=== PATIENT | female | born 1940 | race Caucasian/White ===

== ENCOUNTER 2020-01-09 08:42 | Outpatient (REF) | payer MEDICARE, SELFPAY ==
--- NOTE | 2020-01-09 | MM_ITS ---
EXAMINATION: MM SCREENING DIGITAL BREAST TOMOSYNTHESIS, BILATERAL CLINICAL INFORMATION: Screening. Asymptomatic. The lifetime risk of breast cancer based on the Tyrer-Cuzick Model is 1%. COMPARISON: Mammography: 01/03/2019, 12/29/2017, 12/03/2016 TECHNIQUE: Digital breast tomosynthesis is performed in both the craniocaudal and mediolateral oblique views along with computer-aided detection (CAD). Synthesized 2D images are generated from the tomosynthesis. FINDINGS: The breasts are almost entirely fatty (ACR BI-RADS breast composition Category a). There are no significant masses, abnormal calcifications, or other abnormalities. Background stromal markings are stable. There is no developing density. No significant changes. IMPRESSION: No mammographic evidence of malignancy. ASSESSMENT: BI-RADS 1: Negative RECOMMENDATION: Routine annual mammography screening. This patient's information was entered into a reminder system with a target due date for their next mammogram.
== END 2020-01-09 08:43 | disposition home or self-care (01) ==
LOC: HO.MAMMO 08:42
PROVIDERS: PCP Internal Medicine; Visit Provider Internal Medicine
DX: Z12.31 Encounter for screening mammogram for malignant neoplasm of breast (principal)
CPT/HCPCS: 77063; 77067; 78014

== ENCOUNTER 2020-04-23 07:11 | Outpatient (REF) | payer MEDICARE, SELFPAY ==
[2020-04-23 08:26] LABS: Alanine Aminotransferase 35 U/L (0-31); Anion Gap 14 (12-20); Aspartate Amino Transferase 26 U/L (5-31); Blood Urea Nitrogen 16 mg/dL (9-16); Calcium 9.4 mg/dL (8.4-10.2); Carbon Dioxide 31 mmol/L (22-29); Chloride 100 mmol/L (96-108); Cholesterol 264 mg/dL; Estimated Glomerular Filt Rate 51; Glucose Fasting 99 mg/dL (60-99); HDL Cholesterol 93 mg/dL; LDL Cholesterol Calculated 144 mg/dl; Sodium 141 mmol/L (135-145); Triglycerides 135 mg/dL
[2020-04-23 08:51] LABS: Free T4 (Free Thyroxine) 0.99 ng/dL (0.71-1.85); Thyroid Stimulating Hormone 6.42 uIU/mL (0.32-4.0); Vitamin D 25-OH Total 48.4 ng/mL (>30)
== END 2020-04-23 07:12 | disposition home or self-care (01) ==
LOC: HO.LAB 07:11
PROVIDERS: Visit Provider Internal Medicine
DX: E78.5 Hyperlipidemia, unspecified (principal); I35.0 Nonrheumatic aortic (valve) stenosis; I10 Essential (primary) hypertension; E03.9 Hypothyroidism, unspecified; M85.852 Other specified disorders of bone density and structure, left thigh
CPT/HCPCS: 36415; 80048; 80061; 82306; 84439; 84443; 84450; 84460

== ENCOUNTER 2020-07-30 07:09 | Outpatient (REF) | payer MEDICARE, SELFPAY ==
[2020-07-30 09:16] LABS: Alanine Aminotransferase 34 U/L (0-31); Anion Gap 13 (12-20); Aspartate Amino Transferase 26 U/L (5-31); Blood Urea Nitrogen 17 mg/dL (9-16); Calcium 9.7 mg/dL (8.4-10.2); Carbon Dioxide 32 mmol/L (22-29); Chloride 101 mmol/L (96-108); Cholesterol 255 mg/dL; Estimated Glomerular Filt Rate > 60; Glucose Fasting 96 mg/dL (60-99); HDL Cholesterol 92 mg/dL; LDL Cholesterol Calculated 135 mg/dl; Potassium 3.6 mmol/L (3.3-5.1); Sodium 142 mmol/L (135-145); Triglycerides 143 mg/dL
[2020-07-30 09:38] LABS: Free T4 (Free Thyroxine) 1.05 ng/dL (0.71-1.85); Thyroid Stimulating Hormone 1.23 uIU/mL (0.32-4.0); Vitamin D 25-OH Total 44.3 ng/mL (>30)
== END 2020-07-30 07:10 | disposition home or self-care (01) ==
LOC: HO.LAB 07:09
PROVIDERS: PCP Internal Medicine; Visit Provider Internal Medicine
DX: M85.852 Other specified disorders of bone density and structure, left thigh (principal); I35.0 Nonrheumatic aortic (valve) stenosis; I10 Essential (primary) hypertension; E78.5 Hyperlipidemia, unspecified; E03.9 Hypothyroidism, unspecified; Z78.0 Asymptomatic menopausal state
CPT/HCPCS: 36415; 80048; 80061; 82306; 84439; 84443; 84450; 84460

== ENCOUNTER → 2020-10-10 09:37 | Outpatient (REF) | payer MEDICARE, SELFPAY ==
--- NOTE | 2020-10-10 09:30 | CA_ITS ---
Transthoracic Echocardiogram Patient (Last, First, Middle): Dina Lvey M Gender: Female Date of : 1940 Age: 79 Procedure Date: 10/10/2020 Procedure Type: Transthoracic Echocardiogram Location: OP Height: 149.86 cm Weight: 64.86 kg BSA: 1.60 m2 Heart Rate: bpm BP: 138 / 79 mmHg Yard Demurrage Clerk: DSG Referring MD: Kirk Tejeda MD Symptoms: I35.0 NON RHEU Study Quality: Fair ECG Rhythm: Sinus Conclusions: - The left ventricular systolic function is hyperdynamic. The visually estimated ejection fraction is >70%. - There is moderate calcification of the aortic valve. There is moderate aortic valve stenosis. Findings Left Ventricle Normal left ventricular cavity size. There is normal left ventricular wall thickness. The left ventricular systolic function is hyperdynamic. The visually estimated ejection fraction is >70%. There is no evidence of regional wall motion abnormalities. E/E prime ratio is <8, consistent with normal filling pressures. Evidence suggests grade I (mild) diastolic dysfunction. Right Ventricle Normal right ventricular cavity size and systolic function. Atria Both atria are normal in size. Aortic Valve There is moderate calcification of the aortic valve. There is moderate aortic valve stenosis. The peak aortic velocity is 2.87 m/s with a calculated peak gradient of 33 mmHg. The mean gradient is 19 mmHg. The aortic valve area is 1.11 cm2. There is no aortic valve regurgitation. Dimensionless index 0.38. Mitral Valve There is mild mitral annular calcification. There is no mitral valve regurgitation. There is no mitral valve stenosis. Pulmonic Valve The pulmonic valve was not well visualized. Tricuspid Valve Normal tricuspid valve structure. There is trace tricuspid valve regurgitation. The pulmonary artery systolic pressure is normal. Great Vessels The aortic annulus, sinuses of valsalva, and asc aorta are normal in size. Venous The inferior vena cava is normal in size and collapses greater than 50% with inspiration. Pericardium/Pleural There is no evidence of pericardial effusion. Prior Study Comparison Changes noted compared to prior study dated: 10/10/2019. Slight progression of aortic stenosis. Measurements 2D Linear Measurements IVSd: 0.82 0.6-0.9/0.6-1.0 cm LVIDd: 4.00 3.9-5.3/4.2-5.9 cm LVIDd Index: 2.50 2.4-3.2/2.2-3.1 cm/m2 LVIDs: 2.59 2.0-3.6 cm LVPWd: 0.84 0.7-1.1 cm Ao Root: 2.40 2.1-3.5 cm LA Diam: 3.40 2.7-3.8/3.0-4.0 cm LAIDs Index: 2.13 1.5-2.3 cm/m2 LV Mass: 121.71 67-162/88-224 g LV Mass Index: 76.07 43-95/49-115 g/m2 LVOT Diam: 1.90 3.0+(-)1.3 cm 2D Systolic Function EF 4C: 74.20 >55% Mitral Valve MV Pk E: 0.48 MV PK A: 0.81 MV Decel Time: 117.00 E/A: 0.60 E'Lateral: 7.62 E'Medial: 5.77 E/E' Med: 8.40 E/E' Lat: 6.40 PHT: 34.00 MVA PHT: 6.47 Decel [place]: 4.13 Aortic Valve AoV Pk Gautam: 2.87 AoV Mn Gautam: 2.06 AoV VTI: 0.52 AoV Pk Grad: 33.00 Aov Mn Grad: 19.00 ADALI Cont.VTI: 1.11 LVOT LVOT Pk Gautam: 1.08 LVOT Mn Gautam: 0.76 LVOT VTI: 0.21 LVOT Pk Grad: 5.00 LVOT Mn Grad: 3.00 LVOT Diam: 1.90 LVOT Area: 2.84 Diastolic Function MV Pk E: 0.48 MV Pk A: 0.81 E/A: 0.60 E'Medial: 5.77 E/E' Med: 8.40 E' Laterial: 7.62 E/E' Lat: 6.40 Tricuspid Valve TR Pk Gautam: 2.27 TR Pk Grad: 21.00 RA Press: 3.00 RVSP: 24.00 Great Vessels Aorta Ao Root-2D: 2.40 2.0-3.7 cm Ao Asc: 3.10 2.1-3.4 cm Updated in Other Vendor System with Status of Final Kirk Tejeda MD electronically signed on 10/11/2020 12:54:10 PM with status of Final
== END ==
LOC: HO.CARD 09:37
PROVIDERS: PCP Internal Medicine; Visit Provider Internal Medicine
DX: I35.0 Nonrheumatic aortic (valve) stenosis (principal)
CPT/HCPCS: 93306

== ENCOUNTER → 2020-11-05 09:02 | Outpatient (BNVA) | payer MEDICARE, SELFPAY | PROVIDERS: PCP Internal Medicine; Referring Provider Internal Medicine; Visit Provider Internal Medicine | DX: I35.0 Nonrheumatic aortic (valve) stenosis (principal); I10 Essential (primary) hypertension | CPT/HCPCS: 93005; 99212 ==

== ENCOUNTER 2021-02-04 07:02 | Outpatient (REF) | payer MEDICARE, SELFPAY ==
[2021-02-04 08:42] LABS: Alanine Aminotransferase 22 U/L (0-31); Anion Gap 13 (12-20); Aspartate Amino Transferase 21 U/L (5-31); Blood Urea Nitrogen 15 mg/dL (9-16); Calcium 9.6 mg/dL (8.4-10.2); Carbon Dioxide 30 mmol/L (22-29); Chloride 101 mmol/L (96-108); Cholesterol 251 mg/dL; Estimated Glomerular Filt Rate > 60; Glucose Fasting 91 mg/dL (60-99); HDL Cholesterol 86 mg/dL; LDL Cholesterol Calculated 139 mg/dl; Potassium 3.4 mmol/L (3.3-5.1); Sodium 141 mmol/L (135-145); Triglycerides 133 mg/dL
[2021-02-04 09:02] LABS: Vitamin D 25-OH Total 38.7 ng/mL (>30)
== END 2021-02-04 07:03 | disposition home or self-care (01) ==
LOC: HO.LAB 07:02
PROVIDERS: PCP Internal Medicine; Visit Provider Internal Medicine
DX: I10 Essential (primary) hypertension (principal); E78.5 Hyperlipidemia, unspecified; E03.9 Hypothyroidism, unspecified; M85.852 Other specified disorders of bone density and structure, left thigh; Z78.0 Asymptomatic menopausal state
CPT/HCPCS: 36415; 80048; 80061; 82306; 84439; 84443; 84450; 84460

== ENCOUNTER 2021-03-20 08:25 | Outpatient (REF) | payer MEDICARE, SELFPAY ==
--- NOTE | ~2021-03-20 | MM_ITS ---
EXAMINATION: BONE DENSITOMETRY CLINICAL INDICATION: Osteopenia. COMPARISON: Previous BD dated 01/03/2019 and baseline BD dated 02/10/2007. TECHNIQUE: Using a Hydrophi DXA System (software version: 13.1) manufactured by [employer], dual-energy x-ray absorptiometry was performed of the lumbar spine and left hip. The images are of good technical quality. Summary results are attached. FINDINGS: AP SPINE L1-L4: Current: BMD 1.131 g/cm2, Z-score 1.5, T-score -0.4, normal, 1.3% decrease from previous, 7.1% increase from baseline (<5% change is not significant). Prior: BMD 1.146 g/cm2. Baseline: BMD 1.056 g/cm2. LEFT FEMUR, NECK: Current: BMD 0.832 g/cm2, Z-score 0.8, T-score -1.5, osteopenia. Prior: BMD 0.835 g/cm2. Baseline: BMD 0.856 g/cm2. LEFT FEMUR, TOTAL: Current: BMD 0.967 g/cm2, Z-score 1.8, T-score -0.3, normal, 2.2% decrease from previous, 1.8% increase from baseline (<5% change is not significant). Prior: BMD 0.989 g/cm2. Baseline: BMD 0.950 g/cm2. IDENTIFIED RISK FACTORS: Early menopause, height loss, history of fracture (adult), hysterectomy, left oophorectomy, secondary osteoporosis. HISTORY OF FRACTURE: Humerus. MEDICATIONS: Vitamin D. MM/XR DEXA axial skeleton IMPRESSION: 1. DIAGNOSIS: Osteopenia based on the lowest T-score value of -1.5 in the femoral neck applying World Health Organization criteria. 2. 10-YEAR FRACTURE RISK PREDICTION, FRAX: Major osteoporotic fracture (clinical spine, forearm, hip or shoulder) 19.0%. Hip fracture 4.4%. 3. Treatment Recommendations: NOF guidelines recommend consideration for treatment in postmenopausal women and men age 50 and older presenting with the following: -A hip or vertebral (clinical or morphometric) fracture. -T-score less than or equal to -2.5 at the femoral neck or spine after appropriate evaluation to exclude secondary causes. -Low bone mass at the hip or spine and a 10-year fracture probability by FRAX of greater than or equal to 3% for hip fracture or greater than or equal to 20% for major osteoporotic fracture based on the [place] adapted WHO algorithm. 4. Other Recommendations: All treatment decisions require clinical judgment and consideration of individual patient factors, including patient preferences, comorbidities, previous drug use, risk factors not captured in the FRAX model (e.g. frailty, falls, vitamin D deficiency, increased bone turnover, interval significant decline in bone density) and possible under or overestimation of fracture risk by FRAX. Additional medical evaluation for secondary cause of low bone mineral density may be appropriate. FUTURE SCAN RECOMMENDATION: People with diagnosed cases of osteoporosis or at high risk for fracture should have regular bone mineral density tests. For patients eligible for Medicare, routine testing is allowed once every 2 years. The testing frequency can be increased to one year for patients who have rapidly progressing disease, those who are receiving or discontinuing medical therapy to restore bone mass, or have additional risk factors.
--- NOTE | ~2021-03-20 | MM_ITS ---
EXAMINATION: MM SCREENING DIGITAL BREAST TOMOSYNTHESIS, BILATERAL CLINICAL INFORMATION: Screening. Asymptomatic. The lifetime risk of breast cancer based on the Tyrer-Cuzick Model is 0.7%. COMPARISON: Mammography: January 09, 2020 and studies dating back to September 08, 2013 TECHNIQUE: Digital breast tomosynthesis is performed in both the craniocaudal and mediolateral oblique views along with computer-aided detection (CAD). Synthesized 2D images are generated from the tomosynthesis. FINDINGS: The breasts are almost entirely fatty (ACR BI-RADS breast composition Category a). There are no significant masses, abnormal calcifications, or other abnormalities. MM/MM tomosynthesis screening BI IMPRESSION: There are no significant changes from prior study. ASSESSMENT: BI-RADS 1: Negative RECOMMENDATION: Routine annual mammography screening. This patient's information was entered into a reminder system with a target due date for their next mammogram.
== END 2021-03-20 08:26 | disposition home or self-care (01) ==
LOC: HO.MAMMO 08:25
PROVIDERS: Visit Provider Internal Medicine
DX: Z12.31 Encounter for screening mammogram for malignant neoplasm of breast (principal); M85.852 Other specified disorders of bone density and structure, left thigh; R29.890 Loss of height; Z13.820 Encounter for screening for osteoporosis; Z78.0 Asymptomatic menopausal state
CPT/HCPCS: 77063; 77067; 77080

== ENCOUNTER 2021-08-05 07:07 | Outpatient (REF) | payer MEDICARE, SELFPAY ==
[2021-08-05 07:35] LABS: Imm Gran Abs Auto 0.02 X10*3/uL (0.00-0.03); Imm Gran Pct Auto 0.3 % (0.0-0.4); MANUAL DIFF FLAG SCAN; Mean Platelet Volume 11.2 fL (9.4-12.3); PLT CLUMP 1; SCAN SMEAR FLAG 1
[2021-08-05 07:37] LABS: Basophils Absolute Auto 0.1 X10*3/uL (0.0-0.2); Basophils Percent Auto 0.7 % (0-2); Eosinophils Absolute Auto 0.2 X10*3/uL (0.0-0.4); Eosinophils Percent Auto 3.4 % (0-4); Hematocrit 39.7 % (37.0-47.0); Hemoglobin 13.4 g/dl (12.0-16.0); Lymphocytes Absolute Auto 2.1 X10*3/uL (1.2-4.9); Lymphocytes Percent Auto 29.1 % (20-40); Mean Corpuscular HGB Conc 33.8 g/dl (31.0-35.0); Mean Corpuscular Hemoglobin 32.7 pg (27.0-33.0); Mean Corpuscular Volume 96.8 fL (80.0-98.0); Monocytes Absolute Auto 0.5 X10*3/uL (0.1-1.2); Monocytes Percent Auto 7.1 % (2-11); Neutrophils Absolute Auto 4.2 x10*3/uL (2.0-8.3); Neutrophils Percent Auto 59.4 % (45-73); Red Cell Distribution Width 13.5 % (11.0-16.0)
[2021-08-05 08:10] LABS: Alanine Aminotransferase 36 U/L (0-31); Anion Gap 12 (12-20); Aspartate Amino Transferase 27 U/L (5-31); Blood Urea Nitrogen 16 mg/dL (9-16); Carbon Dioxide 28 mmol/L (22-29); Chloride 103 mmol/L (96-108); Cholesterol 244 mg/dL; Estimated Glomerular Filt Rate > 60; Glucose Fasting 94 mg/dL (60-99); HDL Cholesterol 91 mg/dL; LDL Cholesterol Calculated 129 mg/dl; Potassium 3.9 mmol/L (3.3-5.1); Sodium 139 mmol/L (135-145); Triglycerides 123 mg/dL
[2021-08-05 08:18] LABS: Free T4 (Free Thyroxine) 1.17 ng/dL (0.71-1.85); Thyroid Stimulating Hormone 1.24 uIU/mL (0.32-4.0); Vitamin D 25-OH Total 40.9 ng/mL (>30)
[2021-08-05 08:26] LABS: Platelet Count 180 X10*3/uL (160-400); SLIDE REVIEW VERIFIED
== END 2021-08-05 07:08 | disposition home or self-care (01) ==
LOC: HO.LAB 07:07
PROVIDERS: PCP Internal Medicine; Visit Provider Internal Medicine
DX: E03.9 Hypothyroidism, unspecified (principal); E78.5 Hyperlipidemia, unspecified; I10 Essential (primary) hypertension; I35.0 Nonrheumatic aortic (valve) stenosis; M85.852 Other specified disorders of bone density and structure, left thigh; Z78.0 Asymptomatic menopausal state
CPT/HCPCS: 36415; 80048; 80061; 82306; 84439; 84443; 84450; 84460; 85025

== ENCOUNTER 2021-09-02 11:00 | Outpatient (REF) | payer MEDICARE, SELFPAY ==
--- NOTE | ~2021-09-02 | XR_ITS ---
EXAMINATION: XR KNEE, LEFT CLINICAL INFORMATION: Left knee pain COMPARISON: None TECHNIQUE: Four views of the left knee. FINDINGS: Moderate joint effusion. No fracture or dislocation or destructive lesion. Spurring of the tibial spines and superior patella noted. XR/XR knee LT 4V IMPRESSION: Degenerative changes noted. Joint effusion. No acute findings.
--- NOTE | ~2021-09-02 | XR_ITS ---
EXAMINATION: XR BILATERAL HIPS WITH AP PELVIS CLINICAL INFORMATION: Right hip pain. COMPARISON: None TECHNIQUE: AP view of the pelvis and single views of each hip were obtained. FINDINGS: Mild bilateral hip degenerative joint changes are seen, right greater than left with subcortical cystic changes seen in the superior aspect. There is no acute fracture or dislocation. The bony pelvis is intact. The soft tissues are unremarkable. XR/XR hip BI w PEL1V IMPRESSION: Mild bilateral hip degenerative joint changes most consistent with osteoarthritis. No acute fracture.
== END 2021-09-02 11:01 | disposition home or self-care (01) ==
LOC: HO.HMGCX 11:00
PROVIDERS: PCP Internal Medicine; Visit Provider Internal Medicine
DX: M25.551 Pain in right hip (principal); M25.552 Pain in left hip; M25.562 Pain in left knee
CPT/HCPCS: 73521; 73564

== ENCOUNTER → 2021-10-24 08:32 | Outpatient (REF) | payer MEDICARE, SELFPAY ==
--- NOTE | 2021-10-24 08:39 | CA_ITS ---
Transthoracic Echocardiogram Patient (Last, First, Middle): Dina Levy M Gender: Female Date of : 1940 Age: 80 Procedure Date: 10/24/2021 Procedure Type: Transthoracic Echocardiogram Location: OP Height: 147.32 cm Weight: 63.5 kg BSA: 1.57 m2 Heart Rate: 96 bpm BP: 132 / 68 mmHg Icing And Glaze Maker: SB Referring MD: Kirk Tejeda MD Symptoms: I35.0 - Nonrheumatic aortic (valve) stenosis Study Quality: Adequate ECG Rhythm: Sinus Conclusions: - Normal left ventricular cavity size. There is normal left ventricular wall thickness. The left ventricular systolic function is hyperdynamic. The visually estimated ejection fraction is >70%. - E/E prime ratio is between 8 and 15 consistent with indeterminate filling pressures. - Normal right ventricular cavity size and systolic function. - There is mild to moderate aortic valve stenosis. The peak aortic velocity is 2.86 m/s. The mean gradient is 16 mmHg. Findings Left Ventricle Normal left ventricular cavity size. There is normal left ventricular wall thickness. The left ventricular systolic function is hyperdynamic. The visually estimated ejection fraction is >70%. There is no evidence of regional wall motion abnormalities. Abnormal diastolic function is noted. Spectral Doppler is indicative of an impaired relaxation filling pattern. E/E prime ratio is between 8 and 15 consistent with indeterminate filling pressures. Right Ventricle Normal right ventricular cavity size and systolic function. Atria The left atrium is normal in size. There is no evidence of interatrial shunt by color Doppler. The right atrium is normal in size. Aortic Valve There is a normal trileaflet aortic valve. There is mild calcification of the aortic valve. There is mild thickening of the aortic valve. There is mild to moderate aortic valve stenosis. The peak aortic velocity is 2.86 m/s. The mean gradient is 16 mmHg. There is no aortic valve regurgitation. Mitral Valve The mitral valve appears normal. There is trace mitral valve regurgitation. There is no mitral valve stenosis. Pulmonic Valve The pulmonic valve is likely normal. Tricuspid Valve Normal tricuspid valve structure and function. There is trace tricuspid valve regurgitation. Tricuspid regurgitation envelope is inadequate for calculation of right ventricular systolic pressure. Normal right atrial pressure. Great Vessels All visible segments of the aorta are normal in size. The pulmonary artery was not well visualized. Venous The inferior vena cava is normal in size and collapses greater than 50% with inspiration. Pericardium/Pleural Normal pericardial structure. There is no evidence of pericardial effusion. Prior Study Comparison No significant change compared to prior study dated: 10/10/2020. Measurements 2D Linear Measurements IVSd: 0.59 0.6-0.9/0.6-1.0 cm LVIDd: 4.32 3.9-5.3/4.2-5.9 cm LVIDd Index: 2.75 2.4-3.2/2.2-3.1 cm/m2 LVIDs: 2.34 2.0-3.6 cm LVPWd: 0.52 0.7-1.1 cm LA Diam: 3.60 2.7-3.8/3.0-4.0 cm LAIDs Index: 2.29 1.5-2.3 cm/m2 LV Mass: 82.66 67-162/88-224 g LV Mass Index: 52.65 43-95/49-115 g/m2 LVOT Diam: 2.00 3.0+(-)1.3 cm 2D Systolic Function EF 4C: 62.00 >55% EF 2C: 46.10 >55% EF BiP: 55.50 >55% Mitral Valve MV Pk E: 0.66 MV PK A: 0.98 MV Decel Time: 224.00 E/A: 0.70 E'Lateral: 7.29 E'Medial: 5.87 E/E' Med: 11.20 E/E' Lat: 9.00 PHT: 66.00 MVA PHT: 3.33 Decel [place]: 2.92 Aortic Valve AoV Pk Gautam: 2.86 AoV Mn Gautam: 1.86 AoV VTI: 0.48 AoV Pk Grad: 33.00 Aov Mn Grad: 16.00 ADALI Cont.VTI: 1.55 LVOT LVOT Pk Gautam: 1.24 LVOT Mn Gautam: 0.81 LVOT VTI: 0.24 LVOT Pk Grad: 6.00 LVOT Mn Grad: 3.00 LVOT Diam: 2.00 LVOT Area: 3.14 Diastolic Function MV Pk E: 0.66 MV Pk A: 0.98 E/A: 0.70 E'Medial: 5.87 E/E' Med: 11.20 E' Laterial: 7.29 E/E' Lat: 9.00 Right Ventricle TVS' Gautam: 10.60 Tricuspid Valve RA Press: 3.00 Great Vessels Aorta Sinus of Valsalva: 2.80 2.0-3.5 cm Ao Asc: 3.20 2.1-3.4 cm Pulmonary Valve PV Pk Gautam: 1.43 Peak PV Grad: 8.00 Updated in Other Vendor System with Status of Final Josh Cruz MD electronically signed on 10/26/2021 12:23:38 PM with status of Final
== END ==
LOC: HO.CARD 08:32
PROVIDERS: PCP Internal Medicine; Visit Provider Internal Medicine
DX: I35.0 Nonrheumatic aortic (valve) stenosis (principal)
CPT/HCPCS: 93306

== ENCOUNTER → 2021-12-01 09:10 | Outpatient (BNVA) | payer MEDICARE, SELFPAY | PROVIDERS: PCP Internal Medicine; Referring Provider Internal Medicine; Visit Provider Internal Medicine | DX: I35.0 Nonrheumatic aortic (valve) stenosis (principal); I10 Essential (primary) hypertension; R06.09 Other forms of dyspnea; U09.9 Post COVID-19 condition, unspecified; Z82.49 Family history of ischemic heart disease and other diseases of the circulatory system | CPT/HCPCS: 93005; 99212 ==

== ENCOUNTER 2022-03-02 07:03 | Outpatient (REF) | payer MEDICARE, SELFPAY ==
[2022-03-02 08:26] LABS: Alanine Aminotransferase 25 U/L (0-31); Anion Gap 11 (12-20); Aspartate Amino Transferase 22 U/L (5-31); Blood Urea Nitrogen 16 mg/dL (9-16); Calcium 9.6 mg/dL (8.4-10.2); Carbon Dioxide 31 mmol/L (22-29); Chloride 101 mmol/L (96-108); Cholesterol 231 mg/dL; Estimated Glomerular Filt Rate > 60; Free T4 (Free Thyroxine) 1.14 ng/dL (0.71-1.85); Glucose Fasting 99 mg/dL (60-99); HDL Cholesterol 83 mg/dL; LDL Cholesterol Calculated 120 mg/dl; Potassium 3.7 mmol/L (3.3-5.1); Sodium 139 mmol/L (135-145); Thyroid Stimulating Hormone 0.91 uIU/mL (0.32-4.0); Triglycerides 141 mg/dL; Vitamin D 25-OH Total 43.9 ng/mL (>30)
== END 2022-03-02 07:04 | disposition home or self-care (01) ==
LOC: HO.LAB 07:03
PROVIDERS: PCP Internal Medicine; Visit Provider Internal Medicine
DX: E03.9 Hypothyroidism, unspecified (principal); M85.852 Other specified disorders of bone density and structure, left thigh; I35.0 Nonrheumatic aortic (valve) stenosis; I10 Essential (primary) hypertension; E78.5 Hyperlipidemia, unspecified; Z78.0 Asymptomatic menopausal state
CPT/HCPCS: 36415; 80048; 80061; 82306; 84439; 84443; 84450; 84460

== ENCOUNTER 2022-03-23 08:45 | Outpatient (REF) | payer MEDICARE, SELFPAY ==
--- NOTE | ~2022-03-23 | MM_ITS ---
EXAMINATION: MM SCREENING DIGITAL BREAST TOMOSYNTHESIS, BILATERAL CLINICAL INFORMATION: Screening. Asymptomatic. COMPARISON: Mammography: 03/20/2021, 01/09/2020, 01/03/2019 TECHNIQUE: Digital breast tomosynthesis is performed in both the craniocaudal and mediolateral oblique views along with computer-aided detection (CAD). Synthesized 2D images are generated from the tomosynthesis. FINDINGS: There are scattered areas of fibroglandular density (ACR BI-RADS breast composition Category b). There are no significant masses, abnormal calcifications, or other abnormalities. Again, there are regional ductal secretory calcifications anterior lateral left breast the axillary and skin contours are unremarkable. No significant changes. MM/MM tomosynthesis screening BI IMPRESSION: No mammographic evidence of malignancy. ASSESSMENT: BI-RADS 2: Benign RECOMMENDATION: Routine annual mammography screening. This patient's information was entered into a reminder system with a target due date for their next mammogram.
== END 2022-03-23 08:46 | disposition home or self-care (01) ==
LOC: HO.MAMMO 08:45
PROVIDERS: Visit Provider Internal Medicine
DX: Z12.31 Encounter for screening mammogram for malignant neoplasm of breast (principal)
CPT/HCPCS: 77063; 77067

== ENCOUNTER 2022-09-02 06:51 | Outpatient (REF) | payer MEDICARE, SELFPAY ==
[2022-09-02 08:24] LABS: Alanine Aminotransferase 26 U/L (0-31); Anion Gap 16 (12-20); Aspartate Amino Transferase 23 U/L (5-31); Blood Urea Nitrogen 17 mg/dL (9-16); Calcium 9.9 mg/dL (8.4-10.2); Carbon Dioxide 29 mmol/L (22-29); Chloride 103 mmol/L (96-108); Cholesterol 233 mg/dL; Estimated Glomerular Filt Rate > 60; Glucose Fasting 92 mg/dL (60-99); HDL Cholesterol 83 mg/dL; LDL Cholesterol Calculated 124 mg/dl; Potassium 3.6 mmol/L (3.3-5.1); Sodium 144 mmol/L (135-145); Triglycerides 131 mg/dL
[2022-09-02 08:41] LABS: Free T4 (Free Thyroxine) 1.23 ng/dL (0.71-1.85); Thyroid Stimulating Hormone 0.14 uIU/mL (0.32-4.0); Vitamin D 25-OH Total 45.5 ng/mL (>30)
== END 2022-09-02 06:52 | disposition home or self-care (01) ==
LOC: HO.LAB 06:51
PROVIDERS: PCP Internal Medicine; Visit Provider Internal Medicine
DX: M85.852 Other specified disorders of bone density and structure, left thigh (principal); I35.0 Nonrheumatic aortic (valve) stenosis; I10 Essential (primary) hypertension; E78.5 Hyperlipidemia, unspecified; E03.9 Hypothyroidism, unspecified; M25.551 Pain in right hip; M25.552 Pain in left hip; M25.562 Pain in left knee; Z78.0 Asymptomatic menopausal state
CPT/HCPCS: 36415; 80048; 80061; 82306; 84439; 84443; 84450; 84460

== ENCOUNTER → 2022-11-03 08:55 | Outpatient (REF) | payer MEDICARE, SELFPAY ==
--- NOTE | 2022-11-03 08:57 | CA_ITS ---
Transthoracic Echocardiogram Patient (Last, First, Middle): Dina Levy M Gender: Female Date of : 1940 Age: 81 Procedure Date: 11/03/2022 Procedure Type: Transthoracic Echocardiogram Location: OP Height: 147.32 cm Weight: 63.96 kg BSA: 1.57 m2 Heart Rate: bpm BP: 145 / 80 mmHg Lead Data Architect: AGUSTINA Referring MD: Kirk Tejeda MD Symptoms: I35.0 - Nonrheumatic aortic (valve) stenosis Study Quality: Fair ECG Rhythm: Sinus Conclusions: - The left ventricular systolic function is hyperdynamic. The visually estimated ejection fraction is >70%. - There is moderate aortic valve stenosis. Findings Left Ventricle Normal left ventricular cavity size. There is normal left ventricular wall thickness. The left ventricular systolic function is hyperdynamic. The visually estimated ejection fraction is >70%. There is no evidence of regional wall motion abnormalities. Diastolic function is normal for age. Small intraventricular and LVOT gradients; slight increase with valsalva. Right Ventricle Normal right ventricular cavity size and systolic function. Atria The left atrium is mildly dilated. The right atrium is normal in size. Aortic Valve There is moderate calcification of the aortic valve. There is moderate aortic valve stenosis. The peak aortic velocity is 3.30 m/s with a calculated peak gradient of 44 mmHg. The mean gradient is 26 mmHg. The aortic valve area is 1.25 cm2. There is no aortic valve regurgitation. Dimensionless index 0.4. Mitral Valve There is mild mitral annular calcification. There is no mitral valve regurgitation. There is no mitral valve stenosis. Pulmonic Valve The pulmonic valve is likely normal. Tricuspid Valve There is trace tricuspid valve regurgitation. There is no evidence of pulmonary hypertension. Great Vessels The asc aorta is normal in size. Venous The inferior vena cava is normal in size and collapses greater than 50% with inspiration. Pericardium/Pleural There is no evidence of pericardial effusion. Prior Study Comparison No significant change compared to prior study dated: 10/24/2021. Measurements 2D Linear Measurements IVSd: 0.77 0.6-0.9/0.6-1.0 cm LVIDd: 3.84 3.9-5.3/4.2-5.9 cm LVIDd Index: 2.45 2.4-3.2/2.2-3.1 cm/m2 LVIDs: 1.84 2.0-3.6 cm LVPWd: 0.78 0.7-1.1 cm LA Diam: 3.70 2.7-3.8/3.0-4.0 cm LAIDs Index: 2.36 1.5-2.3 cm/m2 LV Mass: 104.06 67-162/88-224 g LV Mass Index: 66.28 43-95/49-115 g/m2 LVOT Diam: 2.00 3.0+(-)1.3 cm Mitral Valve MV Pk E: 0.68 MV PK A: 1.05 MV Decel Time: 165.00 E/A: 0.70 E'Lateral: 7.72 E'Medial: 6.31 E/E' Med: 10.80 E/E' Lat: 8.80 PHT: 48.00 MVA PHT: 4.58 Decel [place]: 4.15 Aortic Valve AoV Pk Gautam: 3.30 AoV Mn Gautam: 2.41 AoV VTI: 0.63 AoV Pk Grad: 44.00 Aov Mn Grad: 26.00 ADALI Cont.VTI: 1.25 LVOT LVOT Pk Gautam: 1.32 LVOT Mn Gautam: 0.86 LVOT VTI: 0.25 LVOT Pk Grad: 7.00 LVOT Mn Grad: 3.00 LVOT Diam: 2.00 LVOT Area: 3.14 Diastolic Function MV Pk E: 0.68 MV Pk A: 1.05 E/A: 0.70 E'Medial: 6.31 E/E' Med: 10.80 E' Laterial: 7.72 E/E' Lat: 8.80 Right Ventricle TAPSE (mm): 20.40 TVS' Gautam: 17.20 Tricuspid Valve RA Press: 3.00 Great Vessels Aorta Sinus of Valsalva: 2.82 2.0-3.[address] [place]: 2.55 1.7-3.4 cm Ao Asc: 3.30 2.1-3.4 cm Updated in Other Vendor System with Status of Final Kirk Tejeda MD electronically signed on 11/05/2022 4:25:07 PM with status of Final
== END ==
LOC: HO.CARD 08:55
PROVIDERS: PCP Internal Medicine; Visit Provider Internal Medicine
DX: I35.0 Nonrheumatic aortic (valve) stenosis (principal)
CPT/HCPCS: 93306

== ENCOUNTER → 2022-11-03 08:57 | Outpatient (BNV) | payer MEDICARE, SELFPAY | PROVIDERS: PCP Internal Medicine; Visit Provider Internal Medicine | DX: I35.0 Nonrheumatic aortic (valve) stenosis (principal) | CPT/HCPCS: 93306 ==

== ENCOUNTER 2022-11-30 08:58 | Outpatient (AMB) | payer MEDICARE, SELFPAY ==
--- NOTE | 2022-11-30 09:03 | MHC.OFFVIS ---
Intake Vital Signs 11/30/22 09:06 Height 4 ft 10 in Weight 144 lb 2.917 oz BMI 30.1 BP 124/76 Blood Pressure Location Lt brachial Position Sitting Pulse 97 Intake Visit Reasons: 1 year follow up, after echo Intake Note: 1 year follow up w/ EKG Corporate Trust Officer Required: No Accompanied by: Self / Same As Patient Allergies No Known Allergies Allergy (Verified 11/30/22 09:07) Medication List - Last Reconciled 11/30/22 by Kirk Tejeda MD aspirin (Adult Low Dose Aspirin) 81 mg PO DAILY atorvastatin 20 mg PO DAILY chlorthalidone 25 mg PO QAM cholecalciferol (vitamin D3) 50 mcg PO DAILY levothyroxine 112 mcg PO QAM 90 days HPI HPI Comments History of Present Illness Details Dina is here for follow-up regarding aortic stenosis. She states that she is doing fine. No specific complaints like angina or in fact anything cardiac sounding. Mostly getting along okay. [facility] Medical History (Updated 09/08/22 @ 11:59 by Nuria Hamilton MD) Acquired deformity of toenail Acquired hypothyroidism Bilateral hip pain COVID-19 vaccine dose declined Dyslipidemia Essential hypertension Left medial knee pain Nonrheumatic aortic (valve) stenosis Osteopenia of left femoral neck Post-menopause Tubular adenoma of colon Surgical History History of total abdominal hysterectomy and bilateral salpingo-oophorectomy Hx of cholecystectomy Hx of colonoscopy Family History Father CAD (coronary artery disease) Myocardial infarction Mother Type 2 diabetes mellitus Social History Housing: House Alcohol intake: current Patient Tobacco Use Status: Never used Tobacco e-Cigarette/Vaping Use: Never Used Second Hand Smoke Exposure: No Current occupational status: retired Cognitive needs: No Hearing needs: No Vision needs: Yes Review of Systems Const Denies weakness ENT Denies dizziness Card Denies chest pain, Denies chest pain with activity, Denies syncope, Denies rapid heart rate, Denies pedal edema, Denies edema, Denies leg edema, Denies lightheadedness, Denies palpitations, Denies dyspnea, Denies dyspnea on exertion and Denies orthopnea Resp Denies cough, Denies dyspnea and Denies dyspnea on exertion GI Denies hematochezia and Denies change in stool character Musc Denies abnormal gait, Denies muscle cramps, Denies muscle weakness, Denies numbness, Denies radiating pain into limb and Denies tingling Neuro Denies abnormal gait, Denies dizziness, Denies syncope, Denies numbness, Denies tingling and Denies weakness Endo Denies palpitations Physical Exam Vital Signs: Last Vital Signs Pulse 97 11/30/22 09:06 BP 124/76 11/30/22 09:06 BMI result Body Mass Index 30.1 Const General: comfortable and no acute distress Orientation/consciousness: patient oriented x3 HEENT Other: Unremarkable Head: Yes normal to inspection Neck Neck: Yes normal visual inspection Chest Chest palpation & inspection: normal inspection of the chest Resp Other: Minimal wheeze. Cardio Palpation: normal PMI Heart sounds: S1 normal heart sound present, S2 normal heart sound present, no gallops, Murmur heart sound present systolic early, II/, at the left sternal border and at the right sternal border and no rubs GI Palpation (GI): Soft to palpation Back/Spine/Pelvis Other: unremarkable Skin General skin exam: no rashes or lesions noted Neuro General: patient oriented x3 Extrem General: Yes normal to inspection Psych Mental Status: mental status grossly normal Office Procedures EKG Details: EKG with sinus rhythm at 97/Min; occasional PVC. [id number], Complete Assessment & Plan Assessment & Plan (1) Nonrheumatic aortic (valve) stenosis: Code(s): I35.0 - Nonrheumatic aortic (valve) stenosis Plan: In the most recent echocardiogram, mean gradient across aortic valve was 26 mm Hg with a peak of 44 mm Hg. Calculated valve area of 1.25 sq cm. Dimensionless index 0.4. No aortic valve regurgitation. Overall, suggest moderate aortic stenosis. , she also has hyperdynamic function with LVEF greater than 70%. That also contributes to some of the gradients. At this time, she has no symptoms and the valve stenosis is also not severe. We will continue to monitor Last stress test from 2019-in Fritz protocol, workload up to 5.6 Mets. Unremarkable perfusion imaging. Discussed in detail about natural history of aortic stenosis including symptoms, treatment options, including eventual TAVR. (2) Essential hypertension: Code(s): I10 - Essential (primary) hypertension Plan: Stable. No changes. Plan Total time spent including review of data, counseling, documentation, coordination of care-31 minutes. Orders: Orders CA echo transthoracic complete 51 Weeks I35.0 - Nonrheumatic aortic (valve) stenosis Coding Level of Care Code Est Pt Level 4 (44481) Diagnoses Nonrheumatic aortic (valve) stenosis I35.0 Essential hypertension I10 CPT Codes EKG - CPT: 64704-[id number], Complete ([id number])
[2022-11-30 09:06] VITALS: BP 124/76; PULSE 97; BMI 30.1
== END 2022-11-30 09:21 | disposition home or self-care (01) ==
PROVIDERS: PCP Internal Medicine; Referring Provider Internal Medicine; Visit Provider Internal Medicine
DX: I35.0 Nonrheumatic aortic (valve) stenosis (principal); I10 Essential (primary) hypertension
CPT/HCPCS: 93010; 99214

== ENCOUNTER → 2022-11-30 08:58 | Outpatient (BNVA) | payer MEDICARE, SELFPAY | PROVIDERS: PCP Internal Medicine; Referring Provider Internal Medicine; Visit Provider Internal Medicine | DX: I35.0 Nonrheumatic aortic (valve) stenosis (principal); I10 Essential (primary) hypertension | CPT/HCPCS: 93005; 99212 ==

== ENCOUNTER 2023-01-07 15:20 | Outpatient (AMB) | payer MEDICARE, SELFPAY ==
[2023-01-07 15:37] VITALS: BP 120/78; PULSE 91; O2SAT 95; BMI 29.5
--- NOTE | 2023-01-07 15:37 | MHC.PC.OV ---
Vital Signs 01/07/23 15:37 Height 4 ft 10 in Weight 141 lb 2 oz BMI 29.5 BP 120/78 Blood Pressure Location Rt brachial Position Sitting Pulse 91 Pulse Source Pulse Oximeter Pulse Oximetry (%) 95 Oxygen Delivery Method Room Air Intake Visit Reasons: Growth vaginal area Intake Note: pt says she noticed 2 nights ago a growth in her vaginal area she denies any pain Allergies No Known Allergies Allergy (Verified 01/08/23 01:35) Medication List - Last Reconciled 01/08/23 by Nuria Hamilton MD aspirin (Adult Low Dose Aspirin) 81 mg PO DAILY atorvastatin 20 mg PO DAILY chlorthalidone 25 mg PO QAM cholecalciferol (vitamin D3) 50 mcg PO DAILY levothyroxine 112 mcg PO QAM 90 days Tobacco use date assessed: 01/07/23 Fall risk assessment: No Falls in past year Last assessed Fall Risk: 01/07/23 Dental Screening Dental Screen Date: 01/07/23 Did you have a dental visit in the last 12 months?: No Did you have a dental problem in the last 6 months where you did not have access to dental care?: No Was dental information given to patient?: No HPI Growth vaginal area HPI Details 82-year-old lady here today complaining of sensation of something inside vaginal canal, more pronounced when she is standing or walking, this has been present for the last several days, not accompanied by any pain, no abdominal wall discharge, no urinary symptoms, no alteration in bowel habits. [facility] Medical History (Updated 01/07/23 @ 15:59 by Nuria Hamilton MD) Prolapse of female pelvic organs COVID-19 vaccine dose declined Left medial knee pain Bilateral hip pain Post-menopause Tubular adenoma of colon Osteopenia of left femoral neck Nonrheumatic aortic (valve) stenosis Essential hypertension Dyslipidemia Acquired hypothyroidism Acquired deformity of toenail Surgical History Hx of colonoscopy History of total abdominal hysterectomy and bilateral salpingo-oophorectomy Hx of cholecystectomy Family History Father CAD (coronary artery disease) Myocardial infarction Mother Type 2 diabetes mellitus Social History Housing: House Alcohol intake: current Patient Tobacco Use Status: Never used Tobacco e-Cigarette/Vaping Use: Never Used Second Hand Smoke Exposure: No Current occupational status: retired Cognitive needs: No Hearing needs: No Vision needs: Yes Questionnaire Thrive Questionnaire Date Thrive assessed: 09/08/22 CARLY-7 AMB Questionnaire CARYL-7 Date CARLY - 7 assessed: 09/08/22 Source: Developed by Drs. Param Hardy, Nat Banerjee, Sony Lopez and colleagues, with an educational cherelle from [employer]. Review of Systems Const Reports no additional complaints GI Reports no additional complaints Denies hematuria, Denies dysuria, Denies pelvic pain, Denies urinary incontinence, Denies urinary urgency and Denies vaginal discharge Physical exam (Primary Care) Vital Signs: Last Vital Signs Pulse 91 01/07/23 15:37 BP 120/78 01/07/23 15:37 Pulse Ox 95 01/07/23 15:37 Oxygen Delivery Method Room Air 01/07/23 15:37 BMI result Body Mass Index 29.5 Tobacco/Smoking Status: Tobacco use Status Tobacco use date assessed 01/07/23 01/07/23 15:41 Patient Tobacco Use Status Never used Tobacco 01/07/23 15:41 e-Cigarette/Vaping Use Never Used 01/07/23 15:41 Thrive Assessment: Date of Thrive Assessment Date Thrive assessed 09/08/22 01/07/23 15:41 Const Other: Alert oriented x3, no acute distress noted, ambulatory normal gait GI Other: Normal bowel sounds, soft, nontender, no mass palpated Other: Protuberant mass at vaginal introitus nontender and reducible External Female Exam: normal external appearance and normal appearance of the urethra Assessment and Plan Assessment & Plan (1) Prolapse of female pelvic organs: Code(s): N81.9 - Female genital prolapse, unspecified Plan: Likely bladder prolapse, , Referred to Urology, patient requesting for female provider. Orders: Referrals Urology Referral N81.9 - Female genital prolapse, unspecified Coding Level of Care Code Est Pt Level 3 (09263) Diagnoses Prolapse of female pelvic organs N81.9
== END 2023-01-07 16:24 | disposition home or self-care (01) ==
PROVIDERS: PCP Internal Medicine; Visit Provider Internal Medicine
DX: N81.9 Female genital prolapse, unspecified (principal)
CPT/HCPCS: 99213

== ENCOUNTER 2023-02-15 08:42 | Outpatient (AMB) | payer MEDICARE, SELFPAY ==
--- NOTE | 2023-02-15 08:43 | A.OFFVIS_ITS ---
Intake Intake Visit Reasons: Female genital prolapse Intake Note: NEW Patient presents today to established treatment for Female Genital: Meds- None Allergies to Antibiotic- No Known Allergies Blood Thinner- Aspirin PVR- 354 mL Yard Jacker Required: No Angiography Nurse: Angiography Nurse Present Accompanied by: Self / Same As Patient Allergies No Known Allergies Allergy (Verified 02/15/23 08:44) HPI HPI Comments History of Present Illness Details Dina is an 82-year-old female who presents today to the office for established treatment for female gential prolapse. 02/15/2023? She is here today for established treatment for female genital prolapse. The patient has a past medical history of hypertension, aortic stenosis, history of total hysterectomy in 1984. She denies any prior cigarette use. Patient was referred by her PCP. She was seen by her PCP on 01/07/2023 for complaints of vaginal bulge and was referred for further evaluation. Patient states that she noted a bulge at the end of December. She complaints of cloudy urine. She denies any burning with urination. She denies any blood in the urine. Pelvic examination: cystocele, a size 3 [place] Ring (w support) pessary was placed. Catheterized PVR was 400 mL. 02/15/2023: Evaluation today?UA?Leukocyt es: 3 +; blood: 1 +.- (voided), ----Cath'd UA leuk 1+ blood trace 02/15/2023: Plan:Renal US was ordered. I will send urine for culture. Follow-up in 10 weeks for pessary maintenance. [facility] Medical History Prolapse of female pelvic organs COVID-19 vaccine dose declined Left medial knee pain Bilateral hip pain Post-menopause Tubular adenoma of colon Osteopenia of left femoral neck Nonrheumatic aortic (valve) stenosis Essential hypertension Dyslipidemia Acquired hypothyroidism Acquired deformity of toenail Surgical History Hx of colonoscopy History of total abdominal hysterectomy and bilateral salpingo-oophorectomy Hx of cholecystectomy Family History Father CAD (coronary artery disease) Myocardial infarction Mother Type 2 diabetes mellitus Social History Housing: House Alcohol intake: current Patient Tobacco Use Status: Never used Tobacco e-Cigarette/Vaping Use: Never Used Second Hand Smoke Exposure: No Current occupational status: retired Cognitive needs: No Hearing needs: No Vision needs: Yes Review of Systems Const All systems reviewed & are unremarkable except as noted in HPI and below Reports no additional complaints Eyes Reports no additional complaints ENT Reports no additional complaints Card Denies dyspnea Resp Denies cough and Denies dyspnea GI Reports no additional complaints Reports no additional complaints Musc Reports no additional complaints Skin/Breast Denies rash and Denies unusual bruising Neuro Reports no additional complaints Psych Reports no additional complaints Endo Reports no additional complaints Jame/Lymph Reports no additional complaints Aller/Immun Reports no additional complaints Physical Exam Const General: cooperative, healthy appearing and no acute distress Orientation/consciousness: patient oriented x3 HEENT Head: Yes normal to inspection, Yes normocephalic and Yes atraumatic Eyes Conjunctivae: conjunctivae normal Neck Neck: Yes normal visual inspection and Yes trachea midline Chest Chest palpation & inspection: normal inspection of the chest Resp Effort & Inspection: normal respiratory effort Cardio Rate: regular rate GI Inspection: Yes normal to inspection Palpation (GI): Soft to palpation Other: grade 2/3 cystocele General: No no CVA tenderness External Female Exam: normal external appearance Speculum Exam - Vagina: vagina atrophic Back/Spine/Pelvis Back: No no CVA tenderness Skin General skin exam: no rashes or lesions noted Neuro General: patient oriented x3 Extrem General: No edema Psych Appearance: grossly normal Office Procedures Bladder/Catheter Procedure Details: Under sterile technique a 14 Jamaican catheter was passed transurethrally, 400 mL urine drained 51197-Mrumei Bladder Catheter Procedure code (CPT) selection complete Post Void Residual Post Residual Void Post Void Residual (PVR): 354 03051-Xcea Void Residual by ultrasound Results AMB Urinalysis, Automated UA Leukoctes 500 Robby/uL Last Edit by MANNY Croft on 02/15/23 09:14 3+ Rufino Olmedo 02/15/23 09:14 UA Nitrite Negative Last Edit by Rufino Olmedo, A on 02/15/23 09:14 UA Urobilinogen 0.2 mg/dL Last Edit by Rufino Olmedo, A on 02/15/23 09:1 4 UA Protein 0 mg/dL Last Edit by Rufino Olmedo, A on 02/15/23 09:14 UA pH 6.5 Last Edit by Rufino Olmedo, A on 02/15/23 09:14 UA Blood 25 Geoffrey/uL Last Edit by Rufino Olmedo, A on 02/15/23 09:14 1+ Rufino Olmedo 02/15/23 09:14 UA Specific [place] 1.010 Last Edit by Rufino Olmedo, [facility] TO [facility] on 02/15/23 09: 14 UA Ketone Negative Last Edit by Rufino Olmedo [facility]END[facility] TO [facility] on 02/15/23 09:14 UA Bilirubin 0 mg/dL Last Edit by Rufino Olmedo A on 02/15/23 09:14 UA Glucose 0 mg/dL Last Edit by Rufino Olmedo [facility]END[facility] TO [facility] on 02/15/23 09:14 Results Reviewed Results Reviewed: Laboratory Last Values Urine pH (Auto) 6.5 02/15/23 08:45 Specific [place] (Auto) 1.010 02/15/23 08:45 Urine Protein (Auto) 0 mg/dL 02/15/23 08:45 Glucose (UA)(Auto) 0 mg/dL 02/15/23 08:45 Urine Ketones (Auto) Negative 02/15/23 08:45 Urine Blood (Auto) 25 Geoffrey/uL 02/15/23 08:45 Urine Nitrite (Auto) Negative 02/15/23 08:45 Urine Bilirubin (Auto) 0 mg/dL 02/15/23 08:45 Urine Urobilinogen (Auto) 0.2 mg/dL 02/15/23 08:45 Leukocyte Esterase (Auto) 500 Robby/uL 02/15/23 08:45 Assessment & Plan Assessment & Plan (1) Prolapse of female pelvic organs: Code(s): N81.9 - Female genital prolapse, unspecified (2) Urinary retention: Code(s): R33.9 - Retention of urine, unspecified Plan Renal US was ordered. I will send urine for culture. Follow-up in 10 weeks for pessary maintenance. Orders: Orders AMB Bladder/Catheter Procedure Today N81.9 - Female genital prolapse, unspecified, R33.9 - Retention of urine, unspecified AMB Urinalysis Automated Today Z13.9 - Encounter for screening, unspecified AMB Post Void Residual by ultrasound Today N39.8 - Other specified disorders of urinary system Urine Culture Today N39.0 - Urinary tract infection, site not specified Patient Instructions: The patient had an opportunity to ask questions regarding treatment plan. All questions were answered. Imaging, Laboratory studies and physical exam results were discussed and reviewed in detail. No major barriers to understanding were identified. The patient expressed understanding and agreement with the above treatment plan. The patient is aware they should contact our office by phone for worsening of their current condition or the appearance of new symptoms. Compliance is encouraged with any medications and followup testing that is ordered. It is a privilege to be allowed the opportunity to participate in the urologic care of your patient. If you have any questions or concerns regarding treatment for the above conditions please do not hesitate to contact me. The office telephone contact is [phone]. This note is constructed in part using voice recognition software. While every effort has been made to ensure accuracy screedman errors may have been included. Yours sincerely, Ambrose Lee MD Coding Level of Care Code New Pt Level 4 (98503) Diagnoses Prolapse of female pelvic organs N81.9 Urinary retention R33.9 CPT Codes Bladder/Catheter Procedure - CPT: 54896-Pfjiwd Bladder Catheter ([id number]) Post Residual Void - PVR CPT Code: 98548-Ycyh Void Residual by ultrasound ([id number])
== END 2023-02-15 10:20 | disposition home or self-care (01) ==
PROVIDERS: PCP Internal Medicine; Visit Provider Urology
DX: N81.9 Female genital prolapse, unspecified (principal); R33.9 Retention of urine, unspecified; Z13.9 Encounter for screening, unspecified
CPT/HCPCS: 57160; 99204

== ENCOUNTER 2023-02-15 08:42 | Outpatient (REF) | payer MEDICARE, SELFPAY | END 2023-02-15 08:43 | disposition home or self-care (01) | LOC: HO.LAB 08:42 | PROVIDERS: PCP Internal Medicine; Visit Provider Urology | DX: N81.9 Female genital prolapse, unspecified (principal); R33.9 Retention of urine, unspecified; N39.0 Urinary tract infection, site not specified | CPT/HCPCS: 51701; 51798; 57160; 81003; 87086; 87088; 87186; 99202 ==

== ENCOUNTER 2023-03-01 07:06 | Outpatient (REF) | payer MEDICARE, SELFPAY ==
[2023-03-01 08:06] LABS: Alanine Aminotransferase 57 U/L (0-31); Anion Gap 13 (12-20); Aspartate Amino Transferase 29 U/L (5-31); Blood Urea Nitrogen 13 mg/dL (9-16); Calcium 9.8 mg/dL (8.4-10.2); Carbon Dioxide 29 mmol/L (22-29); Chloride 102 mmol/L (96-108); Cholesterol 214 mg/dL (<200); Estimated Glomerular Filt Rate > 60; Glucose Fasting 98 mg/dL (60-99); HDL Cholesterol 75 mg/dL (>40); LDL Cholesterol Calculated 114 mg/dL (<100); Potassium 3.4 mmol/L (3.3-5.1); Sodium 141 mmol/L (135-145); Triglycerides 126 mg/dL (<150)
[2023-03-01 08:15] LABS: Free T4 (Free Thyroxine) 1.24 ng/dL (0.71-1.85); Thyroid Stimulating Hormone 0.18 uIU/mL (0.32-4.0)
== END 2023-03-01 07:07 | disposition home or self-care (01) ==
LOC: HO.LAB 07:06
PROVIDERS: PCP Internal Medicine; Visit Provider Internal Medicine
DX: E78.5 Hyperlipidemia, unspecified (principal); I10 Essential (primary) hypertension; E03.9 Hypothyroidism, unspecified
CPT/HCPCS: 36415; 80048; 80061; 84439; 84443; 84450; 84460

== ENCOUNTER 2023-03-09 08:25 | Outpatient (AMB) | payer MEDICARE, SELFPAY ==
--- NOTE | 2023-03-09 08:34 | MHC.PC.OV ---
Vital Signs 03/09/23 08:35 Height 4 ft 10 in Weight 138 lb 6 oz BMI 28.9 BP 118/72 Blood Pressure Location Lt brachial Position Sitting Pulse 90 Pulse Source Pulse Oximeter Pulse Oximetry (%) 96 Oxygen Delivery Method Room Air Intake Visit Reasons: 6m follow up lipids,thyroid Intake Note: pt is here to follow up for lab result she has had her flu vaccine and rsv vaccine Allergies No Known Allergies Allergy (Verified 03/09/23 09:11) Medication List - Last Reconciled 03/09/23 by Nuria Hamilton MD aspirin (Adult Low Dose Aspirin) 81 mg PO DAILY atorvastatin 20 mg PO DAILY chlorthalidone 25 mg PO QAM cholecalciferol (vitamin D3) 50 mcg PO DAILY L. acidophilus/Bifid. animalis 2.5 billion cell (Daily Probiotic) caps PO levothyroxine 112 mcg PO QAM 90 days Tobacco use date assessed: 03/09/23 Fall risk assessment: No Falls in past year Last assessed Fall Risk: 03/09/23 Dental Screening Dental Screen Date: 03/09/23 Did you have a dental visit in the last 12 months?: No Did you have a dental problem in the last 6 months where you did not have access to dental care?: No Was dental information given to patient?: No HPI 6m follow up lipids,thyroid HPI Details 82-year-old lady with dyslipidemia hypothyroidism, here today for her follow-up. She has been feeling well, compliant with taking her medications and has been following her recommended diet. Recent fasting labs done showed fasting lipids, electrolytes, glucose, thyroid levels and liver enzymes within normal limits peer [facility] Medical History Prolapse of female pelvic organs COVID-19 vaccine dose declined Left medial knee pain Bilateral hip pain Post-menopause Tubular adenoma of colon Osteopenia of left femoral neck Nonrheumatic aortic (valve) stenosis Essential hypertension Dyslipidemia Acquired hypothyroidism Acquired deformity of toenail Surgical History Hx of colonoscopy History of total abdominal hysterectomy and bilateral salpingo-oophorectomy Hx of cholecystectomy Family History Father CAD (coronary artery disease) Myocardial infarction Mother Type 2 diabetes mellitus Social History Housing: House Alcohol intake: current Patient Tobacco Use Status: Never used Tobacco e-Cigarette/Vaping Use: Never Used Second Hand Smoke Exposure: No Current occupational status: retired Cognitive needs: No Hearing needs: No Vision needs: Yes Questionnaire PHQ-9 Over the last 2 weeks, how often have you been bothered by any of the following problems? 1. Little interest or pleasure in doing things: not at all 2. Feeling down, depressed, or hopeless: not at all 3. Trouble falling or staying asleep, or sleeping too much: not at all 4. Feeling tired or having little energy: not at all 5. Poor appetite or overeating: not at all 6. Feeling bad about yourself - or that you are a failure or have let yourself or your family down: not at all 7. Trouble concentrating on things, such as reading the newspaper or watching television: not at all 8. Moving or speaking so slowly that other people could have noticed. Or the opposite - being so fidgety or restless that you have been moving around a lot more than usual: not at all 9. Thoughts that you would be better off or of hurting yourself in some way: not at all Total score: 0 Depression Screening Interpretation: Negative Depression Screening Done: Yes 50503 - PHQ-9 Billing: Yes Source: Developed by Drs. Param Hardy, Nat Banerjee, Sony Lopez and colleagues, with an educational cherelle from [employer]. Thrive Questionnaire Date Thrive assessed: 09/08/22 CARLY-7 AMB Questionnaire CARLY-7 Date CARLY - 7 assessed: 09/08/22 Source: Developed by Drs. Param Hardy, Nat Banerjee, Sony Lopez and colleagues, with an educational cherelle from [employer]. Review of Systems Const Denies chills, Denies fatigue, Denies fever(s), Denies frequent falls and Denies weakness Card Denies chest pain, Denies leg edema, Denies lightheadedness and Denies palpitations Resp Denies cough GI Denies hematochezia and Denies change in bowel habits Musc Denies abnormal gait, Denies muscle weakness, Denies numbness, Denies radiating pain into limb and Denies tingling Neuro Denies abnormal gait, Denies frequent falls, Denies numbness, Denies Sensory deficit (Neuro), Denies tingling and Denies weakness Endo Denies fatigue and Denies palpitations Aller/Immun Reports no additional complaints Physical exam (Primary Care) Vital Signs: Last Vital Signs Pulse 90 03/09/23 08:35 BP 118/72 03/09/23 08:35 Pulse Ox 96 03/09/23 08:35 Oxygen Delivery Method Room Air 03/09/23 08:35 BMI result Body Mass Index 28.9 Tobacco/Smoking Status: Tobacco use Status Tobacco use date assessed 03/09/23 03/09/23 08:41 Patient Tobacco Use Status Never used Tobacco 03/09/23 08:35 e-Cigarette/Vaping Use Never Used 03/09/23 08:35 Depression Screening Interpretation: Negative Thrive Assessment: Date of Thrive Assessment Date Thrive assessed 09/08/22 03/09/23 08:35 Const Other: Alert oriented x3, no acute cardiorespiratory distress noted General: alert Orientation/consciousness: patient oriented x3 HENMT Mouth: Normal oral and palatal mucosa present, oropharynx normal and moist mucous membranes Neck Neck: Yes full ROM and Yes no lymphadenopathy Thyroid: Thyroid normal Resp Effort & Inspection: normal respiratory effort and able to speak in complete sentences Auscultation: clear to auscultation bilaterally Cardio Rate: regular rate Rhythm: regular rhythm Heart sounds: S1 normal heart sound present and S2 normal heart sound present GI Inspection: Yes normal to inspection Palpation (GI): Soft to palpation Auscultation: normal bowel sounds Skin General skin exam: no rashes or lesions noted Neuro General: patient oriented x3, gait normal, moves all extremities, no focal motor deficits and CN's II-XI intact bilaterally Cognition (Neuro): normal cognition Gait exam (Neuro): Normal gait present Motor exam (neuro): 5/5 motor strength present throughout Sensory Exam: No Sensory deficit (Neuro) Results Reviewed Results Reviewed: Name: Dina Levy Age/Sex: 82/F : 1940 Unit#: [id number] Attend Dr: Nuria Hamilton MD Re03/01/23 Status: DEP [facility] Disch: SPEC : [id number] TONY: 03/01/23 STATUS: COMP REQ : [id number] RECD: 03/01/[address] [facility] [address]: Nuria Hamilton MD COMP: 03/01/23 ENTERED: 03/01/23 [facility] DR: ORDERED: Met Prof Fast, AST, ALT, Lipid Panel, Free T4, TSH Test Result Flag Reference Site Sodium 141 135-145 mmol/L Potassium 3.4 3.3-5.1 mmol/L CL 102 96-108 mmol/L CO2 29 22-29 mmol/L Gap 13 12-20 BUN 13 9-16 mg/dL Creat 0.82 0.5-1.4 mg/dL EGFR > 60 NOTE: For -[place] individuals, multiply the result by 1.210. Chronic Kidney Disease: Estimated GFR < 60 mL/min/1.73m2 Severe Kidney Disease: Estimated GFR < 15 mL/min/1.73m2 FBS 98 60-99 mg/dL CA 9.8 8.4-10.2 mg/dL AST (GOT) 29 5-31 U/L ALT (GPT) 57 H 0-31 U/L Triglyceride 126 <150 mg/dL Desirable Triglyceride: less than 150 mg/dL Borderline High Triglyceride 150-199 mg/dL High Triglyceride: 200-499 mg/dL Very High Triglyceride: greater than or equal to 5OO mg/dL Cholesterol 214 H <200 mg/dL Desirable Cholesterol: less than 200 mg/dL Borderline High Cholesterol: 200-239 mg/dL High Cholesterol: greater than 239 mg/dL LDL Calculated 114 H <100 mg/dL Desirable LDL: less than 100 mg/dL Near Optimal/Above Optimal LDL: 110-129 mg/dL Borderline High LDL: 130-159 mg/dL High LDL: 160-189 mg/dL Very High LDL: greater than or equal to 190 mg/dL HDL 75 >40 mg/dL Desirable HDL: greater than 40 mg/dL Note: This HDL assay may give artificially low results in patients with liver disease. Free T4 1.24 0.71-1.85 ng/dL TSH 3rd Gen. 0.18 L 0.32-4.0 uIU/mL TSH 3rd Generation ([facility]) END OF REPORT Assessment and Plan Assessment & Plan (1) COVID-19 vaccine dose declined: Code(s): Z28.21 - Immunization not carried out because of patient refusal (2) Essential hypertension: Code(s): I10 - Essential (primary) hypertension Plan: Blood pressure at goal of less than 130/80. Continue with current medication. Reinforced importance of following a low sodium diet, getting regular exercise, and lowering stress levels. (3) Dyslipidemia: Code(s): E78.5 - Hyperlipidemia, unspecified Plan: Reviewed recent fasting lipid profile with patient with levels at goal . Continue with atorvastatin 20 mg daily , in addition to adherence to low-cholesterol diet and regular exercise, at least 30 minutes 3 to 4 times a week. Advised patient to make healthy food choices, eat more fruits, vegetables, whole grains, wild caught fish and low-fat dairy. Limit amount of meat and fried or fatty food products, as well as processed foods and fast foods. Follow-up scheduled with repeat fasting lipid panel in 3 months. (4) Acquired hypothyroidism: Code(s): E03.9 - Hypothyroidism, unspecified Plan: Thyroid levels are within normal limits, patient currently asymptomatic. Continued on current dose of levothyroxine at 112 mcg daily in a.m. Orders: Orders Lipid Panel 06/19/23 Z28.21 - Immunization not carried out because of patient refusal, Z78.0 - Asymptomatic menopausal state, M85.852 - Other specified disorders of bone density and structure, left thigh, I10 - Essential (primary) hypertension, E78.5 - Hyperlipidemia, unspecified, E03.9 - Hypothyroidism, unspecified Alanine Aminotransferase 06/19/23 Z28.21 - Immunization not carried out because of patient refusal, Z78.0 - Asymptomatic menopausal state, M85.852 - Other specified disorders of bone density and structure, left thigh, I10 - Essential (primary) hypertension, E78.5 - Hyperlipidemia, unspecified, E03.9 - Hypothyroidism, unspecified Aspartate Amino Transferase 06/19/23 Z28.21 - Immunization not carried out because of patient refusal, Z78.0 - Asymptomatic menopausal state, M85.852 - Other specified disorders of bone density and structure, left thigh, I10 - Essential (primary) hypertension, E78.5 - Hyperlipidemia, unspecified, E03.9 - Hypothyroidism, unspecified Thyroid Stimulating Hormone 06/19/23 Z28.21 - Immunization not carried out because of patient refusal, Z78.0 - Asymptomatic menopausal state, M85.852 - Other specified disorders of bone density and structure, left thigh, I10 - Essential (primary) hypertension, E78.5 - Hyperlipidemia, unspecified, E03.9 - Hypothyroidism, unspecified Free T4 (Free Thyroxine) 06/19/23 E03.9 - Hypothyroidism, unspecified, Z28.21 - Immunization not carried out because of patient refusal, Z78.0 - Asymptomatic menopausal state, M85.852 - Other specified disorders of bone density and structure, left thigh, I10 - Essential (primary) hypertension, E78.5 - Hyperlipidemia, unspecified Basic Metabolic Panel Fasting 06/19/23 Z28.21 - Immunization not carried out because of patient refusal, Z78.0 - Asymptomatic menopausal state, M85.852 - Other specified disorders of bone density and structure, left thigh, I10 - Essential (primary) hypertension, E78.5 - Hyperlipidemia, unspecified, E03.9 - Hypothyroidism, unspecified Coding Level of Care Code Est Pt Level 4 (99402) Diagnoses COVID-19 vaccine dose declined Z28. Essential hypertension I10 Dyslipidemia E78.5 Acquired hypothyroidism E03.9
[2023-03-09 08:35] VITALS: BP 118/72; PULSE 90; O2SAT 96; BMI 28.9
== END 2023-03-09 10:00 | disposition home or self-care (01) ==
PROVIDERS: PCP Internal Medicine; Visit Provider Internal Medicine
DX: Z28.21 Immunization not carried out because of patient refusal (principal); I10 Essential (primary) hypertension; E78.5 Hyperlipidemia, unspecified; E03.9 Hypothyroidism, unspecified
CPT/HCPCS: 99214

== ENCOUNTER 2023-03-25 08:42 | Outpatient (REF) | payer MEDICARE, SELFPAY ==
--- NOTE | ~2023-03-25 | MM_ITS ---
EXAMINATION: MM SCREENING DIGITAL BREAST TOMOSYNTHESIS, BILATERAL CLINICAL INFORMATION: Screening. Asymptomatic. COMPARISON: Mammography: This study is compared with prior exams dating back to 2018. TECHNIQUE: Digital breast tomosynthesis is performed in both the craniocaudal and mediolateral oblique views along with computer-aided detection (CAD). Synthesized 2D images are generated from the tomosynthesis. FINDINGS: There are scattered areas of fibroglandular density (ACR BI-RADS breast composition Category b). There are no significant masses, abnormal calcifications, or other abnormalities. There are a few, bilateral benign calcifications. MM/MM tomosynthesis screening BI IMPRESSION: No mammographic evidence of malignancy. ASSESSMENT: BI-RADS BI-RADS 2 - Benign Findings RECOMMENDATION: Routine annual mammography screening. 1 year F/U This examination should not preclude the clinical evaluation of a suspicious palpable abnormality. This patient's information was entered into a reminder system with a target due date for their next mammogram.
== END 2023-03-25 08:43 | disposition home or self-care (01) ==
LOC: HO.MAMMO 08:42
PROVIDERS: PCP Internal Medicine; Visit Provider Internal Medicine
DX: Z12.31 Encounter for screening mammogram for malignant neoplasm of breast (principal)
CPT/HCPCS: 77063; 77067

== ENCOUNTER → 2023-03-25 09:00 | Outpatient (BNV) | payer MEDICARE, SELFPAY | PROVIDERS: PCP Internal Medicine; Visit Provider Radiology Diagnostic Radiology | DX: Z12.31 Encounter for screening mammogram for malignant neoplasm of breast (principal) | CPT/HCPCS: 77063; 77067 ==

== ENCOUNTER 2023-03-31 09:20 | Outpatient (REF) | payer MEDICARE, SELFPAY ==
--- NOTE | ~2023-03-31 | US_ITS ---
EXAMINATION: US RETROPERITONEAL LIMITED (RENAL ONLY) CLINICAL INFORMATION: Retention of urine, unspecified. COMPARISON: None available. TECHNIQUE: Real-time imaging of the kidneys. FINDINGS: RIGHT KIDNEY: 10.9 x 4.1 x 5.5 cm (SAG x AP x TRV). The kidney is normal in size, contour, and echogenicity. Renal cortical thickness is normal. No calculi or focal parenchymal lesions. There is mild renal pelvic fullness without hydronephrosis. LEFT KIDNEY: 10.2 x 4.9 x 3.5 cm (SAG x AP x TRV). The kidney is normal in size, contour, and echogenicity. Renal cortical thickness is normal. No calculi or focal parenchymal lesions. There is mild renal pelvic fullness without hydronephrosis. US/US renal BI IMPRESSION: Mild bilateral renal pelvic fullness without hydronephrosis. Please note, although the examination indication was urinary retention, ultrasound of the bladder was not performed as this was not ordered.
== END 2023-03-31 09:21 | disposition home or self-care (01) ==
LOC: HO.US 09:20
PROVIDERS: PCP Internal Medicine; Visit Provider Urology
DX: R33.9 Retention of urine, unspecified (principal)
CPT/HCPCS: 76775

== ENCOUNTER 2023-04-26 09:31 | Outpatient (AMB) | payer MEDICARE, SELFPAY ==
--- NOTE | 2023-04-26 09:37 | A.OFFVIS_ITS ---
Intake Intake Visit Reasons: 10w/US/pessary maintenance Intake Note: Patient presents today for Pessary Maintenance & US Results: Meds- None Allergies to Antibiotic- No Known Allergies Blood Thinner- Aspirin Scientific Database Curator Required: No Keyboard Teacher: Keyboard Teacher Present Accompanied by: Self / Same As Patient Allergies No Known Allergies Allergy (Verified 03/09/23 09:11) HPI HPI Comments History of Present Illness Details Dina is an 82-year-old female who presents today to the office for established treatment for female gential prolapse. 04/26/23 She is here today for established treatment for female genital prolapse. The patient has a past medical history of hypertension, aortic stenosis, history of total hysterectomy in 1984. She was initially evaluated on 02/15/2023?and a size 3 [place] Ring (w support) pessary was fitted She denies any prior cigarette use. Here for pessary maintenance. She denies any burning with urination. She denies any blood in the urine. Pelvic examination: cystocele, a size 3 [place] Ring (w support) pessary was removed/cleaned and replaced. Catheterized PVR 205 mL. 04/26/23: Evaluation today?UA?Leukocytes: 3 +; blood: 1 +.- (voided), ----Cath'd UA leuk 1+ blood trace 04/26/23: Plan: Follow-up in 3 months for pessary maintenance. [facility] Medical History Prolapse of female pelvic organs COVID-19 vaccine dose declined Left medial knee pain Bilateral hip pain Post-menopause Tubular adenoma of colon Osteopenia of left femoral neck Nonrheumatic aortic (valve) stenosis Essential hypertension Dyslipidemia Acquired hypothyroidism Acquired deformity of toenail Surgical History Hx of colonoscopy History of total abdominal hysterectomy and bilateral salpingo-oophorectomy Hx of cholecystectomy Family History Father CAD (coronary artery disease) Myocardial infarction Mother Type 2 diabetes mellitus Social History Housing: House Alcohol intake: current Patient Tobacco Use Status: Never used Tobacco e-Cigarette/Vaping Use: Never Used Second Hand Smoke Exposure: No Current occupational status: retired Cognitive needs: No Hearing needs: No Vision needs: Yes Review of Systems Const All systems reviewed & are unremarkable except as noted in HPI and below Reports no additional complaints Eyes Reports no additional complaints ENT Reports no additional complaints Card Denies dyspnea Resp Denies cough and Denies dyspnea GI Reports no additional complaints Reports no additional complaints Musc Reports no additional complaints Skin/Breast Denies rash and Denies unusual bruising Neuro Reports no additional complaints Psych Reports no additional complaints Endo Reports no additional complaints Jame/Lymph Reports no additional complaints Aller/Immun Reports no additional complaints Office Procedures Bladder/Catheter Procedure Details: Under sterile technique a 14 Romansh catheter was passed transurethrally, 205 mL urine drained [id number] Bladder Catheter Procedure code (CPT) selection complete Results AMB Urinalysis, Automated UA Leukoctes 0 Robby/uL Last Edit by MANNY Croft on 04/26/23 10:06 UA Nitrite Negative Last Edit by MANNY Croft on 04/26/23 10:06 UA Urobilinogen 0.2 mg/dL Last Edit by MANNY Croft on 04/26/23 10:0 6 UA Protein 0 mg/dL Last Edit by MANNY Croft on 04/26/23 10:06 UA pH 7.0 Last Edit by MANNY Croft on 04/26/23 10:06 UA Blood 0 Geoffrey/uL Last Edit by MANNY Croft on 04/26/23 10:06 UA Specific [place] 1.010 Last Edit by MANNY Croft on 04/26/23 10: 06 UA Ketone Negative Last Edit by MANNY Croft on 04/26/23 10:06 UA Bilirubin 0 mg/dL Last Edit by MANNY Croft on 04/26/23 10:06 UA Glucose 0 mg/dL Last Edit by MANNY Croft on 04/26/23 10:06 Results Reviewed Results Reviewed: Laboratory Last Values Urine pH (Auto) 7.0 04/26/23 09:41 Specific [place] (Auto) 1.010 04/26/23 09:41 Urine Protein (Auto) 0 mg/dL 04/26/23 09:41 Glucose (UA)(Auto) 0 mg/dL 04/26/23 09:41 Urine Ketones (Auto) Negative 04/26/23 09:41 Urine Blood (Auto) 0 Geoffrey/uL 04/26/23 09:41 Urine Nitrite (Auto) Negative 04/26/23 09:41 Urine Bilirubin (Auto) 0 mg/dL 04/26/23 09:41 Urine Urobilinogen (Auto) 0.2 mg/dL 04/26/23 09:41 Leukocyte Esterase (Auto) 0 Robby/uL 04/26/23 09:41 Date of Service: 03/31/23 EXAMINATION: US RETROPERITONEAL LIMITED (RENAL ONLY) CLINICAL INFORMATION: Retention of urine, unspecified. COMPARISON: None available. TECHNIQUE: Real-time imaging of the kidneys. FINDINGS: RIGHT KIDNEY: 10.9 x 4.1 x 5.5 cm (SAG x AP x TRV). The kidney is normal in size, contour, and echogenicity. Renal cortical thickness is normal. No calculi or focal parenchymal lesions. There is mild renal pelvic fullness without hydronephrosis. LEFT KIDNEY: 10.2 x 4.9 x 3.5 cm (SAG x AP x TRV). The kidney is normal in size, contour, and echogenicity. Renal cortical thickness is normal. No calculi or focal parenchymal lesions. There is mild renal pelvic fullness without hydronephrosis. US/US renal BI IMPRESSION: Mild bilateral renal pelvic fullness without hydronephrosis. ]]] Assessment & Plan Assessment & Plan (1) Prolapse of female pelvic organs: Code(s): N81.9 - Female genital prolapse, unspecified (2) Urinary retention: Code(s): R33.9 - Retention of urine, unspecified Plan Follow-up in 3 months for pessary maintenance. Orders: Orders AMB Urinalysis Automated 04/26/23 Z13.9 - Encounter for screening, unspecified AMB Bladder/Catheter Procedure 04/26/23 N39.0 - Urinary tract infection, site not specified Coding Level of Care Code Est Pt Level 4 (92386) Diagnoses Prolapse of female pelvic organs N81.9 Urinary retention R33.9 CPT Codes Bladder/Catheter Procedure - CPT: 34679-[id number] Bladder Catheter ([id number])
== END 2023-04-26 10:09 | disposition home or self-care (01) ==
PROVIDERS: PCP Internal Medicine; Visit Provider Urology
DX: N81.9 Female genital prolapse, unspecified (principal); R33.9 Retention of urine, unspecified
CPT/HCPCS: 51701; 99214

== ENCOUNTER → 2023-04-26 09:31 | Outpatient (BNVA) | payer MEDICARE, SELFPAY | PROVIDERS: PCP Internal Medicine; Visit Provider Urology | DX: N81.9 Female genital prolapse, unspecified (principal); R33.9 Retention of urine, unspecified | CPT/HCPCS: 51701; 81003; 99212 ==

== ENCOUNTER 2023-06-23 07:09 | Outpatient (REF) | payer MEDICARE, SELFPAY ==
[2023-06-23 09:25] LABS: Alanine Aminotransferase 22 U/L (0-31); Anion Gap 12 (12-20); Aspartate Amino Transferase 20 U/L (5-31); Blood Urea Nitrogen 15 mg/dL (9-16); Calcium 9.9 mg/dL (8.4-10.2); Carbon Dioxide 30 mmol/L (22-29); Chloride 103 mmol/L (96-108); Cholesterol 205 mg/dL (<200); Estimated Glomerular Filt Rate > 60; Glucose Fasting 91 mg/dL (60-99); HDL Cholesterol 82 mg/dL (>40); LDL Cholesterol Calculated 103 mg/dL (<100); Sodium 142 mmol/L (135-145); Triglycerides 101 mg/dL (<150)
[2023-06-23 09:35] LABS: Free T4 (Free Thyroxine) 1.29 ng/dL (0.71-1.85); Thyroid Stimulating Hormone 0.04 uIU/mL (0.32-4.0)
== END 2023-06-23 07:10 | disposition home or self-care (01) ==
LOC: HO.LAB 07:09
PROVIDERS: PCP Internal Medicine; Visit Provider Internal Medicine
DX: M85.852 Other specified disorders of bone density and structure, left thigh (principal); E78.5 Hyperlipidemia, unspecified; E03.9 Hypothyroidism, unspecified; I10 Essential (primary) hypertension; Z78.0 Asymptomatic menopausal state
CPT/HCPCS: 36415; 80048; 80061; 84439; 84443; 84450; 84460

== ENCOUNTER 2023-06-28 10:30 | Outpatient (AMB) | payer MEDICARE, SELFPAY ==
--- NOTE | 2023-06-28 10:57 | MHC.PC.OV ---
Vital Signs 06/28/23 11:19 Height 4 ft 10 in Weight 140 lb BMI 29.3 BP 112/60 Blood Pressure Location Rt brachial Position Sitting Pulse 75 Pulse Source Pulse Oximeter Pulse Oximetry (%) 95 Oxygen Delivery Method Room Air Intake Visit Reasons: 3 month fu Intake Note: Pt is here today for her 3 months f/u Allergies No Known Allergies Allergy (Verified 06/28/23 12:13) Medication List - Last Reconciled 06/28/23 by Nuria Hamilton MD aspirin (Adult Low Dose Aspirin) 81 mg PO DAILY atorvastatin 20 mg PO DAILY chlorthalidone 25 mg PO QAM cholecalciferol (vitamin D3) 50 mcg PO DAILY diclofenac sodium 1% 2 grams topical QID PRN L. acidophilus/Bifid. animalis 2.5 billion cell (Daily Probiotic) caps PO levothyroxine 112 mcg PO QAM 90 days potassium chloride ER (Klor-Con) 10 mEq PO DAILY Tobacco use date assessed: 06/28/23 Fall risk assessment: No Falls in past year Last assessed Fall Risk: 06/28/23 Dental Screening Dental Screen Date: 06/28/23 Did you have a dental visit in the last 12 months?: No Was dental information given to patient?: No HPI 3 month fu HPI Details 82-year-old lady here today for follow-up on her hyperlipidemia hypothyroidism,. Has been feeling well with no complaints at present time, was noted to be hypokalemic on last blood work and was given potassium replacements. [facility] Medical History Prolapse of female pelvic organs COVID-19 vaccine dose declined Left medial knee pain Bilateral hip pain Post-menopause Tubular adenoma of colon Osteopenia of left femoral neck Nonrheumatic aortic (valve) stenosis Essential hypertension Dyslipidemia Acquired hypothyroidism Acquired deformity of toenail Surgical History Hx of colonoscopy History of total abdominal hysterectomy and bilateral salpingo-oophorectomy Hx of cholecystectomy Family History Father CAD (coronary artery disease) Myocardial infarction Mother Type 2 diabetes mellitus Social History Housing: House Alcohol intake: current Patient Tobacco Use Status: Never used Tobacco e-Cigarette/Vaping Use: Never Used Second Hand Smoke Exposure: No Current occupational status: retired Cognitive needs: No Hearing needs: No Vision needs: Yes Questionnaire PHQ-9 Over the last 2 weeks, how often have you been bothered by any of the following problems? 1. Little interest or pleasure in doing things: not at all 2. Feeling down, depressed, or hopeless: not at all 3. Trouble falling or staying asleep, or sleeping too much: not at all 4. Feeling tired or having little energy: not at all 5. Poor appetite or overeating: not at all 6. Feeling bad about yourself - or that you are a failure or have let yourself or your family down: not at all 7. Trouble concentrating on things, such as reading the newspaper or watching television: not at all 8. Moving or speaking so slowly that other people could have noticed. Or the opposite - being so fidgety or restless that you have been moving around a lot more than usual: not at all 9. Thoughts that you would be better off or of hurting yourself in some way: not at all Total score: 0 Depression Screening Interpretation: Negative Depression Screening Done: Yes 95861 - PHQ-9 Billing: Yes Source: Developed by Drs. Param Hardy, Nat Banerjee, Sony Lopez and colleagues, with an educational cherelle from [employer]. Thrive Questionnaire Date Thrive assessed: 06/28/23 I am a: Patient What is your living situation today?: I have a steady place to live Within the past 12 months, did the food you bought not last and you didn't have the money to get more?: Never true Within the past 12 months, did you worry whether your food would run out before you got money to buy more?: Never true Do you have trouble paying for medicines?: No Do you have trouble getting transportation to medical appointments?: No Do you have trouble paying your heating and electricity bill?: No Do you have trouble taking care of your child, family member or friend?: No Do you have trouble with day-to-day activities such as bathing, preparing meals, shopping, managing finances, etc.?: No Are you currently unemployed and looking for a job?: No Are you interested in more education?: No THRIVE Score: 0 AUDIT C Alcohol Use Questionnaire (AUDIT-C) 1. How often do you have a drink containing alcohol?: Never Total Score: 0 CARLY-7 AMB Questionnaire CARLY-7 Date CARLY - 7 assessed: 06/28/23 Feeling nervous, anxious, or on edge: 0 = Not at all Not being able to stop or control worryin = Not at all Worrying too much about different things: 0 = Not at all Trouble relaxin = Not at all Being so restless that it is hard to sit still: 0 = Not at all Becoming easily annoyed or irritable: 0 = Not at all Feeling afraid as if something awful might happen: 0 = Not at all Total CARLY-7 score (0-4 normal; 5-9 mild; 10-14 moderate; 15-21 severe): 0 Source: Developed by Drs. Param Hardy, Nat Banerjee, Snoy Lopez and colleagues, with an educational cherelle from [employer]. CARLY-7 Assessment Billing CARLY-7 Assessment Tool: CARLY-7 Assessment 55776 Review of Systems Const Denies chills, Denies fatigue, Denies fever(s), Denies frequent falls and Denies weakness ENT Reports no additional complaints Card Denies chest pain, Denies leg edema, Denies lightheadedness and Denies palpitations Resp Denies cough GI Denies hematochezia and Denies change in bowel habits Reports no additional complaints Musc Denies abnormal gait, Denies muscle weakness, Denies numbness, Denies radiating pain into limb and Denies tingling Neuro Denies abnormal gait, Denies frequent falls, Denies numbness, Denies Sensory deficit (Neuro), Denies tingling and Denies weakness Psych Reports no additional complaints Endo Denies fatigue and Denies palpitations Jame/Lymph Reports no additional complaints Aller/Immun Reports no additional complaints Physical exam (Primary Care) Vital Signs: Last Vital Signs Pulse 75 06/28/23 11:19 BP 112/60 06/28/23 11:19 Pulse Ox 95 06/28/23 11:19 Oxygen Delivery Method Room Air 06/28/23 11:19 BMI result Body Mass Index 29.3 Tobacco/Smoking Status: Tobacco use Status Tobacco use date assessed 06/28/23 06/28/23 11:20 Patient Tobacco Use Status Never used Tobacco 06/28/23 10:57 e-Cigarette/Vaping Use Never Used 06/28/23 10:57 PHQ-9: PHQ-9 Score PHQ-9: Total score 0 07/23/23 08:24 Depression Screening Interpretation: Negative Thrive Assessment: Date of Thrive Assessment Date Thrive assessed 06/28/23 06/28/23 11:25 Const Other: Alert oriented x3, no acute cardiorespiratory distress noted General: alert Orientation/consciousness: patient oriented x3 HENMT Mouth: Normal oral and palatal mucosa present, oropharynx normal and moist mucous membranes Neck Neck: Yes full ROM and Yes no lymphadenopathy Thyroid: Thyroid normal Resp Effort & Inspection: normal respiratory effort and able to speak in complete sentences Auscultation: clear to auscultation bilaterally Cardio Rate: regular rate Rhythm: regular rhythm Heart sounds: S1 normal heart sound present and S2 normal heart sound present GI Inspection: Yes normal to inspection Palpation (GI): Soft to palpation Auscultation: normal bowel sounds General: Yes no CVA tenderness Back/Spine/Pelvis Back: no CVA tenderness Skin General skin exam: no rashes or lesions noted Neuro General: patient oriented x3, gait normal, moves all extremities, no focal motor deficits and CN's II-XI intact bilaterally Cognition (Neuro): normal cognition Gait exam (Neuro): Normal gait present Motor exam (neuro): 5/5 motor strength present throughout Sensory Exam: No Sensory deficit (Neuro) Extrem General: Yes normal to inspection, Yes no joint enlargement and Yes normal gait Results Reviewed Results Reviewed: Name: Dina Levy Age/Sex: 82/F [facility] 1940 [id number]#: [id number] Attend Dr: Nuria Hamilton MD Re06/23/23 Status: DEP [facility] Disch: SPEC : [id number] TONY: 06/23/23 STATUS: COMP REQ : [id number] RECD: 06/23/[address]: Nuria Hamilton MD COMP: 06/23/23 ENTERED: 06/23/[address]: ORDERED: Met Prof Fast, AST, ALT, Lipid Panel, Free T4, TSH Test Result Flag Reference Sodium 142 135-145 mmol/L Potassium 3.0 L 3.3-5.1 mmol/L CL 103 96-108 mmol/L CO2 30 H 22-29 mmol/L Gap 12 12-20 BUN 15 9-16 mg/dL Creat 0.82 0.5-1.4 mg/dL EGFR > 60 NOTE: For -Nepalese individuals, multiply the result by 1.210. Chronic Kidney Disease: Estimated GFR < 60 mL/min/1.73m2 Severe Kidney Disease: Estimated GFR < 15 mL/min/1.73m2 FBS 91 60-99 mg/dL CA 9.9 8.4-10.2 mg/dL AST (GOT) 20 5-31 U/L ALT (GPT) 22 0-31 U/L Triglyceride 101 <150 mg/dL Desirable Triglyceride: less than 150 mg/dL Borderline High Triglyceride 150-199 mg/dL High Triglyceride: 200-499 mg/dL Very High Triglyceride: greater than or equal to 5OO mg/dL Cholesterol 205 H <200 mg/dL Desirable Cholesterol: less than 200 mg/dL Borderline High Cholesterol: 200-239 mg/dL High Cholesterol: greater than 239 mg/dL LDL Calculated 103 H <100 mg/dL Desirable LDL: less than 100 mg/dL Near Optimal/Above Optimal LDL: 110-129 mg/dL Borderline High LDL: 130-159 mg/dL High LDL: 160-189 mg/dL Very High LDL: greater than or equal to 190 mg/dL HDL 82 >40 mg/dL Desirable HDL: greater than 40 mg/dL Note: This HDL assay may give artificially low results in patients with liver disease. Free T4 1.29 0.71-1.85 ng/dL TSH 3rd Gen. 0.04 L 0.32-4.0 uIU/mL TSH 3rd Generation ([facility]) Assessment and Plan Assessment & Plan (1) Dyslipidemia: Code(s): E78.5 - Hyperlipidemia, unspecified Plan: Reviewed recent fasting lipid profile with patient with levels within normal limits . Continue atorvastatin 20 mg daily , in addition to adherence to low-cholesterol diet and regular exercise, at least 30 minutes 3 to 4 times a week. Advised patient to make healthy food choices, eat more fruits, vegetables, whole grains, wild caught fish and low-fat dairy. Limit amount of meat and fried or fatty food products, as well as processed foods and fast foods. Follow-up scheduled with repeat fasting lipid panel in 3 months. (2) Acquired hypothyroidism: Code(s): E03.9 - Hypothyroidism, unspecified Plan: Thyroid levels are within normal limits, continue with current dose of levothyroxine 112 mcg daily recheck another thyroid level 3 month (3) Hypokalemia: Code(s): E87.6 - Hypokalemia Plan: Patient already completed 5 days potassium chloride supplement, will recheck another potassium Orders: Orders Lipid Panel 09/04/23 Z78.0 - Asymptomatic menopausal state, M85.852 - Other specified disorders of bone density and structure, left thigh, I10 - Essential (primary) hypertension, E78.5 - Hyperlipidemia, unspecified, E03.9 - Hypothyroidism, unspecified Thyroid Stimulating Hormone 09/04/23 Z78.0 - Asymptomatic menopausal state, M85.852 - Other specified disorders of bone density and structure, left thigh, I10 - Essential (primary) hypertension, E78.5 - Hyperlipidemia, unspecified, E03.9 - Hypothyroidism, unspecified Free T4 (Free Thyroxine) 09/04/23 Z78.0 - Asymptomatic menopausal state, M85.852 - Other specified disorders of bone density and structure, left thigh, I10 - Essential (primary) hypertension, E78.5 - Hyperlipidemia, unspecified, E03.9 - Hypothyroidism, unspecified Aspartate Amino Transferase 09/04/23 Z78.0 - Asymptomatic menopausal state, M85.852 - Other specified disorders of bone density and structure, left thigh, I10 - Essential (primary) hypertension, E78.5 - Hyperlipidemia, unspecified, E03.9 - Hypothyroidism, unspecified Basic Metabolic Panel Fasting 09/04/23 Z78.0 - Asymptomatic menopausal state, M85.852 - Other specified disorders of bone density and structure, left thigh, I10 - Essential (primary) hypertension, E78.5 - Hyperlipidemia, unspecified, E03.9 - Hypothyroidism, unspecified Alanine Aminotransferase 09/04/23 Z78.0 - Asymptomatic menopausal state, M85.852 - Other specified disorders of bone density and structure, left thigh, I10 - Essential (primary) hypertension, E78.5 - Hyperlipidemia, unspecified, E03.9 - Hypothyroidism, unspecified Hemoglobin and Hematocrit 09/04/23 Z78.0 - Asymptomatic menopausal state, M85.852 - Other specified disorders of bone density and structure, left thigh, I10 - Essential (primary) hypertension, E78.5 - Hyperlipidemia, unspecified, E03.9 - Hypothyroidism, unspecified Medications: Discontinued chlorthalidone Discontinued Reason: Doctor's Order 25 mg PO QAM 90 tabs 1RF I10 - Essential (primary) hypertension Coding Level of Care Code Est Pt Level 4 (82573) Diagnoses Dyslipidemia E78.5 Acquired hypothyroidism E03.9 Hypokalemia E87.6 Additional Codes CARLY-7 Assessment Billing - CARLY-7 Assessment Tool: CARLY-7 Assessment 83447 ([id number])
[2023-06-28 11:19] VITALS: BP 112/60; PULSE 75; O2SAT 95; BMI 29.3
== END 2023-06-28 12:22 | disposition home or self-care (01) ==
PROVIDERS: PCP Internal Medicine; Visit Provider Internal Medicine
DX: E78.5 Hyperlipidemia, unspecified (principal); E03.9 Hypothyroidism, unspecified; E87.6 Hypokalemia
CPT/HCPCS: 99214

== ENCOUNTER 2023-06-30 07:04 | Outpatient (REF) | payer MEDICARE, SELFPAY ==
[2023-06-30 08:06] LABS: Potassium, Serum 3.8 mmol/L (3.3-5.1)
== END 2023-06-30 07:05 | disposition home or self-care (01) ==
LOC: HO.LAB 07:04
PROVIDERS: PCP Internal Medicine; Visit Provider Internal Medicine
DX: E87.6 Hypokalemia (principal)
CPT/HCPCS: 36415; 84132

== ENCOUNTER 2023-07-26 09:46 | Outpatient (AMB) | payer MEDICARE, SELFPAY ==
--- NOTE | 2023-07-26 10:52 | A.OFFVIS_ITS ---
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 She denies UTI symptoms. Here for pessary maintenance. Pessary removed/cleaned /and replaced without difficulty. Continue pessary management. Follow-up in 3 months Review of chart: 04/26/23--She is here today for established treatment for female genital prolapse. The patient has a past medical history of hypertension, aortic stenosis, history of total hysterectomy in 1984. She was initially evaluated on 02/15/2023?and a size 3 [place] Ring (w support) pessary was fitted She denies any prior cigarette use. Here for pessary maintenance. She denies any burning with urination. She denies any blood in the urine. Pelvic examination: cystocele, a size 3 [place] Ring (w support) pessary was removed/cleaned and replaced. Catheterized PVR 205 mL. Evaluation today?UA?Leukocytes: 3 +; blood: 1 +.- (voided), ----Cath'd UA leuk 1+ blood trace [facility] Medical History Prolapse of female pelvic organs COVID-19 vaccine dose declined Left medial knee pain Bilateral hip pain Post-menopause Tubular adenoma of colon Osteopenia of left femoral neck Nonrheumatic aortic (valve) stenosis Essential hypertension Dyslipidemia Acquired hypothyroidism Acquired deformity of toenail Surgical History Hx of colonoscopy History of total abdominal hysterectomy and bilateral salpingo-oophorectomy Hx of cholecystectomy Family History Father CAD (coronary artery disease) Myocardial infarction Mother Type 2 diabetes mellitus Social History Housing: House Alcohol intake: current Patient Tobacco Use Status: Never used Tobacco e-Cigarette/Vaping Use: Never Used Second Hand Smoke Exposure: No Current occupational status: retired Cognitive needs: No Hearing needs: No Vision needs: Yes Review of Systems Const All systems reviewed & are unremarkable except as noted in HPI and below Reports no additional complaints Eyes Reports no additional complaints ENT Reports no additional complaints Card Reports no additional complaints Resp Reports no additional complaints GI Reports no additional complaints Reports as per HPI Musc Reports no additional complaints Skin/Breast Reports system reviewed and no additional complaints, except as documented Neuro Reports no additional complaints Psych Reports no additional complaints Endo Reports no additional complaints Jame/Lymph Reports no additional complaints Aller/Immun Reports no additional complaints Results AMB Urinalysis, Automated UA Leukoctes 15 Robby/uL Last Edit by MANNY Croft on 07/26/23 10:55 UA Nitrite Negative Last Edit by MANNY Croft on 07/26/23 10:55 UA Urobilinogen 0.2 mg/dL Last Edit by MANNY Croft on 07/26/23 10:5 5 UA Protein 0 mg/dL Last Edit by MANNY Croft on 07/26/23 10:55 UA pH 6.5 Last Edit by MANNY Croft on 07/26/23 10:55 UA Blood 0 Geoffrey/uL Last Edit by MANNY Croft on 07/26/23 10:55 UA Specific [place] 1.010 Last Edit by MANNY Croft on 07/26/23 10: 55 UA Ketone Negative Last Edit by MANNY Croft on 07/26/23 10:55 UA Bilirubin 0 mg/dL Last Edit by MANNY Croft on 07/26/23 10:55 UA Glucose 0 mg/dL Last Edit by MANNY Croft on 07/26/23 10:55 Results Reviewed Results Reviewed: Laboratory Last Values Urine pH (Auto) 6.5 07/26/23 10:53 Specific [place] (Auto) 1.010 07/26/23 10:53 Urine Protein (Auto) 0 mg/dL 07/26/23 10:53 Glucose (UA)(Auto) 0 mg/dL 07/26/23 10:53 Urine Ketones (Auto) Negative 07/26/23 10:53 Urine Blood (Auto) 0 Geoffrey/uL 07/26/23 10:53 Urine Nitrite (Auto) Negative 07/26/23 10:53 Urine Bilirubin (Auto) 0 mg/dL 07/26/23 10:53 Urine Urobilinogen (Auto) 0.2 mg/dL 07/26/23 10:53 Leukocyte Esterase (Auto) 15 Robby/uL 07/26/23 10:53 Assessment & Plan Assessment & Plan (1) Prolapse of female pelvic organs: Code(s): N81.9 - Female genital prolapse, unspecified Category: Medical Plan Follow-up in 3 months for pessary maintenance. Orders: Orders AMB Urinalysis Automated 07/26/23 Z13.9 - Encounter for screening, unspecified Patient Instructions: The patient had an opportunity to ask questions regarding treatment plan. The patient expressed understanding and agreement with the above treatment plan. The patient is aware they should contact our office by phone for worsening of their current condition or the appearance of new symptoms. Compliance is encouraged with any medications and followup testing that is ordered. It is a privilege to be allowed the opportunity to participate in the urologic care of your patient. If you have any questions or concerns regarding treatment for the above conditions please do not hesitate to contact me. The office telephone contact is [phone]. This note is constructed in part using voice recognition software. While every effort has been made to ensure accuracy traffic supervisor errors may have been included. Yours sincerely, Ambrose Lee MD Coding Level of Care Code Est Pt Level 3 (62730) Diagnoses Prolapse of female pelvic organs N81.9
== END 2023-07-26 11:04 | disposition home or self-care (01) ==
PROVIDERS: PCP Internal Medicine; Visit Provider Urology
DX: N81.9 Female genital prolapse, unspecified (principal)
CPT/HCPCS: 99213

== ENCOUNTER → 2023-07-26 09:46 | Outpatient (BNVA) | payer MEDICARE, SELFPAY | PROVIDERS: PCP Internal Medicine; Visit Provider Urology | DX: N81.9 Female genital prolapse, unspecified (principal) | CPT/HCPCS: 81003; 99212 ==

== ENCOUNTER 2023-09-22 07:14 | Outpatient (REF) | payer MEDICARE, SELFPAY ==
[2023-09-22 07:59] LABS: Hematocrit 38.9 % (37.0-47.0); Hemoglobin 13.1 g/dl (12.0-16.0)
[2023-09-22 08:55] LABS: Alanine Aminotransferase 22 U/L (0-31); Anion Gap 12 (12-20); Aspartate Amino Transferase 20 U/L (5-31); Blood Urea Nitrogen 16 mg/dL (9-16); Calcium 9.3 mg/dL (8.4-10.2); Carbon Dioxide 28 mmol/L (22-29); Chloride 106 mmol/L (96-108); Cholesterol 209 mg/dL (<200); Estimated Glomerular Filt Rate > 60; Glucose Fasting 89 mg/dL (60-99); HDL Cholesterol 85 mg/dL (>40); LDL Cholesterol Calculated 106 mg/dL (<100); Sodium 142 mmol/L (135-145); Triglycerides 90 mg/dL (<150)
[2023-09-22 09:09] LABS: Thyroid Stimulating Hormone 0.09 uIU/mL (0.32-4.0)
== END 2023-09-22 07:15 | disposition home or self-care (01) ==
LOC: HO.LAB 07:14
PROVIDERS: PCP Internal Medicine; Visit Provider Internal Medicine
DX: Z78.0 Asymptomatic menopausal state (principal); M85.852 Other specified disorders of bone density and structure, left thigh; I10 Essential (primary) hypertension; E78.5 Hyperlipidemia, unspecified; E03.9 Hypothyroidism, unspecified
CPT/HCPCS: 36415; 80048; 80061; 84439; 84443; 84450; 84460; 85014; 85018

== ENCOUNTER 2023-10-01 10:17 | Outpatient (AMB) | payer MEDICARE, SELFPAY ==
--- NOTE | 2023-10-01 10:14 | MHC.PC.OV ---
Vital Signs 10/01/23 10:44 BP 111/72 Blood Pressure Location Lt brachial Position Sitting Comment checked Blood pressure at home with own monitor Intake Visit Reasons: 3 mo. f/u [phone] Intake Note: Pt is having a telehealth visit for her 3 mo. f/u Allergies No Known Allergies Allergy (Verified 10/01/23 10:35) Medication List - Last Reconciled 10/01/23 by Nuria Hamilton MD aspirin (Adult Low Dose Aspirin) 81 mg PO DAILY atorvastatin 20 mg PO DAILY cholecalciferol (vitamin D3) 50 mcg PO DAILY diclofenac sodium 1% 2 grams topical QID PRN L. acidophilus/Bifid. animalis 2.5 billion cell (Daily Probiotic) caps PO levothyroxine 112 mcg PO QAM 90 days Tobacco use date assessed: 10/01/23 Fall risk assessment: No Falls in past year Last assessed Fall Risk: 10/01/23 Dental Screening Dental Screen Date: 10/01/23 Did you have a dental visit in the last 12 months?: No Was dental information given to patient?: Patient declined HPI 3 mo. f/u [phone] HPI Details 82-year-old lady here today for follow-up on her lipids and thyroid levels. She has been taking her medications as directed, stays active. However she has been having intermittent episodes of right leg pain and aching present now for the last 4 weeks. No history of trauma or strenuous exertion. Patient has been applying diclofenac gel which affords only temporary relief and has taken Tylenol 500 mg once daily which I also affords only temporary relief. [facility] Medical History Prolapse of female pelvic organs COVID-19 vaccine dose declined Left medial knee pain Bilateral hip pain Post-menopause Tubular adenoma of colon Osteopenia of left femoral neck Nonrheumatic aortic (valve) stenosis Essential hypertension Dyslipidemia Acquired hypothyroidism Acquired deformity of toenail Surgical History Hx of colonoscopy History of total abdominal hysterectomy and bilateral salpingo-oophorectomy Hx of cholecystectomy Family History Father CAD (coronary artery disease) Myocardial infarction Mother Type 2 diabetes mellitus Social History Housing: House Alcohol intake: current Patient Tobacco Use Status: Never used Tobacco e-Cigarette/Vaping Use: Never Used Second Hand Smoke Exposure: No Current occupational status: retired Cognitive needs: No Hearing needs: No Vision needs: Yes Questionnaire Thrive Questionnaire Date Thrive assessed: 06/28/23 CARLY-7 AMB Questionnaire CARLY-7 Date CARLY - 7 assessed: 06/28/23 Source: Developed by Drs. Param Hardy, Nat Banerjee, Sony Lopez and colleagues, with an educational cherelle from [employer]. Review of Systems Const All systems reviewed & are unremarkable except as noted in HPI and below Reports no additional complaints Eyes Denies change in vision ENT Reports no additional complaints Card Reports no additional complaints Resp Reports no additional complaints GI Reports no additional complaints Reports as per HPI Musc Reports as per HPI Skin/Breast Reports system reviewed and no additional complaints, except as documented Neuro Reports no additional complaints Psych Reports no additional complaints Endo Reports no additional complaints Jame/Lymph Reports no additional complaints Aller/Immun Reports no additional complaints Physical exam (Primary Care) Vital Signs: Last Vital Signs BP 111/72 10/01/23 10:44 Tobacco/Smoking Status: Tobacco use Status Tobacco use date assessed 10/01/23 10/01/23 10:16 Patient Tobacco Use Status Never used Tobacco 10/01/23 10:16 e-Cigarette/Vaping Use Never Used 10/01/23 10:16 Thrive Assessment: Date of Thrive Assessment Date Thrive assessed 06/28/23 10/01/23 10:16 Telehealth Telehealth Telehealth Platform: [facility] Location of provider rendering services: practice address Location of patient: address on file Patient Identification confirmed using: Name, : Yes Telehealth method: video Patient verbally consented to treatment: Yes Patient verbally consented to billing insurance company: Yes Patient informed of any privacy concerns related to visit: Yes Minutes spent on Phone/Video with Pt.: 15 Results Reviewed Results Reviewed: Laboratory Tests 09/22/23 07:26 Hgb 13.1 Hct 38.9 Name: Dina Levy Age/Sex: 82/F : 1940 Unit#: [id number] Attend Dr: Nuria Hamilton MD Re09/22/23 Status: DEP REF Location: .LAB Disch: SPEC : [id number] TONY: 09/22/23 STATUS: COMP REQ : [id number] RECD: 09/22/[address]: Nuria Hamilton MD COMP: 09/22/23 ENTERED: 09/22/23 [facility] DR: ORDERED: Met Prof Fast, AST, ALT, Lipid Panel, Free T4, TSH Test Result Flag Reference Sodium 142 135-145 mmol/L Potassium 4.0 # 3.3-5.1 mmol/L CL 106 96-108 mmol/L CO2 28 22-29 mmol/L Gap 12 12-20 BUN 16 9-16 mg/dL Creat 0.81 0.5-1.4 mg/dL EGFR > 60 NOTE: For -[place] Citizen individuals, multiply the result by 1.210. Chronic Kidney Disease: Estimated GFR < 60 mL/min/1.73m2 Severe Kidney Disease: Estimated GFR < 15 mL/min/1.73m2 FBS 89 60-99 mg/dL CA 9.3 # 8.4-10.2 mg/dL AST (GOT) 20 5-31 U/L ALT (GPT) 22 0-31 U/L Triglyceride 90 <150 mg/dL Desirable Triglyceride: less than 150 mg/dL Borderline High Triglyceride 150-199 mg/dL High Triglyceride: 200-499 mg/dL Very High Triglyceride: greater than or equal to 5OO mg/dL Cholesterol 209 H <200 mg/dL Desirable Cholesterol: less than 200 mg/dL Borderline High Cholesterol: 200-239 mg/dL High Cholesterol: greater than 239 mg/dL LDL Calculated 106 H <100 mg/dL Desirable LDL: less than 100 mg/dL Near Optimal/Above Optimal LDL: 110-129 mg/dL Borderline High LDL: 130-159 mg/dL High LDL: 160-189 mg/dL Very High LDL: greater than or equal to 190 mg/dL HDL 85 >40 mg/dL Desirable HDL: greater than 40 mg/dL Note: This HDL assay may give artificially low results in patients with liver disease. Free T4 1.20 0.71-1.85 ng/dL TSH 3rd Gen. 0.09 L 0.32-4.0 uIU/mL TSH 3rd Generation ([facility]) Assessment and Plan Assessment & Plan (1) Acquired hypothyroidism: Code(s): E03.9 - Hypothyroidism, unspecified Plan: Latest thyroid levels are within normal limits, continue with current dose of levothyroxine at 112 mcg daily in a.m. an hour before breakfast. (2) Dyslipidemia: Code(s): E78.5 - Hyperlipidemia, unspecified Plan: Reviewed recent fasting lipid profile with patient with levels within normal limit . Will hold atorvastatin for at least a month due to development of myalgia. Stressed adherence to low-cholesterol diet and regular exercise, at least 30 minutes 3 to 4 times a week. Advised patient to make healthy food choices, eat more fruits, vegetables, whole grains, wild caught fish and low-fat dairy. Limit amount of meat and fried or fatty food products, as well as processed foods and fast foods. Follow-up scheduled with repeat fasting lipid panel in 3 months. (3) Muscle pain: Code(s): M79.10 - Myalgia, unspecified site Plan: No history of trauma or strenuous exertion, could be statin induced myalgia. Will temporarily hold atorvastatin for a week or 2 and see if muscle pain resolves. Orders: Orders Lipid Panel 12/12/23 E03.9 - Hypothyroidism, unspecified, E78.5 - Hyperlipidemia, unspecified, M79.10 - Myalgia, unspecified site, M85.852 - Other specified disorders of bone density and structure, left thigh, Z78.0 - Asymptomatic menopausal state Thyroid Stimulating Hormone 12/12/23 E03.9 - Hypothyroidism, unspecified, E78.5 - Hyperlipidemia, unspecified, M79.10 - Myalgia, unspecified site, M85.852 - Other specified disorders of bone density and structure, left thigh, Z78.0 - Asymptomatic menopausal state Free T4 (Free Thyroxine) 12/12/23 E03.9 - Hypothyroidism, unspecified, E78.5 - Hyperlipidemia, unspecified, M79.10 - Myalgia, unspecified site, M85.852 - Other specified disorders of bone density and structure, left thigh, Z78.0 - Asymptomatic menopausal state Alanine Aminotransferase 12/12/23 E03.9 - Hypothyroidism, unspecified, E78.5 - Hyperlipidemia, unspecified, M79.10 - Myalgia, unspecified site, M85.852 - Other specified disorders of bone density and structure, left thigh, Z78.0 - Asymptomatic menopausal state Aspartate Amino Transferase 12/12/23 E03.9 - Hypothyroidism, unspecified, E78.5 - Hyperlipidemia, unspecified, M79.10 - Myalgia, unspecified site, M85.852 - Other specified disorders of bone density and structure, left thigh, Z78.0 - Asymptomatic menopausal state Vitamin D 25-OH Total 12/12/23 E03.9 - Hypothyroidism, unspecified, E78.5 - Hyperlipidemia, unspecified, M79.10 - Myalgia, unspecified site, M85.852 - Other specified disorders of bone density and structure, left thigh, Z78.0 - Asymptomatic menopausal state Creatine Kinase Total 12/12/23 E03.9 - Hypothyroidism, unspecified, E78.5 - Hyperlipidemia, unspecified, M79.10 - Myalgia, unspecified site, M85.852 - Other specified disorders of bone density and structure, left thigh, Z78.0 - Asymptomatic menopausal state Coding Level of Care Code Tele Est Pt Level 4 (58185) Complex EM visit Add On G2211 Diagnoses Acquired hypothyroidism E03.9 Dyslipidemia E78.5 Muscle pain M79.10
[2023-10-01 10:44] VITALS: BP 111/72
== END 2023-10-01 13:16 | disposition home or self-care (01) ==
LOC: HO.HMGC 10:17
PROVIDERS: PCP Internal Medicine; Visit Provider Internal Medicine
DX: E03.9 Hypothyroidism, unspecified (principal); E78.5 Hyperlipidemia, unspecified; M79.10 Myalgia, unspecified site
CPT/HCPCS: 99214; G2211

== ENCOUNTER 2023-10-18 08:11 | Outpatient (REF) | payer MEDICARE, SELFPAY ==
--- NOTE | ~2023-10-18 | XR_ITS ---
EXAMINATION: XR BILATERAL HIPS WITH AP PELVIS CLINICAL INFORMATION: Pain in right hip. Patient states aching in right hip especially after sitting, has been happening for about one month, COMPARISON: September 02, 2021 TECHNIQUE: AP view of the pelvis and 2 views of each hip. FINDINGS: Diffuse demineralization. Advanced degenerative changes in the imaged lower lumbar spine. Degenerative changes in the bilateral sacroiliac joints. Moderate degenerative changes in bilateral hips with joint space narrowing and hypertrophic change, right greater than left, has progressed since 2021. XR/XR hip BI w PEL1V IMPRESSION: 1. Moderate degenerative changes in bilateral hips, right greater than left, has progressed since 2021. 2. Advanced degenerative changes in the imaged lower lumbar spine. This study was presented today October 26, 2023 for interpretation. Stat results provided at this time as requested by referring provider.
== END 2023-10-18 08:12 | disposition home or self-care (01) ==
LOC: HO.XRAY 08:11
PROVIDERS: PCP Internal Medicine; Visit Provider Internal Medicine
DX: M16.0 Bilateral primary osteoarthritis of hip (principal); G89.29 Other chronic pain
CPT/HCPCS: 73521

== ENCOUNTER 2023-11-05 10:32 | Outpatient (REF) | payer MEDICARE, SELFPAY | END 2023-11-05 10:33 | disposition home or self-care (01) | LOC: HO.LAB 10:32 | PROVIDERS: PCP Internal Medicine; Visit Provider Urology | DX: N39.0 Urinary tract infection, site not specified (principal); N81.9 Female genital prolapse, unspecified; R82.998 Other abnormal findings in urine | CPT/HCPCS: 81003; 87086; 87088; 87186; 99212 ==

== ENCOUNTER 2023-11-05 10:32 | Outpatient (AMB) | payer MEDICARE, SELFPAY ==
--- NOTE | 2023-11-05 10:43 | A.OFFVIS_ITS ---
Intake Visit Reasons: 3m pessary maintenance Intake Note: Patient presents today for 3 months Pessary Maintenance: Meds- None Allergies to Antibiotic- No Known Allergies Blood Thinner- Aspirin Feller Operator Required: No Accompanied by: Self / Same As Patient Allergies No Known Allergies Allergy (Verified 11/05/23 10:43) Medication List - Last Reconciled 11/05/23 by Ambrose Lee MD aspirin (Adult Low Dose Aspirin) 81 mg PO DAILY atorvastatin 20 mg PO DAILY cholecalciferol (vitamin D3) 50 mcg PO DAILY diclofenac sodium 1% 2 grams topical QID PRN L. acidophilus/Bifid. animalis 2.5 billion cell (Daily Probiotic) caps PO levothyroxine 112 mcg PO QAM 90 days HPI Comments Details: 11/05/23--Dina is an 82-year-old female who presents today to the office for established treatment for female gential prolapse. Last seen 07/26/23, denies irritativie voiding symptoms, UA - nitritie positive - will send for c/s. She denies UTI symptoms. Here for pessary maintenance. Pessary removed/cleaned/and replaced without difficulty. Continue pessary management. Follow-up in 3 months Review of chart: 04/26/23--She is here today for established treatment for female genital prolapse. The patient has a past medical history of hypertension, aortic stenosis, history of total hysterectomy in 1984. She was initially evaluated on 02/15/2023?and a size 3 [place] Ring (w support) pessary was fitted She denies any prior cigarette use. Here for pessary maintenance. She denies any burning with urination. She denies any blood in the urine. Pelvic examination: cystocele, a size 3 [place] Ring (w support) pessary was removed/cleaned and replaced. Catheterized PVR 205 mL. Evaluation today?UA?Leukocytes: 3 +; blood: 1 +.- (voided), ----Cath'd UA leuk 1+ blood trace [facility] Medical History Degenerative joint disease of both hips Chronic right hip pain Prolapse of female pelvic organs COVID-19 vaccine dose declined Left medial knee pain Bilateral hip pain Post-menopause Tubular adenoma of colon Osteopenia of left femoral neck Nonrheumatic aortic (valve) stenosis Essential hypertension Dyslipidemia Acquired hypothyroidism Acquired deformity of toenail Surgical History Hx of colonoscopy History of total abdominal hysterectomy and bilateral salpingo-oophorectomy Hx of cholecystectomy Family History Father CAD (coronary artery disease) Myocardial infarction Mother Type 2 diabetes mellitus Social History Housing: House Alcohol intake: current Patient Tobacco Use Status: Never used Tobacco e-Cigarette/Vaping Use: Never Used Second Hand Smoke Exposure: No Current occupational status: retired Cognitive needs: No Hearing needs: No Vision needs: Yes Review of Systems Const All systems reviewed & are unremarkable except as noted in HPI and below Reports no additional complaints Eyes Reports no additional complaints ENT Reports no additional complaints Card Reports no additional complaints Resp Reports no additional complaints GI Reports no additional complaints Reports as per HPI Musc Reports no additional complaints Skin/Breast Reports system reviewed and no additional complaints, except as documented Neuro Reports no additional complaints Psych Reports no additional complaints Endo Reports no additional complaints Jame/Lymph Reports no additional complaints Aller/Immun Reports no additional complaints Results AMB Urinalysis, Automated UA Leukoctes 70 Robby/uL Last Edit by Anneliese Khan CMA on 11/05/23 10:55 UA Nitrite Positive Last Edit by Anneliese Khan CMA on 11/05/23 10:55 UA Urobilinogen 0.2 mg/dL Last Edit by Anneliese Khan CMA on 11/05/23 10:55 UA Protein 0 mg/dL Last Edit by Anneliese Khan CMA on 11/05/23 10:55 UA pH 6.0 Last Edit by Anneliese Khan CMA on 11/05/23 10:55 UA Blood 0 Geoffrey/uL Last Edit by Anneliese Khan CMA on 11/05/23 10:55 UA Specific [place] 1.005 Last Edit by Anneliese Khan, RAFITA on 11/05/23 10:55 UA Ketone Negative Last Edit by Anneliese Khan CMA on 11/05/23 10:55 UA Bilirubin 0 mg/dL Last Edit by Anneliese Khan, RAFITA on 11/05/23 10:55 UA Glucose 0 mg/dL Last Edit by Anneliese Khan CMA on 11/05/23 10:55 Results Reviewed Results Reviewed: Laboratory Last Values Urine pH (Auto) 6.0 11/05/23 10:52 Specific [place] (Auto) 1.005 11/05/23 10:52 Urine Protein (Auto) 0 mg/dL 11/05/23 10:52 Glucose (UA)(Auto) 0 mg/dL 11/05/23 10:52 Urine Ketones (Auto) Negative 11/05/23 10:52 Urine Blood (Auto) 0 Geoffrey/uL 11/05/23 10:52 Urine Nitrite (Auto) Positive 11/05/23 10:52 Urine Bilirubin (Auto) 0 mg/dL 11/05/23 10:52 Urine Urobilinogen (Auto) 0.2 mg/dL 11/05/23 10:52 Leukocyte Esterase (Auto) 70 Robby/uL 11/05/23 10:52 Assessment & Plan Assessment & Plan (1) Prolapse of female pelvic organs: Code(s): N81.9 - Female genital prolapse, unspecified Category: Medical (2) Urine leukocytes: Code(s): R82.998 - Other abnormal findings in urine Category: Medical Plan urine c/s sent. Follow-up in 3 months for pessary maintenance. Orders: Orders AMB Urinalysis Automated Today Z13.9 - Encounter for screening, unspecified Patient Instructions: The patient had an opportunity to ask questions regarding treatment plan. The patient expressed understanding and agreement with the above treatment plan. The patient is aware they should contact our office by phone for worsening of their current condition or the appearance of new symptoms. Compliance is encouraged with any medications and followup testing that is ordered. It is a privilege to be allowed the opportunity to participate in the urologic care of your patient. If you have any questions or concerns regarding treatment for the above conditions please do not hesitate to contact me. The office telephone contact is [phone]. This note is constructed in part using voice recognition software. While every effort has been made to ensure accuracy threader operator errors may have been included. Yours sincerely, Ambrose Lee MD Coding Level of Care Code Est Pt Level 3 (57970) Diagnoses Prolapse of female pelvic organs N81.9 Urine leukocytes R82.992
== END 2023-11-05 11:31 | disposition home or self-care (01) ==
PROVIDERS: PCP Internal Medicine; Visit Provider Urology
DX: N81.9 Female genital prolapse, unspecified (principal); R82.998 Other abnormal findings in urine; Z13.9 Encounter for screening, unspecified
CPT/HCPCS: 99213

== ENCOUNTER → 2023-11-09 08:58 | Outpatient (REF) | payer MEDICARE, SELFPAY ==
--- NOTE | 2023-11-09 09:01 | CA_ITS ---
Transthoracic Echocardiogram Patient (Last, First, Middle): Dina Levy M Gender: Female Date of : 1940 Age: 82 Procedure Date: 11/09/2023 Procedure Type: Transthoracic Echocardiogram Location: OP Height: 147.32 cm Weight: 61.69 kg BSA: 1.55 m2 Heart Rate: 80 bpm BP: 148 / 70 mmHg Pelletizer: TO Referring MD: Kirk Tejeda MD Benefits Assistant: Darinel Kinney MD Symptoms: I35.0 - Nonrheumatic aortic (valve) stenosis Study Quality: Fair ECG Rhythm: Sinus Conclusions: - 1. Normal LV ejection fraction of 55-60% with impaired relaxation filling pattern 2. Moderate to severe aortic stenosis with mild aortic regurgitation 3. Mildly dilated left atrium 4. No gross pericardial effusion Findings Procedure Information The study quality is limited by the patients inability to tolerate the test. Left Ventricle Normal left ventricular size, thickness, and systolic function. The visually estimated ejection fraction is between 55-60%. Spectral Doppler is indicative of an impaired relaxation filling pattern. E/E prime ratio is between 8 and 15 consistent with indeterminate filling pressures. There is mild septal asymmetric hypertrophy. Right Ventricle Normal right ventricular cavity size and systolic function. Atria The left atrium is mildly dilated. There is no evidence of interatrial shunt. The right atrium is normal in size. Aortic Valve There is mild calcification of the aortic valve. There is mild thickening of the aortic valve. There is moderate to severe aortic valve stenosis. The peak aortic gradient is 32 mmHg.The mean gradient is 19 mmHg. The aortic valve area is 0.94 cm2. There is mild aortic valve regurgitation. dimensionless index is 0.29 Mitral Valve There is mild anterior and posterior mitral leaflet thickening. There is mild anterior mitral annular calcification. There is mild mitral annular calcification. There is mild mitral valve regurgitation. There is no mitral valve stenosis. Pulmonic Valve The pulmonic valve was not well visualized. Tricuspid Valve The tricuspid valve was not well visualized. Tricuspid regurgitation envelope is inadequate for calculation of right ventricular systolic pressure. Normal right atrial pressure. Great Vessels All visible segments of the aorta are normal in size. The pulmonary artery was not well visualized. There is no dilatation of the ascending aorta measuring 3.10 cm. Venous The inferior vena cava is normal in size and collapses greater than 50% with inspiration. Pericardium/Pleural There is no evidence of pericardial effusion. Measurements 2D Linear Measurements IVSd: 1.33 0.6-0.9/0.6-1.0 cm LVIDd: 3.77 3.9-5.3/4.2-5.9 cm LVIDd Index: 2.43 2.4-3.2/2.2-3.1 cm/m2 LVIDs: 2.54 2.0-3.6 cm LVPWd: 0.87 0.7-1.1 cm LA Diam: 3.40 2.7-3.8/3.0-4.0 cm LAIDs Index: 2.19 1.5-2.3 cm/m2 LV Mass: 165.56 67-162/88-224 g LV Mass Index: 106.81 43-95/49-115 g/m2 LVOT Diam: 2.00 3.0+(-)1.3 cm 2D Systolic Function EF 4C: 57.90 >55% EF 2C: 62.20 >55% EF BiP: 58.00 >55% Mitral Valve MV Pk E: 0.58 MV PK A: 0.64 MV Decel Time: 268.00 E/A: 0.90 E'Lateral: 5.87 E'Medial: 5.33 E/E' Med: 10.90 E/E' Lat: 9.90 PHT: 79.00 MVA PHT: 2.78 Decel [place]: 2.17 Aortic Valve AoV Pk Gautam: 2.82 AoV Mn Gautam: 2.11 AoV VTI: 0.65 AoV Pk Grad: 32.00 Aov Mn Grad: 19.00 ADALI Cont.VTI: 0.94 LVOT LVOT Pk Gautam: 0.91 LVOT Mn Gautam: 0.55 LVOT VTI: 0.19 LVOT Pk Grad: 3.00 LVOT Mn Grad: 1.00 LVOT Diam: 2.00 LVOT Area: 3.14 Diastolic Function MV Pk E: 0.58 MV Pk A: 0.64 E/A: 0.90 E'Medial: 5.33 E/E' Med: 10.90 E' Laterial: 5.87 E/E' Lat: 9.90 Right Ventricle TAPSE (mm): 19.60 TVS' Gautam: 13.30 Tricuspid Valve RA Press: 3.00 Great Vessels Aorta Sinus of Valsalva: 2.77 2.0-3.5 cm Ao Asc: 3.10 2.1-3.4 cm Updated in Other Vendor System with Status of Final Darinel Kinney MD electronically signed on 11/10/2023 2:43:05 PM with status of Final
== END ==
LOC: HO.CARD 08:58
PROVIDERS: PCP Internal Medicine; Visit Provider Internal Medicine
DX: I35.0 Nonrheumatic aortic (valve) stenosis (principal)
CPT/HCPCS: 93306

== ENCOUNTER → 2023-11-09 09:01 | Outpatient (BNV) | payer MEDICARE, SELFPAY | PROVIDERS: PCP Internal Medicine; Visit Provider Internal Medicine Cardiovascular Disease | DX: I35.2 Nonrheumatic aortic (valve) stenosis with insufficiency (principal); I35.8 Other nonrheumatic aortic valve disorders; I34.0 Nonrheumatic mitral (valve) insufficiency; I34.81 Nonrheumatic mitral (valve) annulus calcification | CPT/HCPCS: 93306 ==

== ENCOUNTER 2023-11-11 08:57 | Outpatient (AMB) | payer MEDICARE, SELFPAY ==
[2023-11-11 09:08] VITALS: BMI 29.3
--- NOTE | 2023-11-11 09:08 | MHC.OFFVIS ---
Vital Signs 11/11/23 09:08 Height 4 ft 10 in Weight 140 lb BMI 29.3 Intake Visit Reasons: New Pt - B/L hip OA Intake Note: Dina is an 82 year old female who presents today as a new patient with complaints of bilateral hip pain. Patient reports that about 3 weeks ago she had xrays taken. She reports that she has some mild pain in the right side of her lower back and radies down the right leg Allergies No Known Allergies Allergy (Verified 11/11/23 09:11) HPI HPI New Pt - B/L hip OA: Details: Dina is an 82 year old female who presents today as a new patient with complaints of bilateral hip pain. Patient reports that about 3 weeks ago she had xrays taken. She reports that she has some mild pain in the right side of her lower back and radiates down the right leg. [facility] Medical History Degenerative joint disease of both hips Chronic right hip pain Prolapse of female pelvic organs COVID-19 vaccine dose declined Left medial knee pain Bilateral hip pain Post-menopause Tubular adenoma of colon Osteopenia of left femoral neck Nonrheumatic aortic (valve) stenosis Essential hypertension Dyslipidemia Acquired hypothyroidism Acquired deformity of toenail Surgical History Hx of colonoscopy History of total abdominal hysterectomy and bilateral salpingo-oophorectomy Hx of cholecystectomy Family History Father CAD (coronary artery disease) Myocardial infarction Mother Type 2 diabetes mellitus Social History Housing: House Alcohol intake: current Patient Tobacco Use Status: Never used Tobacco e-Cigarette/Vaping Use: Never Used Second Hand Smoke Exposure: No Current occupational status: retired Cognitive needs: No Hearing needs: No Vision needs: Yes Physical Exam Vital Signs: BMI result Body Mass Index 29.3 Extrem Other: There is mildly positive impingement test on the right. She has a mild Trendelenburg gait. Results Reviewed Results Reviewed: I personally reviewed relevant radiographs. Mild bilateral hip arthritis right greater than left Assessment & Plan Assessment & Plan (1) Degenerative joint disease of both hips: Code(s): M16.0 - Bilateral primary osteoarthritis of hip Category: Medical Plan: This is a 82-year-old woman with mild radiographic evidence of arthritis and mild symptoms of arthritis. Her primary symptoms are attributable to her back and radiating posterior and posterolateral leg pain that extends down to the lozano on the right side. (2) Lumbar radiculopathy: Code(s): M54.16 - Radiculopathy, lumbar region Category: Medical Plan: I recommend physical therapy and a referral to pain management. Orders: Orders PT Evaluation and Treatment Today M16.0 - Bilateral primary osteoarthritis of hip, M54.16 - Radiculopathy, lumbar region Referrals Pain Management Referral M54.16 - Radiculopathy, lumbar region Coding Level of Care Code New Pt Level 4 (02132) Diagnoses Degenerative joint disease of both hips M16.0 Lumbar radiculopathy M54.16
== END 2023-11-11 09:20 | disposition home or self-care (01) ==
PROVIDERS: PCP Internal Medicine; Visit Provider Orthopaedic Surgery
DX: M16.0 Bilateral primary osteoarthritis of hip (principal); M54.16 Radiculopathy, lumbar region
CPT/HCPCS: 99204

== ENCOUNTER → 2023-11-11 08:57 | Outpatient (BNVA) | payer MEDICARE, SELFPAY | PROVIDERS: PCP Internal Medicine; Visit Provider Orthopaedic Surgery | DX: M16.0 Bilateral primary osteoarthritis of hip (principal); M54.16 Radiculopathy, lumbar region; M85.851 Other specified disorders of bone density and structure, right thigh | CPT/HCPCS: 99202 ==

== ENCOUNTER 2023-12-01 10:36 | Outpatient (AMB) | payer MEDICARE, SELFPAY ==
--- NOTE | 2023-12-01 10:38 | A.OFFVIS_ITS ---
Vital Signs 12/01/23 10:39 Height 4 ft 10 in Weight 137 lb 9.095 oz BMI 28.7 BP 164/78 H Blood Pressure Location Lt brachial Position Sitting Pulse 88 Intake Visit Reasons: 1 yr s/p echo Supervisor Asphalt Paving Required: No Accompanied by: Self / Same As Patient Allergies No Known Allergies Allergy (Verified 11/11/23 09:11) Medication List - Last Reconciled 12/01/23 by Kirk Tejeda MD aspirin (Adult Low Dose Aspirin) 81 mg PO DAILY atorvastatin 20 mg PO DAILY cholecalciferol (vitamin D3) 50 mcg PO DAILY diclofenac sodium 1% 2 grams topical QID PRN L. acidophilus/Bifid. animalis 2.5 billion cell (Daily Probiotic) caps PO levothyroxine 112 mcg PO QAM HPI Comments Details: Dina is here for follow-up regarding aortic stenosis. She states that she is doing fine. No specific complaints like angina or in fact anything cardiac sounding. Mostly getting along okay. Today's blood pressure is high. However, she states she is now his. Additionally, her PCP. Her blood pressure medication as the potassium was low. Per notes, it seems she has been on chlorthalidone. [facility] Medical History Degenerative joint disease of both hips Chronic right hip pain Prolapse of female pelvic organs COVID-19 vaccine dose declined Left medial knee pain Bilateral hip pain Post-menopause Tubular adenoma of colon Osteopenia of left femoral neck Nonrheumatic aortic (valve) stenosis Essential hypertension Dyslipidemia Acquired hypothyroidism Acquired deformity of toenail Surgical History Hx of colonoscopy History of total abdominal hysterectomy and bilateral salpingo-oophorectomy Hx of cholecystectomy Family History Father CAD (coronary artery disease) Myocardial infarction Mother Type 2 diabetes mellitus Social History Housing: House Alcohol intake: current Patient Tobacco Use Status: Never used Tobacco e-Cigarette/Vaping Use: Never Used Second Hand Smoke Exposure: No Current occupational status: retired Cognitive needs: No Hearing needs: No Vision needs: Yes Review of Systems Const Denies chills, Denies fatigue, Denies fever(s), Denies weight gain and Denies weight loss ENT Denies dizziness Card Denies chest pain, Denies leg edema, Denies lightheadedness, Denies palpitations, Denies dyspnea on exertion, Denies orthopnea and Denies other Resp Denies cough and Denies dyspnea on exertion GI Denies hematochezia and Denies change in stool character Musc Denies abnormal gait, Denies muscle weakness, Denies numbness, Denies radiating pain into limb and Denies tingling Neuro Denies abnormal gait, Denies dizziness, Denies numbness and Denies tingling Endo Denies fatigue and Denies palpitations Physical Exam Vital Signs: Last Vital Signs Pulse 88 12/01/23 10:39 BP 164/78 H 12/01/23 10:39 BMI result Body Mass Index 28.7 Const General: comfortable and no acute distress Orientation/consciousness: patient oriented x3 HEENT Other: Unremarkable Head: Yes normal to inspection Neck Neck: Yes normal visual inspection Chest Chest palpation & inspection: normal inspection of the chest Resp Auscultation: clear to auscultation bilaterally Cardio Palpation: normal PMI Heart sounds: S1 normal heart sound present, S2 normal heart sound present, no gallops, Murmur heart sound present systolic III/ and no rubs GI Palpation (GI): Soft to palpation Back/Spine/Pelvis Other: unremarkable Skin General skin exam: no rashes or lesions noted Neuro General: patient oriented x3 Extrem General: Yes normal to inspection Psych Mental Status: mental status grossly normal Office Procedures EKG Details: EKG with underlying sinus rhythm at 88/Min; minimal criteria for LVH; no significant ST-T changes; [place] [id number], Complete Assessment & Plan Assessment & Plan (1) Nonrheumatic aortic (valve) stenosis: Code(s): I35.0 - Nonrheumatic aortic (valve) stenosis Category: Medical Plan: In the most recent echocardiogram, mean gradient across aortic valve was 19 mm Hg with a dimensionless index of 0.29. Calculated valve area of 0.94 sq cm. Preserved LVEF at 55-60%. Overall, thought to be moderate to severe aortic stenosis. Findings discussed with patient. Clinically, she has got absolutely no symptoms. We will continue to monitor. Recheck echo in 6 months time. Last stress test from 2019-in Fritz protocol, workload up to 5.6 Mets. Unremar kable perfusion imaging. Discussed in detail about natural history of aortic stenosis including symptoms, treatment options, including eventual TAVR. (2) Essential hypertension: Code(s): I10 - Essential (primary) hypertension Category: Medical Plan: Per patient, chlorthalidone stopped because of low potassium. Can try amlodipine. Orders: Orders CA echo transthoracic complete 6 Months I35.0 - Nonrheumatic aortic (valve) stenosis Medications: New amlodipine 2.5 mg PO DAILY 90 tabs 3RF I10 - Essential (primary) hypertension Coding Level of Care Code Est Pt Level 4 (41768) Diagnoses Nonrheumatic aortic (valve) stenosis I35.0 Essential hypertension I10 CPT Codes EKG - CPT: 30376-[id number], Complete ([id number])
[2023-12-01 10:39] VITALS: BP 164/78; PULSE 88; BMI 28.7
== END 2023-12-01 11:14 | disposition home or self-care (01) ==
PROVIDERS: PCP Internal Medicine; Visit Provider Internal Medicine
DX: I35.0 Nonrheumatic aortic (valve) stenosis (principal); I10 Essential (primary) hypertension
CPT/HCPCS: 93010; 99214

== ENCOUNTER → 2023-12-01 10:36 | Outpatient (BNVA) | payer MEDICARE, SELFPAY | PROVIDERS: PCP Internal Medicine; Visit Provider Internal Medicine | DX: M47.26 Other spondylosis with radiculopathy, lumbar region (principal); M53.3 Sacrococcygeal disorders, not elsewhere classified; I35.0 Nonrheumatic aortic (valve) stenosis; I10 Essential (primary) hypertension | CPT/HCPCS: 93005; 99202; 99212 ==

== ENCOUNTER 2023-12-01 13:26 | Outpatient (AMB) | payer MEDICARE, SELFPAY ==
[2023-12-01 13:41] VITALS: BP 146/69; PULSE 90; O2SAT 95; BMI 28.6
--- NOTE | 2023-12-01 13:41 | MHC.OFFVIS ---
Vital Signs 12/01/23 13:41 Height 4 ft 10 in Weight 137 lb BMI 28.6 BP 146/69 H Blood Pressure Location Rt brachial Position Sitting Pulse 90 Pulse Source Pulse Oximeter Pulse Oximetry (%) 95 Oxygen Delivery Method Room Air Intake Visit Reasons: Lumbar Radiculopathy Allergies No Known Allergies Allergy (Verified 12/01/23 13:43) Medication List - Last Reconciled 12/01/23 by Yvrose Mars amlodipine 2.5 mg PO DAILY aspirin (Adult Low Dose Aspirin) 81 mg PO DAILY atorvastatin 20 mg PO DAILY cholecalciferol (vitamin D3) 50 mcg PO DAILY diclofenac sodium 1% 2 grams topical QID PRN L. acidophilus/Bifid. animalis 2.5 billion cell (Daily Probiotic) caps PO levothyroxine 112 mcg PO QAM HPI Comments Details: Dina a very pleasant 82-year-old female who presents to the office today for evaluation and management of her right lower back pain She has been suffering with this pain for approximately 2 months. Denies inciting injury, fall, trauma. Endorses right lower back pain with radiation down the right leg into the thigh. Intermittent radiation to the right groin. Pain today is rated as a 1/10, intermittent. Worse at night. Pain is worse with movements, improves with topical medications. Currently taking Tylenol and applying topical diclofenac as needed She has just started physical therapy, 1st session was this week. Plan for 2 times weekly visits for the next 6 weeks Denies weakness, burning, numbness, tingling of either lower extremity Denies red flag symptoms including new loss of bowel, bladder or saddle anesthesia. Recent x-ray of the hips and pelvis reviewed, results as per below In terms of muscle damage condition is described as aching Pain is negatively impacting patient's sleep and general activity Denies current use of anticoagulants Denies current use of nicotine, tobacco or illicit substances. Endorses occasional wine consumption Denies implantable devices, pacemaker or defibrillator [facility] Medical History Degenerative joint disease of both hips Chronic right hip pain Prolapse of female pelvic organs COVID-19 vaccine dose declined Left medial knee pain Bilateral hip pain Post-menopause Tubular adenoma of colon Osteopenia of left femoral neck Nonrheumatic aortic (valve) stenosis Essential hypertension Dyslipidemia Acquired hypothyroidism Acquired deformity of toenail Surgical History Hx of colonoscopy History of total abdominal hysterectomy and bilateral salpingo-oophorectomy Hx of cholecystectomy Family History Father CAD (coronary artery disease) Myocardial infarction Mother Type 2 diabetes mellitus Social History Housing: House Alcohol intake: current Patient Tobacco Use Status: Never used Tobacco e-Cigarette/Vaping Use: Never Used Second Hand Smoke Exposure: No Current occupational status: retired Cognitive needs: No Hearing needs: No Vision needs: Yes Review of Systems Const All systems reviewed & are unremarkable except as noted in HPI and below Physical Exam Vital Signs: Last Vital Signs Pulse 90 12/01/23 13:41 BP 146/69 H 12/01/23 13:41 Pulse Ox 95 12/01/23 13:41 Oxygen Delivery Method Room Air 12/01/23 13:41 BMI result Body Mass Index 28.6 General: awake, alert, oriented. Answers questions appropriately. Fully engaged in examination. Skin: warm, dry, intact HEENT: Normocephalic. Hearing intact. Cardiac: External chest normal in appearance. Respiratory: No cough, audible wheezing or stridor. Abdomen: without gross distension. MS: No obvious swelling or deformities. Able to stand on bilateral tiptoes and bilateral heels.? Able to transition from sit to stand unassisted. Ambulates with bilaterally normal heel strike and toe off Full lumbar range of motion SLR negative bilaterally HANY positive on the right Tender over right PSIS Nontender over midline lumbar vertebrae and lumbar paraspinal muscles Gaenslen positive on the right SI compression positive on the right Facet loading negative No pain with internal/external rotation of the hips Negative footdrop Bilateral lower extremity strength 5/5 Neurological: Oriented to person, place, time and situation. Thought process intact. No gait abnormalities appreciated. Psychiatric: Appropriate mood and affect. Good judgment and insight. Results Reviewed Results Reviewed: 10/18/23 XR/XR hip BI w PEL1V IMPRESSION: 1. Moderate degenerative changes in bilateral hips, right greater than left, has progressed since 2021. 2. Advanced degenerative changes in the imaged lower lumbar spine. This study was presented today October 26, 2023 for interpretation. Stat results provided at this time as requested by referring provider. Assessment & Plan Assessment & Plan (1) Sacroiliac joint dysfunction of right side: Code(s): M53.3 - Sacrococcygeal disorders, not elsewhere classified Category: Medical (2) Lumbar spondylosis: Code(s): M47.816 - Spondylosis without myelopathy or radiculopathy, lumbar region Category: Medical Plan Dina is a very pleasant 82-year-old female who presented to the office today for evaluation management of her right lower back pain. History, physical exam provocative testing consistent with right sacroiliac joint dysfunction Continue with plan for physical therapy Continue with Tylenol as needed. Continue with topical diclofenac as needed. Discussed options for treatment including diagnostic and therapeutic injections. Patient does not want to proceed with any injections at this time, prefers continue with conservative measures as pain has been improving with the past 2 months. All questions and concerns were answered, patient agrees with the plan. Follow up after PT, sooner if needed Coding Level of Care Code New Pt Level 4 (92149) Diagnoses Sacroiliac joint dysfunction of right side M53.3 Lumbar spondylosis M47.816
== END 2023-12-01 14:04 | disposition home or self-care (01) ==
PROVIDERS: PCP Internal Medicine; Referring Provider Orthopaedic Surgery; Visit Provider Registered Nurse Emergency
DX: M53.3 Sacrococcygeal disorders, not elsewhere classified (principal); M47.816 Spondylosis without myelopathy or radiculopathy, lumbar region
CPT/HCPCS: 99204

== ENCOUNTER 2023-12-21 07:00 | Outpatient (REF) | payer MEDICARE, SELFPAY ==
[2023-12-21 08:14] LABS: Alanine Aminotransferase 21 U/L (0-31); Aspartate Amino Transferase 19 U/L (5-31); Cholesterol 222 mg/dL (<200); HDL Cholesterol 86 mg/dL (>40); LDL Cholesterol Calculated 118 mg/dL (<100); Triglycerides 91 mg/dL (<150)
[2023-12-21 08:31] LABS: Free T4 (Free Thyroxine) 1.17 ng/dL (0.71-1.85); Thyroid Stimulating Hormone 0.14 uIU/mL (0.32-4.0)
== END 2023-12-21 07:01 | disposition home or self-care (01) ==
LOC: HO.LAB 07:00
PROVIDERS: PCP Internal Medicine; Visit Provider Internal Medicine
DX: M85.852 Other specified disorders of bone density and structure, left thigh (principal); E78.5 Hyperlipidemia, unspecified; E03.9 Hypothyroidism, unspecified; M79.10 Myalgia, unspecified site; Z78.0 Asymptomatic menopausal state
CPT/HCPCS: 36415; 80061; 82306; 82550; 84439; 84443; 84450; 84460

== ENCOUNTER 2023-12-27 08:08 | Outpatient (AMB) | payer MEDICARE, SELFPAY ==
[2023-12-27 08:24] VITALS: BP 132/70; PULSE 97; O2SAT 97; BMI 28.8
--- NOTE | 2023-12-27 08:24 | MHC.PC.OV ---
Vital Signs 12/27/23 08:24 Height 4 ft 10 in Weight 138 lb BMI 28.8 BP 132/70 Blood Pressure Location Rt brachial Position Sitting Pulse 97 Pulse Source Pulse Oximeter Pulse Oximetry (%) 97 Oxygen Delivery Method Room Air Intake Visit Reasons: 3 month follow up Lipids Intake Note: Pt is here today for her 3mo. f/u labs Allergies No Known Allergies Allergy (Verified 12/27/23 08:54) Medication List - Last Reconciled 12/27/23 by Nuria Hamilton MD amlodipine 2.5 mg PO DAILY aspirin (Adult Low Dose Aspirin) 81 mg PO DAILY atorvastatin 20 mg PO DAILY cholecalciferol (vitamin D3) 50 mcg PO DAILY L. acidophilus/Bifid. animalis 2.5 billion cell (Daily Probiotic) caps PO levothyroxine 112 mcg PO QAM Tobacco use date assessed: 12/27/23 Fall risk assessment: No Falls in past year Last assessed Fall Risk: 12/27/23 Dental Screening Dental Screen Date: 12/27/23 Did you have a dental visit in the last 12 months?: No Did you have a dental problem in the last 6 months where you did not have access to dental care?: No Was dental information given to patient?: Patient declined HPI 3 month follow up Lipids HPI Details 82-year-old lady with hypertension, hyperlipidemia, hypothyroidism and aortic stenosis, here today for her follow-up. She has been compliant with taking her medications, but admits to being a little off her diet past summer. Recent fasting labs showed results within normal limits except for higher LDL cholesterol compared to last check. Has been feeling well, with no complaints of chest pain, no lightheadedness, shortness of breath on exertion. She was recently started on amlodipine 2.5 mg daily for by her team physician for hypertension control [facility] Medical History (Updated 12/27/23 @ 09:02 by Nuria Hamilton MD) Degenerative joint disease of both hips Chronic right hip pain Prolapse of female pelvic organs COVID-19 vaccine dose declined Left medial knee pain Bilateral hip pain Post-menopause Tubular adenoma of colon Osteopenia of left femoral neck Nonrheumatic aortic (valve) stenosis Essential hypertension Dyslipidemia Acquired hypothyroidism Acquired deformity of toenail Surgical History Hx of colonoscopy History of total abdominal hysterectomy and bilateral salpingo-oophorectomy Hx of cholecystectomy Family History Father CAD (coronary artery disease) Myocardial infarction Mother Type 2 diabetes mellitus Social History Housing: House Alcohol intake: current Patient Tobacco Use Status: Never used Tobacco e-Cigarette/Vaping Use: Never Used Second Hand Smoke Exposure: No Current occupational status: retired Cognitive needs: No Hearing needs: No Vision needs: Yes Questionnaire PHQ-9 Over the last 2 weeks, how often have you been bothered by any of the following problems? 1. Little interest or pleasure in doing things: not at all 2. Feeling down, depressed, or hopeless: not at all 3. Trouble falling or staying asleep, or sleeping too much: not at all 4. Feeling tired or having little energy: not at all 5. Poor appetite or overeating: not at all 6. Feeling bad about yourself - or that you are a failure or have let yourself or your family down: not at all 7. Trouble concentrating on things, such as reading the newspaper or watching television: not at all 8. Moving or speaking so slowly that other people could have noticed. Or the opposite - being so fidgety or restless that you have been moving around a lot more than usual: not at all 9. Thoughts that you would be better off or of hurting yourself in some way: not at all Total score: 0 Depression Screening Interpretation: Negative Depression Screening Done: Yes 49311 - PHQ-9 Billing: Yes Source: Developed by Drs. Param Hardy, Nat Banerjee, Sony Lopez and colleagues, with an educational cherelle from [employer]. Thrive Questionnaire Date Thrive assessed: 12/24/23 I am a: Patient What is your living situation today?: I have a steady place to live Within the past 12 months, did the food you bought not last and you didn't have the money to get more?: Often true Within the past 12 months, did you worry whether your food would run out before you got money to buy more?: Never true Do you have trouble paying for medicines?: No Do you have trouble getting transportation to medical appointments?: No Do you have trouble paying your heating and electricity bill?: No Do you have trouble taking care of your child, family member or friend?: No Do you have trouble with day-to-day activities such as bathing, preparing meals, shopping, managing finances, etc.?: No Are you interested in more education?: No Please select the resources that you would like help with: None Currently or been in a relationship where the following occur: No concerns reported THRIVE Score: 1 AUDIT C Alcohol Use Questionnaire (AUDIT-C) 1. How often do you have a drink containing alcohol?: 2-3 times a week 2. How many drinks containing alcohol do you have on a typical day when you are drinking?: 1 or 2 3. How often do you have six or more drinks on one occasion?: Never Total Score: 3 CARLY-7 AMB Questionnaire CARLY-7 Date CARLY - 7 assessed: 12/27/23 Feeling nervous, anxious, or on edge: 0 = Not at all Not being able to stop or control worryin = Not at all Worrying too much about different things: 0 = Not at all Trouble relaxin = Not at all Being so restless that it is hard to sit still: 0 = Not at all Becoming easily annoyed or irritable: 0 = Not at all Feeling afraid as if something awful might happen: 0 = Not at all Total CARLY-7 score (0-4 normal; 5-9 mild; 10-14 moderate; 15-21 severe): 0 Source: Developed by Drs. Param Hardy, Nat Banerjee, Sony Lopez and colleagues, with an educational cherelle from [employer]. CARLY-7 Assessment Billing CARLY-7 Assessment Tool: CARLY-7 Assessment 23202 Review of Systems Const Denies chills, Denies fatigue and Denies fever(s) ENT Denies dizziness Card Denies chest pain, Denies leg edema, Denies lightheadedness, Denies palpitations and Denies dyspnea on exertion Resp Denies cough and Denies dyspnea on exertion GI Denies abdominal pain, Denies hematochezia, Denies change in bowel habits and Denies change in stool character Reports no additional complaints Musc Details: Improving right lower back pain, currently getting physical therapy Denies abnormal gait, Denies muscle weakness, Denies numbness, Denies radiating pain into limb and Denies tingling Neuro Denies abnormal gait, Denies dizziness, Denies numbness, Denies Sensory deficit (Neuro) and Denies tingling Psych Reports no additional complaints Endo Denies fatigue and Denies palpitations Jame/Lymph Reports no additional complaints Physical exam (Primary Care) Vital Signs: Last Vital Signs Pulse 97 12/27/23 08:24 BP 132/70 12/27/23 08:24 Pulse Ox 97 12/27/23 08:24 Oxygen Delivery Method Room Air 12/27/23 08:24 BMI result Body Mass Index 28.8 Tobacco/Smoking Status: Tobacco use Status Tobacco use date assessed 12/27/23 12/27/23 08:28 Patient Tobacco Use Status Never used Tobacco 12/27/23 08:28 e-Cigarette/Vaping Use Never Used 12/27/23 08:28 PHQ-9: PHQ-9 Score PHQ-9: Total score 0 12/27/23 08:56 Depression Screening Interpretation: Negative Thrive Assessment: Date of Thrive Assessment Date Thrive assessed 12/24/23 12/27/23 08:28 Currently or been in a relationship where the following occur: No concerns reported Const Other: Alert oriented x3, no acute cardiorespiratory distress noted General: alert Orientation/consciousness: patient oriented x3 HENMO Mouth: Normal oral and palatal mucosa present, oropharynx normal and moist mucous membranes Neck Neck: Yes full ROM and Yes no lymphadenopathy Thyroid: Thyroid normal Resp Effort & Inspection: normal respiratory effort and able to speak in complete sentences Auscultation: clear to auscultation bilaterally Cardio Rate: regular rate Rhythm: regular rhythm Heart sounds: S1 normal heart sound present, S2 normal heart sound present and Murmur heart sound present systolic GI Inspection: Yes normal to inspection Palpation (GI): Soft to palpation Auscultation: normal bowel sounds General: Yes no CVA tenderness Back/Spine/Pelvis Back: no CVA tenderness Skin General skin exam: no rashes or lesions noted Neuro General: patient oriented x3, gait normal, moves all extremities, no focal motor deficits and CN's II-XI intact bilaterally Cognition (Neuro): normal cognition Gait exam (Neuro): Normal gait present Motor exam (neuro): 5/5 motor strength present throughout Sensory Exam: No Sensory deficit (Neuro) Extrem General: Yes normal to inspection, Yes no joint enlargement and Yes normal gait Psych Affect: normal affect Results Reviewed Results Reviewed: Name: Dina Levy Age/Sex: 82/F [facility] 1940 [id number] [id number] Attend Dr: Nuria Hamilton MD Re12/21/23 Status: DEP [facility] Disch: SPEC : [id number] TONY: 12/21/23 STATUS: COMP REQ : [id number] RECD: 12/21/[address]: Nuria Hamilton MD COMP: 12/21/23 ENTERED: 12/21/[address]: ORDERED: AST, ALT, CK Total, Lipid Panel, Vitamin D 25-OH, Free T4, TSH Test Result Flag Reference AST (GOT) 19 5-31 U/L ALT (GPT) 21 0-31 U/L CK Total 69 26-140 U/L Triglyceride 91 <150 mg/dL Desirable Triglyceride: less than 150 mg/dL Borderline High Triglyceride 150-199 mg/dL High Triglyceride: 200-499 mg/dL Very High Triglyceride: greater than or equal to 5OO mg/dL Cholesterol 222 H <200 mg/dL Desirable Cholesterol: less than 200 mg/dL Borderline High Cholesterol: 200-239 mg/dL High Cholesterol: greater than 239 mg/dL LDL Calculated 118 H <100 mg/dL Desirable LDL: less than 100 mg/dL Near Optimal/Above Optimal LDL: 110-129 mg/dL Borderline High LDL: 130-159 mg/dL High LDL: 160-189 mg/dL Very High LDL: greater than or equal to 190 mg/dL HDL 86 >40 mg/dL Desirable HDL: greater than 40 mg/dL Note: This HDL assay may give artificially low results in patients with liver disease. Vit D 25-OH Tot 37.0 >30 ng/mL Health Based Reference Values* < 20 ng/mL Deficient 20-30 ng/mL Insufficient > 30 ng/mL Sufficient *Dasia DAVIS. N Engl J Med. 2007;357:266-280 Care must be taken in interpreting Vitamin D results from different laboratories and methodologies. Published data demonstrated that results from patients undergoing hemodialysis may show a negative bias when tested with various automated 25-OH vitamin D assays when compared to LC-MS/MS. When testing samples from patients whose predominant form of Vitamin D is Vitamin D2, such as patients receiving Vitamin D2 supplementation, results that are subtherapeutic should be confirmed with another method such as LC-MS/MS. Free T4 1.17 0.71-1.85 ng/dL TSH 3rd Gen. 0.14 L 0.32-4.0 uIU/mL TSH 3rd Generation ([facility]) Assessment and Plan Assessment & Plan (1) Acquired hypothyroidism: Code(s): E03.9 - Hypothyroidism, unspecified Plan: TSH mildly suppressed, improving, with normal free T4. continue with current dose of levothyroxine 112 mcg daily (2) Dyslipidemia: Code(s): E78.5 - Hyperlipidemia, unspecified Plan: Reviewed recent fasting lipid profile with patient with LDL cholesterol slightly elevated . Continue atorvastatin 20 mg daily , in addition to adherence to low-cholesterol diet and regular exercise, at least 30 minutes 3 to 4 times a week. Advised patient to make healthy food choices, eat more fruits, vegetables, whole grains, wild caught fish and low-fat dairy. Limit amount of meat and fried or fatty food products, as well as processed foods and fast foods. Follow-up scheduled with repeat fasting lipid panel in 6 months. (3) Essential hypertension: Code(s): I10 - Essential (primary) hypertension Plan: Blood pressure at goal of less than 130/80. Continue amlodipine 2.5 mg daily, Reinforced importance of following a low sodium diet, getting regular exercise, and lowering stress levels. (4) Nonrheumatic aortic (valve) stenosis: Code(s): I35.0 - Nonrheumatic aortic (valve) stenosis Plan: Scheduled for repeat echocardiogram in 05/2024 ordered by her team physician, continue aspirin 81 mg daily Orders: Orders Alanine Aminotransferase 06/03/24 E03.9 - Hypothyroidism, unspecified, E78.5 - Hyperlipidemia, unspecified, I10 - Essential (primary) hypertension, I35.0 - Nonrheumatic aortic (valve) stenosis, M85.852 - Other specified disorders of bone density and structure, left thigh, Z78.0 - Asymptomatic menopausal state Basic Metabolic Panel Fasting 06/03/24 E03.9 - Hypothyroidism, unspecified, E78.5 - Hyperlipidemia, unspecified, I10 - Essential (primary) hypertension, I35.0 - Nonrheumatic aortic (valve) stenosis, M85.852 - Other specified disorders of bone density and structure, left thigh, Z78.0 - Asymptomatic menopausal state Vitamin D 25-OH Total 06/03/24 E03.9 - Hypothyroidism, unspecified, E78.5 - Hyperlipidemia, unspecified, I10 - Essential (primary) hypertension, I35.0 - Nonrheumatic aortic (valve) stenosis, M85.852 - Other specified disorders of bone density and structure, left thigh, Z78.0 - Asymptomatic menopausal state AMB Hemoglobin A1c 06/03/24 E03.9 - Hypothyroidism, unspecified, E78.5 - Hyperlipidemia, unspecified, I10 - Essential (primary) hypertension, I35.0 - Nonrheumatic aortic (valve) stenosis, M85.852 - Other specified disorders of bone density and structure, left thigh, Z78.0 - Asymptomatic menopausal state Lipid Panel 06/03/24 E03.9 - Hypothyroidism, unspecified, E78.5 - Hyperlipidemia, unspecified, I10 - Essential (primary) hypertension, I35.0 - Nonrheumatic aortic (valve) stenosis, M85.852 - Other specified disorders of bone density and structure, left thigh, Z78.0 - Asymptomatic menopausal state Thyroid Stimulating Hormone 06/03/24 E03.9 - Hypothyroidism, unspecified, E78.5 - Hyperlipidemia, unspecified, I10 - Essential (primary) hypertension, I35.0 - Nonrheumatic aortic (valve) stenosis, M85.852 - Other specified disorders of bone density and structure, left thigh, Z78.0 - Asymptomatic menopausal state Free T4 (Free Thyroxine) 06/03/24 E03.9 - Hypothyroidism, unspecified, E78.5 - Hyperlipidemia, unspecified, I10 - Essential (primary) hypertension, I35.0 - Nonrheumatic aortic (valve) stenosis, M85.852 - Other specified disorders of bone density and structure, left thigh, Z78.0 - Asymptomatic menopausal state Coding Level of Care Code Est Pt Level 4 (75852) Complex EM visit Add On G2211 Diagnoses Acquired hypothyroidism E03.9 Dyslipidemia E78.5 Essential hypertension I10 Nonrheumatic aortic (valve) stenosis I35.0 Additional Codes CARLY-7 Assessment Billing - CARLY-7 Assessment Tool: CARLY-7 Assessment 15348 ([id number])
== END 2023-12-27 10:36 | disposition home or self-care (01) ==
PROVIDERS: PCP Internal Medicine; Visit Provider Internal Medicine
DX: E03.9 Hypothyroidism, unspecified (principal); E78.5 Hyperlipidemia, unspecified; I10 Essential (primary) hypertension; I35.0 Nonrheumatic aortic (valve) stenosis

== ENCOUNTER → 2023-12-27 08:08 | Outpatient (BNVA) | payer MEDICARE, SELFPAY | PROVIDERS: PCP Internal Medicine; Visit Provider Internal Medicine | DX: E03.9 Hypothyroidism, unspecified (principal); E78.5 Hyperlipidemia, unspecified; I10 Essential (primary) hypertension; I35.0 Nonrheumatic aortic (valve) stenosis | CPT/HCPCS: 96127; 99212 ==

== ENCOUNTER 2023-12-29 11:00 | Outpatient (RCR) | payer MEDICARE, SELFPAY ==
--- NOTE | 2023-11-30 14:59 | MHC.PT.EP ---
[facility] [place] Office [place] Office [place] Office [address] Rigoberto Acharya [address] [phone] F: [phone] F: [phone] F: [phone] F: [phone] Physical Therapy Plan of Care Date of Evaluation: 11/30/23 Date of Surgery: n/a Diagnosis: Radiculopathy, lumbar region Bilateral primary osteoarthritis of hip Assessment: Pt is a pleasant and motivated 82yo F who presents to PT with right hip pain with intermittent radicular symptoms into RLE. She presents to PT with current impairments in pain, decreased R hip ROM, decreased strength, soft tissue restrictions, impaired posture, and impaired gait. She is limited functionally by squatting, prolonged sitting, sitting>standing, tying her shoes, and LE ADLs. She is an excellent candidate for skilled PT in order to address current impaired to facilitate return to pain-free PLOF. She is recommended to be seen 2x/week for 4 weeks and will be reassessed at that time Frequency and Duration: The patient will be seen 2x/week for 4 weeks Short Term Goals: Pt will be I with HEP to promote self management of symptoms Pt will improve right hip flexion to at least 4+/5 Wet Roller Goals: Pt will demonstrate ability to squat and pickup driver object from the floor with proper mechanics and minimal to no discomfort Pt will perform sit>stands from varying surfaces with minimal to no discomfort Pt will demonstrate improvements in function as evidenced by statistically significant improvement in LEFI outcome measure Treatment Plan: Modalities to reduce pain, spasms and effusion. Manual therapy to restore motion and function. Therapeutic exercise to improve strength and flexibility. Neuromuscular re-education for posture and balance. Therapeutic activities to return to functional activities of daily living. Electronically signed by: Corrina Stock, PT, DPT Please sign and return to therapist. Thank you for your referral.
--- NOTE | 2023-12-29 12:34 | MHC.PT.DC ---
[facility] [place] Office [place] [facility] [place] Office [address] Rigoberto Acharya [address] [phone] F: [phone] F: [phone] F: [phone] F: [phone] Physical Therapy Discharge Report Diagnosis: Radiculopathy, lumbar region Bilateral primary osteoarthritis of hip Date of Surgery: n/a Date of Evaluation: 11/30/23 Date of Discharge: 12/29/23 Treatments to Date: 9 Cancellations to Date: No Shows to Date: Discharge Status: Achieved Goals Improved Function Independent with HEP Discharge Summary: Pt has made excellent progress since SOC. She has met her STGs and has made excellent progress toward her LTGs. She has had a decrease in pain and has improved her LE strength. She has improved her score on LEFI outcome measure from 43/80 on initial PT evaluation to 55/80 today. She is independent with HEP. She is being D/C to HEP at this time. I provided pt with printed, updated copy of HEP and pt verbalized understanding. Pt reports no further questions or concerns for PT Electronically signed by: Corrina Stock, PT, DPT Please sign and return to therapist. Thank you for your referral.
== END 2023-12-29 12:34 | disposition home or self-care (01) ==
LOC: HO.PT 11:00
PROVIDERS: PCP Internal Medicine; Visit Provider Orthopaedic Surgery
DX: M54.16 Radiculopathy, lumbar region (principal); M16.0 Bilateral primary osteoarthritis of hip
CPT/HCPCS: 97110; 97161

== ENCOUNTER 2024-02-14 08:37 | Outpatient (AMB) | payer MEDICARE, SELFPAY ==
--- NOTE | 2024-02-13 20:18 | MHC.OFFVIS ---
Intake Visit Reasons: 3m pessary maintenance Intake Note: Patient is present for 3M PESSARY MAINTENANCE Urology Medication:NONE Antibiotic Allergy:NONE Blood Thinner:ASPIRIN Medical Observer Required: No Allergies No Known Allergies Allergy (Verified 02/14/24 08:46) Medication List - Last Reconciled 02/14/24 by Ambrose Lee MD amlodipine 2.5 mg PO DAILY aspirin (Adult Low Dose Aspirin) 81 mg PO DAILY atorvastatin 20 mg PO DAILY cholecalciferol (vitamin D3) 50 mcg PO DAILY L. acidophilus/Bifid. animalis 2.5 billion cell (Daily Probiotic) caps PO levothyroxine 112 mcg PO QAM HPI Comments Details: 02/14/24 FU pessary maintenance. Dina is an 83-year-old female who has been managed with pessary for cystocele. She comes in today and states that about a week ago Wednesday the pessary fell out. She states that she has had a cold and has been coughing and 1 of the times that she coughed she felt that the pessary had fallen out. She brought the pessary to the office. She denies irritative voiding symptoms. On pelvic examination it was determined to size up on the pessary. Pessary - mentor size 4 ring with support inserted vaginally. Review of chart: 11/05/23--Dina is an 82-year-old female who presents today to the office for established treatment for female gential prolapse. Last seen 07/26/23, denies irritativie voiding symptoms, UA - nitritie positive - will send for c/s. She denies UTI symptoms. Here for pessary maintenance. Pessary removed/cleaned/and replaced without difficulty. Continue pessary management. Follow-up in 3 months 04/26/23--She is here today for established treatment for female genital prolapse. The patient has a past medical history of hypertension, aortic stenosis, history of total hysterectomy in 1984. She was initially evaluated on 02/15/2023?and a size 3 [place] Ring (w support) pessary was fitted She denies any prior cigarette use. Here for pessary maintenance. She denies any burning with urination. She denies any blood in the urine. Pelvic examination: cystocele, a size 3 [place] Ring (w support) pessary was removed/cleaned and replaced. Catheterized PVR 205 mL. Evaluation today?UA?Leukocytes: 3 +; blood: 1 +.- (voided), ----Cath'd UA leuk 1+ blood trace PFSH Medical History Degenerative joint disease of both hips Chronic right hip pain Prolapse of female pelvic organs COVID-19 vaccine dose declined Left medial knee pain Bilateral hip pain Post-menopause Tubular adenoma of colon Osteopenia of left femoral neck Nonrheumatic aortic (valve) stenosis Essential hypertension Dyslipidemia Acquired hypothyroidism Acquired deformity of toenail Surgical History Hx of colonoscopy History of total abdominal hysterectomy and bilateral salpingo-oophorectomy Hx of cholecystectomy Family History Father CAD (coronary artery disease) Myocardial infarction Mother Type 2 diabetes mellitus Social History Housing: House Alcohol intake: current Patient Tobacco Use Status: Never used Tobacco e-Cigarette/Vaping Use: Never Used Second Hand Smoke Exposure: No Current occupational status: retired Cognitive needs: No Hearing needs: No Vision needs: Yes Review of Systems Const All systems reviewed & are unremarkable except as noted in HPI and below Reports no additional complaints Eyes Reports no additional complaints ENT Reports no additional complaints Card Reports no additional complaints Resp Reports no additional complaints GI Reports no additional complaints Reports as per HPI Musc Reports no additional complaints Skin/Breast Reports system reviewed and no additional complaints, except as documented Neuro Reports no additional complaints Psych Reports no additional complaints Endo Reports no additional complaints Jame/Lymph Reports no additional complaints Aller/Immun Reports no additional complaints Office Procedures Pessary Device Insert Details: Pessary - mentor size 4 ring with support inserted vaginally. [id number] device insert Results AMB Urinalysis, Automated UA Leukoctes 125 Robby/uL Last Edit by ZACARIAS Stewart on 02/14/24 09:05 UA Nitrite Negative Last Edit by ZACARIAS Stewart on 02/14/24 09:05 UA Urobilinogen 0.2 mg/dL Last Edit by ZACARIAS Stewart on 02/14/24 09:05 UA Protein 0 mg/dL Last Edit by ZACARIAS Stewart on 02/14/24 09:05 UA pH 6.0 Last Edit by ZACARIAS Stewart on 02/14/24 09:05 UA Blood 0 Geoffrey/uL Last Edit by ZACARIAS Stewart on 02/14/24 09:05 UA Specific [place] 1.010 Last Edit by ZACARIAS Stewart on 02/14/24 09:05 UA Ketone Negative Last Edit by ZACARIAS Stewart on 02/14/24 09:05 UA Bilirubin 0 mg/dL Last Edit by ZACARIAS Stewart on 02/14/24 09:05 UA Glucose 0 mg/dL Last Edit by ZACARIAS Stewart on 02/14/24 09:05 Results Reviewed Results Reviewed: Laboratory Last Values Urine pH (Auto) 6.0 02/14/24 09:04 Specific [place] (Auto) 1.010 02/14/24 09:04 Urine Protein (Auto) 0 mg/dL 02/14/24 09:04 Glucose (UA)(Auto) 0 mg/dL 02/14/24 09:04 Urine Ketones (Auto) Negative 02/14/24 09:04 Urine Blood (Auto) 0 Geoffrey/uL 02/14/24 09:04 Urine Nitrite (Auto) Negative 02/14/24 09:04 Urine Bilirubin (Auto) 0 mg/dL 02/14/24 09:04 Urine Urobilinogen (Auto) 0.2 mg/dL 02/14/24 09:04 Leukocyte Esterase (Auto) 125 Robby/uL 02/14/24 09:04 Date of Service: 03/31/23 EXAMINATION: US RETROPERITONEAL LIMITED (RENAL ONLY) CLINICAL INFORMATION: Retention of urine, unspecified. COMPARISON: None available. TECHNIQUE: Real-time imaging of the kidneys. FINDINGS: RIGHT KIDNEY: 10.9 x 4.1 x 5.5 cm (SAG x AP x TRV). The kidney is normal in size, contour, and echogenicity. Renal cortical thickness is normal. No calculi or focal parenchymal lesions. There is mild renal pelvic fullness without hydronephrosis. LEFT KIDNEY: 10.2 x 4.9 x 3.5 cm (SAG x AP x TRV). The kidney is normal in size, contour, and echogenicity. Renal cortical thickness is normal. No calculi or focal parenchymal lesions. There is mild renal pelvic fullness without hydronephrosis. US/US renal BI IMPRESSION: Mild bilateral renal pelvic fullness without hydronephrosis. ]]] Assessment & Plan Assessment & Plan (1) Prolapse of female pelvic organs: Code(s): N81.9 - Female genital prolapse, unspecified Category: Medical Plan Follow-up in 4 months for pessary maintenance. Orders: Orders AMB Urinalysis Automated Today Z13.9 - Encounter for screening, unspecified AMB Intravaginal Support Device Insertion Today N81.9 - Female genital prolapse, unspecified Patient Instructions: The patient had an opportunity to ask questions regarding treatment plan. The patient expressed understanding and agreement with the above treatment plan. The patient is aware they should contact our office by phone for worsening of their current condition or the appearance of new symptoms. Compliance is encouraged with any medications and followup testing that is ordered. It is a privilege to be allowed the opportunity to participate in the urologic care of your patient. If you have any questions or concerns regarding treatment for the above conditions please do not hesitate to contact me. The office telephone contact is [phone]. This note is constructed in part using voice recognition software. While every effort has been made to ensure accuracy thin film technician errors may have been included. Yours sincerely, Ambrose Lee MD Coding Level of Care Code Est Pt Level 3 (19947) Diagnoses Prolapse of female pelvic organs N81.9 CPT Codes Pessary Device Insert - CPT: 00392-Fmoicoh device insert ([id number])
== END 2024-02-14 09:43 | disposition home or self-care (01) ==
PROVIDERS: PCP Internal Medicine; Visit Provider Urology
DX: N81.9 Female genital prolapse, unspecified (principal); Z30.49 Encounter for surveillance of other contraceptives; Z13.9 Encounter for screening, unspecified
CPT/HCPCS: 57160; 99213

== ENCOUNTER → 2024-02-14 08:37 | Outpatient (BNVA) | payer MEDICARE, SELFPAY | PROVIDERS: PCP Internal Medicine; Visit Provider Urology | DX: N81.9 Female genital prolapse, unspecified (principal); Z46.6 Encounter for fitting and adjustment of urinary device; Z96.0 Presence of urogenital implants | CPT/HCPCS: 57160; 81003; 99212 ==

== ENCOUNTER 2024-04-18 08:33 | Outpatient (REF) | payer MEDICARE, SELFPAY ==
--- OUTSIDE RECORDS SUMMARY | 2024-04-18 08:49 | XMS_ITS ---
Author Organization [facility] dhiraj Sidman Address [address] [place] [address] Care Team Providers Care Insurance Analyst Name Role Phone Joy VINCENT, Nuria Quach Primary Care Provider Un available Black, Helen Unavailable [phone] Allergies No Known Allergies REASON FOR VISIT Painful nail(s) aggrevated by shoes and causing difficulty standing/walking., Wart(s) Medications Medication SIG (Take, Route, Frequency, Duration) Notes Start Date End Date Status Vitamin D Active Levothyroxine Sodium 112 MCG 1 tablet on an empty stomach in the morning Orally Once a day for 90 days Active Atorvastatin Calcium 20 MG 1 tablet Oral ly Once a day for 90 day(s) Active Ciclopirox Olamine 0.77 % 1 application Externally Twice a day for 30 days 08/26/2020 Not-Taking Chlorthalidone 25 mg 1 tablet in the morning Orally Once a day Not-Taking Aspirin EC 81 MG 1 tablet Orally Once a day for 90 day(s) Active Probiotic Active Flax Seed Oil Not-Ta radha Social History Tobacco Use: Social History Observation Description Date Details (start date - stop date) Former Smoker NA - NA Tobacco Use/Smoking Question Answer Notes Are you a: former smoker Additional Findings: Tobacco Non-User Current no n-smoker Alcohol Screen Question Answer Notes Did you have a drink contain ing alcohol in the past year? Yes How often did you have a dri nk containing alcohol in the past year? 2 to 3 times a week (3 points) How often did you have 6 or more drinks on one occasion in the past year? Weekly (3 points) Points 6 Interpretation Positive Tobacco use other than smoking: Question Answer Notes Are you an other tobacco user? No Vital Signs Height 4 ft 10 in in 01/10/2024 Weight 136 lbs 01/10/2024 BMI 28.42 kg/m2 01/10/2024 Blood pressure systolic 132 mm Hg 01/10/20 24 Blood pressure diastolic 70 mm Hg 024 Procedures Procedure Date Ordered Date Performed Result Body Sit e 37543-HZQQCUE NAIL, 6 OR MORE 01/10/2024 N/A 57519-Mesu Destruction, 1-14 01/10/2024 N/A Encounters Encounter Location Date Provider Diagnosis [facility] [address] [address] 01/10/2024 Helen Mathew Other viral warts B07.8 ; Tinea unguium B35.1 ; Pain in right toe(s) M79.674 ; Pain in left toe(s) M79.675 and Pain in right foot M79.671 Assessments Encounter Date Diagnosis (ICD Code) Assessment Notes Treatment Notes Treatment Clinical Notes Section Notes 01/10/2024 Other viral warts (ICD-10 - B07.8) 01/10/2024 Tinea unguium (ICD-10 - B35.1) 01/10/2024 Pain in right toe(s) (ICD-10 - M79.674) 01/10/2024 Pain in left toe(s) (ICD-10 - M79.675) 01/10/2024 Pain in right foot (ICD-10 - M79.671) Plan Of Treatment Pending Test Test Name Order Date [id number] NAIL, 6 OR MORE 01/10/2024 08875-Gcju Destruction, 1-14 01/10/2024 Next Appt Details Follow Up: prn, Reason: Provider Name:Helen Rogers Quincy , 05/25/2024 11:15:00 AM, [address] [place] [address], [phone], Provider Name:Helen Mathew , 08/03/2024 09:00:00 AM, [address] [place] [address], [phone], Procedure Notes * Category Sub-Category Detail Notes Wart Treatment Procedure Verrucae(s) were debrided to pin-point bleeding margins with sterile surgical blade, silver nitrate chemocautery applied, recomm. immune-boosting meds such as zinc, recomm. follow up with topical chemosurgical agents, recomm. CONT, Wartstick 40 percent Salicylic acid application under occlusion as directed, 93796) Debride Nail 6-10 Nail debridement Nail debridem ent performed extensively to reduce/remove overall nail length and girth, subungual debris, and necrotic tissue, by manual and electrical means with use of a nail nipper and/or dremel, to more viable healthy nail plate or bed tissue 6-10. Silver nitrate used for any petechial bleeding as necessary. Patient chooses, to cont. with [facility] [place] (20900) Progress Notes * Dina LEVY MDOB: 9 (83 yo F)Acc No.[id number]:01/10/2024 Progress Note Patient:?Dina Levy Provider:?Helen Mathew DPM :1940???Age:83 Y???Sex:Female D ate:01/10/2024 Address:[address] [place] [address] Pcp:Brad Cervantes Subjective: * Chief Complaints: * ??? Painful nail(s) aggrevat ed by shoes and causing difficulty standing/walking.Wart(s) * HPI: ???Painful Nails:?Pt States Last PCP Visit:?Date:?10/01/2023 ?Treatments:?Topical Antifungal?.? * Medical History:? * Surgical History:?Cholecytec jefferson 1979TAHBSO 1985Gall bladder 1983Hysterectomy 1984 * Hospitalization/Major Diagno stic Procedure:?Denies Past Hospitalization * Family History:?Mother: dece ased, diagnosed with Diabetic - NIDDM.?Father: , stroke, heart attack, diagnosed with Unspecified heart disease.?Son(s): diagnosed with Diabetic - NIDDM.? * Social History:?Tobacco Use:?Tobacco Use/Smoking?Are you a:?former smoker ?Additional Findings: Tobacco Non-User?Current non-smoker ?Tobacco use other than smoking?Are you an other tobacco user??No ???Drugs/Alcohol:?Drugs?Have you used drugs other than those for medical reasons in the past 12 months??No ?Alcohol Screen?Did you have a drink containing alcohol in the past year??Yes ?How often did you have a drink containing alcohol in the past year??2 to 3 times a week (3 points) ?How often did you have 6 or more drinks on one occasion in the past year??Weekly (3 points) ?Points?6 ?Interpretation?Positive ???Miscellaneous:?Caffeine: yes, 1-2 cups per day. ?Children: yes, 5. ?Exercise: yes, walking, gardening, stairs. ?Marital status: . ?Occupation: Housewife. * Medications:?TakingProbiotic Aspirin EC 81 MG Tablet Delayed Release 1 tablet Orally Once a dayAtorvastatin Calcium 20 MG Tablet 1 tablet Orally Once a dayLevothyroxine Sodium 112 MCG Tablet 1 tablet on an empty stomach in the morning Orally Once a dayVitamin D Taking Probiotic Taking Aspirin EC 81 MG Tablet Delayed Release 1 tablet Orally Once a dayTaking Atorvastatin Calcium 20 MG Tablet 1 tablet Orally Once a dayTaking Levothyroxine Sodium 112 MCG Tablet 1 tablet on an empty stomach in the morning Orally Once a dayTaking Vitamin D Not-Taking/PRNChlorthalidone 25 mg Tablet 1 tablet in the morning Orally Once a dayCiclopirox Olamine 0.77 % Cream 1 application Externally Twice a dayFlax Seed Oil Medication List reviewed and reconciled with the patientNot-Taking/PRN Chlorthalidone 25 mg Tablet 1 tablet in the morning Orally Once a dayNot-Taking/PRN Ciclopirox Olamine 0.77 % Cream 1 application Externally Twice a dayNot-Taking/PRN Flax Seed Oil Medication List reviewed and reconciled with the patient * Allergies:?N.K.D.A.yes[Aller isabella Verified] Objective: * Vitals:?Ht: 4 ft 10 in, Wt: 136, BMI: 28.42, Shoe size: 6.5-7W, BP: 132/70 mm Hg, Ht-cm: 147.32 cm, Wt-k.69 kg. * Examination: ???Dermatologic: ?VERRUCA:?two, round, raised, flat-topped, petechial bleeding papulae(s), with cauliflower appearance and interrruption of skin lines, with pain to both direct and lateral compression, and size estimated at 1-2mm, plantar Forefoot, RIGHT.?Nails: ?NAILS are:?elongated,overgrown,dystrophic,greater than 3mm thick,discolored and friable with crumbly malodorous subungual debris, with pain on palpation, , , 1- 5 B/L.? Assessment: * Assessment: 1.?Other viral warts - B07.8 (Primary)?2.?Tinea unguium - B35.1?3.?Pain in right toe(s) - M79.674?4.?Pain in left toe(s) - M79.675?5.?Pain in right foot - M79.671? Plan: * Treatment: 2.?Tinea unguium?Procedure: 88442-MZVCJOT NAIL, 6 OR MORE * Procedures:?Debride Nail 6-10:?Nail debridement?Nail debridement performed extensively to reduce/remove overall nail length and girth, subungual debris, and necrotic tissue, by manual and electrical means with use of a nail nipper and/or dremel, to more viable healthy nail plate or bed tissue 6-10. Silver nitrate used for any petechial bleeding as necessary. Patient [place], [place] ([address]).?Wart Treatment:?Procedure?Verrucae(s) were debrided to pin-point bleeding margins with sterile surgical blade, silver nitrate chemocautery applied, recomm. immune-boosting meds such as zinc, recomm. follow up with topical chemosurgical agents, recomm. CONT, Wartstick 40 percent Salicylic acid application under occlusion as directed, 75858).? * Procedure Codes:?63955 DEBRI DE NAIL, 6 OR MORE, Modifiers: XS 01436 Wart Destruction, 1-14, Modifiers: XS * Follow Up:?prn * Images: * Sign off status: Completed true * Provider:?Helen Mathew DPM Date:?2023 Generated for Mario hawley/Dixon/eTransmitting on:?04/18/2024 08:49 AM EST History and Physical Notes * HPI (History of Present Illness) Category Sub-Category Detail Notes Category Not es Painful Nails Treatments: Topical Antifungal Pt States Last PCP Visit: Date:: 10/01/2023 Examination Category Sub-Category Detail Notes Category Not es Ingrown Nail INSPECTION: Dermatologic SKIN FINDINGS: VERRUCA: two, round, raised, flat-topped, petechial bleeding papulae(s), with cauliflower appearance and interrruption of skin lines, with pain to both direct and lateral compression, and size estimated at 1-2mm, plantar Forefoot, RIGHT Nails NAILS are: elongated,overgr own,dystrophic,greater than 3mm thick,discolored and friable with crumbly malodorous subungual debris, with pain on palpation, , , 1-5 B/L
--- OUTSIDE RECORDS SUMMARY | 2024-04-18 08:49 | XMS_ITS ---
Author Organization [facility]ide Address [address] [place] [address] Care Team Providers Care Cloth Shearing Supervisor Name Role Phone Joy VINCENT, Nuria Quach Primary Care Provider Un available Black, Helen Unavailable [phone] Allergies No Known Allergies REASON FOR VISIT Painful nail(s) aggrevated by shoes and causing difficulty standing/walking., Wart(s) Medications Medication SIG (Take, Route, Frequency, Duration) Notes Start Date End Date Status Vitamin D Active Levothyroxine Sodium 112 MCG 1 tablet on an empty stomach in the morning Orally Once a day for 90 days Active Flax Seed Oil Not-Ta radha Ciclopirox Olamine 0.77 % 1 application Externally Twice a day for 30 days 08/26/2020 Not-Taking Chlorthalidone 25 mg 1 tablet in the morning Orally Once a day Not-Taking Atorvastatin Calcium 20 MG 1 tablet Oral ly Once a day for 90 day(s) Active Aspirin EC 81 MG 1 tablet Orally Once a day for 90 day(s) Active Probiotic Active amLODIPine Besylate 2.5 MG 1 tablet Oral ly Once a day Active Social History Tobacco Use: Social History Observation Description Date Details (start date - stop date) Former Smoker NA - NA Tobacco Use/Smoking Question Answer Notes Are you a: former smoker Additional Findings: Tobacco Non-User Current no n-smoker Tobacco use other than smoking: Question Answer Notes Are you an other tobacco user? No Problems Problem Type SNOMED Code ICD Code Onset Dates Problem Status W/U Status Risk Notes Problem [id number] Essential hypertension (I10) Active confirmed Vital Signs Height 4 ft 10 in in 03/20/2024 Weight 136 lbs 03/20/2024 BMI 28.42 kg/m2 03/20/2024 Blood pressure systolic 124 mm Hg 03/20/20 24 Blood pressure diastolic 70 mm Hg 024 Procedures Procedure Date Ordered Date Performed Result Body Sit e 70926-AGKZLVU NAIL, 6 OR MORE 03/20/2024 N/A 97088-Zlwv Destruction, 1-14 03/20/2024 N/A Encounters Encounter Location Date Provider Diagnosis [facility] [address] [address] 03/20/2024 Helen Mathew Other viral warts B07.8 ; Tinea unguium B35.1 ; Pain in right toe(s) M79.674 ; Pain in left toe(s) M79.675 and Pain in right foot M79.671 Assessments Encounter Date Diagnosis (ICD Code) Assessment Notes Treatment Notes Treatment Clinical Notes Section Notes 03/20/2024 Other viral warts (ICD-10 - B07.8) 03/20/2024 Tinea unguium (ICD-10 - B35.1) 03/20/2024 Pain in right toe(s) (ICD-10 - M79.674) 03/20/2024 Pain in left toe(s) (ICD-10 - M79.675) 03/20/2024 Pain in right foot (ICD-10 - M79.671) Plan Of Treatment Pending Test Test Name Order Date 92090-[id number] NAIL, 6 OR MORE 03/20/2024 74152-Uwsr Destruction, 1-14 03/20/2024 Next Appt Details Follow Up: prn, Reason: Provider Name:Helen Rogers Quincy , 05/25/2024 11:15:00 AM, [address] [place] [address], [phone], Provider Name:Helen Mathew , 08/03/2024 09:00:00 AM, [address] [place] [address], [phone], Procedure Notes * Category Sub-Category Detail Notes Wart Treatment Procedure Verrucae(s) were debrided to pin-point bleeding margins with sterile surgical blade, silver nitrate chemocautery applied, recomm. immune-boosting meds such as zinc, recomm. follow up with topical chemosurgical agents,STILL, recomm. CONT, Wartstick 40 percent Salicylic acid application under occlusion as directed, 75966) Debride Nail 6-10 Nail debridement Due to the cl inical pathology outlined in the exam findings, performance of this nail treatment is medically necessary as its management by an unskilled/untrained nonprofessional would put this patients foot and overall health at risk. Therefore, debridement to affected nail(s), as described in exam ( 1-5 b/l ), was performed exclusively by the physician of record to reduce/remove overall nail length, girth, thickness, subungual debris, and necrotic tissue, by manual and/or electrical means through the use of a nail nipper and/or dremel-type gear and spline grinder, to a more viable healthy nail plate or bed tissue 6-10 nails in total. Silver nitrate was used for any petechial bleeding as necessary. Definitive antifungal treatment options, both pharmaceutical and surgical, have been reviewed and discussed with the patient. The patient solely prefers the use of intermittent/as needed professional debridement services for their nail condition and understands the need for additional periodic treatments to maintain effectiveness in symptomatic relief - 74314 Progress Notes * Dina LEVY MDOB: (83 yo F)Acc No.[id number]:03/20/2024 Progress Note Patient:?Dina LEVY Provider:?Helen Mathew DPM :1940???Age:83 Y???Sex:Female D ate:03/20/2024 Address:[address] [place], [place] [id number] Pcp:Brad Cervantes Subjective: * Chief Complaints: * ??? Painful nail(s) aggrevat ed by shoes and causing difficulty standing/walking.Wart(s) * HPI: ???Painful Nails:?Pt States Last PCP Visit:?Date:?12/27/2023 ?Treatments:?Topical Antifungal?.?Skin problems:?Pt States PCP Visit: ?DATE?12/27/2023 * ROS:?General/Constitutional:?Nausea?denies.?Vomiting?denies.?Hunger Thirst?denies.?Loss appetite?denies.?Chills?denies.?Fatigue?denies.?Fever?denies.?Night Sweats?denies.?Unexplained weight loss?denies.?Unexplained weight gain?denies.?HEENTM:?Dentures?denies.?Dizziness?denies.?Glasses/contacts?admits.?Retinopathy?de nies.?Blurred/double vision?denies.?TMJ?denies.?Discharge/drainage?denies.?Implants?denies.?Sore throat?denies.?Dental implants?denies.?Hard of hearing ?denies.?Difficulty chewing/swallowing/speaking?denies.?Nose bleeds?denies.?Sore mouth?denies.?Respiratory:?On Oxygen?denies.?Pneumonia/pleurisy?denies.?Bronchitis?denies.?Emphysema?denies.?C oughing?denies.?Cough blood?denies.?Shortness of breath?denies.?Wheezing?denies.?Cardiovascular:?Pacemaker?denies.?MVP?denies.?WPW?denies.?CHF?denies.?Heart attack?denies.?Septal defect?denies.?Rapid beat?denies.?Chest pain ?denies.?Atrial Fib.?denies.?Murmur/Palpitations?denies.?Gastrointestinal:?Hemorrhoids?denies.?Stomach/Abdominal pain?denies.?Dark blood stool?denies.?Irritable bowel ?denies.?Constipation?denies.?Diarrhea?denies.?Hematology:?Swelling?denies.?Clots?denies.?Varicose Veins?denies.?Bruising?denies.?Bleeding problem?denies.?Genitourinary:?Blood urine?denies.?Frequent/Painfu/urination/bladder control?denies.?Kidney stones?denies.?Infection (UTI)?denies.?Nephropathy?denies.?sex trans dis (STD)?denies.?Prostate?denies.?Musculoskeletal:?Hammertoes?denies.?Bunions?admits.?Back Pain?denies.?Muscle Cramps/ Resting?denies.?Muscle cramps / walking?denies.?Generalized aches and pains?admits.?Weakness?denies.?Integ.:?Stern?denies.?Scars?denies.?Corns/calluses?admits.?Ingrown nails?denies.?Painful nails?admits.?Open Sores?denies.?Rashes?denies.?Neurologic:?Difficulty sleeping?denies.?Brain disorder?denies.?Numbness?denies.?Balance trouble?denies.?Confusion?denies.?Fainting/blackouts?denies.?Tingling?denies.?Tr emors?denies.? * Medical History:? * Surgical History:?Cholecytec jefferson 1980TAHBSO 1985Gall bladder 1983Hysterectomy 1983 * Hospitalization/Major Diagno stic Procedure:?Denies Past Hospitalization * Family History:?Mother: dece ased, diagnosed with Diabetic - NIDDM.?Father: , stroke, heart attack, diagnosed with Unspecified heart disease.?Son(s): diagnosed with Diabetic - NIDDM.? * Social History:?Tobacco Use:?Tobacco Use/Smoking?Are you a:?former smoker ?Additional Findings: Tobacco Non-User?Current non-smoker ?Tobacco use other than smoking?Are you an other tobacco user??No * Medications:?TakingamLODIPin e Besylate 2.5 MG Tablet 1 tablet Orally Once a day Probiotic Aspirin EC 81 MG Tablet Delayed Release 1 tablet Orally Once a day Atorvastatin Calcium 20 MG Tablet 1 tablet Orally Once a day Levothyroxine Sodium 112 MCG Tablet 1 tablet on an empty stomach in the morning Orally Once a day Vitamin D Taking amLODIPine Besylate 2.5 MG Tablet 1 tablet Orally Once a day Taking Probiotic Taking Aspirin EC 81 MG Tablet Delayed Release 1 tablet Orally Once a day Taking Atorvastatin Calcium 20 MG Tablet 1 tablet Orally Once a day Taking Levothyroxine Sodium 112 MCG Tablet 1 tablet on an empty stomach in the morning Orally Once a day Taking Vitamin D Not-Taking/PRNChlorthalidone 25 mg Tablet 1 tablet in the morning Orally Once a day Ciclopirox Olamine 0.77 % Cream 1 application Externally Twice a day Flax Seed Oil Medication List reviewed and reconciled with the patientNot-Taking/PRN Chlorthalidone 25 mg Tablet 1 tablet in the morning Orally Once a day Not-Taking/PRN Ciclopirox Olamine 0.77 % Cream 1 application Externally Twice a day Not-Taking/PRN Flax Seed Oil Medication List reviewed and reconciled with the patient * Allergies:?N.K.D.A.yes[Aller gies Verified] Objective: * Vitals:?Ht: 4 ft 10 in, Wt: 136, BMI: 28.42, Shoe size: 6.5-7W, BP: 124/70 mm Hg, Ht-cm: 147.32 cm, Wt-k.69 kg. * Examination: ???General Examination: ?GENERAL APPEARANCE:?Reveals a pleasant, alert, well nourished, well- developed, well hydrated individual, who demonstrates proper attention to hygiene/body habitus, and is in no acute distress, Pt serves as own historian for office visit today, Pt accompanied by, , and/who is physically present in exam room at time of visit.?ORIENTED:?person, place, and time.?Dermatologic: ?VERRUCA:?one, round, raised, flat-topped, petechial bleeding papulae(s), with cauliflower appearance and interrruption of skin lines, with pain to both direct and lateral compression, and size estimated at 2mm, plantar Forefoot, RIGHT.?Nails: ?NAILS are:?elongated, overgrown, dystrophic, greater than 3mm thick, discolored and friable with crumbly malodorous subungual debris, with pain on palpation, 1- 5 B/L.?Vascular: ?DP PULSES(B):?04/08, B/L.?PT PULSES(B):?04/08, B/L.?CAPILLARY FILL TIME:?immediate, all digits, B/L.?TROPHIC CONDITION-TEXTURE/ELASTICITY/TURGOR/HAIR GROWTH(B):?normal, B/L.?Neurological: ?SENSORY:?Neurological exam reveals intact sensorium, pain sensation normal, vibration sensation intact, pinprick sensation is normal in the lower extremities, Pt denies, anesthesia, burning, paresthesia, tingling, B/L.?TINEL'S COMPRESSION:?Negative tarsal tunnel, danette pedis, and medial calcaneal nerves.? Assessment: * Assessment: 1.?Other viral warts - B07.8 (Primary)???2.?Tinea unguium - B35.1???3.?Pain in right toe(s) - M79.674???4.?Pain in left toe(s) - M79.675???5.?Pain in right foot - M79.671??? Plan: * Treatment: 2.?Tinea unguium?Procedure: 59245-UYARJHJ NAIL, 6 OR MORE * Procedures:?Debride Nail 6-10:?Nail debridement?Due to the clinical pathology outlined in the exam findings, performance of this nail treatment is medically necessary as its management by an unskilled/untrained nonprofessional would put this patients foot and overall health at risk. Therefore, debridement to affected nail(s), as described in exam ( 1-5 b/l ), was performed exclusively by the physician of record to reduce/remove overall nail length, girth, thickness, subungual debris, and necrotic tissue, by manual and/or electrical means through the use of a nail nipper and/or dremel-type gear and spline grinder, to a more viable healthy nail plate or bed tissue 6-10 nails in total. Silver nitrate was used for any petechial bleeding as necessary. Definitive antifungal treatment options, both pharmaceutical and surgical, have been reviewed and discussed with the patient. The patient solely prefers the use of intermittent/as needed professional debridement services for their nail condition and understands the need for additional periodic treatments to maintain effectiveness in symptomatic relief - 02913.?Wart Treatment:?Procedure?Verrucae(s) were debrided to pin-point bleeding margins with sterile surgical blade, silver nitrate chemocautery applied, recomm. immune-boosting meds such as zinc, recomm. follow up with topical chemosurgical agents,STILL, recomm. CONT, Wartstick 40 percent Salicylic acid application under occlusion as directed, 81085).? * Procedure Codes:?93106 DEBRI DE NAIL, 6 OR MORE, Modifiers: XS 60043 Wart Destruction, 1-14, Modifiers: XS * Preventive Medicine:? ??Screening/Special Tests:?FALLS: Screening for Future Fall Risk?Have you had two or more falls in the past year??No * Follow Up:?prn * Images: * Sign off status: Completed true * Provider:?Helen Mathew DPM Date:?2023 Generated for Mario hawley/Dixon/Ariannesmitting on:?04/18/2024 08:49 AM EST History and Physical Notes * HPI (History of Present Illness) Category Sub-Category Detail Notes Category Not es Painful Nails Treatments: Topical Antifungal Pt States Last PCP Visit: Date:: 12/27/2023 Skin problems Pt States PCP Visit: DATE: 12/27/2023 Examination Category Sub-Category Detail Notes Category Not es Ingrown Nail INSPECTION: Neurological SENSORY: Neurological exa m reveals intact sensorium, pain sensation normal, vibration sensation intact, pinprick sensation is normal in the lower extremities, Pt denies, anesthesia, burning, paresthesia, tingling, B/L TINEL'S COMPRESSION: Negative tarsal fatmata solitario, danette pedis, and medial calcaneal nerves Dermatologic VERRUCA: one, round, rais ed, flat-topped, petechial bleeding papulae(s), with cauliflower appearance and interrruption of skin lines, with pain to both direct and lateral compression, and size estimated at 2mm, plantar Forefoot, RIGHT General Examination GENERAL APPEARANCE: Reveals a pleasant, alert, well nourished, well-developed, well hydrated individual, who demonstrates proper attention to hygiene/body habitus, and is in no acute distress, Pt serves as own historian for office visit today, Pt accompanied by, , and/who is physically present in exam room at time of visit ORIENTED: person, place, and t oz Vascular DP PULSES (B): 1/4, B/L PT PULSES (B): 1/4, B/L CAPILLARY FILL TIME: immediate, all digi ts, B/L TROPHIC CONDITION-TEXTURE/EL ASTICITY/TURGOR/HAIR GROWTH (B): normal, B/L Nails NAILS are: elongated, overg rown, dystrophic, greater than 3mm thick, discolored and friable with crumbly malodorous subungual debris, with pain on palpation, 1-5 B/L
--- OUTSIDE RECORDS SUMMARY | 2024-04-18 08:50 | XMS_ITS ---
[facility] Organization [facility] dhiraj Thomson Address [address] [place] [address] Care Team Providers Care Belt Polisher Name Role Phone Joy VINCENT, Nuria Quach Primary Care Provider Un available Black, Helen Unavailable [phone] Allergies No Known Allergies REASON FOR VISIT Painful nail(s) aggrevated by shoes and causing difficulty standing/walking., Wart(s), Ingrown Nail Medications Medication SIG (Take, Route, Frequency, Duration) Notes Start Date End Date Status Ciclopirox Olamine 0.77 % 1 application Externally Twice a day for 30 days 08/26/2020 Not-Taking Flax Seed Oil Not-Ta radha Vitamin D Active Chlorthalidone 25 mg 1 tablet in the morning Orally Once a day Not-Taking Probiotic Active Atorvastatin Calcium 20 MG 1 tablet Oral ly Once a day for 90 day(s) Active Levothyroxine Sodium 112 MCG 1 tablet on an empty stomach in the morning Orally Once a day for 90 days Active Aspirin EC 81 MG 1 tablet Orally Once a day for 90 day(s) Active Social History Tobacco Use: Social History Observation Description Date Details (start date - stop date) Former Smoker NA - NA Tobacco Use/Smoking Question Answer Notes Are you a: former smoker Additional Findings: Tobacco Non-User Current no n-smoker Tobacco use other than smoking: Question Answer Notes Are you an other tobacco user? No Vital Signs Height 4 ft 10 in in 11/22/2023 Weight 136 lbs 11/22/2023 BMI 28.42 kg/m2 11/22/2023 Blood pressure systolic 119 mm Hg 11/22/19 24 Blood pressure diastolic 67 mm Hg 08/19/2 024 Procedures Procedure Date Ordered Date Performed Result Body Sit e 18130-RITKAGG NAIL, 6 OR MORE 11/22/2023 N/A 34907-Amie Destruction, 1-14 11/22/2023 N/A 60962-Mpocdhdo Plate 11/22/2023 N/A Encounters Encounter Location Date Provider Diagnosis [facility] [address] [address] 11/22/2023 Helen Mathew Other viral warts B07.8 ; Tinea unguium B35.1 ; Pain in right toe(s) M79.674 ; Pain in left toe(s) M79.675 ; Pain in right foot M79.671 and Ingrown nail L60.0 Assessments Encounter Date Diagnosis (ICD Code) Assessment Notes Treatment Notes Treatment Clinical Notes Section Notes 11/22/2023 Other viral warts (ICD-10 - B07.8) 11/22/2023 Tinea unguium (ICD-10 - B35.1) 11/22/2023 Pain in right toe(s) (ICD-10 - M79.674) 11/22/2023 Pain in left toe(s) (ICD-10 - M79.675) 11/22/2023 Pain in right foot (ICD-10 - M79.671) 11/22/2023 Ingrown nail (ICD-10 - L60.0) Plan Of Treatment Pending Test Test Name Order Date 84343-GTZTLHD NAIL, 6 OR MORE 11/22/2023 41638-Aave Destruction, 1-14 11/22/2023 58296-Diihxdvl Plate 11/22/2023 Next Appt Details Follow Up: 2 Weeks,prn, Reas on: Provider Name:Helen Mathew , 05/25/2024 11:15:00 AM, [address] [place] [address], [phone], Provider Name:Helen Mathew , 08/03/2024 09:00:00 AM, [address] [place] [address], [phone], Procedure Notes * Category Sub-Category Detail Notes Wart Treatment Procedure Verrucae(s) were debrided to pin-point bleeding margins with sterile surgical blade, silver nitrate chemocautery applied, recomm. immune-boosting meds such as zinc, recomm. follow up with topical chemosurgical agents, recomm. CONT, Wartstick 40 percent Salicylic acid application under occlusion as directed, 29202) Nail Avulsion Procedure A fine sterile e levator was placed between the eponychium, nail fold, and nail plate to separate the structures. A sterile nail splitter, and/or sterile 316 blade, was then used to longitudinally section the nail along its entire length through the eponychium to the area under the nail fold. The offending portion of nail was from the nail bed with a rolling action and then removed with a hemostat. No underlying bone was identified. There was minimal bleeding as hemostasis was achieved through the temporary use of either a digital tourniquet or the aforementioned local with epinephrine. A bacitracin sterile dressing was applied. Local wound aftercare instructions were discussed and dispensed. The patient was informed of both conservative and future surgical procedures to prevent recurrence. Tylenol or Motrin was recommended for pain or discomfort (70133) Anesthesia was accomplished TOP ICALLY with Lidocaine Hydrochloride Jelly 2 percent Location Medial nail border , T4 Debride Nail 6-10 Nail debridement Nail debridem ent performed extensively to reduce/remove overall nail length and girth, subungual debris, and necrotic tissue, by manual and electrical means with use of a nail nipper and/or dremel, to more viable healthy nail plate or bed tissue 6-10. Silver nitrate used for any petechial bleeding as necessary. Patient chooses, to cont. with [employer] Vapor rub pharmaceutical tx (39211) Progress Notes * Dina LEVY MDOB: 9 (82 yo F)Acc No.[id number]:11/22/2023 Progress Note Patient:?Dina Levy Provider:?Helen Mathew DPM :1940???Age:82 Y???Sex:Female D ate:11/22/2023 Address:[address] [place], [place] [id number] Pcp:Brad Cervantes Subjective: * Chief Complaints: * ??? Painful nail(s) aggrevat ed by shoes and causing difficulty standing/walking.Wart(s)Ingrown Nail * HPI: ???Painful Nails:?Pt States Last PCP [...] than smoking?Are you an other tobacco user??No ???Miscellaneous:?Caffeine: yes, 1-2 cups per day. ?Children: [...] 136, BMI: 28.42, Shoe size: 6.5-7W, BP: 119/67 mm Hg, Ht-cm: 147.32 cm, Wt-k.69 kg. * Examination: ???Dermatologic: ?VERRUCA:?two, round, raised, flat-topped, petechial bleeding papulae(s), with cauliflower appearance and interrruption of skin lines, with pain to both direct and lateral compression, and size estimated at 1-3mm, plantar Forefoot, RIGHT.?Nails: ?NAILS are:?elongated,overgrown,dystrophic,greater than 3mm thick,discolored and friable with crumbly malodorous subungual debris, with pain on palpation, , TA, T1, T3, T5,, T6, T7, T8, T9.?Ingrown Nail: ?INSPECTION:?Reveals nail incurvation, pain on palpation, groove hypertrophy , groove ischemia , Medial nail border , T4.? Assessment: * Assessment: 1.?Other viral warts - B07.8 (Primary)?2.?Tinea unguium - B35.1?3.?Pain in right toe(s) - M79.674?4.?Pain in left toe(s) - M79.675?5.?Pain in right foot - M79.671?6.?Ingrown nail - L60.0? Plan: * Treatment: 2.?Tinea unguium?Procedure: 54240-FHJTKIM NAIL, 6 OR MORE 3.?Ingrown nail?Procedure: 14250-Mowedldr Plate * Procedures:?Debride Nail 6-10:?Nail debridement?Nail debridement performed extensively to reduce/remove overall nail length and girth, subungual debris, and necrotic tissue, by manual and electrical means with use of a nail nipper and/or dremel, to more viable healthy nail plate or bed tissue 6-10. Silver nitrate used for any petechial bleeding as necessary. Patient chooses, to cont. with [place] (62322).?Nail Avulsion:?Location?Medial nail border , T4.?Anesthesia?was accomplished TOPICALLY with Lidocaine Hydrochloride Jelly 2 percent.?Procedure?A fine sterile elevator was placed between the eponychium, nail fold, and nail plate to separate the structures. A sterile nail splitter, and/or sterile 316 blade, was then used to longitudinally section the nail along its entire length through the eponychium to the area under the nail fold. The offending portion of nail was from the nail bed with a rolling action and then removed with a hemostat. No underlying bone was identified. There was minimal bleeding as hemostasis was achieved through the temporary use of either a digital tourniquet or the aforementioned local with epinephrine. A bacitracin sterile dressing was applied. Local wound aftercare instructions were discussed and dispensed. The patient was informed of both conservative and future surgical procedures to prevent recurrence. Tylenol or Motrin was recommended for pain or discomfort (91441).?Wart Treatment:?Procedure?Verrucae(s) were debrided to pin-point bleeding margins with sterile surgical blade, silver nitrate chemocautery applied, recomm. immune-boosting meds such as zinc, recomm. follow up with topical chemosurgical agents, recomm. CONT, Wartstick 40 percent Salicylic acid application under occlusion as directed, 19261).? * Procedure Codes:?96060 DEBRI DE NAIL, 6 OR MORE, Modifiers: XS 70172 Avulsion Plate, Modifiers: T4 56511 Wart Destruction, 1-14, Modifiers: XS * Follow Up:?2 Weeks,prn * Images: * Sign off status: Completed true * Provider:Cheng Mathew DPM Date:?2023 Generated for Mario hawley/Dixon/Anita on:?04/18/2024 08:49 AM EST History and Physical Notes * HPI (History of Present Illness) Category Sub-Category Detail Notes Category Not es Painful Nails Treatments: Topical Antifungal Pt States Last PCP Visit: Date:: 10/01/2023 Examination Category Sub-Category Detail Notes Category Not es Ingrown Nail INSPECTION: Reveals nail inc urvation, pain on palpation, groove hypertrophy , groove ischemia , Medial nail border , T4 Dermatologic SKIN FINDINGS: VERRUCA: two, round, raised, flat-topped, petechial bleeding papulae(s), with cauliflower appearance and interrruption of skin lines, with pain to both direct and lateral compression, and size estimated at 1-3mm, plantar Forefoot, RIGHT Nails NAILS are: elongated,overgr own,dystrophic,greater than 3mm thick,discolored and friable with crumbly malodorous subungual debris, with pain on palpation, , TA, T1, T3, T5,, T6, T7, T8, T9
--- OUTSIDE RECORDS SUMMARY | 2024-04-18 08:50 | XMS_ITS | Patient Health Record ---
Author Organization [facility] [place] Address [address] [place] [address] Care Team Providers Care Treating Machine Operator Name Role Phone oJy VINCENT, Nuria Quach Primary Care Provider Un available Helen Mathew Unavailable [phone] Allergies No Known Allergies Reason For Referral Diagnosis 1 Other hammer toe(s) (acquired), right foot (M20.41) Diagnosis 2 Other hammer toe(s) (acquired), left foot (M20.42) Diagnosis 3 Hallux valgus (acqui red), left foot (M20.12) Diagnosis 4 Non-pressure chronic ulcer of other part of left foot limited to breakdown of skin (L97.521) Diagnosis 5 Arthritis of joint o f lesser toe, right (M19.071) Diagnosis 6 Arthritis of joint o f lesser toe, left (M19.072) Diagnosis 7 Tinea unguium (B35.1 ) Diagnosis 8 Other viral warts (B 07.8) Diagnosis 9 Pain in right toe(s) (M79.674) Diagnosis 10 Pain in left toe(s) (M79.675) Referring Provider First Name Nuria Bianchi Referring Provider Last Name Joy Referring Provider Speciality Internal M edicine Referred Organization [facility] Referred Provider Helen Mathew Referred Address [address] ,[place], [place],[address], Referred Provider Specialty Podiatry Referral Priority Routine Medications Medication SIG (Take, Route, Frequency, Duration) Notes Start Date End Date Status Atorvastatin Calcium 20 MG 1 tablet Oral ly Once a day for 90 day(s) Active Vitamin D Active Levothyroxine Sodium 112 MCG [...] tablet Oral ly Once a day Active Immunizations Vaccine Route Administration Date Status Comme nts COVID-19 Pfizer BioNTech Vaccine Unknown 01/05/2021 Administered First Dose:05/18/2020 Second Dose: 06/08/2020 Influenza Unknown 12/14/2017 Administered Influenza Unknown 11/29/2019 Administered Pneumococcal Unknown 04/04/2018 Administered Social History Tobacco Use: Social History Observation [...] Problem Status W/U Status Risk Notes Problem Acquired hammer toe of right foot (8562298842629849) Other hammer toe(s) (acquired), right foot (M20.41) Active confirmed Problem Acquired hallux valgus (06919737) Hallux valgus (acquired), left foot (M20.12) Active confirmed Problem Acquired hammer toe of left foot (9676755391052487) Other hammer toe(s) (acquired), left foot (M20.42) Active confirmed Problem Localized, primary osteoarthritis of the ankle and/or foot (389927673) Arthritis of joint of lesser toe, left (M19.072) Active confirmed Problem Localized, primary osteoarthritis of the ankle and/or foot (485159683) Arthritis of joint of lesser toe, right (M19.071) Active confirmed Problem 44195685 Essential hypertension (I10) Active confirmed Vital Signs Blood pressure diastolic 70 mm Hg 03/20/2024 Height 4 ft 10 in in 03/20/2024 Blood pressure systolic 124 mm Hg 03/20/2024 Weight 136 lbs 03/20/2024 BMI 28.42 kg/m2 03/20/2024 Procedures Procedure Date Ordered Date Performed Result Body Sit e 51384-TCIHMDS NAIL, 6 OR MORE 04/22/2023 N/A 26953-Ftoz Destruction, 1-14 04/22/2023 N/A 00907-DVNBJNY NAIL, 6 OR MORE 06/24/2023 N/A 30787-Esjr Destruction, 1-14 06/24/2023 N/A 97931-PPBBRDO NAIL, 6 OR MORE 09/02/2023 N/A 04874-Jdpd Destruction, 1-14 09/02/2023 N/A 44007-AADWYQG NAIL, 6 OR MORE 11/22/2023 N/A 72900-Ridd Destruction, 1-14 11/22/2023 N/A 06359-Hzdmcucn Plate 11/22/2023 N/A 88086-PQBUXTL NAIL, 6 OR MORE 01/10/2024 N/A 05159-Vhdu Destruction, 1-14 01/10/2024 N/A 58383-OCSMFHF NAIL, 6 OR MORE 03/20/2024 N/A 35666-Frbb Destruction, 1-14 03/20/2024 N/A Encounters Encounter Location Date Provider Diagnosis [facility] [place] [address] [place] [address] 04/22/2023 Helen Black Other viral warts B07.8 ; Tinea unguium B35.1 ; Pain in right toe(s) M79.674 ; Pain in left toe(s) M79.675 ; Pain in right foot M79.671 ; Ingrown nail L60.0 ; Pain in right toe(s) M79.674 ; Other hammer toe(s) (acquired), right foot M20.41 ; Arthritis of joint of lesser toe, right M19.071 ; Pain in left toe(s) M79.675 ; Other hammer toe(s) (acquired), left foot M20.42 and Arthritis of joint of lesser toe, left M19.[address] [address] 06/24/2023 Helen Black Other viral warts B07.8 ; Tinea unguium B35.1 ; Pain in right toe(s) M79.674 ; Pain in left toe(s) M79.675 and Pain in right foot M79.[address] [address] 09/02/2023 Helen Black Other viral warts B07.8 ; Tinea unguium B35.1 ; Pain in right toe(s) M79.674 ; Pain in left toe(s) M79.675 and Pain in right foot M79.[address] [address] 11/22/2023 Helen Black Other viral warts B07.8 ; Tinea unguium B35.1 ; Pain in right toe(s) M79.674 ; Pain in left toe(s) M79.675 ; Pain in right foot M79.671 and Ingrown nail L60.[address] [address] 01/10/2024 Helen Black Other viral warts B07.8 ; Tinea unguium B35.1 ; Pain in right toe(s) M79.674 ; Pain in left toe(s) M79.675 and Pain in right foot M79.[address] [address] 03/20/2024 Helen Black Other viral warts B07.8 ; Tinea unguium B35.1 ; Pain in right toe(s) M79.674 ; Pain in left toe(s) M79.675 and Pain in right foot M79.[address] [address] 04/22/2023 Helen Black [address] [address] 04/22/2023 Helen Mathew Assessments Encounter Date Diagnosis (ICD Code) Assessment Notes Treatment Notes Treatment Clinical Notes Section Notes 04/22/2023 Other viral warts (ICD-10 - B07.8) 04/22/2023 Tinea unguium (ICD-10 - B35.1) 06/24/2023 Other viral warts (ICD-10 - B07.8) 06/24/2023 Tinea unguium (ICD-10 - B35.1) 09/02/2023 Other viral warts (ICD-10 - B07.8) 11/22/2023 Other viral warts (ICD-10 - B07.8) 01/10/2024 Other viral warts (ICD-10 - B07.8) 01/10/2024 Tinea unguium (ICD-10 - B35.1) 03/20/2024 Other viral warts (ICD-10 - B07.8) 03/20/2024 Tinea unguium (ICD-10 - B35.1) 01/10/2024 Pain in right toe(s) (ICD-10 - M79.674) 11/22/2023 Tinea unguium (ICD-10 - B35.1) 09/02/2023 Tinea unguium (ICD-10 - B35.1) 06/24/2023 Pain in right toe(s) (ICD-10 - M79.674) 04/22/2023 Pain in right toe(s) (ICD-10 - M79.674) 04/22/2023 Pain in left toe(s) (ICD-10 - M79.675) 06/24/2023 Pain in left toe(s) (ICD-10 - M79.675) 09/02/2023 Pain in right toe(s) (ICD-10 - M79.674) 11/22/2023 Pain in right toe(s) (ICD-10 - M79.674) 01/10/2024 Pain in left toe(s) (ICD-10 - M79.675) 03/20/2024 Pain in right toe(s) (ICD-10 - M79.674) 03/20/2024 Pain in left toe(s) (ICD-10 - M79.675) 01/10/2024 Pain in right foot (ICD-10 - M79.671) 11/22/2023 Pain in left toe(s) (ICD-10 - M79.675) 09/02/2023 Pain in left toe(s) (ICD-10 - M79.675) 06/24/2023 Pain in right foot (ICD-10 - M79.671) 04/22/2023 Pain in right foot (ICD-10 - M79.671) 04/22/2023 Ingrown nail (ICD-10 - L60.0) 09/02/2023 Pain in right foot (ICD-10 - M79.671) 11/22/2023 Pain in right foot (ICD-10 - M79.671) 03/20/2024 Pain in right foot (ICD-10 - M79.671) 04/22/2023 Pain in right toe(s) (ICD-10 - M79.674) 11/22/2023 Ingrown nail (ICD-10 - L60.0) 04/22/2023 Other hammer toe(s) (acquired), right foot (ICD-10 - M20.41) 04/22/2023 Arthritis of joint of lesser toe, right (ICD-10 - M19.071) 04/22/2023 Pain in left toe(s) (ICD-10 - M79.675) 04/22/2023 Other hammer toe(s) (acquired), left foot (ICD-10 - M20.42) 04/22/2023 Arthritis of joint of lesser toe, left (ICD-10 - M19.072) Plan Of Treatment Pending Test Test Name Order Date 24797-UIWNZTY NAIL, 6 OR MORE 12/08/2018 66236-DEUBJSW NAIL, 6 OR MORE 03/16/2019 73766-HSZBAWP NAIL, 6 OR MORE 06/05/2019 40761-ZTIXIFH NAIL, 6 OR MORE 09/14/2019 83089-LFNTOGA NAIL, 6 OR MORE 11/23/2019 29431-HXBGQZQ NAIL, 6 OR MORE 02/01/2020 57697-TFZTBNZ NAIL, 6 OR MORE 04/15/2020 91636-VYBQLEC NAIL, 6 OR MORE 06/20/2020 27305-JPEHJBZ NAIL, 6 OR MORE 08/26/2020 24345-DAHIWXN NAIL, 6 OR MORE 11/04/2020 22611-NXEUYNQ NAIL, 6 OR MORE 02/10/2021 67974-UEDZZWZ NAIL, 6 OR MORE 05/01/2021 04004-LAFDDOD NAIL, 6 OR MORE 07/10/2021 25931-SILPCVE NAIL, 6 OR MORE 09/29/2021 31263-JCZKSTK NAIL, 6 OR MORE 12/04/2021 66190-WEQNHON NAIL, 6 OR MORE 02/16/2022 15288-JYPPCKO NAIL, 6 OR MORE 05/21/2022 25101-USUTXFD NAIL, 6 OR MORE 07/30/2022 54012-XZEPHMA NAIL, 6 OR MORE 10/01/2022 17919-FUVDZCW NAIL, 6 OR MORE 12/03/2022 66109-WPKDSTV NAIL, 6 OR MORE 02/11/2023 25240-VFGYDQY NAIL, 6 OR MORE 04/22/2023 50514-FVNTPEB NAIL, 6 OR MORE 06/24/2023 21406-FJPWIBU NAIL, 6 OR MORE 09/02/2023 52743-NGQVILI NAIL, 6 OR MORE 11/22/2023 01107-WJFSIFM NAIL, 6 OR MORE 01/10/2024 78371-XLRIYQH NAIL, 6 OR MORE 03/20/2024 48044-Vacw Destruction, -14 03/20/2024 46205-Ntbj Destruction, -14 01/10/2024 42070-Yypx Destruction, -14 02/11/2023 28082-Mhhr Destruction, -14 11/22/2023 64526-Vhva Destruction, -14 09/02/2023 89828-Rxsw Destruction, -14 06/24/2023 41217-Ziue Destruction, -14 04/22/2023 75355-Tnac Destruction, -14 12/04/2021 13475-Bemk Destruction, -14 12/03/2022 54431-Hihe Destruction, -14 10/01/2022 41869-Btfv Destruction, -14 07/30/2022 09600-Xzpu Destruction, -14 05/21/2022 24602-Rlzf Destruction, -14 02/16/2022 95018-Titw Destruction, -14 05/01/2021 17217-Ldje Destruction, 14 09/29/2021 64113-Wsjj Destruction, -14 07/10/2021 60722-Dlmb Destruction, 14 11/04/2020 20245-Igjc Destruction, 14 02/10/2021 11291-Jacx Destruction, 14 08/26/2020 38480-Tafa Destruction, 14 06/20/2020 05866-Hgmw Destruction, 04-1804/15/2020 19509-Fucl Destruction, 04-1809/14/2019 41133-Fpri Destruction, 04-1802/01/2020 78925-Sqnf Destruction, 04-1811/23/2019 88489-Tfzo Destruction, 04-1812/08/2018 80932-Xowd Destruction, 04-1806/05/2019 88958-Jmbf Destruction, 14 03/16/2019 22091-Bkvsofem Plate 06/05/2019 63713-Upnyocza Plate 02/01/2020 19105-Lnjpqfun Plate 11/04/2020 29792-Ivauwzty Plate 05/01/2021 95852-Jgaicjyn Plate 02/10/2021 07504-Ejvmdlyy Plate 09/29/2021 25950-Opmumusb Plate 12/04/2021 84438-Jkhktruy Plate 12/03/2022 87518-Pihdzaom Plate 02/11/2023 06621-Ziqpvjau Plate 11/22/2023 78477-Akeqtcaz Plate Each Additional 46900-Tsdtmaxr Plate Each Additional 11/2020 94037- Debride <25 sq cm 09/14/2019 Next Appt Details Provider Name:Helen Mathew , 05/25/2024 11:15:00 AM, [address] [place] [address], [phone], Provider Name:Helen Mathew , 08/03/2024 09:00:00 AM, [address] [place] [address], [phone], Insurance Providers Payer Name Payer Address Payer Phone Subscriber Number Group Number Insured Name Patient Relationship to Insured Coverage Start Date Coverage End Date [facility] [address] [place] [phone] [id number] Dina Levy Self - patient is the insured Medical (General) History Medical History History ICD Code Hyperlipidemia GERD Hypothyroidism colon polyp HTN Osteoarthritis non-rheumatic Aortic valve stenosis Surgical History Surgery Date(Month/Year) Cholecytectomy 1979 TAHBSO 1984 Gall bladder 1982 Hysterectomy 1983
== END 2024-04-18 08:34 | disposition home or self-care (01) ==
LOC: HO.MAMMO 08:33
PROVIDERS: PCP Internal Medicine; Visit Provider Internal Medicine
DX: Z12.31 Encounter for screening mammogram for malignant neoplasm of breast (principal)
CPT/HCPCS: 77063; 77067

== ENCOUNTER → 2024-04-18 08:45 | Outpatient (BNV) | payer MEDICARE, SELFPAY | PROVIDERS: PCP Internal Medicine; Visit Provider Internal Medicine | DX: Z12.31 Encounter for screening mammogram for malignant neoplasm of breast (principal) | CPT/HCPCS: 77063; 77067 ==

== ENCOUNTER → 2024-05-23 09:50 | Outpatient (REF) | payer MEDICARE, SELFPAY ==
--- NOTE | 2024-05-23 09:54 | CA_ITS ---
Transthoracic Echocardiogram Patient (Last, First, Middle): Dina Levy M Gender: Female Date of : 1940 Age: 83 Procedure Date: 05/23/2024 Procedure Type: Transthoracic Echocardiogram Location: OP Height: 147.32 cm Weight: 61.69 kg BSA: 1.55 m2 Heart Rate: bpm BP: 160 / 70 mmHg [employer]: TO Referring MD: Kirk Tejeda MD Symptoms: I35.0 - Nonrheumatic aortic (valve) stenosis Study Quality: Fair ECG Rhythm: Sinus Conclusions: - The left ventricular systolic function is normal. The calculated ejection fraction is 61% by biplane method. - There is moderate to severe aortic valve stenosis. Paradoxical, low-flow, low gradient. Findings Left Ventricle Normal left ventricular cavity size. There is normal left ventricular wall thickness. The left ventricular systolic function is normal. The calculated ejection fraction is 61% by biplane method. There is no evidence of regional wall motion abnormalities. Diastolic function is normal for age. There is mild septal and mild basal asymmetric hypertrophy. Right Ventricle Normal right ventricular cavity size and systolic function. Atria The left atrium is mildly dilated. The right atrium is normal in size. Aortic Valve There is severe calcification of the aortic valve. There is moderate to severe aortic valve stenosis. The peak aortic velocity is 2.92 m/s with a calculated peak gradient of 34 mmHg. The mean gradient is 16 mmHg. The aortic valve area is 0.85 cm2. There is trace (trivial) aortic valve regurgitation. Dimensionless index 0.3. Stroke volume index 35ml/m2. Mitral Valve There is mild mitral annular calcification. There is trace mitral valve regurgitation. There is no mitral valve stenosis. Pulmonic Valve The pulmonic valve is likely normal. Tricuspid Valve There is no tricuspid valve regurgitation. Tricuspid regurgitation envelope is inadequate for calculation of right ventricular systolic pressure. Great Vessels The asc aorta is normal in size. Venous The inferior vena cava is normal in size and collapses greater than 50% with inspiration. Pericardium/Pleural There is no evidence of pericardial effusion. Prior Study Comparison No significant change compared to prior study dated: 11/09/2023. Measurements 2D Linear Measurements IVSd: 1.10 0.6-0.9/0.6-1.0 cm LVIDd: 3.79 3.9-5.3/4.2-5.9 cm LVIDd Index: 2.45 2.4-3.2/2.2-3.1 cm/m2 LVIDs: 2.78 2.0-3.6 cm LVPWd: 0.87 0.7-1.1 cm LA Diam: 3.10 2.7-3.8/3.0-4.0 cm LAIDs Index: 2.00 1.5-2.3 cm/m2 LV Mass: 142.23 67-162/88-224 g LV Mass Index: 91.76 43-95/49-115 g/m2 LVOT Diam: 2.00 3.0+(-)1.3 cm 2D Systolic Function EF 4C: 65.10 >55% EF 2C: 56.00 >55% EF BiP: 61.20 >55% Mitral Valve MV Pk E: 0.63 MV PK A: 0.89 MV Decel Time: 203.00 E/A: 0.70 E'Lateral: 6.53 E'Medial: 6.09 E/E' Med: 10.40 E/E' Lat: 9.70 PHT: 59.00 MVA PHT: 3.73 Decel Hickman: 3.13 Aortic Valve AoV Pk Gautam: 2.92 AoV Mn Gautam: 1.76 AoV VTI: 0.65 AoV Pk Grad: 34.00 Aov Mn Grad: 16.00 ADALI Cont.VTI: 0.85 LVOT LVOT Pk Gautam: 0.86 LVOT Mn Gautam: 0.53 LVOT VTI: 0.18 LVOT Pk Grad: 3.00 LVOT Mn Grad: 1.00 LVOT Diam: 2.00 LVOT Area: 3.14 Diastolic Function MV Pk E: 0.63 MV Pk A: 0.89 E/A: 0.70 E'Medial: 6.09 E/E' Med: 10.40 E' Laterial: 6.53 E/E' Lat: 9.70 Right Ventricle TAPSE (mm): 18.70 TVS' Gautam: 12.70 Tricuspid Valve RA Press: 3.00 Great Vessels Aorta Sinus of Valsalva: 2.75 2.0-3.[address] Ridge: 2.64 1.7-3.4 cm Ao Asc: 3.10 2.1-3.4 cm Updated in Other Vendor System with Status of Final Kirk Tejeda MD electronically signed on 05/23/2024 3:56:42 PM with status of Final
--- OUTSIDE RECORDS SUMMARY | 2024-05-23 10:34 | XMS_ITS | Patient Health Record ---
Author Organization [facility] Yeison [place] Address [address] [place] [address] Care Team Providers Care Teletype Mechanic Name Role Phone Joy VINCENT, Nuria Quach Primary Care Provider Un available Helen Mathew Unavailable [phone] Allergies No Known Allergies Reason For Referral [...] Provider Speciality Internal M edicine Referred Organization [facility] Referred Provider Helen Mathew Referred Address [address] ,[place], [place],[address], Referred Provider Specialty Podiatry Referral Priority Routine [...] Problem Acquired hammer toe of right foot (7449035749093048) Other hammer toe(s) (acquired), right foot (M20.41) Active confirmed Problem Acquired hallux valgus (45623784) Hallux valgus (acquired), left foot (M20.12) Active confirmed Problem Acquired hammer toe of left foot (1496608696207258) Other hammer toe(s) (acquired), left foot (M20.42) Active confirmed Problem Localized, primary osteoarthritis of the ankle and/or foot (182372580) Arthritis of joint of lesser toe, left (M19.072) Active confirmed Problem Localized, primary osteoarthritis of the ankle and/or foot (658788896) Arthritis of joint of lesser toe, right (M19.071) Active confirmed Problem 62671858 Essential hypertension (I10) Active confirmed Vital Signs Blood pressure diastolic 70 mm Hg 03/20/2024 Height 4 ft 10 in in 03/20/2024 Blood pressure systolic 124 mm Hg 03/20/2024 Weight 136 lbs 03/20/2024 BMI 28.42 kg/m2 03/20/2024 Procedures Procedure Date Ordered Date Performed Result Body Sit e 54549-LDVDIVY NAIL, 6 OR MORE 06/24/2023 N/A 93752-Dzjk Destruction, 1-14 06/24/2023 N/A 60854-FCCANVT NAIL, 6 OR MORE 09/02/2023 N/A 59674-Tupl Destruction, 1-14 09/02/2023 N/A 79188-IVDFLPA NAIL, 6 OR MORE 11/22/2023 N/A 78400-Hxut Destruction, 1-14 11/22/2023 N/A 72783-Ziaffssm Plate 11/22/2023 N/A 68658-YRMASSW NAIL, 6 OR MORE 01/10/2024 N/A 90663-Bhsh Destruction, 1-14 01/10/2024 N/A 37949-MXTEBQF NAIL, 6 OR MORE 03/20/2024 N/A 18238-Rujf Destruction, 1-14 03/20/2024 N/A Encounters Encounter Location Date Provider Diagnosis [address] [address] 06/24/2023 Helen Black Other viral warts B07.8 ; Tinea unguium B35.1 ; Pain in right toe(s) M79.674 ; Pain in left toe(s) M79.675 and Pain in right foot M79.[address] [address] 09/02/2023 Helen Black Other viral warts B07.8 ; Tinea unguium B35.1 ; Pain in right toe(s) M79.674 ; Pain in left toe(s) M79.675 and Pain in right foot M79.[address] [address] 11/22/2023 Helen Black Other viral warts B07.8 ; Tinea unguium B35.1 ; Pain in right toe(s) M79.674 ; Pain in left toe(s) M79.675 ; Pain in right foot M79.671 and Ingrown nail L60.[address] [address] 01/10/2024 Helen Mathew Other viral warts B07.8 ; Tinea unguium B35.1 ; Pain in right toe(s) M79.674 ; Pain in left toe(s) M79.675 and Pain in right foot M79.[address] [address] 03/20/2024 Helen Mathew Other viral warts B07.8 ; Tinea unguium B35.1 ; Pain in right toe(s) M79.674 ; Pain in left toe(s) M79.675 and Pain in right foot M79.671 Assessments Encounter Date Diagnosis (ICD Code) Assessment Notes Treatment Notes Treatment Clinical Notes Section Notes 06/24/2023 Other viral warts (ICD-10 - B07.8) [...] Pain in right toe(s) (ICD-10 - M79.674) 06/24/2023 Pain in left toe(s) (ICD-10 - [...] Pain in right foot (ICD-10 - M79.671) 09/02/2023 Pain in right foot (ICD-10 - M79.671) 11/22/2023 Pain in right foot (ICD-10 - M79.671) 03/20/2024 Pain in right foot (ICD-10 - M79.671) 11/22/2023 Ingrown nail (ICD-10 - L60.0) Plan Of Treatment Pending Test Test Name Order Date 47036-JXPDRZI NAIL, 6 OR MORE 12/08/2018 16919-BSULEYG NAIL, 6 OR MORE 03/16/2019 73779-XPSHJSL NAIL, 6 OR MORE 06/05/2019 18797-NAPRBNC NAIL, 6 OR MORE 09/14/2019 05912-WEYVVBC NAIL, 6 OR MORE 11/23/2019 75938-ELSWILB NAIL, 6 OR MORE 02/01/2020 45554-NIOFTBY NAIL, 6 OR MORE 04/15/2020 59575-RKVVRKL NAIL, 6 OR MORE 06/20/2020 32732-PVZANRI NAIL, 6 OR MORE 08/26/2020 00408-IFDJNWG NAIL, 6 OR MORE 11/04/2020 19843-GQUKGPR NAIL, 6 OR MORE 02/10/2021 39666-LVZTDTL NAIL, 6 OR MORE 05/01/2021 90355-ZODTKLN NAIL, 6 OR MORE 07/10/2021 00685-YKSQOVX NAIL, 6 OR MORE 09/29/2021 89293-BJJIAGS NAIL, 6 OR MORE 12/04/2021 60089-WREXHEM NAIL, 6 OR MORE 02/16/2022 56616-FSLEZCA NAIL, 6 OR MORE 05/21/2022 50412-PZQOOYT NAIL, 6 OR MORE 07/30/2022 73959-LIPLINJ NAIL, 6 OR MORE 10/01/2022 87777-RKIUYLY NAIL, 6 OR MORE 12/03/2022 36732-KOBOYIM NAIL, 6 OR MORE 02/11/2023 69877-HBOBQER NAIL, 6 OR MORE 04/22/2023 14599-WRXLRJF NAIL, 6 OR MORE 06/24/2023 49757-OTIJNUM NAIL, 6 OR MORE 09/02/2023 07523-WDMYIYT NAIL, 6 OR MORE 11/22/2023 14223-QPUZKGB NAIL, 6 OR MORE 01/10/2024 82180-WUMUVLB NAIL, 6 OR MORE 03/20/2024 75013-Yhkv Destruction, 1-14 03/20/2024 78595-Kqjv Destruction, -14 01/10/2024 26989-Fbks Destruction, -14 02/11/2023 89502-Ityz Destruction, -14 11/22/2023 88374-Tepb Destruction, -14 09/02/2023 02200-Ilni Destruction, -14 06/24/2023 14761-Kqtv Destruction, -14 04/22/2023 90189-Gcqt Destruction, -14 12/04/2021 98420-Woad Destruction, -14 12/03/2022 63712-Wqom Destruction, -14 10/01/2022 62494-Cwzp Destruction, -14 07/30/2022 85027-Jhww Destruction, -14 05/21/2022 74815-Vfok Destruction, -14 02/16/2022 84447-Iwar Destruction, -14 05/01/2021 93860-Psca Destruction, -14 09/29/2021 70856-Mszf Destruction, 04-1807/10/2021 16921-Uaci Destruction, 04-1811/04/2020 87716-Gamj Destruction, 04-1802/10/2021 67201-Bvcx Destruction, 04-1808/26/2020 81462-Nvsn Destruction, 04-1806/20/2020 13201-Gdeg Destruction, 04-1804/15/2020 04578-Hsbp Destruction, 04-1809/14/2019 00887-Crpf Destruction, 04-1802/01/2020 75853-Cwmd Destruction, 04-1811/23/2019 19459-Yjzv Destruction, 04-1812/08/2018 18096-Uagh Destruction, 04-1806/05/2019 37682-Rovv Destruction, 04-1803/16/2019 06353-Iyirqqkr Plate 06/05/2019 02801-Agbyspdu Plate 02/01/2020 36549-Qzbwuwcm Plate 11/04/2020 88464-Lludqwqj Plate 05/01/2021 65427-Dahoours Plate 02/10/2021 97957-Ucrdtapu Plate 09/29/2021 01792-Kmrzazdv Plate 12/04/2021 44343-Nxnhdbtu Plate 12/03/2022 18285-Bsrydxgq Plate 02/11/2023 54517-Wfqkscnc Plate 11/22/2023 48886-Ldpxzfpg Plate Each Additional 91953-Pzrhgull Plate Each Additional 11/2020 07342- Debride <25 sq cm 09/14/2019 Next Appt Details Provider Name:Helen Rogers [place] , 05/25/2024 11:15:00 AM, [address] [place] [address], [phone], Provider Name:Helen Rogers [place] , 08/03/2024 09:00:00 AM, [address] [place] [address], [phone], Insurance Providers Payer Name Payer Address Payer Phone Subscriber Number Group Number Insured Name Patient Relationship to Insured Coverage Start Date Coverage End Date [facility] [address] [place] [phone] [id number] Dina Levy Self - patient is the insured Medical (General) History Medical History History ICD Code Hyperlipidemia GERD Hypothyroidism colon polyp HTN Osteoarthritis non-rheumatic Aortic valve stenosis Surgical History Surgery Date(Month/Year) Cholecytectomy 1979 TAHBSO 1984 Gall bladder 1982 Hysterectomy 1983
--- OUTSIDE RECORDS SUMMARY | 2024-05-23 10:34 | XMS_ITS ---
Author Organization [facility] [place] Address [address] [place] [address] Care Team Providers Care Forest Firefighter Name Role Phone Joy VINCENT, Nuria Quach Primary Care Provider Un available Black, Helen Unavailable [phone] Allergies No Known Allergies REASON FOR VISIT [...] Ordered Date Performed Result Body Sit e 46332-MPZZLUC NAIL, 6 OR MORE 01/10/2024 N/A 19072-Hjbk Destruction, 1-14 01/10/2024 N/A Encounters Encounter Location Date Provider Diagnosis [facility] [address] [address] 01/10/2024 Helen Mathew Other viral warts B07.8 [...] Treatment Pending Test Test Name Order Date 11182-NMNEWQC NAIL, 6 OR MORE 01/10/2024 35820-Dyim Destruction, 1-14 01/10/2024 Next Appt Details Follow Up: prn, Reason: Provider Name:Helen Rogers [place] , 05/25/2024 11:15:00 AM, [address] [place] [address], [phone], Provider Name:Helen Mathew , 08/03/2024 09:00:00 AM, [address] [place] [address], [phone], Procedure Notes * Category Sub-Category Detail Notes Wart Treatment Procedure Verrucae(s) were debrided to pin-point bleeding margins with sterile surgical blade, silver nitrate chemocautery applied, recomm. immune-boosting meds such as zinc, recomm. follow up with topical chemosurgical agents, recomm. CONT, Wartstick 40 percent Salicylic acid application under occlusion as directed, 73988) Debride Nail 6-10 Nail debridement Nail debridem ent performed extensively to reduce/remove overall nail length and girth, subungual debris, and necrotic tissue, by manual and electrical means with use of a nail nipper and/or dremel, to more viable healthy nail plate or bed tissue 6-10. Silver nitrate used for any petechial bleeding as necessary. Patient chooses, to cont. with [employer] ([address]87) Progress Notes * Dina LEVY MDOB: [birth year] (83 yo F)Acc No.[id number]:01/10/2024 Progress Note Patient:?Dina Levy Provider:?Helen Mathew DPM :1940???Age:83 Y???Sex:Female D ate:01/10/2024 Address:[address] [place] [address] Pcp:Brad Cervantes Subjective: * Chief Complaints: * [...] - M79.671? Plan: * Treatment: 2.?Tinea unguium?Procedure: 58653-LAGRYRK NAIL, 6 OR MORE * Procedures:?Debride Nail 6-10:?Nail debridement?Nail debridement performed extensively to reduce/remove overall nail length and girth, subungual debris, and necrotic tissue, by manual and electrical means with use of a nail nipper and/or dremel, to more viable healthy nail plate or bed tissue 6-10. Silver nitrate used for any petechial bleeding as necessary. Patient chooses, to cont. with [employer] [place] (83290).?Wart Treatment:?Procedure?Verrucae(s) were debrided to pin-point bleeding margins with sterile surgical blade, silver nitrate chemocautery applied, recomm. immune-boosting meds such as zinc, recomm. follow up with topical chemosurgical agents, recomm. CONT, Wartstick 40 percent Salicylic acid application under occlusion as directed, 330[address]).? * Procedure Codes:?02902 DEBRI DE NAIL, 6 OR MORE, Modifiers: XS 03586 Wart Destruction, 1-14, Modifiers: XS * Follow Up:?prn * Images: * Sign off status: Completed true * Provider:?Helen Mathew DPM Date:?2023 Generated for Mario hawley/Dixon/eTransmitting on:?05/23/2024 10:34 AM EST History and Physical Notes * [...]
--- OUTSIDE RECORDS SUMMARY | 2024-05-23 10:34 | XMS_ITS ---
Author Organization [facility] dhiraj [place] Address [address] [place] [address] Care Team Providers Care Quarantine Inspector Name Role Phone Joy VINCENT, Nuria Quach Primary Care Provider Un available Black, Helen Unavailable [phone] Allergies No Known Allergies REASON FOR VISIT [...] Ordered Date Performed Result Body Sit e 54206-ACOPIPA NAIL, 6 OR MORE 11/22/2023 N/A 60825-Enuu Destruction, 1-14 11/22/2023 N/A 26566-Uxyzajyh Plate 11/22/2023 N/A Encounters Encounter Location Date Provider Diagnosis [facility] [address] [address] 11/22/2023 Helen Mathew Other viral warts B07.8 [...] Treatment Pending Test Test Name Order Date 85405-QOYKEOT NAIL, 6 OR MORE 11/22/2023 12560-Urwo Destruction, 1-14 11/22/2023 14761-Otswqrlu Plate 11/22/2023 Next Appt Details Follow Up: 2 Weeks,prn, Reas on: Provider Name:Helen Mathew , 05/25/2024 11:15:00 AM, [address] [place] [address], [phone], Provider Name:Helen Mathew , 08/03/2024 09:00:00 AM, [address] [place] [address], [phone], Procedure Notes * Category Sub-Category Detail Notes Wart Treatment Procedure Verrucae(s) were debrided to pin-point bleeding margins with sterile surgical blade, silver nitrate chemocautery applied, recomm. immune-boosting meds such as zinc, recomm. follow up with topical chemosurgical agents, recomm. CONT, Wartstick 40 percent Salicylic acid application under occlusion as directed, 25833) Nail Avulsion Procedure A fine sterile e [...] Motrin was recommended for pain or discomfort (00823) Anesthesia was accomplished TOP ICALLY with Lidocaine [...] cont. with [employer] [place] (46305) Progress Notes * Dina LEVY MDOB: 9 (82 yo F)Acc No.[id number]:11/22/2023 Progress Note Patient:?Dina Levy Provider:?Helen Mathew DPM :1940???Age:82 Y???Sex:Female D ate:11/22/2023 Address:[address] [place], [place] [id number] Pcp:Brad Cervantes Subjective: * Chief Complaints: * [...] - L60.0? Plan: * Treatment: 2.?Tinea unguium?Procedure: 82365-VZQSOBI NAIL, 6 OR MORE 3.?Ingrown nail?Procedure: 91071-Vtcbddkg Plate * Procedures:?Debride Nail 6-10:?Nail debridement?Nail debridement performed extensively to reduce/remove overall nail length and girth, subungual debris, and necrotic tissue, by manual and electrical means with use of a nail nipper and/or dremel, to more viable healthy nail plate or bed tissue 6-10. Silver nitrate used for any petechial bleeding as necessary. Patient chooses, to cont. with [facility] (14511).?Nail Avulsion:?Location?Medial nail border , T4.?Anesthesia?was accomplished TOPICALLY [...] Motrin was recommended for pain or discomfort (77160).?Wart Treatment:?Procedure?Verrucae(s) were debrided to pin-point bleeding margins with sterile surgical blade, silver nitrate chemocautery applied, recomm. immune-boosting meds such as zinc, recomm. follow up with topical chemosurgical agents, recomm. CONT, Wartstick 40 percent Salicylic acid application under occlusion as directed, 24062).? * Procedure Codes:?81286 DEBRI DE NAIL, 6 OR MORE, Modifiers: XS 98777 Avulsion Plate, Modifiers: T4 55512 Wart Destruction, 1-14, Modifiers: XS * Follow Up:?2 Weeks,prn * Images: * Sign off status: Completed true * Provider:Cheng Mathew DPM Date:?2023 Generated for Mario hawley/Dixon/Anita on:?05/23/2024 10:34 AM EST History and Physical [...]
--- OUTSIDE RECORDS SUMMARY | 2024-05-23 10:34 | XMS_ITS ---
Author Organization [facility] [place]aj [place] Address [address] [place] [address] Care Team Providers Care Treating Inspector Name Role Phone Joy VINCENT, Nuria Quach Primary Care Provider Un available Black, Helen Unavailable [phone] Allergies No Known Allergies REASON FOR VISIT [...] Problem Status W/U Status Risk Notes Problem 17574860 Essential hypertension (I10) Active confirmed Vital Signs Height 4 ft 10 in in 03/20/2024 Weight 136 lbs 03/20/2024 BMI 28.42 kg/m2 03/20/2024 Blood pressure systolic 124 mm Hg 03/20/20 24 Blood pressure diastolic 70 mm Hg 024 Procedures Procedure Date Ordered Date Performed Result Body Sit e 57353-ZTGGSTK NAIL, 6 OR MORE 03/20/2024 N/A 42521-Iryp Destruction, 1-14 03/20/2024 N/A Encounters Encounter Location Date Provider Diagnosis [facility] [address] [address] 03/20/2024 Helen Mathew Other viral warts B07.8 [...] Treatment Pending Test Test Name Order Date 09114-RCJDTGT NAIL, 6 OR MORE 03/20/2024 20536-Lqlh Destruction, 1-14 03/20/2024 Next Appt Details Follow Up: prn, Reason: Provider Name:Helen Rogers [place] , 05/25/2024 11:15:00 AM, [address] [place] [address], [phone], Provider Name:Helen Mathew , 08/03/2024 09:00:00 AM, [address] [place] [address], [phone], Procedure Notes * Category Sub-Category Detail Notes Wart Treatment Procedure Verrucae(s) were debrided to pin-point bleeding margins with sterile surgical blade, silver nitrate chemocautery applied, recomm. immune-boosting meds such as zinc, recomm. follow up with topical chemosurgical agents,STILL, recomm. CONT, Wartstick 40 percent Salicylic acid application under occlusion as directed, 52997) Debride Nail 6-10 Nail debridement Due to [...] use of a nail nipper and/or dremel-type grinder setup operator, to a more viable healthy nail plate [...] to maintain effectiveness in symptomatic relief - 98240 Progress Notes * Dina LEVY MDOB: (83 yo F)Acc No.[id number]:03/20/2024 Progress Note Patient:?Dina LEVY Provider:?Helen Mathew DPM :1940???Age:83 Y???Sex:Female D ate:03/20/2024 Address:[address] [place], [place] [id number] Pcp:Brad Cervantes Subjective: * Chief Complaints: * [...] - M79.671??? Plan: * Treatment: 2.?Tinea unguium?Procedure: 46030-BJKSBDJ NAIL, 6 OR MORE * Procedures:?Debride Nail [...] use of a nail nipper and/or dremel-type grinder setup operator, to a more viable healthy nail plate [...] to maintain effectiveness in symptomatic relief - 94379.?Wart Treatment:?Procedure?Verrucae(s) were debrided to pin-point bleeding margins with sterile surgical blade, silver nitrate chemocautery applied, recomm. immune-boosting meds such as zinc, recomm. follow up with topical chemosurgical agents,STILL, recomm. CONT, Wartstick 40 percent Salicylic acid application under occlusion as directed, 08256).? * Procedure Codes:?08351 DEBRI DE NAIL, 6 OR MORE, Modifiers: XS 44814 Wart Destruction, 1-14, Modifiers: XS * Preventive Medicine:? ??Screening/Special Tests:?FALLS: Screening for Future Fall Risk?Have you had two or more falls in the past year??No * Follow Up:?prn * Images: * Sign off status: Completed true * Provider:?Helen Mathew DPM Date:?2023 Generated for Mario hawley/Dixon/eTnatalismitting on:?05/23/2024 10:34 AM EST History and Physical [...]
== END ==
LOC: HO.CARD 09:50
PROVIDERS: PCP Internal Medicine; Visit Provider Internal Medicine
DX: I35.0 Nonrheumatic aortic (valve) stenosis (principal)
CPT/HCPCS: 93306

== ENCOUNTER → 2024-05-23 09:54 | Outpatient (BNV) | payer MEDICARE, SELFPAY | PROVIDERS: PCP Internal Medicine; Visit Provider Internal Medicine | DX: I35.0 Nonrheumatic aortic (valve) stenosis (principal) | CPT/HCPCS: 93306 ==

== ENCOUNTER 2024-05-29 10:02 | Outpatient (AMB) | payer MEDICARE, SELFPAY ==
--- NOTE | 2024-05-29 10:03 | MHC.OFFVIS ---
Intake Visit Reasons: 4m/Pessary maintenance Intake Note: Patient is present for 4M/PESSARY MAINTENANCE Urology Medication:NONE Antibiotic Allergy:NONE Blood Thinner:ASPIRIN Molding Machine Operator Required: No Allergies No Known Allergies Allergy (Verified 05/29/24 10:04) Medication List - Last Reconciled 05/29/24 by Ambrose Lee MD amlodipine 2.5 mg PO DAILY aspirin (Adult Low Dose Aspirin) 81 mg PO DAILY atorvastatin 20 mg PO DAILY cholecalciferol (vitamin D3) 50 mcg PO DAILY L. acidophilus/Bifid. animalis 2.5 billion cell (Daily Probiotic) caps PO levothyroxine 112 mcg PO QAM HPI Comments Details: 05/29/24--Dina is an 83-year-old female who has been managed with pessary for cystocele. She denies gross hematuria or dysuria. She was seen last 02/14/2024, at that time pessary was increased in size from a mentor ring 3-4. Pessary mentor ring with support size 4 removed/cleaned/and replaced without difficulty. Continue pessary management. Follow-up in 3 months. 02/14/24-FU pessary maintenance. Dina is an 83-year-old female who has been managed with pessary for cystocele. She comes in today and states that about a week ago Wednesday the pessary fell out. She states that she has had a cold and has been coughing and 1 of the times that she coughed she felt that the pessary had fallen out. She brought the pessary to the office. She denies irritative voiding symptoms. On pelvic examination it was determined to size up on the pessary. Pessary - mentor size 4 ring with support inserted vaginally. 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 Last seen 07/26/23, denies irritativie voiding symptoms, UA - nitritie positive - will send for c/s. She denies UTI symptoms. Here for pessary maintenance. Pessary removed/cleaned/and replaced without difficulty. Continue pessary management. Follow-up in 3 months [facility] Medical History Degenerative joint disease of both hips Chronic right hip pain Prolapse of female pelvic organs COVID-19 vaccine dose declined Left medial knee pain Bilateral hip pain Post-menopause Tubular adenoma of colon Osteopenia of left femoral neck Nonrheumatic aortic (valve) stenosis Essential hypertension Dyslipidemia Acquired hypothyroidism Acquired deformity of toenail Surgical History Hx of colonoscopy History of total abdominal hysterectomy and bilateral salpingo-oophorectomy Hx of cholecystectomy Family History Father CAD (coronary artery disease) Myocardial infarction Mother Type 2 diabetes mellitus Social History Housing: House Alcohol intake: current Patient Tobacco Use Status: Never used Tobacco e-Cigarette/Vaping Use: Never Used Second Hand Smoke Exposure: No Current occupational status: retired Cognitive needs: No Hearing needs: No Vision needs: Yes Review of Systems Const All systems reviewed & are unremarkable except as noted in HPI and below Reports no additional complaints Eyes Reports no additional complaints ENT Reports no additional complaints Card Reports no additional complaints Resp Reports no additional complaints GI Reports no additional complaints Reports as per HPI Musc Reports no additional complaints Skin/Breast Reports system reviewed and no additional complaints, except as documented Neuro Reports no additional complaints Psych Reports no additional complaints Endo Reports no additional complaints Jame/Lymph Reports no additional complaints Aller/Immun Reports no additional complaints Assessment & Plan Assessment & Plan (1) Prolapse of female pelvic organs: Code(s): N81.9 - Female genital prolapse, unspecified Category: Medical Plan Follow-up in 3 months for pessary maintenance. Orders: Orders AMB Urinalysis Automated Today Z13.9 - Encounter for screening, unspecified Patient Instructions: The patient had an opportunity to ask questions regarding treatment plan. The patient expressed understanding and agreement with the above treatment plan. The patient is aware they should contact our office by phone for worsening of their current condition or the appearance of new symptoms. Compliance is encouraged with any medications and followup testing that is ordered. It is a privilege to be allowed the opportunity to participate in the urologic care of your patient. If you have any questions or concerns regarding treatment for the above conditions please do not hesitate to contact me. The office telephone contact is [phone]. This note is constructed in part using voice recognition software. While every effort has been made to ensure accuracy central stores attendant errors may have been included. Yours sincerely, Ambrose Lee MD Coding Level of Care Code Est Pt Level 3 (64076) Diagnoses Prolapse of female pelvic organs N81.9
--- OUTSIDE RECORDS SUMMARY | 2024-05-29 11:08 | XMS_ITS | Patient Health Record ---
Author Organization [facility] [place] Address [address] [place] [address] Care Team Providers Care Communications Media Professor Name Role Phone Joy VINCENT, Nuria Quach Primary Care Provider Un available Helen Mathew Unavailable [phone] Allergies No Known Allergies Reason For Referral [...] Provider Speciality Internal M edicine Referred Organization [facility] Referred Provider Helen Mathew Referred Address [address] ,[place], [place],[address], Referred Provider Specialty Podiatry Referral Priority Routine Medications Medication SIG (Take, Route, Frequency, Duration) Notes Start Date End Date Status amLODIPine Besylate 2.5 MG 1 tablet Oral ly Once a day Active Flax Seed Oil Not- radha Chlorthalidone 25 mg 1 tablet in the morning Orally Once a day Not-Taking Ciclopirox Olamine 0.77 % 1 application Externally Twice a day for 30 days 08/26/2020 Not-Taking Vitamin D Active Atorvastatin Calcium 20 MG 1 tablet Oral ly Once a day for 90 day(s) Active Levothyroxine Sodium 112 MCG 1 tablet on an empty stomach in the morning Orally Once a day for 90 days Active Probiotic Active Aspirin EC 81 MG 1 tablet Orally Once a day for 90 day(s) Active Immunizations Vaccine Route Administration Date Status Comme nts COVID-19 Pfizer BioNTech Vaccine Unknown 01/05/2021 Administered First Dose:05/18/2020 Second Dose: 06/08/2020 Influenza Unknown 12/14/2017 Administered Influenza Unknown 11/29/2019 Administered Pneumococcal Unknown 04/04/2018 Administered Social History Tobacco Use: Social History Observation Description Date Details (start date - stop date) Never Smoker NA - NA Tobacco use other than smoking: Question Answer Notes Are you an other tobacco user? No Tobacco Control (Standard) Question Answer Notes Tobacco use: Nonsmoker Additional Findings: Tobacco non-user Current no nsmoker AUDIT-C (Standard) Question Answer Notes Did you have a drink containing alcohol in the p ast year? No Points 0 Interpretation Negative Problems Problem Type SNOMED Code ICD Code Onset Dates Problem Status W/U Status Risk Notes Problem Acquired hammer toe of right foot (2057842501530902) Other hammer toe(s) (acquired), right foot (M20.41) Active confirmed Problem Acquired hallux valgus (03716362) Hallux valgus (acquired), left foot (M20.12) Active confirmed Problem Acquired hammer toe of left foot (7282644018730172) Other hammer toe(s) (acquired), left foot (M20.42) Active confirmed Problem Localized, primary osteoarthritis of the ankle and/or foot (180460612) Arthritis of joint of lesser toe, left (M19.072) Active confirmed Problem Localized, primary osteoarthritis of the ankle and/or foot (351188096) Arthritis of joint of lesser toe, right (M19.071) Active confirmed Problem 25707626 Essential hypertension (I10) Active confirmed Vital Signs Blood pressure diastolic 80 mm Hg 05/25/2024 Height 4 ft 10 in in 05/25/2024 Blood pressure systolic 120 mm Hg 05/25/2024 Weight 136 lbs 05/25/2024 BMI 28.42 kg/m2 05/25/2024 Procedures Procedure Date Ordered Date Performed Result Body Sit e 96211-OUGQRTU NAIL, 6 OR MORE 06/24/2023 N/A 46596-Aivs Destruction, 1-14 06/24/2023 N/A 92450-NYKNHGZ NAIL, 6 OR MORE 09/02/2023 N/A 00282-Mklw Destruction, 1-14 09/02/2023 N/A 05015-QJPVSLX NAIL, 6 OR MORE 11/22/2023 N/A 36779-Abrs Destruction, 1-14 11/22/2023 N/A 10920-Vxachvop Plate 11/22/2023 N/A 65252-YQSARPP NAIL, 6 OR MORE 01/10/2024 N/A 31872-Blqg Destruction, 1-14 01/10/2024 N/A 85781-XHAJHWY NAIL, 6 OR MORE 03/20/2024 N/A 15395-Wrrj Destruction, 1-14 03/20/2024 N/A 86671-QYIPGJD NAIL, 6 OR MORE 05/25/2024 N/A 40070-Qrzu Destruction, 1-14 05/25/2024 N/A Encounters Encounter Location Date Provider Diagnosis [address] [address] 06/24/2023 Helen Black Other viral warts B07.8 ; Tinea unguium B35.1 ; Pain in right toe(s) M79.674 ; Pain in left toe(s) M79.675 and Pain in right foot M79.[address] [address] 09/02/2023 Helen Black Other viral warts B07.8 ; Tinea unguium B35.1 ; Pain in right toe(s) M79.674 ; Pain in left toe(s) M79.675 and Pain in right foot M79.[address] [address] 11/22/2023 Helen Black Other viral warts B07.8 ; Tinea unguium B35.1 ; Pain in right toe(s) M79.674 ; Pain in left toe(s) M79.675 ; Pain in right foot M79.671 and Ingrown nail L60.[address] [address] 01/10/2024 Helen Black Other viral warts B07.8 ; Tinea unguium B35.1 ; Pain in right toe(s) M79.674 ; Pain in left toe(s) M79.675 and Pain in right foot M79.[address] [address] 03/20/2024 Helen Black Other viral warts B07.8 ; Tinea unguium B35.1 ; Pain in right toe(s) M79.674 ; Pain in left toe(s) M79.675 and Pain in right foot M79.[address] [address] 05/25/2024 Helen Black Other viral warts B07.8 ; [...] 03/20/2024 Other viral warts (ICD-10 - B07.8) 05/25/2024 Other viral warts (ICD-10 - B07.8) 05/25/2024 Tinea unguium (ICD-10 - B35.1) 03/20/2024 Tinea unguium (ICD-10 - B35.1) 01/10/2024 [...] Pain in right toe(s) (ICD-10 - M79.674) 05/25/2024 Pain in right toe(s) (ICD-10 - M79.674) 05/25/2024 Pain in left toe(s) (ICD-10 - M79.675) 03/20/2024 Pain in left toe(s) (ICD-10 - [...] Pain in right foot (ICD-10 - M79.671) 05/25/2024 Pain in right foot (ICD-10 - M79.671) 11/22/2023 Ingrown nail (ICD-10 - L60.0) Plan Of Treatment Pending Test Test Name Order Date 25775-HHIDWQL NAIL, 6 OR MORE 12/08/2018 82081-XBSUIWA NAIL, 6 OR MORE 03/16/2019 17749-RWUPBXB NAIL, 6 OR MORE 06/05/2019 78719-ROOGRVW NAIL, 6 OR MORE 09/14/2019 94695-OCKPJLI NAIL, 6 OR MORE 11/23/2019 22208-MDICGHN NAIL, 6 OR MORE 02/01/2020 64698-QPRWXBK NAIL, 6 OR MORE 04/15/2020 01835-BRIVLGY NAIL, 6 OR MORE 06/20/2020 77421-EVMPZQI NAIL, 6 OR MORE 08/26/2020 35734-UOLVKUY NAIL, 6 OR MORE 11/04/2020 25767-UVQPAIP NAIL, 6 OR MORE 02/10/2021 99340-SSFLCRJ NAIL, 6 OR MORE 05/01/2021 06200-YTMRCBF NAIL, 6 OR MORE 07/10/2021 14783-JAKQYCV NAIL, 6 OR MORE 09/29/2021 49786-NJXEZHC NAIL, 6 OR MORE 12/04/2021 26782-JLPUSWG NAIL, 6 OR MORE 02/16/2022 73610-KSZAVHK NAIL, 6 OR MORE 05/21/2022 66706-KEINXJX NAIL, 6 OR MORE 07/30/2022 53228-WXGJIUZ NAIL, 6 OR MORE 10/01/2022 92084-QVZSELW NAIL, 6 OR MORE 12/03/2022 99946-ULELHQA NAIL, 6 OR MORE 02/11/2023 67039-ABJMGBP NAIL, 6 OR MORE 04/22/2023 13386-WOFMUOP NAIL, 6 OR MORE 06/24/2023 94375-OHACWAD NAIL, 6 OR MORE 09/02/2023 81721-BYWEOUR NAIL, 6 OR MORE 11/22/2023 23419-NTDZQAF NAIL, 6 OR MORE 01/10/2024 15523-EWUSGPG NAIL, 6 OR MORE 03/20/2024 97523-VPBQWKN NAIL, 6 OR MORE 05/25/2024 09422-Hnhm Destruction, 1-14 05/25/2024 55048-Hayz Destruction, 1-14 03/20/2024 05807-Sqku Destruction, 1-14 01/10/2024 06298-Okyq Destruction, 14 02/11/2023 66357-Gcjj Destruction, 04-1811/22/2023 60144-Iurh Destruction, 04-1809/02/2023 21808-Xszp Destruction, 04-1806/24/2023 54080-Vnkj Destruction, 04-1804/22/2023 10202-Otqg Destruction, 04-1812/04/2021 56516-Jvmv Destruction, 04-1812/03/2022 04276-Vqzd Destruction, 04-1810/01/2022 45631-Dwdo Destruction, 04-1807/30/2022 53855-Iyen Destruction, 04-1805/21/2022 94933-Dbda Destruction, 04-1802/16/2022 29238-Fzze Destruction, 04-1805/01/2021 27580-Quea Destruction, 04-1809/29/2021 59874-Odvz Destruction, 04-1807/10/2021 55066-Smzt Destruction, 04-1811/04/2020 32119-Iuum Destruction, 04-1802/10/2021 91322-Kcjz Destruction, 04-1808/26/2020 53017-Zjlu Destruction, 04-1806/20/2020 09329-Dyzn Destruction, 04-1804/15/2020 62820-Eqtb Destruction, 04-1809/14/2019 35721-Mlbw Destruction, 04-1802/01/2020 03650-Macq Destruction, 04-1811/23/2019 35859-Qgsp Destruction, 04-1812/08/2018 31206-Oqeo Destruction, 14 06/05/2019 30960-Tvrd Destruction, 14 03/16/2019 37561-Tptjachl Plate 06/05/2019 36799-Rubpyvpe Plate 02/01/2020 90702-Ceevzuqc Plate 11/04/2020 03472-Fekvfdob Plate 05/01/2021 89664-Fldwxdmf Plate 02/10/2021 88827-Mgecmfpw Plate 09/29/2021 85522-Rpyryyif Plate 12/04/2021 94419-Uxdaheca Plate 12/03/2022 39552-Ncpxgqpy Plate 02/11/2023 60964-Dgzlclxq Plate 11/22/2023 26899-Qdmwoyfu Plate Each Additional 28764-Vafbxseh Plate Each Additional 11/2020 64586- Debride <25 sq cm 09/14/2019 Next Appt Details Provider Name:Helen Mathew , 08/03/2024 09:00:00 AM, [address] [place] [address], [phone], Provider Name:Helen Mathew , 10/09/2024 01:30:00 PM, [address] [place] [address], [phone], Insurance Providers Payer Name Payer Address Payer Phone Subscriber Number Group Number Insured Name Patient Relationship to Insured Coverage Start Date Coverage End Date [facility] [address] [place]z [phone] [id number] Dina Levy Self - patient is the insured Medical (General) History Medical History History ICD Code Hyperlipidemia GERD Hypothyroidism colon polyp HTN Osteoarthritis non-rheumatic Aortic valve stenosis Surgical History Surgery Date(Month/Year) Cholecytectomy 1979 TAHBSO 1985 Gall bladder 1983 Hysterectomy 1983
--- OUTSIDE RECORDS SUMMARY | 2024-05-29 11:08 | XMS_ITS ---
Author Organization [facility] Address [address] [place] [address] Care Team Providers Care Director Of Land Name Role Phone Joy VINCENT, Nuria Quach Primary Care Provider Un available Black, Helen Unavailable [phone] Allergies No Known Allergies REASON FOR VISIT Painful nail(s) aggrevated by shoes and causing difficulty standing/walking., Wart(s) Medications Medication SIG (Take, Route, Frequency, Duration) Notes Start Date End Date Status Flax Seed Oil Not-Ta radha Chlorthalidone 25 mg 1 tablet in the morning Orally Once a day Not-Taking Ciclopirox Olamine 0.77 % 1 application Externally Twice a day for 30 days 08/26/2020 Not-Taking Vitamin D Active Levothyroxine Sodium 112 MCG 1 tablet on an empty stomach in the morning Orally Once a day for 90 days Active amLODIPine Besylate 2.5 MG 1 tablet Oral ly Once a day Active Atorvastatin Calcium 20 MG 1 tablet Oral ly Once a day for 90 day(s) Active Probiotic Active Aspirin EC 81 MG [...] ast year? No Points 0 Interpretation Negative Vital Signs Height 4 ft 10 in in 05/25/2024 Weight 136 lbs 05/25/2024 BMI 28.42 kg/m2 05/25/2024 Blood pressure systolic 120 mm Hg 05/25/19 25 Blood pressure diastolic 80 mm Hg 025 Procedures Procedure Date Ordered Date Performed Result Body Sit e 62311-DVFDHKT NAIL, 6 OR MORE 05/25/2024 N/A 66446-Qjrn Destruction, 1-14 05/25/2024 N/A Encounters Encounter Location Date Provider Diagnosis [facility] [address] [address] 05/25/2024 Helen Mathew Other viral warts B07.8 ; Tinea unguium B35.1 ; Pain in right toe(s) M79.674 ; Pain in left toe(s) M79.675 and Pain in right foot M79.671 Assessments Encounter Date Diagnosis (ICD Code) Assessment Notes Treatment Notes Treatment Clinical Notes Section Notes 05/25/2024 Other viral warts (ICD-10 - B07.8) 05/25/2024 Tinea unguium (ICD-10 - B35.1) 05/25/2024 Pain in right toe(s) (ICD-10 - M79.674) 05/25/2024 Pain in left toe(s) (ICD-10 - M79.675) 05/25/2024 Pain in right foot (ICD-10 - M79.671) Plan Of Treatment Pending Test Test Name Order Date 94562-TKBOOLD NAIL, 6 OR MORE 05/25/2024 23178-Menb Destruction, 1-14 05/25/2024 Next Appt Details Follow Up: prn, Reason: Provider Name:Helen Mathew , 08/03/2024 09:00:00 AM, [address] [place] [address], [phone], Provider Name:Helen Mathew , 10/09/2024 01:30:00 PM, [address] [place] [address], [phone], Procedure Notes * Category Sub-Category Detail Notes Wart Treatment Procedure Verrucae(s) were debrided to pin-point bleeding margins with sterile surgical blade, silver nitrate chemocautery applied, recomm. immune-boosting meds such as zinc, recomm. follow up with topical chemosurgical agents,STILL, recomm. CONT, Wartstick 40 percent Salicylic acid application under occlusion as directed, 76048) Debride Nail 6-10 Nail debridement Due to the cl inical pathology outlined in the exam findings, performance of this nail treatment is medically necessary as its management by an unskilled/untrained nonprofessional would put this patients foot and overall health at risk. Therefore, debridement to affected nail(s), as described in exam ( TA, T1, T2, T3, T4, T5, T6, T7, T8, T9, ), was performed exclusively by the physician of record to reduce/remove overall nail length, girth, thickness, subungual debris, and necrotic tissue, by manual and/or electrical means through the use of a nail nipper and/or dremel-type outer diameter grinder tool, to a more viable healthy nail plate [...] to maintain effectiveness in symptomatic relief - 89976 Progress Notes * Dina LEVY MDOB: (83 yo F)Acc No.[id number]:05/25/2024 Progress Note Patient:?Dina LEVY Provider:?Helen Mathew DPM :1940???Age:83 Y???Sex:Female D ate:05/25/2024 Address:[address] [place], [place] [id number] Pcp:Brad Cervantes Subjective: * Chief Complaints: * ??? Painful nail(s) aggrevat ed by shoes and causing difficulty standing/walking.Wart(s) * HPI: ???Painful Nails:?Pt States Last PCP Visit:?Date:?12/27/2023 ?Treatments:?Topical Antifungal , relates adherence to recom tx.?Skin problems:?Pt States PCP Visit: ?DATE?12/27/2023 * ROS:?General/Constitutional:?Nausea?denies.?Vomiting?denies.?Hunger [...] Diabetic - NIDDM.? * Social History:?Tobacco Use:?Tobacco use other than smoking?Are you an other tobacco user??No ?Tobacco Control (Standard)?Tobacco use:?Nonsmoker ?Additional Findings: Tobacco non-user?Current nonsmoker ???Drugs/Alcohol:?Drugs?Have you used drugs other than those for medical reasons in the past 12 months??No ???Miscellaneous:?Caffeine: yes, 1-2 cups per day. ?Children: yes, 5. ?Exercise: yes, walking, gardening, stairs. ?Marital status: . ?Occupation: Housewife. ???Drug/Alcohol:?AUDIT-C (Standard)?Did you have a drink containing alcohol in the past year??No ?Points?0 ?Interpretation?Negative * Medications:?TakingamLODIPin e Besylate 2.5 MG Tablet [...] Objective: * Vitals:?Ht: 4 ft 10 in, Wt:1 36, BMI: 28.42, Shoe size:6.5-7W, BP:120/80mm Hg, Ht-cm: 147.32 cm, Wt-k.69 kg. * Examination: ???General Examination: ?GENERAL APPEARANCE:?Reveals a pleasant, alert, well nourished, well- developed, well hydrated individual, who demonstrates proper attention to hygiene/body habitus, and is in no acute distress, Pt serves as own historian for office visit today, Pt accompanied by, , and/who is physically present in exam room at time of visit.?Dermatologic: ?VERRUCA:?one, round, raised, flat-topped, petechial bleeding papulae(s), with cauliflower appearance and interrruption of skin lines, with pain to both direct and lateral compression, and size estimated at 1mm, plantar Forefoot, RIGHT.?Nails: ?NAILS are:?elongated, overgrown, dystrophic, greater than 3mm thick, discolored and friable with crumbly malodorous subungual debris, with pain on palpation,, TA, T1, T2, T3, T4, T5, T6, T7, T8, T9.?Vascular: ?DP PULSES (B):?1/4, B/L.?PT PULSES (B):?1/4, B/L.?CAPILLARY FILL TIME:?immediate, all digits, B/L.?TROPHIC CONDITION-TEXTURE/ELASTICITY/TURGOR/HAIR GROWTH (B):?normal, B/L.? Assessment: * Assessment: 1.?Other viral warts - B07.8 (Primary)???2.?Tinea unguium - B35.1???3.?Pain in right toe(s) - M79.674???4.?Pain in left toe(s) - M79.675???5.?Pain in right foot - M79.671??? Plan: * Treatment: 2.?Tinea unguium?Procedure: 42520-JOFGNVT NAIL, 6 OR MORE * Procedures:?Debride Nail 6-10:?Nail debridement?Due to the clinical pathology outlined in the exam findings, performance of this nail treatment is medically necessary as its management by an unskilled/untrained nonprofessional would put this patients foot and overall health at risk. Therefore, debridement to affected nail(s), as described in exam ( TA, T1, T2, T3, T4, T5, T6, T7, T8, T9, ), was performed exclusively by the physician of record to reduce/remove overall nail length, girth, thickness, subungual debris, and necrotic tissue, by manual and/or electrical means through the use of a nail nipper and/or dremel-type outer diameter grinder tool, to a more viable healthy nail plate or bed tissue 6- 10 nails in total. Silver nitrate was used for any petechial bleeding as necessary. Definitive antifungal treatment options, both pharmaceutical and surgical, have been reviewed and discussed with the patient. The patient solely prefers the use of intermittent/as needed professional debridement services for their nail condition and understands the need for additional periodic treatments to maintain effectiveness in symptomatic relief - 99962.?Wart Treatment:?Procedure?Verrucae(s) were debrided to pin-point bleeding margins with sterile surgical blade, silver nitrate chemocautery applied, recomm. immune-boosting meds such as zinc, recomm. follow up with topical chemosurgical agents,STILL, recomm. CONT, Wartstick 40 percent Salicylic acid application under occlusion as directed, 10117).? * Procedure Codes:?43256 DEBRI DE NAIL, 6 OR MORE, Modifiers: XS 79409 Wart Destruction, 1-14, Modifiers: XS * Follow Up:?prn * Images: * Sign off status: Completed true * Provider:Cheng Mathew DPM Date:?2024 Generated for Mario hawley/Dixon/Anita on:?05/29/2024 11:08 AM EST History and Physical Notes * HPI (History of Present Illness) Category Sub-Category Detail Notes Category Not es Painful Nails Treatments: Topical Antifung al , relates adherence to recom tx Pt States Last PCP Visit: Date:: 12/27/2023 Skin problems Pt States PCP Visit: DATE: 12/27/2023 Examination Category Sub-Category Detail Notes Category Not es Ingrown Nail INSPECTION: Dermatologic VERRUCA: one, round, rais ed, flat-topped, petechial bleeding papulae(s), with cauliflower appearance and interrruption of skin lines, with pain to both direct and lateral compression, and size estimated at 1mm, plantar Forefoot, RIGHT General Examination GENERAL APPEARANCE: Reveals a pleasant, alert, well nourished, well-developed, well hydrated individual, who demonstrates proper attention to hygiene/body habitus, and is in no acute distress, Pt serves as own historian for office visit today, Pt accompanied by, , and/who is physically present in exam room at time of visit ORIENTED: Vascular DP PULSES (B): 1/4, B/L PT PULSES (B): 1/4, B/L CAPILLARY FILL TIME: immediate, all digi ts, B/L TROPHIC CONDITION-TEXTURE/EL ASTICITY/TURGOR/HAIR GROWTH (B): normal, B/L Nails NAILS are: elongated, overg rown, dystrophic, greater than 3mm thick, discolored and friable with crumbly malodorous subungual debris, with pain on palpation,, TA, T1, T2, T3, T4, T5, T6, T7, T8, T9
--- OUTSIDE RECORDS SUMMARY | 2024-05-29 11:08 | XMS_ITS ---
Author Organization [facility] [place] Address [address] [place] [address] Care Team Providers Care Finisher Wallboard And Plasterboard Name Role Phone Joy VINCENT, Nuria Quach Primary Care Provider Un available Black, Helen Unavailable [phone] Allergies No Known Allergies REASON FOR VISIT [...] Ordered Date Performed Result Body Sit e 41823-LLPFTDB NAIL, 6 OR MORE 01/10/2024 N/A 49973-Zorq Destruction, 1-14 01/10/2024 N/A Encounters Encounter Location Date Provider Diagnosis [facility] [address] [address] 01/10/2024 Helen Mathew Other viral warts B07.8 [...] Treatment Pending Test Test Name Order Date 32971-DHBPMGG NAIL, 6 OR MORE 01/10/2024 94866-Mzqh Destruction, 1-01/10/2024 Next Appt Details Follow Up: prn, Reason: Provider Name:Helen Rogers [place] , 08/03/2024 09:00:00 AM, [address] [place] [address], [phone], Provider Name:Helen Mathew , 10/09/2024 01:30:00 PM, [address] [place] [address], [phone], Procedure Notes * Category Sub-Category Detail Notes Wart Treatment Procedure Verrucae(s) were debrided to pin-point bleeding margins with sterile surgical blade, silver nitrate chemocautery applied, recomm. immune-boosting meds such as zinc, recomm. follow up with topical chemosurgical agents, recomm. CONT, Wartstick 40 percent Salicylic acid application under occlusion as directed, 04709) Debride Nail 6-10 Nail debridement Nail debridem ent performed extensively to reduce/remove overall nail length and girth, subungual debris, and necrotic tissue, by manual and electrical means with use of a nail nipper and/or dremel, to more viable healthy nail plate or bed tissue 6-10. Silver nitrate used for any petechial bleeding as necessary. Patient chooses, to cont. with [facility] [place] ([address]) Progress Notes * Dina LEVY MDOB: 9 (83 yo F)Acc No.[id number]:01/10/2024 Progress Note Patient:?Dina Levy Provider:?Helen Mathew DPM :1940???Age:83 Y???Sex:Female D ate:01/10/2024 Address:[address] [place] [address] Pcp:Brad Cervantes Subjective: * Chief Complaints: * [...] - M79.671? Plan: * Treatment: 2.?Tinea unguium?Procedure: 05059-TSXFJHR NAIL, 6 OR MORE * Procedures:?Debride Nail 6-10:?Nail debridement?Nail debridement performed extensively to reduce/remove overall nail length and girth, subungual debris, and necrotic tissue, by manual and electrical means with use of a nail nipper and/or dremel, to more viable healthy nail plate or bed tissue 6-10. Silver nitrate used for any petechial bleeding as necessary. Patient chooses, [place] ([address]).?Wart Treatment:?Procedure?Verrucae(s) were debrided to pin-point bleeding margins with sterile surgical blade, silver nitrate chemocautery applied, recomm. immune-boosting meds such as zinc, recomm. follow up with topical chemosurgical agents, recomm. CONT, Wartstick 40 percent Salicylic acid application under occlusion as directed, 87[address]).? * Procedure Codes:?03087 DEBRI DE NAIL, 6 OR MORE, Modifiers: XS 06821 Wart Destruction, 1-14, Modifiers: XS * Follow Up:?prn * Images: * Sign off status: Completed true * Provider:?Helen Mathew DPM Date:?2023 Generated for Mario hawley/Dixon/eTransmitting on:?05/29/2024 11:08 AM EST History and Physical [...]
== END 2024-05-29 10:41 | disposition home or self-care (01) ==
PROVIDERS: PCP Internal Medicine; Visit Provider Urology
DX: N81.9 Female genital prolapse, unspecified (principal); Z13.9 Encounter for screening, unspecified
CPT/HCPCS: 99213

== ENCOUNTER → 2024-05-29 10:02 | Outpatient (BNVA) | payer MEDICARE, SELFPAY | PROVIDERS: PCP Internal Medicine; Visit Provider Urology | DX: Z46.6 Encounter for fitting and adjustment of urinary device (principal); N81.9 Female genital prolapse, unspecified | CPT/HCPCS: 81003; 99212 ==

== ENCOUNTER 2024-05-31 08:49 | Outpatient (AMB) | payer MEDICARE, SELFPAY ==
[2024-05-31 08:52] VITALS: BP 138/64; PULSE 90; BMI 29.4
--- NOTE | 2024-05-31 08:52 | A.OFFVIS_ITS ---
Vital Signs 05/31/24 08:52 Height 4 ft 10 in Weight 140 lb 10.479 oz BMI 29.4 BP 138/64 Blood Pressure Location Lt brachial Position Sitting Pulse 90 Pulse Source Pulse Oximeter Intake Visit Reasons: 6 mth s/p echo Quality Head Required: No Accompanied by: Self / Same As Patient Allergies No Known Allergies Allergy (Verified 05/29/24 10:04) Medication List - Last Reconciled 05/31/24 by Kirk Tejeda MD amlodipine 2.5 mg PO DAILY aspirin (Adult Low Dose Aspirin) 81 mg PO DAILY atorvastatin 20 mg PO DAILY cholecalciferol (vitamin D3) 50 mcg PO DAILY levothyroxine 112 mcg PO QAM HPI Comments Details: Dina is here for follow-up regarding aortic stenosis. She states that she is doing fine. No specific complaints like angina or in fact anything cardiac sounding. She states that she goes up and down stairs all day and does not have any complaints. [facility] Medical History Degenerative joint disease of both hips Chronic right hip pain Prolapse of female pelvic organs COVID-19 vaccine dose declined Left medial knee pain Bilateral hip pain Post-menopause Tubular adenoma of colon Osteopenia of left femoral neck Nonrheumatic aortic (valve) stenosis Essential hypertension Dyslipidemia Acquired hypothyroidism Acquired deformity of toenail Surgical History Hx of colonoscopy History of total abdominal hysterectomy and bilateral salpingo-oophorectomy Hx of cholecystectomy Family History Father CAD (coronary artery disease) Myocardial infarction Mother Type 2 diabetes mellitus Social History Housing: House Alcohol intake: current Patient Tobacco Use Status: Never used Tobacco e-Cigarette/Vaping Use: Never Used Second Hand Smoke Exposure: No Current occupational status: retired Cognitive needs: No Hearing needs: No Vision needs: Yes Review of Systems Const Denies chills, Denies fatigue, Denies fever(s), Denies weight gain and Denies weight loss ENT Denies dizziness Card Denies chest pain, Denies leg edema, Denies lightheadedness, Denies palpitations, Denies dyspnea on exertion, Denies orthopnea and Denies other Resp Denies cough and Denies dyspnea on exertion GI Denies hematochezia and Denies change in stool character Musc Denies abnormal gait, Denies muscle weakness, Denies numbness, Denies radiating pain into limb and Denies tingling Neuro Denies abnormal gait, Denies dizziness, Denies numbness and Denies tingling Endo Denies fatigue and Denies palpitations Physical Exam Vital Signs: Last Vital Signs Pulse 90 05/31/24 08:52 BP 138/64 05/31/24 08:52 BMI result Body Mass Index 29.4 Const General: comfortable and no acute distress Orientation/consciousness: patient oriented x3 HEENT Other: Unremarkable Head: Yes normal to inspection Neck Neck: Yes normal visual inspection Chest Chest palpation & inspection: normal inspection of the chest Resp Auscultation: clear to auscultation bilaterally Cardio Palpation: normal PMI Heart sounds: S1 normal heart sound present, S2 normal heart sound present, no gallops, Murmur heart sound present systolic III/ and no rubs GI Palpation (GI): Soft to palpation Back/Spine/Pelvis Other: unremarkable Skin General skin exam: no rashes or lesions noted Neuro General: patient oriented x3 Extrem General: Yes normal to inspection Psych Mental Status: mental status grossly normal Office Procedures EKG Details: EKG with sinus rhythm at 78/Min; sinus arrhythmias; no significant ST-T changes; [place] [address]-Hxjzybpfiqaddzdrz, Complete Assessment & Plan Assessment & Plan (1) Nonrheumatic aortic (valve) stenosis: Code(s): I35.0 - Nonrheumatic aortic (valve) stenosis Category: Medical Plan: In the most recent echocardiogram, moderate to severe aortic valve stenosis, paradoxical, low-flow -low gradient. Clinically, she has got absolutely no symptoms. We will continue to monitor. If any concerns, advised her to contact us immediately. We went all the symptoms as well. She understands that. Eventual TAVR candidate. (2) Essential hypertension: Code(s): I10 - Essential (primary) hypertension Category: Medical Plan: Per patient, chlorthalidone stopped because of low potassium. Now on amlodipine. Orders: Orders CA echo transthoracic complete 6 Months I35.0 - Nonrheumatic aortic (valve) stenosis Coding Level of Care Code Est Pt Level 4 (49684) Diagnoses Nonrheumatic aortic (valve) stenosis I35.0 Essential hypertension I10 CPT Codes EKG - CPT: 08614-Uczjgnucnevanajcv, Complete ([id number])
--- OUTSIDE RECORDS SUMMARY | 2024-05-31 09:33 | XMS_ITS ---
Author Organization [facility] [place] Address [address] [place] [address] Care Team Providers Care Color Depositing Machine Tender Name Role Phone Joy VINCENT, Nuria Quach Primary Care Provider Un available Black, Helen Unavailable [phone] Allergies No Known Allergies REASON FOR VISIT [...] Problem Status W/U Status Risk Notes Problem 36279435 Essential hypertension (I10) Active confirmed Vital Signs Height 4 ft 10 in in 03/20/2024 Weight 136 lbs 03/20/2024 BMI 28.42 kg/m2 03/20/2024 Blood pressure systolic 124 mm Hg 03/20/20 24 Blood pressure diastolic 70 mm Hg 024 Procedures Procedure Date Ordered Date Performed Result Body Sit e 92106-ATVQWBL NAIL, 6 OR MORE 03/20/2024 N/A 80422-Sjox Destruction, 1-14 03/20/2024 N/A Encounters Encounter Location Date Provider Diagnosis [facility] [address] [address] 03/20/2024 Helen Mathew Other viral warts B07.8 [...] Treatment Pending Test Test Name Order Date 42081-LMNSNTK NAIL, 6 OR MORE 03/20/2024 12919-Fofj Destruction, 1-14 03/20/2024 Next Appt Details Follow Up: prn, Reason: Provider Name:Helen Rogers Quincy , 08/03/2024 09:00:00 AM, [address] [place] [address], [phone], Provider Name:Helen Rogers Quincy , 10/09/2024 01:30:00 PM, [address] [place] [address], [phone], Procedure Notes * Category Sub-Category Detail Notes Wart Treatment Procedure Verrucae(s) were debrided to pin-point bleeding margins with sterile surgical blade, silver nitrate chemocautery applied, recomm. immune-boosting meds such as zinc, recomm. follow up with topical chemosurgical agents,STILL, recomm. CONT, Wartstick 40 percent Salicylic acid application under occlusion as directed, 23025) Debride Nail 6-10 Nail debridement Due to [...] use of a nail nipper and/or dremel-type tankage grinder, to a more viable healthy nail [...] to maintain effectiveness in symptomatic relief - 61526 Progress Notes * Dina LEVY MDOB: (83 yo F)Acc No.[id number]:03/20/2024 Progress Note Patient:?Dina LEVY Provider:?Helen Mathew DPM :1940???Age:83 Y???Sex:Female D ate:03/20/2024 Address:[address] [place], [place] [id number] Pcp:Brad Cervantes Subjective: * Chief Complaints: * [...] - M79.671??? Plan: * Treatment: 2.?Tinea unguium?Procedure: 06372-RYRZRHC NAIL, 6 OR MORE * Procedures:?Debride Nail [...] use of a nail nipper and/or dremel-type tankage grinder, to a more viable healthy nail [...] to maintain effectiveness in symptomatic relief - 19627.?Wart Treatment:?Procedure?Verrucae(s) were debrided to pin-point bleeding margins with sterile surgical blade, silver nitrate chemocautery applied, recomm. immune-boosting meds such as zinc, recomm. follow up with topical chemosurgical agents,STILL, recomm. CONT, Wartstick 40 percent Salicylic acid application under occlusion as directed, 945[address]).? * Procedure Codes:?49000 DEBRI DE NAIL, 6 OR MORE, Modifiers: XS 80425 Wart Destruction, 1-14, Modifiers: XS * Preventive Medicine:? ??Screening/Special Tests:?FALLS: Screening for Future Fall Risk?Have you had two or more falls in the past year??No * Follow Up:?prn * Images: * Sign off status: Completed true * Provider:?Helen Mathew DPM Date:?2023 Generated for Mario hawley/Dixon/Ariannesmitting on:?05/31/2024 09:33 AM EST History and Physical Notes * [...]
--- OUTSIDE RECORDS SUMMARY | 2024-05-31 09:34 | XMS_ITS ---
Author Organization [facility] dhiraj [place] Address [address] [place] [address] Care Team Providers Care It Applications Developer Name Role Phone Joy VINCENT, Nuria Quach Primary Care Provider Un available Black, Helen Unavailable [phone] Allergies No Known Allergies REASON FOR VISIT [...] Ordered Date Performed Result Body Sit e 82148-LEUFHPQ NAIL, 6 OR MORE 01/10/2024 N/A 34406-Mnkw Destruction, 1-14 01/10/2024 N/A Encounters Encounter Location Date Provider Diagnosis [facility] [address] [address] 01/10/2024 Helen Mathew Other viral warts B07.8 [...] Treatment Pending Test Test Name Order Date 07136-WWQTTDM NAIL, 6 OR MORE 01/10/2024 14586-Ycnv Destruction, 1-01/10/2024 Next Appt Details Follow Up: prn, Reason: Provider Name:Helen Rogers Quincy , 08/03/2024 09:00:00 AM, [address] [place] [address], [phone], Provider Name:Helen Mathew , 10/09/2024 01:30:00 PM, [address] [place] [address], [phone], Procedure Notes * Category Sub-Category Detail Notes Wart Treatment Procedure Verrucae(s) were debrided to pin-point bleeding margins with sterile surgical blade, silver nitrate chemocautery applied, recomm. immune-boosting meds such as zinc, recomm. follow up with topical chemosurgical agents, recomm. CONT, Wartstick 40 percent Salicylic acid application under occlusion as directed, 84397) Debride Nail 6-10 Nail debridement Nail debridem ent performed extensively to reduce/remove overall nail length and girth, subungual debris, and necrotic tissue, by manual and electrical means with use of a nail nipper and/or dremel, to more viable healthy nail plate or bed tissue 6-10. Silver nitrate used for any petechial bleeding as necessary. Patient chooses, to cont. with [facility] [place] (80220) Progress Notes * Dina LEVY MDOB: 9 (83 yo F)Acc No.[id number]:01/10/2024 Progress Note Patient:?Dina Levy Provider:?Helen Mathew DPM :1940???Age:83 Y???Sex:Female D ate:01/10/2024 Address:[address] [place] [address] Pcp:Brad Cervantes Subjective: * Chief Complaints: * [...] - M79.671? Plan: * Treatment: 2.?Tinea unguium?Procedure: 80584-GRVGUTG NAIL, 6 OR MORE * Procedures:?Debride Nail 6-10:?Nail debridement?Nail debridement performed extensively to reduce/remove overall nail length and girth, subungual debris, and necrotic tissue, by manual and electrical means with use of a nail nipper and/or dremel, to more viable healthy nail plate or bed tissue 6-10. Silver nitrate used for any petechial bleeding as necessary. Patient chooses, to cont. with [facility] [place] ([id number]).?Wart Treatment:?Procedure?Verrucae(s) were debrided to pin-point bleeding margins with sterile surgical blade, silver nitrate chemocautery applied, recomm. immune-boosting meds such as zinc, recomm. follow up with topical chemosurgical agents, recomm. CONT, Wartstick 40 percent Salicylic acid application under occlusion as directed, 07678).? * Procedure Codes:?49789 DEBRI DE NAIL, 6 OR MORE, Modifiers: XS 75335 Wart Destruction, 1-14, Modifiers: XS * Follow Up:?prn * Images: * Sign off status: Completed true * Provider:?Helen Mathew DPM Date:?2023 Generated for Mario hawley/Dixon/eTransmitting on:?05/31/2024 09:33 AM EST History and Physical [...]
--- OUTSIDE RECORDS SUMMARY | 2024-05-31 09:34 | XMS_ITS ---
Author Organization [facility]aj [place] Address [address] [place] [address] Care Team Providers Care Microstrategy Architect Name Role Phone Joy VINCENT, Nuria Quach Primary Care Provider Un available Black, Helen Unavailable [phone] Allergies No Known Allergies REASON FOR VISIT [...] Ordered Date Performed Result Body Sit e 39983-MHXFAMJ NAIL, 6 OR MORE 05/25/2024 N/A 22407-Omat Destruction, 1-14 05/25/2024 N/A Encounters Encounter Location Date Provider Diagnosis [facility] [address] [address] 05/25/2024 Helen Mathew Other viral warts B07.8 [...] Treatment Pending Test Test Name Order Date 33859-KAYESCQ NAIL, 6 OR MORE 05/25/2024 01647-Sgfx Destruction, 1-14 05/25/2024 Next Appt Details Follow Up: prn, Reason: Provider Name:Helne Mathew , 08/03/2024 09:00:00 AM, [address] [place] [address], [phone], Provider Name:Helen Mathew , 10/09/2024 01:30:00 PM, [address] [place] [address], [phone], Procedure Notes * Category Sub-Category Detail Notes Wart Treatment Procedure Verrucae(s) were debrided to pin-point bleeding margins with sterile surgical blade, silver nitrate chemocautery applied, recomm. immune-boosting meds such as zinc, recomm. follow up with topical chemosurgical agents,STILL, recomm. CONT, Wartstick 40 percent Salicylic acid application under occlusion as directed, 11382) Debride Nail 6-10 Nail debridement Due to [...] use of a nail nipper and/or dremel-type precision jig grinder, to a more viable healthy nail [...] to maintain effectiveness in symptomatic relief - 16252 Progress Notes * Dina LEVY MDOB: (83 yo F)Acc No.[id number]:05/25/2024 Progress Note Patient:?Dina LEVY Provider:?Helen Mathew DPM :1940???Age:83 Y???Sex:Female D ate:05/25/2024 Address:[address] [place], [place] [id number] Pcp:Brad Cervantes Subjective: * Chief Complaints: * [...] - M79.671??? Plan: * Treatment: 2.?Tinea unguium?Procedure: 56488-STSNSGQ NAIL, 6 OR MORE * Procedures:?Debride Nail [...] use of a nail nipper and/or dremel-type precision jig grinder, to a more viable healthy nail [...] to maintain effectiveness in symptomatic relief - 75703.?Wart Treatment:?Procedure?Verrucae(s) were debrided to pin-point bleeding margins with sterile surgical blade, silver nitrate chemocautery applied, recomm. immune-boosting meds such as zinc, recomm. follow up with topical chemosurgical agents,STILL, recomm. CONT, Wartstick 40 percent Salicylic acid application under occlusion as directed, 49725).? * Procedure Codes:?11515 DEBRI DE NAIL, 6 OR MORE, Modifiers: XS 58446 Wart Destruction, 1-14, Modifiers: XS * Follow Up:?prn * Images: * Sign off status: Completed true * Provider:Cheng Mathew DPM Date:?2024 Generated for Mario hawley/Dixon/Anita on:?05/31/2024 09:33 AM EST History and Physical [...]
--- OUTSIDE RECORDS SUMMARY | 2024-05-31 09:34 | XMS_ITS | Patient Health Record ---
Author Organization [facility] [place] Address [address] [place] [address] Care Team Providers Care Veterinary Anatomist Name Role Phone Joy VINCENT, Nuria Quach Primary Care Provider Un available Helen Mathew Unavailable [phone] Allergies No Known Allergies Reason For Referral [...] Provider Speciality Internal M edicine Referred Organization [facility] Referred Provider Helen Mathew Referred Address [address] ,[place], [place],[address], Referred Provider Specialty Podiatry Referral Priority Routine [...] Problem Acquired hammer toe of right foot (8529417743688212) Other hammer toe(s) (acquired), right foot (M20.41) Active confirmed Problem Acquired hallux valgus (33605648) Hallux valgus (acquired), left foot (M20.12) Active confirmed Problem Acquired hammer toe of left foot (1081895673855379) Other hammer toe(s) (acquired), left foot (M20.42) Active confirmed Problem Localized, primary osteoarthritis of the ankle and/or foot (833234465) Arthritis of joint of lesser toe, left (M19.072) Active confirmed Problem Localized, primary osteoarthritis of the ankle and/or foot (050195222) Arthritis of joint of lesser toe, right (M19.071) Active confirmed Problem 33975237 Essential hypertension (I10) Active confirmed Vital Signs Blood pressure diastolic 80 mm Hg 05/25/2024 Height 4 ft 10 in in 05/25/2024 Blood pressure systolic 120 mm Hg 05/25/2024 Weight 136 lbs 05/25/2024 BMI 28.42 kg/m2 05/25/2024 Procedures Procedure Date Ordered Date Performed Result Body Sit e 92530-TINPOMQ NAIL, 6 OR MORE 06/24/2023 N/A 52292-Ckft Destruction, 1-14 06/24/2023 N/A 56172-EFFKWDG NAIL, 6 OR MORE 09/02/2023 N/A 76570-Whfx Destruction, 1-14 09/02/2023 N/A 88840-DODAXIT NAIL, 6 OR MORE 11/22/2023 N/A 51567-Mxnl Destruction, 1-14 11/22/2023 N/A 51912-Krnktumc Plate 11/22/2023 N/A 05718-AMXCVSF NAIL, 6 OR MORE 01/10/2024 N/A 48552-Vium Destruction, 1-14 01/10/2024 N/A 25176-KXVLMRY NAIL, 6 OR MORE 03/20/2024 N/A 52313-Vnni Destruction, 1-14 03/20/2024 N/A 21514-PKRMUJH NAIL, 6 OR MORE 05/25/2024 N/A 77339-Jywo Destruction, 1-14 05/25/2024 N/A Encounters Encounter Location Date Provider Diagnosis [address] [address] 06/24/2023 Helen Black Other viral warts B07.8 ; Tinea unguium B35.1 ; Pain in right toe(s) M79.674 ; Pain in left toe(s) M79.675 and Pain in right foot M79.[address] [address] 09/02/2023 Helen Black Other viral warts B07.8 ; Tinea unguium B35.1 ; Pain in right toe(s) M79.674 ; Pain in left toe(s) M79.675 and Pain in right foot M79.[address] [address] 11/22/2023 Helen Black Other viral warts B07.8 ; Tinea unguium B35.1 ; Pain in right toe(s) M79.674 ; Pain in left toe(s) M79.675 ; Pain in right foot M79.671 and Ingrown nail L60.[address] [address] 01/10/2024 Helen Black Other viral warts B07.8 ; Tinea unguium B35.1 ; Pain in right toe(s) M79.674 ; Pain in left toe(s) M79.675 and Pain in right foot M79.[address] [address] 03/20/2024 Helen Black Other viral warts B07.8 ; Tinea unguium B35.1 ; Pain in right toe(s) M79.674 ; Pain in left toe(s) M79.675 and Pain in right foot M79.[address] [address] 05/25/2024 Helen Black Other viral warts B07.8 [...] Treatment Pending Test Test Name Order Date 24290-LOUFIWW NAIL, 6 OR MORE 12/08/2018 80337-MRHSNAT NAIL, 6 OR MORE 03/16/2019 93753-VCBAOZG NAIL, 6 OR MORE 06/05/2019 82229-RETFQJY NAIL, 6 OR MORE 09/14/2019 45842-XQLBKJB NAIL, 6 OR MORE 11/23/2019 36196-TKDICEX NAIL, 6 OR MORE 02/01/2020 59185-YCIQZTC NAIL, 6 OR MORE 04/15/2020 51971-ECAPERI NAIL, 6 OR MORE 06/20/2020 48840-UMUPLTK NAIL, 6 OR MORE 08/26/2020 47155-SIHPOBR NAIL, 6 OR MORE 11/04/2020 12131-HFXTLJA NAIL, 6 OR MORE 02/10/2021 07493-EYOORIO NAIL, 6 OR MORE 05/01/2021 32153-UWWGIGZ NAIL, 6 OR MORE 07/10/2021 64974-UTMRSBX NAIL, 6 OR MORE 09/29/2021 07943-FWFAGUR NAIL, 6 OR MORE 12/04/2021 51573-RRBQWJO NAIL, 6 OR MORE 02/16/2022 67319-EQLJFDG NAIL, 6 OR MORE 05/21/2022 12447-RFOREMD NAIL, 6 OR MORE 07/30/2022 98777-JTFDMOU NAIL, 6 OR MORE 10/01/2022 60025-EIGRBFQ NAIL, 6 OR MORE 12/03/2022 61180-WMDESPD NAIL, 6 OR MORE 02/11/2023 99581-UJRMQER NAIL, 6 OR MORE 04/22/2023 91334-ITXWSBB NAIL, 6 OR MORE 06/24/2023 36962-WHHUSTG NAIL, 6 OR MORE 09/02/2023 15354-ZLSIHNN NAIL, 6 OR MORE 11/22/2023 51946-YFDIAMX NAIL, 6 OR MORE 01/10/2024 20287-VYQWEZH NAIL, 6 OR MORE 03/20/2024 53317-BEZWGUJ NAIL, 6 OR MORE 05/25/2024 09108-Lvrm Destruction, 1-14 05/25/2024 93986-Llmr Destruction, 1-14 03/20/2024 96529-Ypzh Destruction, 1-14 01/10/2024 29167-Muxm Destruction, 14 02/11/2023 09102-Lnrx Destruction, 04-1811/22/2023 98173-Jdxm Destruction, 04-1809/02/2023 05970-Aebr Destruction, 04-1806/24/2023 52475-Ofxb Destruction, 04-1804/22/2023 12103-Tiek Destruction, 04-1812/04/2021 68584-Aqlm Destruction, 04-1812/03/2022 84671-Fydw Destruction, 04-1810/01/2022 52692-Dfvj Destruction, 04-1807/30/2022 64039-Bzsj Destruction, 04-1805/21/2022 77712-Rexg Destruction, 04-1802/16/2022 66351-Qege Destruction, 04-1805/01/2021 62139-Gsps Destruction, 04-1809/29/2021 86089-Bowx Destruction, 04-1807/10/2021 58438-Onhl Destruction, 04-1811/04/2020 85454-Eipb Destruction, 04-1802/10/2021 11055-Fzop Destruction, 04-1808/26/2020 04981-Nscr Destruction, 04-1806/20/2020 46123-Qgkp Destruction, 04-1804/15/2020 10186-Iuvf Destruction, 04-1809/14/2019 67383-Gxaz Destruction, 04-1802/01/2020 41013-Gwyb Destruction, 04-1811/23/2019 51018-Wjzg Destruction, 04-1812/08/2018 61530-Mfje Destruction, 14 06/05/2019 68933-Deac Destruction, 14 03/16/2019 69943-Wochkvqv Plate 06/05/2019 49934-Bzeftrtw Plate 02/01/2020 33361-Jicjewio Plate 11/04/2020 56794-Mrjeftyk Plate 05/01/2021 99576-Jgzfgwmp Plate 02/10/2021 54563-Ybnirdaj Plate 09/29/2021 49997-Xgivxici Plate 12/04/2021 17790-Btahnyje Plate 12/03/2022 63154-Zcnhxayq Plate 02/11/2023 19430-Fgjjcchl Plate 11/22/2023 59296-Qknnrntl Plate Each Additional 39306-Wfkepaor Plate Each Additional 11/2020 25750- Debride <25 sq cm 09/14/2019 Next Appt Details Provider Name:Helen Mathew , 08/03/2024 09:00:00 AM, [address] [place] [address], [phone], Provider Name:Helen Mathew , 10/09/2024 01:30:00 PM, [address] [place] [address], [phone], Insurance Providers Payer Name Payer Address Payer Phone Subscriber Number Group Number Insured Name Patient Relationship to Insured Coverage Start Date Coverage End Date [facility] [address] [place]z [phone] [id number] Dina Levy Self - patient is the insured Medical (General) History Medical History History ICD Code Hyperlipidemia GERD Hypothyroidism colon polyp HTN Osteoarthritis non-rheumatic Aortic valve stenosis Surgical History Surgery Date(Month/Year) Cholecytectomy 1979 TAHBSO 1985 Gall bladder 1983 Hysterectomy 1983
== END 2024-05-31 09:20 | disposition home or self-care (01) ==
PROVIDERS: PCP Internal Medicine; Visit Provider Internal Medicine
DX: I35.0 Nonrheumatic aortic (valve) stenosis (principal); I10 Essential (primary) hypertension
CPT/HCPCS: 93010; 99214

== ENCOUNTER → 2024-05-31 08:49 | Outpatient (BNVA) | payer MEDICARE, SELFPAY | PROVIDERS: PCP Internal Medicine; Visit Provider Internal Medicine | DX: I35.0 Nonrheumatic aortic (valve) stenosis (principal); I10 Essential (primary) hypertension; Z79.899 Other long term (current) drug therapy | CPT/HCPCS: 93005; 99212 ==

== ENCOUNTER 2024-06-20 07:29 | Outpatient (REF) | payer MEDICARE, SELFPAY ==
[2024-06-20 08:46] LABS: Alanine Aminotransferase 19 U/L (0-31); Anion Gap 10 (12-20); Blood Urea Nitrogen 13 mg/dL (9-16); Calcium 9.3 mg/dL (8.4-10.2); Carbon Dioxide 30 mmol/L (22-29); Chloride 107 mmol/L (96-108); Cholesterol 222 mg/dL (<200); Estimated Glomerular Filt Rate > 60; Glucose Fasting 88 mg/dL (60-99); HDL Cholesterol 83 mg/dL (>40); LDL Cholesterol Calculated 118 mg/dL (<100); Potassium 4.2 mmol/L (3.3-5.1); Sodium 143 mmol/L (135-145); Triglycerides 106 mg/dL (<150)
[2024-06-20 09:02] LABS: Free T4 (Free Thyroxine) 1.21 ng/dL (0.71-1.85); Thyroid Stimulating Hormone 0.38 uIU/mL (0.32-4.0); Vitamin D 25-OH Total 41.7 ng/mL (>30)
== END 2024-06-20 07:30 | disposition home or self-care (01) ==
LOC: HO.LAB 07:29
PROVIDERS: PCP Internal Medicine; Visit Provider Internal Medicine
DX: Z78.0 Asymptomatic menopausal state (principal); M85.852 Other specified disorders of bone density and structure, left thigh; I35.0 Nonrheumatic aortic (valve) stenosis; I10 Essential (primary) hypertension; E78.5 Hyperlipidemia, unspecified; E03.9 Hypothyroidism, unspecified
CPT/HCPCS: 36415; 80048; 80061; 82306; 84439; 84443; 84460

== ENCOUNTER 2024-08-02 13:29 | Outpatient (AMB) | payer MEDICARE, SELFPAY ==
--- NOTE | 2024-08-02 13:43 | A.OFFPC_ITS ---
Vital Signs 08/02/24 13:44 Height 4 ft 10 in Weight 141 lb BMI 29.5 BP 136/60 Blood Pressure Location Rt brachial Position Sitting Respiration 15 Pulse 96 Pulse Source Pulse Oximeter Temp 98.1 F Temp Source Oral Pulse Oximetry (%) 96 Oxygen Delivery Method Room Air Intake Visit Reasons: Annual PE Intake Note: Pt is here today for her PE: last colonoscopy 03/20/21 Allergies No Known Allergies Allergy (Verified 08/02/24 14:02) Medication List - Last Reconciled 08/02/24 by Nuria Hamilton MD amlodipine 2.5 mg PO DAILY aspirin (Adult Low Dose Aspirin) 81 mg PO DAILY atorvastatin 20 mg PO 3XW cholecalciferol (vitamin D3) 50 mcg PO DAILY levothyroxine 112 mcg PO QAM magnesium glycinate 100 mg PO DAILY Tobacco use date assessed: 08/02/24 Fall risk assessment: No Falls in past year Last assessed Fall Risk: 08/02/24 Dental Screening Dental Screen Date: 12/27/23 Did you have a dental visit in the last 12 months?: No Did you have a dental problem in the last 6 months where you did not have access to dental care?: No Was dental information given to patient?: No HPI Annual PE HPI Details 83 -year-old lady with history of hypert ension, hyperlipidemia, hypothyroidism and aortic stenosis, here today for a physical exam. She has been feeling well, compliant with taking medications, blood pressure has been stable controlled on present treatment. Was recently seen by Cardiology 2 months ago for follow-up on her moderate aortic stenosis, currently asymptomatic, will continue to observe, has an appointment to have a repeat echocardiogram in November 2024. She is up-to-date with all her vaccines, had a recent mammogram earlier this year which came back within normal limits, but does not want to do any further bone density scan or colonoscopy screening. [facility] Medical History (Updated 08/02/24 @ 14:16 by Nuria Hamilton MD) Nocturnal leg cramps Degenerative joint disease of both hips Chronic right hip pain Prolapse of female pelvic organs COVID-19 vaccine dose declined Left medial knee pain Bilateral hip pain Post-menopause Tubular adenoma of colon Osteopenia of left femoral neck Nonrheumatic aortic (valve) stenosis Essential hypertension Dyslipidemia Acquired hypothyroidism Acquired deformity of toenail Surgical History Hx of colonoscopy History of total abdominal hysterectomy and bilateral salpingo-oophorectomy Hx of cholecystectomy Family History Father CAD (coronary artery disease) Myocardial infarction Mother Type 2 diabetes mellitus Social History Housing: House Alcohol intake: current Patient Tobacco Use Status: Never used Tobacco e-Cigarette/Vaping Use: Never Used Second Hand Smoke Exposure: No Current occupational status: retired Cognitive needs: No Hearing needs: No Vision needs: Yes Questionnaire PHQ-9 Over the last 2 weeks, how often have you been bothered by any of the following problems? 1. Little interest or pleasure in doing things: not at all 2. Feeling down, depressed, or hopeless: not at all 3. Trouble falling or staying asleep, or sleeping too much: not at all 4. Feeling tired or having little energy: not at all 5. Poor appetite or overeating: not at all 6. Feeling bad about yourself - or that you are a failure or have let yourself or your family down: not at all 7. Trouble concentrating on things, such as reading the newspaper or watching television: not at all 8. Moving or speaking so slowly that other people could have noticed. Or the opposite - being so fidgety or restless that you have been moving around a lot more than usual: not at all 9. Thoughts that you would be better off or of hurting yourself in some way: not at all Total score: 0 Depression Screening Interpretation: Negative Depression Screening Done: Yes 59528 - PHQ-9 Billing: Yes Source: Developed by Drs. Param Hardy, Nat Banerjee, Sony Lopez and colleagues, with an educational cherelle from [employer]. Thrive Questionnaire Date Thrive assessed: 06/20/24 I am a: Patient What is your living situation today?: I have a steady place to live Within the past 12 months, did the food you bought not last and you didn't have the money to get more?: Never true Within the past 12 months, did you worry whether your food would run out before you got money to buy more?: Never true Do you have trouble paying for medicines?: No Do you have trouble getting transportation to medical appointments?: No Do you have trouble paying your heating and electricity bill?: No Do you have trouble taking care of your child, family member or friend?: No Do you have trouble with day-to-day activities such as bathing, preparing meals, shopping, managing finances, etc.?: No Are you currently unemployed and looking for a job?: No Are you interested in more education?: No Please select the resources that you would like help with: None Currently or been in a relationship where the following occur: No concerns reported THRIVE Score: 0 AUDIT C Alcohol Use Questionnaire (AUDIT-C) 1. How often do you have a drink containing alcohol?: 2-3 times a week 2. How many drinks containing alcohol do you have on a typical day when you are drinking?: 1 or 2 3. How often do you have six or more drinks on one occasion?: Never Total Score: 3 CARLY-7 AMB Questionnaire CARLY-7 Date CARLY - 7 assessed: 08/02/24 Feeling nervous, anxious, or on edge: 0 = Not at all Not being able to stop or control worryin = Not at all Worrying too much about different things: 0 = Not at all Trouble relaxin = Not at all Being so restless that it is hard to sit still: 0 = Not at all Becoming easily annoyed or irritable: 0 = Not at all Feeling afraid as if something awful might happen: 0 = Not at all Total CARLY-7 score (0-4 normal; 5-9 mild; 10-14 moderate; 15-21 severe): 0 Source: Developed by Drs. Param Hardy, Nat Banerjee, Sony Lopez and colleagues, with an educational cherelle from [employer]. CARLY-7 Assessment Billing CARLY-7 Assessment Tool: CARLY-7 Assessment 76931 Review of Systems Const Denies chills, Denies fatigue, Denies fever(s), Denies weight gain and Denies weight loss Eyes Denies change in vision ENT Denies dizziness Card Denies chest pain, Denies leg edema, Denies lightheadedness, Denies palpitations, Denies dyspnea on exertion, Denies orthopnea and Denies other Resp Denies cough and Denies dyspnea on exertion GI Denies hematochezia and Denies change in stool character Reports urinary incontinence (occasional) Musc Denies abnormal gait, Reports muscle cramps (Nocturnal leg cramps), Denies muscle weakness, Denies numbness, Denies radiating pain into limb and Denies tingling Skin/Breast Denies breast pain, Denies breast mass and Denies rash Neuro Denies abnormal gait, Denies dizziness, Denies numbness, Denies Sensory deficit (Neuro) and Denies tingling Psych Reports no additional complaints Endo Denies fatigue and Denies palpitations Jame/Lymph Reports no additional complaints Aller/Immun Reports no additional complaints Physical exam (Primary Care) Vital Signs: Last Vital Signs Temp 98.1 F 08/02/24 13:44 Pulse 96 08/02/24 13:44 Resp 15 08/02/24 13:44 BP 136/60 08/02/24 13:44 Pulse Ox 96 08/02/24 13:44 Oxygen Delivery Method Room Air 08/02/24 13:44 BMI result Body Mass Index 29.5 Tobacco/Smoking Status: Tobacco use Status Tobacco use date assessed 08/02/24 08/02/24 13:48 Patient Tobacco Use Status Never used Tobacco 08/02/24 13:48 e-Cigarette/Vaping Use Never Used 08/02/24 13:48 PHQ-9: PHQ-9 Score PHQ-9: Total score 0 08/02/24 16:28 Depression Screening Interpretation: Negative Thrive Assessment: Date of Thrive Assessment Date Thrive assessed 06/20/24 08/02/24 13:48 Currently or been in a relationship where the following occur: No concerns reported Const Other: Alert oriented x3, no acute cardiorespiratory distress noted General: alert Orientation/consciousness: patient oriented x3 HENMT Mouth: Normal oral and palatal mucosa present, oropharynx normal and moist mucous membranes Neck Neck: Yes full ROM and Yes no lymphadenopathy Thyroid: Thyroid normal Resp Effort & Inspection: normal respiratory effort and able to speak in complete sentences Auscultation: clear to auscultation bilaterally Cardio Rate: regular rate Rhythm: regular rhythm Heart sounds: S1 normal heart sound present, S2 normal heart sound present and Murmur heart sound present systolic GI Inspection: Yes normal to inspection Palpation (GI): Soft to palpation Auscultation: normal bowel sounds General: Yes no CVA tenderness Back/Spine/Pelvis Back: no CVA tenderness Skin General skin exam: no rashes or lesions noted Neuro General: patient oriented x3, gait normal, moves all extremities, no focal motor deficits and CN's II-XI intact bilaterally Cognition (Neuro): normal cognition Gait exam (Neuro): Normal gait present Motor exam (neuro): 5/5 motor strength present throughout Sensory Exam: No Sensory deficit (Neuro) Extrem General: Yes normal to inspection, Yes no joint enlargement and Yes normal gait Psych Affect: normal affect Results Reviewed Results Reviewed: Name: Dina Levy Age/Sex: 83/F : 1940 Unit#: [id number] Attend Dr: Nuria Hamilton MD Re06/20/24 Status: DEP REF Location: [facility] Disch: SPEC : [id number] TONY: 06/20/24 STATUS: COMP REQ : [id number] RECD: 06/20/[address]: Nuria Hamilton MD COMP: 06/20/24 ENTERED: 06/20/[address]: ORDERED: Met Prof Fast, ALT, Lipid Panel, Vitamin D 25-OH, Free T4, TSH Test Result Flag Reference Sodium 143 135-145 mmol/L Potassium 4.2 3.3-5.1 mmol/L CL 107 96-108 mmol/L CO2 30 H 22-29 mmol/L Gap 10 L 12-20 BUN 13 9-16 mg/dL Creat 0.75 0.5-1.4 mg/dL eGFR > 60 Chronic Kidney Disease: Estimated GFR < 60 mL/min/1.73m2 Severe Kidney Disease: Estimated GFR < 15 mL/min/1.73m2 FBS 88 60-99 mg/dL CA 9.3 8.4-10.2 mg/dL ALT (GPT) 19 0-31 U/L Triglyceride 106 <150 mg/dL Desirable Triglyceride: less than 150 mg/dL Borderline High Triglyceride 150-199 mg/dL High Triglyceride: 200-499 mg/dL Very High Triglyceride: greater than or equal to 5OO mg/dL Cholesterol 222 H <200 mg/dL Desirable Cholesterol: less than 200 mg/dL Borderline High Cholesterol: 200-239 mg/dL High Cholesterol: greater than 239 mg/dL LDL Calculated 118 H <100 mg/dL Desirable LDL: less than 100 mg/dL Near Optimal/Above Optimal LDL: 110-129 mg/dL Borderline High LDL: 130-159 mg/dL High LDL: 160-189 mg/dL Very High LDL: greater than or equal to 190 mg/dL HDL 83 >40 mg/dL Desirable HDL: greater than 40 mg/dL Note: This HDL assay may give artificially low results in patients with liver disease. Vitamin D 25-OH 41.7 >30 ng/mL Health Based Reference Values* < 20 ng/mL Deficient 20-30 ng/mL Insufficient > 30 ng/mL Sufficient *Dasia DAVIS. N Engl J Med. 2007;357:266-280 There is no well-established upper level of normal vitamin D levels. Some laboratories use 50 ng/mL as an upper limit of normal. However, toxicity is patient-dependent and may occur at any level. Careful correlation with the patient's presentation is necessary and, if there is concern for vitamin D toxicity, treatment should be considered irrespective of the serum level. Care must be taken in interpreting Vitamin D results from different laboratories and methodologies. Published data demonstrated that results from patients undergoing hemodialysis may show a negative bias when tested with various automated 25-OH vitamin D assays when compared to LC-MS/MS. When testing samples from patients whose predominant form of Vitamin D is Vitamin D2, such as patients receiving Vitamin D2 supplementation, results that are subtherapeutic should be confirmed with another method such as LC-MS/MS. Free T4 1.21 0.71-1.85 ng/dL TSH 3rd Gen. 0.38 0.32-4.0 uIU/mL TSH 3rd Generation ([facility]) Coding Level of Care Code Est Pt Prev Care >65y(05494) Diagnoses Acquired hypothyroidism E03.9 Dyslipidemia E78.5 Essential hypertension I10 Osteopenia of left femoral neck M85.852 Nocturnal leg cramps G47.62 Additional Codes PHQ-9 - 38408 - PHQ-9 Billing: Yes ([id number]) CARLY-7 Assessment Billing - CARLY-7 Assessment Tool: CARLY-7 Assessment 77873 ([id number]) Assessment & Plan Assessment & Plan (1) Acquired hypothyroidism: Code(s): E03.9 - Hypothyroidism, unspecified Category: Medical Plan: Thyroid levels are within normal limits on recent labs done, continue with current dose of thyroxine at 112 mcg daily in the morning an hour before breakfast. (2) Dyslipidemia: Code(s): E78.5 - Hyperlipidemia, unspecified Category: Medical Plan: Fasting lipids are within normal limits, continued on atorvastatin 20 mg taken 1 tablet 3 times a week (3) Essential hypertension: Code(s): I10 - Essential (primary) hypertension Category: Medical Plan: Blood pressure stable controlled on current dose of amlodipine 2.5 mg daily (4) Osteopenia of left femoral neck: Comment: Last bone density 2018 Code(s): M85.852 - Other specified disorders of bone density and structure, left thigh Category: Medical Plan: Advised to stay active, continue taking adequate calcium from dietary sources and continue with 2000 units of vitamin-D daily. Patient declined getting further bone density screening (5) Nocturnal leg cramps: Code(s): G47.62 - Sleep related leg cramps Category: Medical Plan: Advised to try taking myqn-sew-knktwgy magnesium glycinate tablets once a day as needed Orders: Orders Basic Metabolic Panel Fasting 01/03/25 E03.9 - Hypothyroidism, unspecified, E78.5 - Hyperlipidemia, unspecified, G47.62 - Sleep related leg cramps, I10 - Essential (primary) hypertension, M85.852 - Other specified disorders of bone density and structure, left thigh, Z78.0 - Asymptomatic menopausal state Lipid Panel 01/03/25 E03.9 - Hypothyroidism, unspecified, E78.5 - Hyperlipidemia, unspecified, G47.62 - Sleep related leg cramps, I10 - Essential (primary) hypertension, M85.852 - Other specified disorders of bone density and structure, left thigh, Z78.0 - Asymptomatic menopausal state Thyroid Stimulating Hormone 01/03/25 E03.9 - Hypothyroidism, unspecified, E78.5 - Hyperlipidemia, unspecified, G47.62 - Sleep related leg cramps, I10 - Essential (primary) hypertension, M85.852 - Other specified disorders of bone density and structure, left thigh, Z78.0 - Asymptomatic menopausal state Free T4 (Free Thyroxine) 01/03/25 E03.9 - Hypothyroidism, unspecified, E78.5 - Hyperlipidemia, unspecified, G47.62 - Sleep related leg cramps, I10 - Essential (primary) hypertension, M85.852 - Other specified disorders of bone density and structure, left thigh, Z78.0 - Asymptomatic menopausal state Vitamin D 25-OH Total 01/03/25 E03.9 - Hypothyroidism, unspecified, E78.5 - Hyperlipidemia, unspecified, G47.62 - Sleep related leg cramps, I10 - Essential (primary) hypertension, M85.852 - Other specified disorders of bone density and structure, left thigh, Z78.0 - Asymptomatic menopausal state Aspartate Amino Transferase 01/03/25 E03.9 - Hypothyroidism, unspecified, E78.5 - Hyperlipidemia, unspecified, G47.62 - Sleep related leg cramps, I10 - Essential (primary) hypertension, M85.852 - Other specified disorders of bone density and structure, left thigh, Z78.0 - Asymptomatic menopausal state Alanine Aminotransferase 01/03/25 E03.9 - Hypothyroidism, unspecified, E78.5 - Hyperlipidemia, unspecified, G47.62 - Sleep related leg cramps, I10 - Essential (primary) hypertension, M85.852 - Other specified disorders of bone density and structure, left thigh, Z78.0 - Asymptomatic menopausal state Medications: New magnesium glycinate 100 mg PO DAILY 30 tabs 0RF G47.62 - Sleep related leg cramps Changed 2 From atorvastatin 20 mg PO DAILY 90 caps 1RF To atorvastatin 20 mg PO 3XW
[2024-08-02 13:44] VITALS: BP 136/60; PULSE 96; RESP 15; TEMP 36.7; O2SAT 96; BMI 29.5
--- OUTSIDE RECORDS SUMMARY | 2024-08-02 14:48 | XMS_ITS ---
Author Organization [facility] dhiraj [place] Address [address] [place] [address] Care Team Providers Care Oxygen Equipment Technician Name Role Phone Joy VINCENT, Nurai Quach Primary Care Provider Un available Black, Helen Unavailable [phone] Allergies No Known Allergies REASON FOR VISIT [...] Problem Status W/U Status Risk Notes Problem 11558385 Essential hypertension (I10) Active confirmed Vital Signs Height 4 ft 10 in in 03/20/2024 Weight 136 lbs 03/20/2024 BMI 28.42 kg/m2 03/20/2024 Blood pressure systolic 124 mm Hg 03/20/20 24 Blood pressure diastolic 70 mm Hg 024 Procedures Procedure Date Ordered Date Performed Result Body Sit e 92636-VFGVBMB NAIL, 6 OR MORE 03/20/2024 N/A 23746-Bgkz Destruction, 1-14 03/20/2024 N/A Encounters Encounter Location Date Provider Diagnosis [facility] [address] [address] 03/20/2024 Helen Mathew Other viral warts B07.8 [...] Treatment Pending Test Test Name Order Date 49221-JQESZRE NAIL, 6 OR MORE 03/20/2024 91564-Wdru Destruction, 1-14 03/20/2024 Next Appt Details Follow Up: prn, Reason: Provider Name:Helen Rogers Quin[place] , 08/03/2024 09:00:00 AM, [address] [place] [address], [phone], Provider Name:Helen Rogers [place] , 10/09/2024 01:30:00 PM, [address] [place] [address], [phone], Procedure Notes * Category Sub-Category Detail Notes Wart Treatment Procedure Verrucae(s) were debrided to pin-point bleeding margins with sterile surgical blade, silver nitrate chemocautery applied, recomm. immune-boosting meds such as zinc, recomm. follow up with topical chemosurgical agents,STILL, recomm. CONT, Wartstick 40 percent Salicylic acid application under occlusion as directed, 43653) Debride Nail 6-10 Nail debridement Due to [...] use of a nail nipper and/or dremel-type color grinder, to a more viable healthy nail [...] to maintain effectiveness in symptomatic relief - 64056 Progress Notes * Dina LEVY MDOB: (83 yo F)Acc No.[id number]:03/20/2024 Progress Note Patient:?Dina LEVY Provider:?Helen Mathew DPM :1940???Age:83 Y???Sex:Female D ate:03/20/2024 Address:[address] [place], [place] [id number] Pcp:Brad Cervantes Subjective: * Chief Complaints: * [...] - M79.671??? Plan: * Treatment: 2.?Tinea unguium?Procedure: 27601-SINLYHA NAIL, 6 OR MORE * Procedures:?Debride Nail [...] use of a nail nipper and/or dremel-type color grinder, to a more viable healthy nail [...] to maintain effectiveness in symptomatic relief - 10405.?Wart Treatment:?Procedure?Verrucae(s) were debrided to pin-point bleeding margins with sterile surgical blade, silver nitrate chemocautery applied, recomm. immune-boosting meds such as zinc, recomm. follow up with topical chemosurgical agents,STILL, recomm. CONT, Wartstick 40 percent Salicylic acid application under occlusion as directed, 84564).? * Procedure Codes:?91528 DEBRI DE NAIL, 6 OR MORE, Modifiers: XS 08679 Wart Destruction, 1-14, Modifiers: XS * Preventive Medicine:? ??Screening/Special Tests:?FALLS: Screening for Future Fall Risk?Have you had two or more falls in the past year??No * Follow Up:?prn * Images: * Sign off status: Completed true * Provider:?Helen Mathew DPM Date:?2023 Generated for Mario hawley/Dixon/eTnatalismitting on:?08/02/2024 02:47 PM EDT History and Physical Notes * HPI (History [...]
--- OUTSIDE RECORDS SUMMARY | 2024-08-02 14:48 | XMS_ITS | Patient Health Record ---
Author Organization [facility] Yeison hearn Fries Address [address] [facility] [address] Care Team Providers Care Audience Coordinator Name Role Phone Joy VINCENT, Nuria Quach Primary Care Provider Un available Helen Mathew Unavailable [phone] Allergies No Known Allergies Reason For Referral [...] Provider Speciality Internal M edicine Referred Organization [facility] Referred Provider Helen Mathew [facility] [address] [facility] [address] ,[place], [place],[address], Referred Provider Specialty Podiatry Referral Priority Routine [...] Problem Acquired hammer toe of right foot (4729691186971604) Other hammer toe(s) (acquired), right foot (M20.41) Active confirmed Problem Acquired hallux valgus (37850991) Hallux valgus (acquired), left foot (M20.12) Active confirmed Problem Acquired hammer toe of left foot (1253917846527024) Other hammer toe(s) (acquired), left foot (M20.42) Active confirmed Problem Localized, primary osteoarthritis of the ankle and/or foot (764608369) Arthritis of joint of lesser toe, left (M19.072) Active confirmed Problem Localized, primary osteoarthritis of the ankle and/or foot (764988858) Arthritis of joint of lesser toe, right (M19.071) Active confirmed Problem 67798135 Essential hypertension (I10) Active confirmed Vital Signs Blood pressure diastolic 80 mm Hg 05/25/2024 Height 4 ft 10 in in 05/25/2024 Blood pressure systolic 120 mm Hg 05/25/2024 Weight 136 lbs 05/25/2024 BMI 28.42 kg/m2 05/25/2024 Procedures Procedure Date Ordered Date Performed Result Body Sit e 43815-NBQBUOX NAIL, 6 OR MORE 09/02/2023 N/A 83955-Ydsg Destruction, 1-14 09/02/2023 N/A 43818-NWWASVD NAIL, 6 OR MORE 11/22/2023 N/A 95252-Rwuv Destruction, 1-14 11/22/2023 N/A 72523-Skagppnh Plate 11/22/2023 N/A 40826-CMCUMPI NAIL, 6 OR MORE 01/10/2024 N/A 29471-Awvx Destruction, 1-14 01/10/2024 N/A 03091-MKXQWES NAIL, 6 OR MORE 03/20/2024 N/A 07335-Zqlr Destruction, 1-03/20/2024 N/A 99281-FQEFUVM NAIL, 6 OR MORE 05/25/2024 N/A 68371-Ahvv Destruction, 1-14 05/25/2024 N/A Encounters Encounter Location Date Provider Diagnosis [address] [address] 09/02/2023 Helen Black Other viral warts B07.8 ; Tinea unguium B35.1 ; Pain in right toe(s) M79.674 ; Pain in left toe(s) M79.675 and Pain in right foot M79.671 [facility] [address] 11/22/2023 Helen Black Other viral warts B07.8 ; Tinea unguium B35.1 ; Pain in right toe(s) M79.674 ; Pain in left toe(s) M79.675 ; Pain in right foot M79.671 and Ingrown nail L60.[address] [address] 01/10/2024 Helen Black Other viral warts B07.8 ; Tinea unguium B35.1 ; Pain in right toe(s) M79.674 ; Pain in left toe(s) M79.675 and Pain in right foot M79.[address] [address] 03/20/2024 Helen Mathew Other viral warts B07.8 ; Tinea unguium B35.1 ; Pain in right toe(s) M79.674 ; Pain in left toe(s) M79.675 and Pain in right foot M79.[address] [address] 05/25/2024 Helen Mathew Other viral warts B07.8 ; Tinea unguium B35.1 ; Pain in right toe(s) M79.674 ; Pain in left toe(s) M79.675 and Pain in right foot M79.671 Assessments Encounter Date Diagnosis (ICD Code) Assessment Notes Treatment Notes Treatment Clinical Notes Section Notes 09/02/2023 Other viral warts (ICD-10 - B07.8) [...] B35.1) 09/02/2023 Tinea unguium (ICD-10 - B35.1) 09/02/2023 Pain in right toe(s) (ICD-10 - [...] (ICD-10 - M79.675) 09/02/2023 Pain in right foot (ICD-10 - M79.671) 11/22/2023 Pain in right foot (ICD-10 - M79.671) 03/20/2024 Pain in right foot (ICD-10 - M79.671) 05/25/2024 Pain in right foot (ICD-10 - M79.671) 11/22/2023 Ingrown nail (ICD-10 - L60.0) Plan Of Treatment Pending Test Test Name Order Date 55834-VREWTQK NAIL, 6 OR MORE 12/08/2018 40724-WPTPRDA NAIL, 6 OR MORE 03/16/2019 62695-GHZLYDV NAIL, 6 OR MORE 06/05/2019 66923-QTJCXAB NAIL, 6 OR MORE 09/14/2019 20364-RMUJFRP NAIL, 6 OR MORE 11/23/2019 74453-IWDEYSO NAIL, 6 OR MORE 02/01/2020 55447-CDSVBKX NAIL, 6 OR MORE 04/15/2020 45520-IODSLEZ NAIL, 6 OR MORE 06/20/2020 07436-EGLZVWI NAIL, 6 OR MORE 08/26/2020 01681-MNFFBLI NAIL, 6 OR MORE 11/04/2020 72339-MXXSMWQ NAIL, 6 OR MORE 02/10/2021 53332-NOHMNCX NAIL, 6 OR MORE 05/01/2021 53499-IWIYZCY NAIL, 6 OR MORE 07/10/2021 30805-GNYOHBP NAIL, 6 OR MORE 09/29/2021 63461-WNNETAR NAIL, 6 OR MORE 12/04/2021 46428-VQPCQEH NAIL, 6 OR MORE 02/16/2022 66100-KBDWGEB NAIL, 6 OR MORE 05/21/2022 77472-BJUCMHS NAIL, 6 OR MORE 07/30/2022 72630-UZFCUGJ NAIL, 6 OR MORE 10/01/2022 81670-CDNIQDS NAIL, 6 OR MORE 12/03/2022 61771-QYYEFGZ NAIL, 6 OR MORE 02/11/2023 30959-GNAMMUI NAIL, 6 OR MORE 04/22/2023 63229-NUOJEOI NAIL, 6 OR MORE 06/24/2023 31775-SNOCOBA NAIL, 6 OR MORE 09/02/2023 50367-FIUKVJZ NAIL, 6 OR MORE 11/22/2023 52488-LLTOMOX NAIL, 6 OR MORE 01/10/2024 63770-NGAMBQQ NAIL, 6 OR MORE 03/20/2024 35728-TVBWBKD NAIL, 6 OR MORE 05/25/2024 84527-Tfir Destruction, -14 05/25/2024 85155-Nxaq Destruction, -14 03/20/2024 30581-Pgzp Destruction, -14 01/10/2024 59252-Ipnq Destruction, -14 02/11/2023 49378-Qedn Destruction, -14 11/22/2023 52763-Sgjq Destruction, -14 09/02/2023 60950-Fugf Destruction, -14 06/24/2023 52412-Rcil Destruction, -14 04/22/2023 18607-Xsgc Destruction, -14 12/04/2021 44723-Egxn Destruction, -14 12/03/2022 53231-Tejs Destruction, -14 10/01/2022 06602-Baii Destruction, -14 07/30/2022 38973-Jutt Destruction, -14 05/21/2022 55200-Qlct Destruction, -14 02/16/2022 26975-Nogz Destruction, -14 05/01/2021 68814-Sqkd Destruction, -14 09/29/2021 29096-Hsgm Destruction, -14 07/10/2021 13676-Dgxw Destruction, 04-1811/04/2020 88755-Tidj Destruction, 04-1802/10/2021 18352-Tmyl Destruction, 04-1808/26/2020 30182-Rpfm Destruction, 04-1806/20/2020 56086-Fifi Destruction, 04-1804/15/2020 89918-Jlja Destruction, 04-1809/14/2019 05224-Thcd Destruction, 04-1802/01/2020 53197-Leut Destruction, 04-1811/23/2019 06049-Kkql Destruction, 04-1812/08/2018 84089-Zppx Destruction, 04-1806/05/2019 91214-Koib Destruction, 04-1803/16/2019 07389-Splkhbkp Plate 06/05/2019 02187-Dwlqcmjq Plate 02/01/2020 96755-Ndlbdquf Plate 11/04/2020 94565-Dsxtxuhq Plate 05/01/2021 37305-Nnpgmivi Plate 02/10/2021 20363-Ytsmyijv Plate 09/29/2021 94559-Htqpkbrc Plate 12/04/2021 72853-Infzfcyp Plate 12/03/2022 72713-Qxalrciq Plate 02/11/2023 12811-Nyyhwnnm Plate 11/22/2023 28638-Xdahhxjo Plate Each Additional 12220-Bbgwnmlx Plate Each Additional 11/2020 59511- Debride <25 sq cm 09/14/2019 Next Appt Details Provider Name:Helen Mathew , 08/03/2024 09:00:00 AM, [address] [place] [address], [phone], Provider Name:Helen Mathew , 10/09/2024 01:30:00 PM, [address] [place] [address], [phone], Insurance Providers Payer Name Payer Address Payer Phone Subscriber Number Group Number Insured Name Patient Relationship to Insured Coverage Start Date Coverage End Date [facility] [address] [place] [phone] [id number] Dina Levy Self - patient is the insured Medical (General) History Medical History History ICD Code Hyperlipidemia GERD Hypothyroidism colon polyp HTN Osteoarthritis non-rheumatic Aortic valve stenosis Surgical History Surgery Date(Month/Year) Cholecytectomy 1979 TAHBSO 1984 Gall bladder 1982 Hysterectomy 1983
--- OUTSIDE RECORDS SUMMARY | 2024-08-02 14:48 | XMS_ITS ---
Author Organization [facility] Yeison dhiraj Gilchrist Address [address] [place] [address] Care Team Providers Care Flat Folding Machine Operator Name Role Phone Joy VINCENT, Nuria Quach Primary Care Provider Un available Black, Helen Unavailable [phone] Allergies No Known Allergies REASON FOR VISIT [...] Ordered Date Performed Result Body Sit e 57863-WNBTXWY NAIL, 6 OR MORE 01/10/2024 N/A 57202-Rnot Destruction, 1-14 01/10/2024 N/A Encounters Encounter Location Date Provider Diagnosis [facility] [address] [address] 01/10/2024 Helen Mathew Other viral warts B07.8 [...] Treatment Pending Test Test Name Order Date 11380-ZTXCDRS NAIL, 6 OR MORE 01/10/2024 90128-Qflp Destruction, 1-01/10/2024 Next Appt Details Follow Up: prn, Reason: Provider Name:Helen Rogers Quincy , 08/03/2024 09:00:00 AM, [address] [place] [address], [phone], Provider Name:Helen Mathew , 10/09/2024 01:30:00 PM, [address] [place] [address], [phone], Procedure Notes * Category Sub-Category Detail Notes Wart Treatment Procedure Verrucae(s) were debrided to pin-point bleeding margins with sterile surgical blade, silver nitrate chemocautery applied, recomm. immune-boosting meds such as zinc, recomm. follow up with topical chemosurgical agents, recomm. CONT, Wartstick 40 percent Salicylic acid application under occlusion as directed, 41276) Debride Nail 6-10 Nail debridement Nail debridem ent performed extensively to reduce/remove overall nail length and girth, subungual debris, and necrotic tissue, by manual and electrical means with use of a nail nipper and/or dremel, to more viable healthy nail plate or bed tissue 6-10. Silver nitrate used for any petechial bleeding as necessary. Patient chooses, to cont. with [employer] [place] (28200) Progress Notes * Dina LEVY MDOB: 9 (83 yo F)Acc No.[id number]:01/10/2024 Progress Note Patient:?Dina Levy Provider:?Helen Mathew DPM :1940???Age:83 Y???Sex:Female D ate:01/10/2024 Address:[address] [place] [address] Pcp:Brad Cervantes Subjective: * Chief Complaints: * [...] - M79.671? Plan: * Treatment: 2.?Tinea unguium?Procedure: 88500-NLAIKDC NAIL, 6 OR MORE * Procedures:?Debride Nail 6-10:?Nail debridement?Nail debridement performed extensively to reduce/remove overall nail length and girth, subungual debris, and necrotic tissue, by manual and electrical means with use of a nail nipper and/or dremel, to more viable healthy nail plate or bed tissue 6-10. Silver nitrate used for any petechial bleeding as necessary. Patient chooses, to cont. with [employer] md (91344).?Wart Treatment:?Procedure?Verrucae(s) were debrided to pin-point bleeding margins with sterile surgical blade, silver nitrate chemocautery applied, recomm. immune-boosting meds such as zinc, recomm. follow up with topical chemosurgical agents, recomm. CONT, Wartstick 40 percent Salicylic acid application under occlusion as directed, 17[address]).? * Procedure Codes:?20024 DEBRI DE NAIL, 6 OR MORE, Modifiers: XS 71919 Wart Destruction, 1-14, Modifiers: XS * Follow Up:?prn * Images: * Sign off status: Completed true * Provider:?Helen Mathew DPM Date:?2023 Generated for Mario hawley/Dixon/eTransmitting on:?08/02/2024 02:48 PM EDT History and Physical Notes * [...]
--- OUTSIDE RECORDS SUMMARY | 2024-08-02 14:48 | XMS_ITS ---
Author Organization [facility] [place] Address [address] [place] [address] Care Team Providers Care Senior Web Services Developer Name Role Phone Joy VINCENT, Nuria Quach Primary Care Provider Un available Black, Helen Unavailable [phone] Allergies No Known Allergies REASON FOR VISIT [...] Ordered Date Performed Result Body Sit e 70582-MZHUBVN NAIL, 6 OR MORE 05/25/2024 N/A 50215-Atty Destruction, 1-14 05/25/2024 N/A Encounters Encounter Location Date Provider Diagnosis [facility] [address] [address] 05/25/2024 Helen Mathew Other viral warts B07.8 [...] Treatment Pending Test Test Name Order Date 08613-SYZPMPU NAIL, 6 OR MORE 05/25/2024 73359-Cwif Destruction, 1-14 05/25/2024 Next Appt Details Follow Up: prn, Reason: Provider Name:Helen Mathew , 08/03/2024 09:00:00 AM, [address] [place] [address], [phone], Provider Name:Helen Mathew , 10/09/2024 01:30:00 PM, [address] [place] [address], [phone], Procedure Notes * Category Sub-Category Detail Notes Wart Treatment Procedure Verrucae(s) were debrided to pin-point bleeding margins with sterile surgical blade, silver nitrate chemocautery applied, recomm. immune-boosting meds such as zinc, recomm. follow up with topical chemosurgical agents,STILL, recomm. CONT, Wartstick 40 percent Salicylic acid application under occlusion as directed, 92477) Debride Nail 6-10 Nail debridement Due to [...] use of a nail nipper and/or dremel-type surface grinder tender, to a more viable healthy nail plate [...] to maintain effectiveness in symptomatic relief - 80570 Progress Notes * Dina LEVY MDOB: (83 yo F)Acc No.[id number]:05/25/2024 Progress Note Patient:?Dina LEVY Provider:?Helen Mathew DPM :1940???Age:83 Y???Sex:Female D ate:05/25/2024 Address:[address] [place], [place] [id number] Pcp:Brad Cervantes Subjective: * Chief Complaints: * [...] - M79.671??? Plan: * Treatment: 2.?Tinea unguium?Procedure: 97326-JVGEYTI NAIL, 6 OR MORE * Procedures:?Debride Nail [...] use of a nail nipper and/or dremel-type surface grinder tender, to a more viable healthy nail plate [...] to maintain effectiveness in symptomatic relief - 88729.?Wart Treatment:?Procedure?Verrucae(s) were debrided to pin-point bleeding margins with sterile surgical blade, silver nitrate chemocautery applied, recomm. immune-boosting meds such as zinc, recomm. follow up with topical chemosurgical agents,STILL, recomm. CONT, Wartstick 40 percent Salicylic acid application under occlusion as directed, 07810).? * Procedure Codes:?58757 DEBRI DE NAIL, 6 OR MORE, Modifiers: XS 22480 Wart Destruction, 1-14, Modifiers: XS * Follow Up:?prn * Images: * Sign off status: Completed true * Provider:Cheng Mathew DPM Date:?2024 Generated for Mario hawley/Dixon/Anita on:?08/02/2024 02:48 PM EDT History and Physical [...]
== END 2024-08-02 14:27 | disposition home or self-care (01) ==
LOC: HO.HMCC 13:30
PROVIDERS: PCP Internal Medicine; Visit Provider Internal Medicine
DX: Z00.00 Encounter for general adult medical examination without abnormal findings (principal); E03.9 Hypothyroidism, unspecified; E78.5 Hyperlipidemia, unspecified; I10 Essential (primary) hypertension; M85.852 Other specified disorders of bone density and structure, left thigh; G47.62 Sleep related leg cramps

== ENCOUNTER → 2024-08-02 13:29 | Outpatient (BNVA) | payer MEDICARE, SELFPAY | PROVIDERS: PCP Internal Medicine; Visit Provider Internal Medicine | DX: I10 Essential (primary) hypertension (principal); E78.5 Hyperlipidemia, unspecified; E03.9 Hypothyroidism, unspecified; I35.0 Nonrheumatic aortic (valve) stenosis; M85.852 Other specified disorders of bone density and structure, left thigh; G47.62 Sleep related leg cramps | CPT/HCPCS: 96127; 99397 ==

== ENCOUNTER 2024-08-24 11:16 | Outpatient (AMB) | payer MEDICARE, SELFPAY ==
--- NOTE | 2024-08-24 11:26 | A.OFFVIS_ITS ---
Intake Visit Reasons: 3m/pessary maintenance Intake Note: Patient is present for 3M/Pessary maintenance Urology Medication:None Antibiotic Allergy:None Blood Thinner:Aspirin Pump Tender Required: No Allergies No Known Allergies Allergy (Verified 08/24/24 11:27) HPI Comments Details: 08/24/24--Dina is an 83-year-old female who has been managed with pessary for vaginal prolapse. History of aortic stenosis, hypertension, history of total hysterectomy 1984. Pessary mentor ring with support size 4 removed/cleaned/and replaced without difficulty. Continue pessary management. Follow-up in 3 months. History of Present Illness The patient is an 83-year-old female presenting with urinary symptoms related to vaginal prolapse management. She experiences increased discharge toward the end of her pessary maintenance cycle, making it challenging to manage the pessary independently. Despite having no burning sensations or significant urinary concerns, she reports a bulging sensation, complicating her hygiene routine. Her medical history includes aortic stenosis, hypertension, total hysterectomy, and previous concerns related to vaginal prolapse. Her symptoms have persisted over time and have impacted her management capabilities. Urinary Symptoms Review - No urinary burning reported. - Increased discharge towards the end of the pessary cycle. - Sensation of a bulge during hygiene activities. Results Discussion Notes During the conversation, I discussed the management of vaginal prolapse and the significance of pessary maintenance with the patient. Addressed the potential increase in discharge towards the end of the three-month cycle, advising vigilance in recognizing any changes in symptoms. I covered the necessity of follow-up for effective management and the implications of her condition if left unmonitored. We also talked about how increased discharge is common and her ability to recognize symptoms early could help in managing her urinary health better. Plan I will continue with the patient's current management of vaginal prolapse through regular three-month pessary maintenance appointments to address increased discharge and bulging sensations. This plan provides stability while allowing for intervention opportunities should her condition jacket changer time. Consent was obtained after detailed discussions on potential risks and benefits. Patient Instructions - Continue to monitor for any changes in urinary symptoms. - Follow up in three months for pessary maintenance. - Contact the office if experiencing unusual discharge or sensations. Patient was informed and verbally consented to the use of an ambient scribe for clinic note documentation during this visit. 05/29/24--Dina is an 83-year-old female who has been managed with pessary for cystocele. She denies gross hematuria or dysuria. She was seen last 02/14/2024, at that time pessary was increased in size from a mentor ring 3-4. Pessary mentor ring with support size 4 removed/cleaned/and replaced without difficulty. Continue pessary management. Follow-up in 3 months. 02/14/24-FU pessary maintenance. Dina is an 83-year-old female who has been managed with pessary for cystocele. She comes in today and states that about a week ago Wednesday the pessary fell out. She states that she has had a cold and has been coughing and 1 of the times that she coughed she felt that the pessary had fallen out. She brought the pessary to the office. She denies irritative voiding symptoms. On pelvic examination it was determined to size up on the pessary. Pessary - mentor size 4 ring with support inserted vaginally. 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 Last seen 07/26/23, denies irritativie voiding symptoms, UA - nitritie positive - will send for c/s. She denies UTI symptoms. Here for pessary maintenance. Pessary removed/cleaned/and replaced without difficulty. Continue pessary management. Follow-up in 3 months [facility] Medical History Nocturnal leg cramps Degenerative joint disease of both hips Chronic right hip pain Prolapse of female pelvic organs COVID-19 vaccine dose declined Left medial knee pain Bilateral hip pain Post-menopause Tubular adenoma of colon Osteopenia of left femoral neck Nonrheumatic aortic (valve) stenosis Essential hypertension Dyslipidemia Acquired hypothyroidism Acquired deformity of toenail Surgical History Hx of colonoscopy History of total abdominal hysterectomy and bilateral salpingo-oophorectomy Hx of cholecystectomy Family History Father CAD (coronary artery disease) Myocardial infarction Mother Type 2 diabetes mellitus Social History Housing: House Alcohol intake: current Patient Tobacco Use Status: Never used Tobacco e-Cigarette/Vaping Use: Never Used Second Hand Smoke Exposure: No Current occupational status: retired Cognitive needs: No Hearing needs: No Vision needs: Yes Review of Systems Const All systems reviewed & are unremarkable except as noted in HPI and below Reports no additional complaints Eyes Reports no additional complaints ENT Reports no additional complaints Card Reports no additional complaints Resp Reports no additional complaints GI Reports no additional complaints Reports as per HPI Musc Reports no additional complaints Skin/Breast Reports system reviewed and no additional complaints, except as documented Neuro Reports no additional complaints Psych Reports no additional complaints Endo Reports no additional complaints Jame/Lymph Reports no additional complaints Aller/Immun Reports no additional complaints Results AMB Urinalysis, Automated UA Leukoctes 500 Robby/uL Last Edit by Melva Rust on 08/24/24 17:01 UA Nitrite Negative Last Edit by Melva Rust on 08/24/24 17:01 UA Urobilinogen 3.5 mg/dL Last Edit by Melva Rust on 08/24/24 17:01 UA Protein 0 mg/dL Last Edit by Melva Rust on 08/24/24 17:01 UA pH 6.0 Last Edit by Melva Rust on 08/24/24 17:01 UA Blood 0 Geoffrey/uL Last Edit by Melva Rust on 08/24/24 17:01 UA Specific [place] 1.010 Last Edit by Melva Rust on 08/24/24 17:01 UA Ketone Negative Last Edit by Melva Rust on 08/24/24 17:01 UA Bilirubin 0 mg/dL Last Edit by Melva Rust on 08/24/24 17:01 UA Glucose 0 mg/dL Last Edit by Melva Rust on 08/24/24 17:01 Assessment & Plan Assessment & Plan (1) Prolapse of female pelvic organs: Code(s): N81.9 - Female genital prolapse, unspecified Category: Medical Plan Follow-up in 3 months for pessary maintenance. Orders: Orders AMB Urinalysis Automated Today N81.9 - Female genital prolapse, unspecified Patient Instructions: The patient had an opportunity to ask questions regarding treatment plan. The patient expressed understanding and agreement with the above treatment plan. The patient is aware they should contact our office by phone for worsening of their current condition or the appearance of new symptoms. Compliance is encouraged with any medications and followup testing that is ordered. It is a privilege to be allowed the opportunity to participate in the urologic care of your patient. If you have any questions or concerns regarding treatment for the above conditions please do not hesitate to contact me. The office telephone contact is [phone]. This note is constructed in part using voice recognition software. While every effort has been made to ensure accuracy tyre fitter errors may have been included. Yours sincerely, Ambrose Lee MD Coding Level of Care Code Est Pt Level 3 (52901) Diagnoses Prolapse of female pelvic organs N81.9
--- OUTSIDE RECORDS SUMMARY | 2024-08-24 11:56 | XMS_ITS ---
Author Organization [facility] dhiraj [place] Address [address] [place] [address] Care Team Providers Care Head Concierge Name Role Phone Joy VINCENT, Nuria Quach Primary Care Provider Un available BlackHelen Unavailable [phone] Allergies No Known Allergies REASON FOR VISIT Painful nail(s) aggrevated by shoes and causing difficulty standing/walking., Wart(s) Medications Medication SIG (Take, Route, Frequency, Duration) Notes Start Date End Date Status Levothyroxine Sodium 112 MCG 1 tablet on an empty stomach in the morning Orally Once a day for 90 days Active Vitamin D Active Chlorthalidone 25 mg 1 tablet in the morning Orally Once a day Not-Taking Ciclopirox Olamine 0.77 % 1 application Externally Twice a day for 30 days 08/26/2020 Not-Taking Flax Seed Oil Not-Ta radha Atorvastatin Calcium 20 MG 1 tablet Oral ly Once a day for 90 day(s) Active Aspirin EC 81 MG 1 tablet Orally Once a day for 90 day(s) Active amLODIPine Besylate 2.5 MG 1 tablet Oral ly Once a day Active Probiotic Not-Taking Magnesium Active Social History Tobacco Use: Social History Observation Description Date Details (start date - stop date) Never Smoker NA - NA Tobacco use other than smoking: Question Answer Notes Are you an other tobacco user? No Tobacco Control (Standard) Question Answer Notes Tobacco use: Nonsmoker Additional Findings: Tobacco non-user Current no nsmoker Problems Problem Type SNOMED Code ICD Code Onset Dates Problem Status W/U Status Risk Notes Problem Viral wart (86336387) Other viral warts (B07.8) Active confirmed Problem Tinea unguium (909696506) Tinea unguium (B35.1) Active confirmed Vital Signs Height 4 ft 10 in in 08/03/2024 Weight 139 lbs 08/03/2024 BMI 29.05 kg/m2 08/03/2024 Blood pressure systolic 120 mm Hg 08/04/19 25 Blood pressure diastolic 80 mm Hg 025 Procedures Procedure Date Ordered Date Performed Result Body Sit e 65094-DDRDHEE NAIL, 6 OR MORE 08/03/2024 N/A 13947-Bpxg Destruction, 1-14 08/03/2024 N/A Encounters Encounter Location Date Provider Diagnosis [facility] [address] [place] [address] 08/03/2024 Helen Mathew Other viral warts B07.8 ; Tinea unguium B35.1 ; Pain in right toe(s) M79.674 ; Pain in left toe(s) M79.675 and Left foot pain M79.672 Assessments Encounter Date Diagnosis (ICD Code) Assessment Notes Treatment Notes Treatment Clinical Notes Section Notes 08/03/2024 Other viral warts (ICD-10 - B07.8) 08/03/2024 Tinea unguium (ICD-10 - B35.1) 08/03/2024 Pain in right toe(s) (ICD-10 - M79.674) 08/03/2024 Pain in left toe(s) (ICD-10 - M79.675) 08/03/2024 Left foot pain (ICD-10 - M79.672) Plan Of Treatment Pending Test Test Name Order Date 58550-GCJRGGN NAIL, 6 OR MORE 08/03/2024 55969-Iidt Destruction, 1-14 08/03/2024 Next Appt Details Follow Up: prn, Reason: Provider Name:Helen Rogers Quincy , 10/09/2024 01:30:00 PM, [address] [place] [address], [phone], Provider Name:Helen Mathew , 12/18/2024 01:30:00 PM, [address] [place] [address], [phone], Procedure Notes * Category Sub-Category Detail Notes Wart Treatment Procedure Verrucae(s) were debrided to pin-point bleeding margins with sterile surgical blade, silver nitrate chemocautery applied, recomm. immune-boosting meds such as zinc, recomm. follow up with topical chemosurgical agents,STILL, recomm. CONT, Wartstick 40 percent Salicylic acid application under occlusion as directed, 20495) Debride Nail 6-10 Nail debridement Due to [...] use of a nail nipper and/or dremel-type concrete wall grinder operator, to a more viable healthy nail [...] to maintain effectiveness in symptomatic relief - 18203 Progress Notes * Dina LEVY MDOB: (83 yo F)Acc No.[id number]:08/03/2024 Progress Note Patient:?Dina LEVY Provider:Cheng Mathew DPM :1940???Age:83 Y???Sex:Female D ate:08/03/2024 Address:[address] [place], [place] [id number] Pcp:Brad Cervantes Subjective: * Chief Complaints: * ??? Painful nail(s) aggrevat ed by shoes and causing difficulty standing/walking.Wart(s) * HPI: ???Painful Nails:?Pt States Last PCP Visit:?Date:?08/02/2024 ?Treatments:?Topical Antifungal , relates adherence to recom tx.?Skin problems:?Pt States PCP Visit: ?DATE?08/02/2024 * ROS:?General/Constitutional:?Nausea?denies.?Vomiting?denies.?Hunger Thirst?denies.?Loss appetite?denies.?Chills?denies.?Fatigue?denies.?Fever?denies.?Night Sweats?denies.?Unexplained weight loss?denies.?Unexplained [...] (Standard)?Tobacco use:?Nonsmoker ?Additional Findings: Tobacco non-user?Current nonsmoker ???Miscellaneous:?Caffeine: yes, 1-2 cups per day. ?Children: yes, 5. ?Exercise: yes, walking, gardening, stairs. ?Marital status: . ?Occupation: Housewife. * Medications:?TakingMagnesium amLODIPine Besylate 2.5 MG Tablet 1 tablet Orally Once a day Aspirin EC 81 MG Tablet Delayed Release 1 tablet Orally Once a day Atorvastatin Calcium 20 MG Tablet 1 tablet Orally Once a day Levothyroxine Sodium 112 MCG Tablet 1 tablet on an empty stomach in the morning Orally Once a day Vitamin D Taking Magnesium Taking amLODIPine Besylate 2.5 MG Tablet 1 tablet Orally Once a day Taking Aspirin EC 81 MG Tablet Delayed Release 1 tablet Orally Once a day Taking Atorvastatin Calcium 20 MG Tablet 1 tablet Orally Once a day Taking Levothyroxine Sodium 112 MCG Tablet 1 tablet on an empty stomach in the morning Orally Once a day Taking Vitamin D Not-Taking/PRNProbiotic Chlorthalidone 25 mg Tablet 1 tablet in the morning Orally Once a day Ciclopirox Olamine 0.77 % Cream 1 application Externally Twice a day Flax Seed Oil Medication List reviewed and reconciled with the patientNot-Taking/PRN Probiotic Not-Taking/PRN Chlorthalidone 25 mg Tablet 1 tablet in the morning Orally Once a day Not-Taking/PRN Ciclopirox Olamine 0.77 % Cream 1 application Externally Twice a day Not-Taking/PRN Flax Seed Oil Medication List reviewed and reconciled with the patient * Allergies:?N.K.D.A.yes[Aller gies Verified] Objective: * Vitals:?Ht: 4 ft 10 in, Wt: 139, BMI: 29.05, Shoe size: 6.5-7W, BP: 120/80 mm Hg, Ht-cm: 147.32 cm, Wt-k.05 kg. * Examination: ???General Examination: ?GENERAL APPEARANCE:?Reveals a pleasant, alert, well nourished, well- developed, well hydrated individual, who demonstrates proper attention to hygiene/body habitus, and is in no acute distress, Pt serves as own historian for office visit today, Pt accompanied by, , and/who is physically present in exam room at time of visit.?Dermatologic: ?VERRUCA:?two, round, raised, flat-topped, petechial bleeding papulae(s), with cauliflower appearance and interrruption of skin lines, with pain to both direct and lateral compression, and size estimated at 4-6mm, plantar Forefoot, left, NOW NO FURTHER SIGN of mosaic papule(s) with skin lines now evident and visible right forefoot.?Nails: ?NAILS are:?elongated, overgrown, dystrophic, greater than 3mm [...] toe(s) - M79.674???4.?Pain in left toe(s) - M79.675???5.?Left foot pain - M79.672??? Plan: * Treatment: 2.?Tinea unguium?Procedure: 53566-TKIDFPB NAIL, 6 OR MORE * Procedures:?Debride Nail [...] use of a nail nipper and/or dremel-type concrete wall grinder operator, to a more viable healthy nail [...] to maintain effectiveness in symptomatic relief - 76781.?Wart Treatment:?Procedure?Verrucae(s) were debrided to pin-point bleeding margins with sterile surgical blade, silver nitrate chemocautery applied, recomm. immune-boosting meds such as zinc, recomm. follow up with topical chemosurgical agents,STILL, recomm. CONT, Wartstick 40 percent Salicylic acid application under occlusion as directed, 53154).? * Procedure Codes:?22936 DEBRI DE NAIL, 6 OR MORE, Modifiers: XS 59489 Wart Destruction, 1-14, Modifiers: XS * Follow Up:?prn * Images: * Sign off status: Completed true * Provider:?Helen Mathew DPM Date:?2024 Generated for Mario hawley/Dixon/Anita on:?08/24/2024 11:56 AM EDT History and Physical Notes * HPI (History of Present Illness) Category Sub-Category Detail Notes Category Not es Painful Nails Treatments: Topical Antifung al , relates adherence to recom tx Pt States Last PCP Visit: Date:: 08/02/2024 Skin problems Pt States PCP Visit: DATE: 08/02/2024 Examination Category Sub-Category Detail Notes Category Not es Ingrown Nail INSPECTION: Dermatologic VERRUCA: two, round, rais ed, flat-topped, petechial bleeding papulae(s), with cauliflower appearance and interrruption of skin lines, with pain to both direct and lateral compression, and size estimated at 4-6mm, plantar Forefoot, left, NOW NO FURTHER SIGN of mosaic papule(s) with skin lines now evident and visible right forefoot General Examination GENERAL APPEARANCE: Reveals a pleasant, alert, well nourished, well-developed, well hydrated individual, who demonstrates proper attention to hygiene/body habitus, and is in no acute distress, Pt serves as own historian for office visit today, Pt accompanied by, , and/who is physically present in exam room at time of visit ORIENTED: Vascular DP PULSES (B): 4, B/L PT PULSES (B): /4, B/L CAPILLARY FILL TIME: immediate, all digi ts, B/L TROPHIC CONDITION-TEXTURE/EL ASTICITY/TURGOR/HAIR GROWTH (B): normal, B/L Nails NAILS are: elongated, overg rown, dystrophic, greater than 3mm thick, discolored and friable with crumbly malodorous subungual debris, with pain on palpation,, TA, T1, T2, T3, T4, T5, T6, T7, T8, T9
--- OUTSIDE RECORDS SUMMARY | 2024-08-24 11:56 | XMS_ITS | Patient Health Record ---
Author Organization [facility] [place] Address [address] [place] [address] Care Team Providers Care County Tax Assessor Name Role Phone Joy VINCENT, Nuria Quach Primary Care Provider Un available Helen Mathew Unavailable [phone] Allergies No Known Allergies Reason For Referral [...] Provider Speciality Internal M edicine Referred Organization [facility] Referred Provider Helen Mathew Referred Address [address] ,[place], [place],[address], Referred Provider Specialty Podiatry Referral Priority Routine [...] ly Once a day Active Probiotic Not-Taking Ciclopirox Olamine 0.77 % 1 application Externally Twice a day for 30 days 08/26/2020 Not-Taking Flax Seed Oil Not-Ta radha Magnesium Active Immunizations Vaccine Route Administration Date Status [...] W/U Status Risk Notes Problem Viral wart (71322375) Other viral warts (B07.8) Active confirmed Problem Tinea unguium (341116900) Tinea unguium (B35.1) Active confirmed Vital Signs Blood pressure diastolic 80 mm Hg 08/03/2024 Height 4 ft 10 in in 08/03/2024 Blood pressure systolic 120 mm Hg 08/03/2024 Weight 139 lbs 08/03/2024 BMI 29.05 kg/m2 08/03/2024 Procedures Procedure Date Ordered Date Performed Result Body Sit e 80130-XOUATBS NAIL, 6 OR MORE 09/02/2023 N/A 34533-Ncrw Destruction, 1-14 09/02/2023 N/A 33770-FLRDDNN NAIL, 6 OR MORE 11/22/2023 N/A 14142-Siqb Destruction, 1-14 11/22/2023 N/A 09560-Hqoebnbf Plate 11/22/2023 N/A 30902-VDDKUFW NAIL, 6 OR MORE 01/10/2024 N/A 95863-Rurm Destruction, 1-14 01/10/2024 N/A 80262-RSEFMPC NAIL, 6 OR MORE 03/20/2024 N/A 59408-Bads Destruction, 1-14 03/20/2024 N/A 59239-TUAVRXV NAIL, 6 OR MORE 05/25/2024 N/A 16768-Fiic Destruction, 1-14 05/25/2024 N/A 01574-FZCLUWP NAIL, 6 OR MORE 08/03/2024 N/A 16308-Veph Destruction, 1-14 08/03/2024 N/A Encounters Encounter Location Date Provider Diagnosis [address] [address] 09/02/2023 Helen Black Other viral warts B07.8 ; Tinea unguium B35.1 ; Pain in right toe(s) M79.674 ; Pain in left toe(s) M79.675 and Pain in right foot M79.[address] [address] 11/22/2023 Helen Black Other viral warts B07.8 ; Tinea unguium B35.1 ; Pain in right toe(s) M79.674 ; Pain in left toe(s) M79.675 ; Pain in right foot M79.671 and Ingrown nail L60.[address] [address] 01/10/2024 Helen Black Other viral warts B07.8 ; Tinea unguium B35.1 ; Pain in right toe(s) M79.674 ; Pain in left toe(s) M79.675 and Pain in right foot M79.[address] [address] 03/20/2024 Helen Black Other viral warts B07.8 ; Tinea unguium B35.1 ; Pain in right toe(s) M79.674 ; Pain in left toe(s) M79.675 and Pain in right foot M79.[address] [facility] [address] [address] 05/25/2024 Helen Mathew Other viral warts B07.8 ; Tinea unguium B35.1 ; Pain in right toe(s) M79.674 ; Pain in left toe(s) M79.675 and Pain in right foot M79.[address] [facility] [address] 08/03/2024 Helen Mathew Other viral warts B07.8 [...] 05/25/2024 Other viral warts (ICD-10 - B07.8) 08/03/2024 Other viral warts (ICD-10 - B07.8) 08/03/2024 Tinea unguium (ICD-10 - B35.1) 08/03/2024 Pain in right toe(s) (ICD-10 - M79.674) 05/25/2024 Tinea unguium (ICD-10 - B35.1) 03/20/2024 [...] 08/03/2024 Left foot pain (ICD-10 - M79.672) 05/25/2024 Pain in left toe(s) (ICD-10 - [...] Treatment Pending Test Test Name Order Date 90927-FSZRPKL NAIL, 6 OR MORE 12/08/2018 15765-JWHGTGO NAIL, 6 OR MORE 03/16/2019 35228-BEIUVSD NAIL, 6 OR MORE 06/05/2019 40860-GSWJCMB NAIL, 6 OR MORE 09/14/2019 52099-RPGYDTV NAIL, 6 OR MORE 11/23/2019 06336-YBHOAZE NAIL, 6 OR MORE 02/01/2020 64802-XQBDTML NAIL, 6 OR MORE 04/15/2020 28925-NCZDUFY NAIL, 6 OR MORE 06/20/2020 23949-UTZGJBD NAIL, 6 OR MORE 08/26/2020 22276-MVSMOUV NAIL, 6 OR MORE 11/04/2020 67615-EYIRCEW NAIL, 6 OR MORE 02/10/2021 14853-OKWNRDD NAIL, 6 OR MORE 05/01/2021 06605-EWLOXUJ NAIL, 6 OR MORE 07/10/2021 63327-VHXZBQB NAIL, 6 OR MORE 09/29/2021 74744-MGJSWWZ NAIL, 6 OR MORE 12/04/2021 80361-JLVJRJN NAIL, 6 OR MORE 02/16/2022 15421-DTZCEPK NAIL, 6 OR MORE 05/21/2022 19343-WTNOMSV NAIL, 6 OR MORE 07/30/2022 74998-GYEFDBX NAIL, 6 OR MORE 10/01/2022 47388-FATFRCB NAIL, 6 OR MORE 12/03/2022 29192-GLYTVJM NAIL, 6 OR MORE 02/11/2023 87710-PJZKCHA NAIL, 6 OR MORE 04/22/2023 64099-IIZTRAJ NAIL, 6 OR MORE 06/24/2023 32707-EPWAYDR NAIL, 6 OR MORE 09/02/2023 78162-CUCDPAD NAIL, 6 OR MORE 11/22/2023 22920-ZNIISBJ NAIL, 6 OR MORE 01/10/2024 08705-TBOYDRA NAIL, 6 OR MORE 03/20/2024 37713-RTBNLIH NAIL, 6 OR MORE 05/25/2024 12257-LLIEFRC NAIL, 6 OR MORE 08/03/2024 24438-Ilcq Destruction, -08/03/2024 40072-Vodn Destruction, -14 05/25/2024 79574-Lcnv Destruction, -14 03/20/2024 61740-Ourp Destruction, -14 01/10/2024 01789-Jobg Destruction, -14 02/11/2023 92307-Rhwm Destruction, -14 11/22/2023 18027-Evwb Destruction, -14 09/02/2023 36922-Srhi Destruction, -14 06/24/2023 45982-Zmqu Destruction, -04/22/2023 69780-Iqbl Destruction, -12/04/2021 88602-Vzwb Destruction, -14 12/03/2022 57963-Gtrl Destruction, -14 10/01/2022 26800-Ccsf Destruction, -14 07/30/2022 42289-Gkmq Destruction, 14 05/21/2022 09816-Vqqm Destruction, -14 02/16/2022 14859-Vpzi Destruction, -14 05/01/2021 41951-Suln Destruction, 04-1809/29/2021 15871-Kwrn Destruction, 04-1807/10/2021 56812-Iuik Destruction, 04-1811/04/2020 10278-Fyqz Destruction, 04-1802/10/2021 76522-Ricd Destruction, 04-1808/26/2020 93974-Dfui Destruction, 04-1806/20/2020 37833-Mgvk Destruction, 04-1804/15/2020 10628-Wpfn Destruction, 04-1809/14/2019 63005-Weif Destruction, 04-1802/01/2020 88938-Wfdl Destruction, 04-1811/23/2019 48820-Jzpx Destruction, 04-1812/08/2018 17907-Bdgw Destruction, 04-1806/05/2019 91506-Bmlq Destruction, 14 03/16/2019 50950-Etmujfmi Plate 06/05/2019 11084-Meiabtmd Plate 02/01/2020 16239-Dpisyvpq Plate 11/04/2020 23951-Sxtroxjf Plate 05/01/2021 83798-Onrkczwq Plate 02/10/2021 80960-Ldxwxkwo Plate 09/29/2021 68961-Wlrhjzon Plate 12/04/2021 88111-Yzgisnnn Plate 12/03/2022 06338-Kghpgorn Plate 02/11/2023 57566-Nowrymhn Plate 11/22/2023 41454-Pwudmtdd Plate Each Additional 02045-Vawschyv Plate Each Additional 11/2020 89610- Debride <25 sq cm 09/14/2019 Next Appt Details Provider Name:Helen Mathew , 10/09/2024 01:30:00 PM, [address] [facility], [place], [address], Provider Name:Helen Mathew , 12/18/2024 01:30:00 PM, [address] [facility], [facility] [place], [phone], Insurance Providers Payer Name Payer Address Payer Phone Subscriber Number Group Number Insured Name Patient Relationship to Insured Coverage Start Date Coverage End Date [facility] [address] [place] [phone] [id number] Dina Levy Self - patient is the insured Medical (General) History Medical History History ICD Code Hyperlipidemia GERD Hypothyroidism colon polyp HTN Osteoarthritis non-rheumatic Aortic valve stenosis Other hammer toe(s) (acquired), right fo ot M20.41 Hallux valgus (acquired), left foot M20. 12 Arthritis of joint of lesser toe, right M19.071 Other hammer toe(s) (acquired), left leta t M20.42 Arthritis of joint of lesser toe, left M 19.072 Surgical History Surgery Date(Month/Year) Cholecytectomy 1979 TAHBSO 1985 Gall bladder 1982 Hysterectomy 1983
--- OUTSIDE RECORDS SUMMARY | 2024-08-24 11:56 | XMS_ITS ---
Author Organization [facility] dh[facility] [place] Address [address] [place] [address] Care Team Providers Care Aluminum Siding Applicator Name Role Phone Joy VINCENT, Nruia Quach Primary Care Provider Un available Black, Helen Unavailable [phone] Allergies No Known Allergies REASON FOR VISIT [...] Ordered Date Performed Result Body Sit e 07033-ZXFOTHB NAIL, 6 OR MORE 05/25/2024 N/A 67867-Khgs Destruction, 1-14 05/25/2024 N/A Encounters Encounter Location Date Provider Diagnosis [facility] [address] [address] 05/25/2024 Helen Mathew Other viral warts B07.8 [...] Treatment Pending Test Test Name Order Date 48499-YSMSCTK NAIL, 6 OR MORE 05/25/2024 37191-Jczv Destruction, 1-14 05/25/2024 Next Appt Details Follow Up: prn, Reason: Provider Name:Helen Rogers Quincy , 10/09/2024 01:30:00 PM, [address] [place] [address], [phone], Provider Name:Helen A Quincy , 12/18/2024 01:30:00 PM, [address] [place] [address], [phone], Procedure Notes * Category Sub-Category Detail Notes Wart Treatment Procedure Verrucae(s) were debrided to pin-point bleeding margins with sterile surgical blade, silver nitrate chemocautery applied, recomm. immune-boosting meds such as zinc, recomm. follow up with topical chemosurgical agents,STILL, recomm. CONT, Wartstick 40 percent Salicylic acid application under occlusion as directed, 28961) Debride Nail 6-10 Nail debridement Due to [...] use of a nail nipper and/or dremel-type bark grinder, to a more viable healthy nail [...] to maintain effectiveness in symptomatic relief - 96248 Progress Notes * Dina LEVY MDOB: (83 yo F)Acc No.[id number]:05/25/2024 Progress Note Patient:?Dina LEVY Provider:?Helen Mathew DPM :1940???Age:83 Y???Sex:Female D ate:05/25/2024 Address:[address] [place], [place] [id number] Pcp:Brad Cervantes Subjective: * Chief Complaints: * [...] - M79.671??? Plan: * Treatment: 2.?Tinea unguium?Procedure: 11653-RZBSFWP NAIL, 6 OR MORE * Procedures:?Debride Nail [...] use of a nail nipper and/or dremel-type bark grinder, to a more viable healthy nail [...] to maintain effectiveness in symptomatic relief - 94690.?Wart Treatment:?Procedure?Verrucae(s) were debrided to pin-point bleeding margins with sterile surgical blade, silver nitrate chemocautery applied, recomm. immune-boosting meds such as zinc, recomm. follow up with topical chemosurgical agents,STILL, recomm. CONT, Wartstick 40 percent Salicylic acid application under occlusion as directed, 06696).? * Procedure Codes:?73493 DEBRI DE NAIL, 6 OR MORE, Modifiers: XS 82660 Wart Destruction, 1-14, Modifiers: XS * Follow [...]
--- OUTSIDE RECORDS SUMMARY | 2024-08-24 11:56 | XMS_ITS ---
Author Organization [facility] [place] Address [address] [place] [address] Care Team Providers Care Management Expert Name Role Phone Joy VINCENT, Nuria Quach Primary Care Provider Un available Black, Helen Unavailable [phone] Allergies No Known Allergies REASON FOR VISIT [...] Ordered Date Performed Result Body Sit e 32514-DQCOKXY NAIL, 6 OR MORE 03/20/2024 N/A 88944-Zdae Destruction, 1-14 03/20/2024 N/A Encounters Encounter Location Date Provider Diagnosis [facility] [address] [address] 03/20/2024 Helen Mathew Other viral warts B07.8 [...] Treatment Pending Test Test Name Order Date 05857-KSZCERF NAIL, 6 OR MORE 03/20/2024 97627-Skum Destruction, 1-14 03/20/2024 Next Appt Details Follow Up: prn, Reason: Provider Name:Helen Mathew , 10/09/2024 01:30:00 PM, [address] [place] [address], [phone], Provider Name:Helen Mathew , 12/18/2024 01:30:00 PM, [address] [place] [address], [phone], Procedure Notes * Category Sub-Category Detail Notes Wart Treatment Procedure Verrucae(s) were debrided to pin-point bleeding margins with sterile surgical blade, silver nitrate chemocautery applied, recomm. immune-boosting meds such as zinc, recomm. follow up with topical chemosurgical agents,STILL, recomm. CONT, Wartstick 40 percent Salicylic acid application under occlusion as directed, 98975) Debride Nail 6-10 Nail debridement Due to [...] use of a nail nipper and/or dremel-type machine grinder, to a more viable healthy nail [...] to maintain effectiveness in symptomatic relief - 64459 Progress Notes * Dina LEVY MDOB: (83 yo F)Acc No.[id number]:03/20/2024 Progress Note Patient:?Dina LEVY Provider:?Helen Mathew DPM :1940???Age:83 Y???Sex:Female D ate:03/20/2024 Address:[address] [place] [address] Pcp:Brad Cervantes Subjective: * Chief Complaints: * [...] Surgical History:?Cholecytec jefferson 1979TAHBSO 1985Gall bladder 1983Hysterectomy 1983 * Hospitalization/Major Diagno [...] pain on palpation, 1- 5 B/L.?Vascular: ?DP PULSES(B):?/, B/L.?PT PULSES(B):?04/08, B/L.?CAPILLARY FILL TIME:?immediate, all digits, [...] - M79.671??? Plan: * Treatment: 2.?Tinea unguium?Procedure: 74923-TPKFBWH NAIL, 6 OR MORE * Procedures:?Debride Nail [...] use of a nail nipper and/or dremel-type machine grinder, to a more viable healthy nail [...] to maintain effectiveness in symptomatic relief - 10571.?Wart Treatment:?Procedure?Verrucae(s) were debrided to pin-point bleeding margins with sterile surgical blade, silver nitrate chemocautery applied, recomm. immune-boosting meds such as zinc, recomm. follow up with topical chemosurgical agents,STILL, recomm. CONT, Wartstick 40 percent Salicylic acid application under occlusion as directed, 99289).? * Procedure Codes:?66361 DEBRI DE NAIL, 6 OR MORE, Modifiers: XS 74639 Wart Destruction, 1-14, Modifiers: XS * Preventive Medicine:? ??Screening/Special Tests:?FALLS: Screening for Future Fall Risk?Have you had two or more falls in the past year??No * Follow Up:?prn * Images: * Sign off status: Completed true * Provider:?Helen Mathew DPM Date:?2023 Generated for Mario hawley/Dixon/Anita on:?08/24/2024 11:55 AM EDT History and Physical Notes * [...]
== END 2024-08-24 11:58 | disposition home or self-care (01) ==
PROVIDERS: PCP Internal Medicine; Visit Provider Urology
DX: N81.9 Female genital prolapse, unspecified (principal)

== ENCOUNTER → 2024-08-24 11:16 | Outpatient (BNVA) | payer MEDICARE, SELFPAY | PROVIDERS: PCP Internal Medicine; Visit Provider Urology | DX: N81.9 Female genital prolapse, unspecified (principal); N89.8 Other specified noninflammatory disorders of vagina; Z46.89 Encounter for fitting and adjustment of other specified devices; Z96.0 Presence of urogenital implants; Z90.710 Acquired absence of both cervix and uterus | CPT/HCPCS: 57160; 81003; 99212 ==

== ENCOUNTER → 2024-11-15 08:53 | Outpatient (REF) | payer MEDICARE, SELFPAY ==
--- NOTE | 2024-11-15 08:56 | CA_ITS ---
Transthoracic Echocardiogram Patient (Last, First, Middle): Dina Levy M Gender: Female Date of : 1940 Age: 83 Procedure Date: 11/15/2024 Procedure Type: Transthoracic Echocardiogram Location: OP Height: 147.32 cm Weight: 63.5 kg BSA: 1.57 m2 Heart Rate: bpm BP: 138 / 50 mmHg Pipe Threader: TO Referring MD: Kirk Tejeda MD Perennial House Manager: Darinel Kinney MD Symptoms: I35.0 - Nonrheumatic aortic (valve) stenosis Study Quality: Fair ECG Rhythm: Sinus Conclusions: - 1. Normal LV ejection fraction of 60 65% with impaired relaxation filling pattern 2. Paradoxical low-flow moderately severe aortic stenosis 3. Mildly dilated left atrium 4. Normal RV systolic pressure 5. No gross pericardial effusion Findings Procedure Information The study quality is limited by the patients inability to tolerate the test. Left Ventricle Normal left ventricular size, thickness, and systolic function. The visually estimated ejection fraction is between 60-65%. Spectral Doppler is indicative of an impaired relaxation filling pattern. E/E prime ratio is between 8 and 15 consistent with indeterminate filling pressures. Right Ventricle Normal right ventricular cavity size and systolic function. Atria The left atrium is mildly dilated. There is no evidence of interatrial shunt. The right atrium is normal in size. Aortic Valve There is moderate calcification of the aortic valve. There is moderate thickening of the aortic valve. There is moderate to severe aortic valve stenosis. The peak aortic gradient is 41 mmHg.The mean gradient is 25 mmHg. The aortic valve area is 0.91 cm2. There is mild aortic valve regurgitation. although valve area was calculated in the severe range, with a dimensionless index of 0.28. Overall suggestive of moderately severe aortic stenosis, paradoxical low-flow Mitral Valve There is mild anterior and posterior mitral leaflet thickening. There is mild anterior and mild posterior mitral annular calcification. There is trace mitral valve regurgitation. There is no mitral valve stenosis. Pulmonic Valve The pulmonic valve was not well visualized. Tricuspid Valve Likely normal tricuspid valve structure and function. There is trace tricuspid valve regurgitation. The right ventricular systolic pressure is normal. The right ventricular systolic pressure is 15 mmHg. Normal right atrial pressure. There is no evidence of pulmonary hypertension. Great Vessels All visible segments of the aorta are normal in size. The pulmonary artery was not well visualized. There is no dilatation of the ascending aorta measuring 3.30 cm. Venous The inferior vena cava is normal in size and collapses greater than 50% with inspiration. Pericardium/Pleural There is no evidence of pericardial effusion. Prior Study Comparison No significant change compared to prior study dated: 05/23/2024. Measurements 2D Linear Measurements IVSd: 0.76 0.6-0.9/0.6-1.0 cm LVIDd: 4.41 3.9-5.3/4.2-5.9 cm LVIDd Index: 2.81 2.4-3.2/2.2-3.1 cm/m2 LVIDs: 2.69 2.0-3.6 cm LVPWd: 0.75 0.7-1.1 cm LA Diam: 3.40 2.7-3.8/3.0-4.0 cm LAIDs Index: 2.17 1.5-2.3 cm/m2 LV Mass: 125.92 67-162/88-224 g LV Mass Index: 80.20 43-95/49-115 g/m2 LVOT Diam: 2.00 3.0+(-)1.3 cm 2D Systolic Function EF 4C: 69.60 >55% Mitral Valve MV Pk E: 0.68 MV PK A: 0.81 MV Decel Time: 273.00 E/A: 0.80 E'Lateral: 5.22 E'Medial: 4.90 E/E' Med: 13.80 E/E' Lat: 13.00 PHT: 80.00 MVA PHT: 2.75 Decel [place]: 2.48 Aortic Valve AoV Pk Gautam: 3.22 AoV Mn Gautam: 2.35 AoV VTI: 0.73 AoV Pk Grad: 41.00 Aov Mn Grad: 25.00 ADALI Cont.VTI: 0.91 LVOT LVOT Pk Gautam: 0.99 LVOT Mn Gautam: 0.64 LVOT VTI: 0.21 LVOT Pk Grad: 4.00 LVOT Mn Grad: 2.00 LVOT Diam: 2.00 LVOT Area: 3.14 Diastolic Function MV Pk E: 0.68 MV Pk A: 0.81 E/A: 0.80 E'Medial: 4.90 E/E' Med: 13.80 E' Laterial: 5.22 E/E' Lat: 13.00 Right Ventricle TAPSE (mm): 22.70 TVS' Gautam: 12.20 Tricuspid Valve TR Pk Gautam: 1.76 TR Pk Grad: 12.00 RA Press: 3.00 RVSP: 15.00 Great Vessels Aorta Sinus of Valsalva: 2.72 2.0-3.[address] [place]: 1.95 1.7-3.4 cm Ao Asc: 3.30 2.1-3.4 cm Updated in Other Vendor System with Status of Final Darinel Kinney MD electronically signed on 11/15/2024 3:36:44 PM with status of Final
--- OUTSIDE RECORDS SUMMARY | 2024-11-15 09:13 | XMS_ITS | Patient Health Record ---
Author Organization [facility] [place] [facility] [place] Address [address] [place] [address] Care Team Providers Care Construction Cost Estimator Name Role Phone Joy VINCENT, Nuria Quach Primary Care Provider Un available Helen Mathew Unavailable [phone] Allergies No Known Allergies Reason For Referral [...] Provider Speciality Internal M edicine Referred Organization [facility] Referred Provider Helen Mathew Referred Address [address] ,[place], [place],[address], Referred Provider Specialty Podiatry Referral Priority Routine Medications Medication SIG (Take, Route, Frequency, Duration) Notes Start Date End Date Status Flax Seed Oil Not-Ta radha Ciclopirox Olamine 0.77 % 1 application Externally Twice a day; Duration: 30 days 08/26/2020 Not-Takin g Chlorthalidone 25 mg 1 tablet in the morning Orally Once a day Not-Taking Probiotic Not-Taking Vitamin D Active Levothyroxine Sodium 112 MCG 1 tablet on an empty stomach in the morning Orally Once a day; Duration: 90 days Active Atorvastatin Calcium 20 MG 1 tablet Oral ly Once a day; Duration: 90 day(s) Active Aspirin EC 81 MG 1 tablet Orally Once a day; Duration: 90 day(s) Active amLODIPine Besylate 2.5 MG 1 tablet Oral ly Once a day Active Magnesium Active Immunizations Vaccine Route Administration Date Status Comme nts Influenza Unknown 12/14/2017 Administered Influenza Unknown 11/29/2019 Administered Influenza Unknown 12/05/2023 Administered Pneumococcal Unknown 04/04/2018 Administered COVID-19 Pfizer BioNTech Vaccine Unknown 01/05/2021 Administered First Dose:05/18/2020 Second Dose: 06/08/2020 Social History Tobacco Use: Social History Observation [...] W/U Status Risk Notes Problem Viral wart (63122785) Other viral warts (B07.8) Active confirmed Problem Tinea unguium (092756252) Tinea unguium (B35.1) Active confirmed Vital Signs Blood pressure diastolic 80 mm Hg 10/09/2024 Height 4 ft 10 in in 10/09/2024 Blood pressure systolic 120 mm Hg 10/09/2024 Weight 138 lbs 10/09/2024 BMI 28.84 kg/m2 10/09/2024 Procedures Procedure Date Ordered Date Performed Result Body Sit e 42089-EGACDLY NAIL, 6 OR MORE 11/22/2023 N/A 98535-Fzgy Destruction, 1-14 11/22/2023 N/A 54908-Ftyqpvcv Plate 11/22/2023 N/A 83189-DAWGFGG NAIL, 6 OR MORE 01/10/2024 N/A 01659-Ypoo Destruction, 1-14 01/10/2024 N/A 63817-HDTWWPL NAIL, 6 OR MORE 03/20/2024 N/A 61786-Exwm Destruction, 1-14 03/20/2024 N/A 56244-FENMEMY NAIL, 6 OR MORE 05/25/2024 N/A 60341-Eacp Destruction, 1-14 05/25/2024 N/A 99654-STCJWRQ NAIL, 6 OR MORE 08/03/2024 N/A 18694-Iepv Destruction, 1-14 08/03/2024 N/A 56699-PJNMROZ NAIL, 6 OR MORE 10/09/2024 N/A 17345-Dlxn Destruction, 1-14 10/09/2024 N/A 47864-Xiurqnbt Plate 10/09/2024 N/A Encounters Encounter Location Date Provider Diagnosis [address] [address] 11/22/2023 Helen Black Other viral warts B07.8 ; Tinea unguium B35.1 ; Pain in right toe(s) M79.674 ; Pain in left toe(s) M79.675 ; Pain in right foot M79.671 and Ingrown nail L60.[address] [address] 01/10/2024 Helen Black Other viral warts B07.8 ; Tinea unguium B35.1 ; Pain in right toe(s) M79.674 ; Pain in left toe(s) M79.675 and Pain in right foot M79.[address] [address] 03/20/2024 Helen Black Other viral warts B07.8 ; Tinea unguium B35.1 ; Pain in right toe(s) M79.674 ; Pain in left toe(s) M79.675 and Pain in right foot M79.[address] [address] 05/25/2024 Helen Black Other viral warts B07.8 ; Tinea unguium B35.1 ; Pain in right toe(s) M79.674 ; Pain in left toe(s) M79.675 and Pain in right foot M79.671 [facility] [address] 08/03/2024 Helen Mathew Other viral warts B07.8 ; Tinea unguium B35.1 ; Pain in right toe(s) M79.674 ; Pain in left toe(s) M79.675 and Left foot pain M79.672 [facility] [address] 10/09/2024 Helen Black Other viral warts B07.8 ; Tinea unguium B35.1 ; Pain in right toe(s) M79.674 ; Pain in left toe(s) M79.675 ; Left foot pain M79.672 and Ingrown nail L60.0 Assessments Encounter Date [...] B07.8) 08/03/2024 Tinea unguium (ICD-10 - B35.1) 10/09/2024 Other viral warts (ICD-10 - B07.8) 10/09/2024 Tinea unguium (ICD-10 - B35.1) 08/03/2024 Pain in right toe(s) (ICD-10 - M79.674) 05/25/2024 Tinea unguium (ICD-10 - B35.1) 03/20/2024 Tinea unguium (ICD-10 - B35.1) 01/10/2024 Pain in right toe(s) (ICD-10 - M79.674) 11/22/2023 Tinea unguium (ICD-10 - B35.1) 11/22/2023 Pain in right toe(s) (ICD-10 - M79.674) 01/10/2024 Pain in left toe(s) (ICD-10 - M79.675) 03/20/2024 Pain in right toe(s) (ICD-10 - M79.674) 05/25/2024 Pain in right toe(s) (ICD-10 - M79.674) 08/03/2024 Pain in left toe(s) (ICD-10 - M79.675) 10/09/2024 Pain in right toe(s) (ICD-10 - M79.674) 10/09/2024 Pain in left toe(s) (ICD-10 - M79.675) [...] Pain in right foot (ICD-10 - M79.671) 10/09/2024 Left foot pain (ICD-10 - M79.672) 10/09/2024 Ingrown nail (ICD-10 - L60.0) 11/22/2023 Ingrown nail (ICD-10 - L60.0) Plan Of Treatment Pending Test Test Name Order Date 14211-BMFOJYV NAIL, 6 OR MORE 12/08/2018 70121-PPFKYTA NAIL, 6 OR MORE 03/16/2019 95262-OHUBYAS NAIL, 6 OR MORE 06/05/2019 06282-TYFORFW NAIL, 6 OR MORE 09/14/2019 18686-LGHQEOC NAIL, 6 OR MORE 11/23/2019 81465-VYOJDVP NAIL, 6 OR MORE 02/01/2020 96171-CMEGZWI NAIL, 6 OR MORE 04/15/2020 35971-OMUVZWE NAIL, 6 OR MORE 06/20/2020 33294-MWYJBZX NAIL, 6 OR MORE 08/26/2020 37915-YBTJPYT NAIL, 6 OR MORE 11/04/2020 40809-QUMOAYD NAIL, 6 OR MORE 02/10/2021 41108-XTIUYWS NAIL, 6 OR MORE 05/01/2021 23214-KZVQCKK NAIL, 6 OR MORE 07/10/2021 89940-QFKUYXY NAIL, 6 OR MORE 09/29/2021 88408-VPCAFXZ NAIL, 6 OR MORE 12/04/2021 47514-GIIWCKO NAIL, 6 OR MORE 02/16/2022 45141-QMLIAKJ NAIL, 6 OR MORE 05/21/2022 52765-LGCENAR NAIL, 6 OR MORE 07/30/2022 44997-BGCSAYX NAIL, 6 OR MORE 10/01/2022 94184-YBEDINY NAIL, 6 OR MORE 12/03/2022 12961-PECDQKE NAIL, 6 OR MORE 02/11/2023 02813-EMLLJGG NAIL, 6 OR MORE 04/22/2023 78317-SZTUJYI NAIL, 6 OR MORE 06/24/2023 51204-SNUSHLI NAIL, 6 OR MORE 09/02/2023 74024-ZYYHQKM NAIL, 6 OR MORE 11/22/2023 25028-PTFMVEM NAIL, 6 OR MORE 01/10/2024 06011-KBHBIHF NAIL, 6 OR MORE 03/20/2024 21307-LRWDXMT NAIL, 6 OR MORE 05/25/2024 34347-NKMAWUS NAIL, 6 OR MORE 08/03/2024 82949-ADHEPEW NAIL, 6 OR MORE 10/09/2024 93696-Kivt Destruction, 1-14 10/09/2024 02316-Ikxi Destruction, 1-14 08/03/2024 88181-Pxqm Destruction, 1-14 05/25/2024 12127-Gckv Destruction, 1-14 03/20/2024 67110-Fhjo Destruction, 1-14 01/10/2024 45244-Clwx Destruction, 1-14 02/11/2023 87949-Cfxp Destruction, 04-1811/22/2023 30416-Fhnp Destruction, 04-1809/02/2023 10125-Qpwf Destruction, 04-1806/24/2023 61133-Zpbp Destruction, 04-1804/22/2023 75721-Rlly Destruction, 04-1812/04/2021 96558-Hptr Destruction, 04-1812/03/2022 48703-Psjv Destruction, 04-1810/01/2022 80216-Jskk Destruction, 04-1807/30/2022 26760-Ofqx Destruction, 04-1805/21/2022 92396-Ptzk Destruction, 04-1802/16/2022 19934-Tavi Destruction, 04-1805/01/2021 86984-Qnbp Destruction, 04-1809/29/2021 58622-Ntsn Destruction, 04-1807/10/2021 21034-Ptav Destruction, 04-1811/04/2020 50085-Rjnk Destruction, 04-1802/10/2021 89743-Fhpc Destruction, 04-1808/26/2020 09688-Ndll Destruction, 04-1806/20/2020 53082-Wrbz Destruction, 04-1804/15/2020 94430-Eflp Destruction, 04-1809/14/2019 13473-Hnnt Destruction, 04-1802/01/2020 56459-Zsnu Destruction, 04-1811/23/2019 40235-Jwhx Destruction, 04-1812/08/2018 64203-Jert Destruction, 04-1806/05/2019 32939-Nxoy Destruction, 04-1803/16/2019 51653-Yjosjpzz Plate 06/05/2019 12394-Exjpkysa Plate 02/01/2020 33546-Aggvajhb Plate 11/04/2020 52328-Ehmnreon Plate 05/01/2021 73492-Ksyqxrmb Plate 02/10/2021 28577-Brvdgcxu Plate 09/29/2021 39154-Lfjlgmvs Plate 12/04/2021 16356-Hzjiiadx Plate 12/03/2022 26803-Uzpygjnm Plate 02/11/2023 78580-Vsbiubmr Plate 11/22/2023 91746-Hajlorvd Plate 10/09/2024 81307-Vgysfjtm Plate Each Additional 76132-Ybebyfmd Plate Each Additional 11/2020 62225- Debride <25 sq cm 09/14/2019 Next Appt Details Provider Name:Helen Mathew , 12/18/2024 01:30:00 PM, [address] [place] [address], [phone], Provider Name:Helen Mathew , 02/12/2025 11:00:00 AM, [address] [place] [address], [phone], Insurance Providers Payer Name Payer Address Payer Phone Subscriber Number Group Number Insured Name Patient Relationship to Insured Coverage Start Date Coverage End Date [facility] [address] [place] [phone] [id number] Dina Levy Self - patient is the [...] 1979 TAHBSO 1985 Gall bladder 1983 Hysterectomy 1984
== END ==
LOC: HO.CARD 08:53
PROVIDERS: Visit Provider Internal Medicine
DX: I35.0 Nonrheumatic aortic (valve) stenosis (principal)
CPT/HCPCS: 93306

== ENCOUNTER → 2024-11-15 08:56 | Outpatient (BNV) | payer MEDICARE, SELFPAY | PROVIDERS: Visit Provider Internal Medicine Cardiovascular Disease | DX: I35.2 Nonrheumatic aortic (valve) stenosis with insufficiency (principal); I34.81 Nonrheumatic mitral (valve) annulus calcification | CPT/HCPCS: 93306 ==

== ENCOUNTER 2024-11-20 09:02 | Outpatient (AMB) | payer MEDICARE, SELFPAY ==
[2024-11-20 09:05] VITALS: BP 126/66; PULSE 76; BMI 28.6
--- NOTE | 2024-11-20 09:05 | A.OFFVIS_ITS ---
Vital Signs 11/20/24 09:05 Height 4 ft 10 in Weight 136 lb 10.986 oz BMI 28.6 BP 126/66 Blood Pressure Location Lt brachial Position Sitting Pulse 76 Pulse Source Pulse Oximeter Intake Visit Reasons: 6 mth f/up/echo Allergies No Known Allergies Allergy (Verified 08/24/24 11:27) Medication List - Last Reconciled 11/20/24 by Kirk Tejeda MD amlodipine 2.5 mg PO DAILY aspirin (Adult Low Dose Aspirin) 81 mg PO DAILY atorvastatin 20 mg PO 3XW cholecalciferol (vitamin D3) 50 mcg PO DAILY levothyroxine 112 mcg PO QAM HPI Comments Details: Dina is here for follow-up regarding aortic stenosis. She states that she is doing fine. No specific complaints like angina or in fact anything cardiac sounding. [facility] Medical History Nocturnal leg cramps Degenerative joint disease of both hips Chronic right hip pain Prolapse of female pelvic organs COVID-19 vaccine dose declined Left medial knee pain Bilateral hip pain Post-menopause Tubular adenoma of colon Osteopenia of left femoral neck Nonrheumatic aortic (valve) stenosis Essential hypertension Dyslipidemia Acquired hypothyroidism Acquired deformity of toenail Surgical History Hx of colonoscopy History of total abdominal hysterectomy and bilateral salpingo-oophorectomy Hx of cholecystectomy Family History Father CAD (coronary artery disease) Myocardial infarction Mother Type 2 diabetes mellitus Social History Housing: House Alcohol intake: current Patient Tobacco Use Status: Never used Tobacco e-Cigarette/Vaping Use: Never Used Second Hand Smoke Exposure: No Current occupational status: retired Cognitive needs: No Hearing needs: No Vision needs: Yes Review of Systems Const Denies weakness ENT Denies dizziness Card Denies chest pain, Denies chest pain with activity, Denies syncope, Denies rapid heart rate, Denies pedal edema, Denies edema, Denies leg edema, Denies lightheadedness, Denies palpitations, Denies dyspnea, Denies dyspnea on exertion and Denies orthopnea Resp Denies cough, Denies dyspnea and Denies dyspnea on exertion GI Denies hematochezia and Denies change in stool character Musc Denies abnormal gait, Denies muscle cramps, Denies muscle weakness, Denies numbness, Denies radiating pain into limb and Denies tingling Neuro Denies abnormal gait, Denies dizziness, Denies syncope, Denies numbness, Denies tingling and Denies weakness Endo Denies palpitations Physical Exam Vital Signs: Last Vital Signs Pulse 76 11/20/24 09:05 BP 126/66 11/20/24 09:05 BMI result Body Mass Index 28.6 Const General: comfortable and no acute distress Orientation/consciousness: patient oriented x3 HEENT Other: Unremarkable Head: Yes normal to inspection Neck Neck: Yes normal visual inspection Chest Chest palpation & inspection: normal inspection of the chest Resp Auscultation: clear to auscultation bilaterally Cardio Palpation: normal PMI Heart sounds: S1 normal heart sound present, S2 normal heart sound present, no gallops, Murmur heart sound present systolic III/ and no rubs GI Palpation (GI): Soft to palpation Back/Spine/Pelvis Other: unremarkable Skin General skin exam: no rashes or lesions noted Neuro General: patient oriented x3 Extrem General: Yes normal to inspection Psych Mental Status: mental status grossly normal Assessment & Plan Assessment & Plan (1) Nonrheumatic aortic (valve) stenosis: Code(s): I35.0 - Nonrheumatic aortic (valve) stenosis Category: Medical Plan: In the recent echocardiogram, paradoxical, low-flow, low gradient moderately severe aortic stenosis with a mean gradient of 25 mm Hg and calculated valve area of 0.9 cm2. Dimensionless index 0.28. As she has absolutely no symptoms, we will continue to monitor. We will recheck in 6 months. Advised her to contact us if any concerning symptoms like shortness of breath or chest pains or dizziness. She understands that. (2) Essential hypertension: Code(s): I10 - Essential (primary) hypertension Category: Medical Plan: Per patient, chlorthalidone stopped because of low potassium. Now on amlodipine. Plan Discussion Notes I discussed with the patient the nature of her aortic valve stenosis and the importance of regular monitoring to detect any progression of the condition. We reviewed the symptoms that could indicate worsening valve function, such as difficulty breathing, chest pain, dizziness, or syncope. The patient was informed that if these symptoms occur, it may necessitate surgical intervention, including valve replacement. Patient was informed and verbally consented to the use of an ambient scribe for clinic note documentation during this visit. Orders: Orders CA echo transthoracic complete 6 Months I35.0 - Nonrheumatic aortic (valve) stenosis Patient Instructions: - Monitor for symptoms like difficulty breathing, chest pain, dizziness, or feeling faint. - Schedule and attend echocardiograms every six months to check valve function. - Contact the healthcare provider if any new symptoms develop. Coding Level of Care Code Est Pt Level 4 (78085) Complex EM visit Add On G2211 Diagnoses Nonrheumatic aortic (valve) stenosis I35.0 Essential hypertension I10
--- OUTSIDE RECORDS SUMMARY | 2024-11-20 09:34 | XMS_ITS | Patient Health Record ---
Author Organization [facility] [place] Address [address] [facility] [place] [address] Care Team Providers Care Banquet Line Cook Name Role Phone Joy VINCENT, Nuria Quach Primary Care Provider Un available Helen Mathew Unavailable [phone] Allergies No Known Allergies Reason For Referral [...] Provider Speciality Internal M edicine Referred Organization [facility] Referred Provider Helen Mathew Referred Address [address] [facility] [address] ,[place], [place],[address], Referred Provider Specialty Podiatry Referral Priority Routine [...] Problem Status W/U Status Risk Notes Problem Other viral warts (B07.8) Active confirmed Problem Tinea unguium (697920115) Tinea unguium (B35.1) Active confirmed Vital Signs Blood pressure diastolic 80 mm Hg 10/09/2024 Height 4 ft 10 in in 10/09/2024 Blood pressure systolic 120 mm Hg 10/09/2024 Weight 138 lbs 10/09/2024 BMI 28.84 kg/m2 10/09/2024 Procedures Procedure Date Ordered Date Performed Result Body Sit e 61322-LJVEIHH NAIL, 6 OR MORE 11/22/2023 N/A 85767-Pedx Destruction, 1-14 11/22/2023 N/A 51958-Nhwyfxjw Plate 11/22/2023 N/A 45053-FQIVAAY NAIL, 6 OR MORE 01/10/2024 N/A 52707-Eaio Destruction, 1-14 01/10/2024 N/A 61094-GYXHSNU NAIL, 6 OR MORE 03/20/2024 N/A 88970-Ewli Destruction, 1-14 03/20/2024 N/A 71418-FIPVRFQ NAIL, 6 OR MORE 05/25/2024 N/A 62885-Qfle Destruction, 1-14 05/25/2024 N/A 77476-QROMJAB NAIL, 6 OR MORE 08/03/2024 N/A 25534-Mdju Destruction, 1-14 08/03/2024 N/A 13217-HAUAOMS NAIL, 6 OR MORE 10/09/2024 N/A 39688-Bqvv Destruction, 1-14 10/09/2024 N/A 54045-Bxbdtbao Plate 10/09/2024 N/A Encounters Encounter Location Date Provider Diagnosis [address] [address] 11/22/2023 Helen Black Other viral warts B07.8 ; Tinea unguium B35.1 ; Pain in right toe(s) M79.674 ; Pain in left toe(s) M79.675 ; Pain in right foot M79.671 and Ingrown nail L60.[address] [address] 01/10/2024 Helen Black Other viral warts B07.8 ; Tinea unguium B35.1 ; Pain in right toe(s) M79.674 ; Pain in left toe(s) M79.675 and Pain in right foot M79.[address] [address] 03/20/2024 Helen Black Other viral warts B07.8 ; Tinea unguium B35.1 ; Pain in right toe(s) M79.674 ; Pain in left toe(s) M79.675 and Pain in right foot M79.[address] [address] 05/25/2024 Helen Black Other viral warts B07.8 ; Tinea unguium B35.1 ; Pain in right toe(s) M79.674 ; Pain in left toe(s) M79.675 and Pain in right foot M79.671 [facility] [address] [address] 08/03/2024 Helen Mathew Other viral warts B07.8 ; Tinea unguium B35.1 ; Pain in right toe(s) M79.674 ; Pain in left toe(s) M79.675 and Left foot pain M79.672 [facility] [address] 10/09/2024 Helen Black Other viral warts B07.8 [...] Treatment Pending Test Test Name Order Date 91234-DQCFIPT NAIL, 6 OR MORE 12/08/2018 67936-QOZDAQL NAIL, 6 OR MORE 03/16/2019 28102-IIMHWFZ NAIL, 6 OR MORE 06/05/2019 64429-DYEVUQW NAIL, 6 OR MORE 09/14/2019 97554-LJJOVRB NAIL, 6 OR MORE 11/23/2019 99049-DUZXYWC NAIL, 6 OR MORE 02/01/2020 26050-RNWCMQW NAIL, 6 OR MORE 04/15/2020 18289-MBNPXHK NAIL, 6 OR MORE 06/20/2020 75297-TDVOKJW NAIL, 6 OR MORE 08/26/2020 93150-QFHSEDR NAIL, 6 OR MORE 11/04/2020 06202-MOLTGTI NAIL, 6 OR MORE 02/10/2021 05184-YPWNMXT NAIL, 6 OR MORE 05/01/2021 55211-HMLNFKC NAIL, 6 OR MORE 07/10/2021 77627-STSXZHJ NAIL, 6 OR MORE 09/29/2021 78673-VFNZBYN NAIL, 6 OR MORE 12/04/2021 02776-KKSPOXB NAIL, 6 OR MORE 02/16/2022 50368-JTRXOGL NAIL, 6 OR MORE 05/21/2022 83400-ZPRZJFV NAIL, 6 OR MORE 07/30/2022 08668-TTXWCUG NAIL, 6 OR MORE 10/01/2022 44278-WHWDQRX NAIL, 6 OR MORE 12/03/2022 88841-NDKHLQJ NAIL, 6 OR MORE 02/11/2023 34872-PJMIEOQ NAIL, 6 OR MORE 04/22/2023 42332-QTJQQIB NAIL, 6 OR MORE 06/24/2023 27394-JKJTDVQ NAIL, 6 OR MORE 09/02/2023 91303-LEBGPYS NAIL, 6 OR MORE 11/22/2023 97495-ZRAHBPZ NAIL, 6 OR MORE 01/10/2024 97032-NAEWSMK NAIL, 6 OR MORE 03/20/2024 22496-KLUSQVE NAIL, 6 OR MORE 05/25/2024 76427-ANVGRAK NAIL, 6 OR MORE 08/03/2024 07534-OQZSFRG NAIL, 6 OR MORE 10/09/2024 59533-Kdpi Destruction, 1-14 10/09/2024 24478-Rbgd Destruction, 1-14 08/03/2024 77642-Equu Destruction, 1-14 05/25/2024 34917-Jhwj Destruction, 1-14 03/20/2024 92096-Rcep Destruction, 1-14 01/10/2024 17716-Cavy Destruction, 1-14 02/11/2023 79304-Oiob Destruction, 14 11/22/2023 49089-Oyvn Destruction, -09/02/2023 54415-Cqxf Destruction, 04-1806/24/2023 22733-Diqy Destruction, 04-1804/22/2023 98844-Lqpx Destruction, 04-1812/04/2021 51572-Sfto Destruction, 04-1812/03/2022 50230-Ilbw Destruction, 04-1810/01/2022 87227-Hvnk Destruction, 04-1807/30/2022 67718-Kvmn Destruction, 04-1805/21/2022 69590-Ijzb Destruction, 04-1802/16/2022 86007-Zksg Destruction, 04-1805/01/2021 72911-Mssf Destruction, 04-1809/29/2021 34135-Epnk Destruction, 04-1807/10/2021 44062-Hjgd Destruction, 04-1811/04/2020 97965-Gthq Destruction, 04-1802/10/2021 55717-Sxfq Destruction, 04-1808/26/2020 64538-Btpg Destruction, 04-1806/20/2020 32085-Ulza Destruction, 04-1804/15/2020 22942-Miny Destruction, 04-1809/14/2019 28457-Gpat Destruction, 04-1802/01/2020 54009-Venx Destruction, 04-1811/23/2019 65349-Glqr Destruction, 04-1812/08/2018 40294-Wopl Destruction, 04-1806/05/2019 61112-Cbfo Destruction, 14 03/16/2019 18095-Cbddjsog Plate 06/05/2019 51031-Ifyshcfl Plate 02/01/2020 00425-Maouxsrw Plate 11/04/2020 79642-Tkvoezgx Plate 05/01/2021 50732-Lmmaotoo Plate 02/10/2021 32938-Gmrfzqpv Plate 09/29/2021 50584-Tsjyzviu Plate 12/04/2021 10135-Pnmronli Plate 12/03/2022 58533-Phzpsiid Plate 02/11/2023 30117-Igpbszjy Plate 11/22/2023 36821-Qdtvukrc Plate 10/09/2024 96476-Hqrsybdv Plate Each Additional 16702-Wdrrhffa Plate Each Additional 11/2020 92823- Debride <25 sq cm 09/14/2019 Next Appt Details Provider Name:Helen Mathew , 12/18/2024 01:30:00 PM, [address] [place] [address], [phone], Provider Name:Helen Mathew , 02/12/2025 11:00:00 AM, [address] [place] [address], [phone], Insurance Providers Payer Name Payer Address Payer Phone Subscriber Number Group Number Insured Name Patient Relationship to Insured Coverage Start Date Coverage End Date [facility] [address] [place] [phone] [id number] Dina Levy Self - patient is the [...]
== END 2024-11-20 09:20 | disposition home or self-care (01) ==
LOC: HO.HCS 09:03
PROVIDERS: PCP Internal Medicine; Visit Provider Internal Medicine
DX: I35.0 Nonrheumatic aortic (valve) stenosis (principal); I10 Essential (primary) hypertension
CPT/HCPCS: 99214; G2211

== ENCOUNTER → 2024-11-20 09:02 | Outpatient (BNVA) | payer MEDICARE, SELFPAY | PROVIDERS: PCP Internal Medicine; Visit Provider Internal Medicine | DX: I35.0 Nonrheumatic aortic (valve) stenosis (principal); I10 Essential (primary) hypertension | CPT/HCPCS: 99212 ==

== ENCOUNTER 2024-11-24 08:31 | Outpatient (AMB) | payer MEDICARE, SELFPAY ==
--- NOTE | 2024-11-24 08:45 | A.OFFVIS_ITS ---
Intake Visit Reasons: 3m pessary maintenance Intake Note: Patient is present for 3M/Pessary maintenance Urology Medication:None Antibiotic Allergy:None Blood Thinner:Aspirin Dimmer Board Operator Required: No Allergies No Known Allergies Allergy (Verified 11/24/24 08:45) Medication List - Last Reconciled 11/24/24 by Ambrose Lee MD amlodipine 2.5 mg PO DAILY aspirin (Adult Low Dose Aspirin) 81 mg PO DAILY atorvastatin 20 mg PO 3XW cholecalciferol (vitamin D3) 50 mcg PO DAILY levothyroxine 112 mcg PO QAM HPI Comments Details: 11/24/24--Dina is an 83-year-old female who has been managed with pessary for vaginal prolapse. History of aortic stenosis, hypertension, history of total hysterectomy 1984. Here for pessary maintenance. Pessary mentor ring with support size 4 removed/cleaned/and replaced without difficulty. Comorbidity- constipation, discussed Dulcolax PRN. Continue pessary management. Follow-up in 3 months. 08/24/24--Dina is an 83-year-old female who has been managed with pessary for vaginal prolapse. History of aortic stenosis, hypertension, history of total hysterectomy 1984. Pessary mentor ring with support size 4 removed/cleaned/and replaced without difficulty. Continue pessary management. Follow-up in 3 months. 83-year-old female presenting with urinary symptoms related to vaginal prolapse management. She experiences increased discharge toward the end of her pessary maintenance cycle, making it challenging to manage the pessary independently. Despite having no burning sensations or significant urinary concerns, she reports a bulging sensation, complicating her hygiene routine. Her medical history includes aortic stenosis, hypertension, total hysterectomy, and previous concerns related to vaginal prolapse. 05/29/24--Dina is an 83-year-old female who has been managed with pessary for cystocele. She denies gross hematuria or dysuria. She was seen last 02/14/2024, at that time pessary was increased in size from a mentor ring 3-4. Pessary mentor ring with support size 4 removed/cleaned/and replaced without difficulty. Continue pessary management. Follow-up in 3 months. 02/14/24-FU pessary maintenance. Dina is an 83-year-old female who has been managed with pessary for cystocele. She comes in today and states that about a week ago Wednesday the pessary fell out. She states that she has had a cold and has been coughing and 1 of the times that she coughed she felt that the pessary had fallen out. She brought the pessary to the office. She denies irritative voiding symptoms. On pelvic examination it was determined to size up on the pessary. Pessary - mentor size 4 ring with support inserted vaginally. 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 Last seen 07/26/23, denies irritativie voiding symptoms, UA - nitritie positive - will send for c/s. She denies UTI symptoms. Here for pessary maintenance. Pessary removed/cleaned/and replaced without difficulty. Continue pessary management. Follow-up in 3 months [facility] Medical History Nocturnal leg cramps Degenerative joint disease of both hips Chronic right hip pain Prolapse of female pelvic organs COVID-19 vaccine dose declined Left medial knee pain Bilateral hip pain Post-menopause Tubular adenoma of colon Osteopenia of left femoral neck Nonrheumatic aortic (valve) stenosis Essential hypertension Dyslipidemia Acquired hypothyroidism Acquired deformity of toenail Surgical History Hx of colonoscopy History of total abdominal hysterectomy and bilateral salpingo-oophorectomy Hx of cholecystectomy Family History Father CAD (coronary artery disease) Myocardial infarction Mother Type 2 diabetes mellitus Social History Housing: House Alcohol intake: current Patient Tobacco Use Status: Never used Tobacco e-Cigarette/Vaping Use: Never Used Second Hand Smoke Exposure: No Current occupational status: retired Cognitive needs: No Hearing needs: No Vision needs: Yes Review of Systems Const All systems reviewed & are unremarkable except as noted in HPI and below Reports no additional complaints Eyes Reports no additional complaints ENT Reports no additional complaints Card Reports no additional complaints Resp Reports no additional complaints GI Reports no additional complaints Reports as per HPI Musc Reports no additional complaints Skin/Breast Reports system reviewed and no additional complaints, except as documented Neuro Reports no additional complaints Psych Reports no additional complaints Endo Reports no additional complaints Jame/Lymph Reports no additional complaints Aller/Immun Reports no additional complaints Assessment & Plan Assessment & Plan (1) Prolapse of female pelvic organs: Code(s): N81.9 - Female genital prolapse, unspecified Category: Medical (2) Constipation: Code(s): K59.00 - Constipation, unspecified Category: Medical Plan Continue pessary management. Follow-up in 3 months. Patient Instructions: The patient had an opportunity to ask questions regarding treatment plan. The patient expressed understanding and agreement with the above treatment plan. The patient is aware they should contact our office by phone for worsening of their current condition or the appearance of new symptoms. Compliance is encouraged with any medications and followup testing that is ordered. It is a privilege to be allowed the opportunity to participate in the urologic care of your patient. If you have any questions or concerns regarding treatment for the above conditions please do not hesitate to contact me. The office telephone contact is [phone]. This note is constructed in part using voice recognition software. While every effort has been made to ensure accuracy brazer resistance errors may have been included. Yours sincerely, Ambrose Lee MD Coding Level of Care Code Est Pt Level 3 (55813) Complex EM visit Add On G2211 Diagnoses Prolapse of female pelvic organs N81.9 Constipation K59.00
--- OUTSIDE RECORDS SUMMARY | 2024-11-24 08:47 | XMS_ITS | Patient Health Record ---
Author Organization [facility] [place] Address [address] [facility] [place] [address] Care Team Providers Care Vice President Of Manufacturing Name Role Phone Joy VINCENT, Nuria Quach Primary Care Provider Un available Helen Mathew Unavailable [phone] Allergies No Known Allergies Reason For Referral [...] Provider Speciality Internal M edicine Referred Organization [facility] Referred Provider Helen Mathew Referred Address [address] [facility] [address] ,[place], [place],[address], Referred Provider Specialty Podiatry Referral Priority Routine [...] Unknown 12/05/2023 Administered Pneumococcal Unknown 04/04/2018 Administered Social History [...] W/U Status Risk Notes Problem Viral wart (58010662) Other viral warts (B07.8) Active confirmed Problem Tinea unguium (348465458) Tinea unguium (B35.1) Active confirmed Vital Signs Blood pressure diastolic 80 mm Hg 10/09/2024 Height 4 ft 10 in in 10/09/2024 Blood pressure systolic 120 mm Hg 10/09/2024 Weight 138 lbs 10/09/2024 BMI 28.84 kg/m2 10/09/2024 Procedures Procedure Date Ordered Date Performed Result Body Sit e 73944-ASKEIQA NAIL, 6 OR MORE 01/10/2024 N/A 11096-Qwhc Destruction, 1-14 01/10/2024 N/A 46020-EGZTKBQ NAIL, 6 OR MORE 03/20/2024 N/A 71482-Xjim Destruction, 1-14 03/20/2024 N/A 37074-RDGMQAL NAIL, 6 OR MORE 05/25/2024 N/A 32294-Xjta Destruction, 1-14 05/25/2024 N/A 12433-AAMWXTL NAIL, 6 OR MORE 08/03/2024 N/A 66328-Qnnr Destruction, 1-14 08/03/2024 N/A 66273-CKADOQW NAIL, 6 OR MORE 10/09/2024 N/A 47697-Rldi Destruction, 1-14 10/09/2024 N/A 62676-Cqbaixil Plate 10/09/2024 N/A Encounters Encounter Location Date Provider Diagnosis [address] [address] 01/10/2024 Helen Black Other viral warts B07.8 ; Tinea unguium B35.1 ; Pain in right toe(s) M79.674 ; Pain in left toe(s) M79.675 and Pain in right foot M79.[address] [address] 03/20/2024 Helen Black Other viral warts B07.8 ; Tinea unguium B35.1 ; Pain in right toe(s) M79.674 ; Pain in left toe(s) M79.675 and Pain in right foot M79.[address] [address] 05/25/2024 Helen Black Other viral warts B07.8 ; Tinea unguium B35.1 ; Pain in right toe(s) M79.674 ; Pain in left toe(s) M79.675 and Pain in right foot M79.[address] [address] 08/03/2024 Helen Black Other viral warts B07.8 ; Tinea unguium B35.1 ; Pain in right toe(s) M79.674 ; Pain in left toe(s) M79.675 and Left foot pain M79.[address] [id number] Helen Mathew Other viral warts B07.8 ; [...] M79.672) 10/09/2024 Ingrown nail (ICD-10 - L60.0) Plan Of Treatment Pending Test Test Name Order Date 74997-PCKMUZA NAIL, 6 OR MORE 12/08/2018 88418-VEWLXQX NAIL, 6 OR MORE 03/16/2019 62738-KQIGTYM NAIL, 6 OR MORE 06/05/2019 93216-BPBEIGP NAIL, 6 OR MORE 09/14/2019 21353-WOVKCLH NAIL, 6 OR MORE 11/23/2019 01245-ZIJXSAZ NAIL, 6 OR MORE 02/01/2020 05753-LBNVTMN NAIL, 6 OR MORE 04/15/2020 34271-XGZNRDO NAIL, 6 OR MORE 06/20/2020 84908-MSSNLDE NAIL, 6 OR MORE 08/26/2020 39127-KWWZOUM NAIL, 6 OR MORE 11/04/2020 31209-POVHEDE NAIL, 6 OR MORE 02/10/2021 50170-KBAREJG NAIL, 6 OR MORE 05/01/2021 75537-BJMICIQ NAIL, 6 OR MORE 07/10/2021 63670-OEZSYWM NAIL, 6 OR MORE 09/29/2021 37216-EXBTPNY NAIL, 6 OR MORE 12/04/2021 54130-KCSCIRE NAIL, 6 OR MORE 02/16/2022 60647-ZVNXUJS NAIL, 6 OR MORE 05/21/2022 25701-CAJZJFU NAIL, 6 OR MORE 07/30/2022 03442-YPCNAXV NAIL, 6 OR MORE 10/01/2022 41630-UMNUGYU NAIL, 6 OR MORE 12/03/2022 96159-OIILEJS NAIL, 6 OR MORE 02/11/2023 90069-HCKANQC NAIL, 6 OR MORE 04/22/2023 12232-TEUTABG NAIL, 6 OR MORE 06/24/2023 50564-AVIBSLQ NAIL, 6 OR MORE 09/02/2023 34507-QNXHQRM NAIL, 6 OR MORE 11/22/2023 45604-VYSLMTG NAIL, 6 OR MORE 01/10/2024 91699-JIETDIE NAIL, 6 OR MORE 03/20/2024 08747-SGSMOEU NAIL, 6 OR MORE 05/25/2024 89105-ITTUCMM NAIL, 6 OR MORE 08/03/2024 12029-LXTZGKG NAIL, 6 OR MORE 10/09/2024 80213-Lsil Destruction, -10/09/2024 61477-Zdvt Destruction, -08/03/2024 18199-Yvnz Destruction, 04-1805/25/2024 92496-Qtzv Destruction, 04-1803/20/2024 06939-Yyhx Destruction, -01/10/2024 44996-Lbac Destruction, 04-1802/11/2023 17220-Lszh Destruction, 04-1811/22/2023 00584-Erfg Destruction, -09/02/2023 23138-Czqp Destruction, -06/24/2023 67345-Gmtk Destruction, 04-1804/22/2023 35101-Crkg Destruction, 04-1812/04/2021 21770-Idmf Destruction, 04-1812/03/2022 12724-Hmfb Destruction, 04-1810/01/2022 67771-Mmbu Destruction, 04-1807/30/2022 28829-Fdgu Destruction, 04-1805/21/2022 78175-Evvm Destruction, -02/16/2022 28833-Ippm Destruction, -05/01/2021 42592-Nhir Destruction, 04-1809/29/2021 47383-Oluq Destruction, 04-1807/10/2021 78761-Ejtu Destruction, 04-1811/04/2020 16708-Rtws Destruction, 04-1802/10/2021 29209-Qtek Destruction, 04-1808/26/2020 26113-Zslp Destruction, -06/20/2020 70868-Lldr Destruction, 04-1804/15/2020 27511-Mwgk Destruction, 04-1809/14/2019 41943-Juyg Destruction, 04-1802/01/2020 43045-Eujh Destruction, 04-1811/23/2019 68788-Nqxn Destruction, 04-1812/08/2018 82888-Tqeg Destruction, 04-1806/05/2019 45586-Gnwt Destruction, 04-1803/16/2019 26335-Ksmprmqj Plate 06/05/2019 20962-Jpvnherg Plate 02/01/2020 16209-Twigcgow Plate 11/04/2020 92463-Tzcxqyww Plate 05/01/2021 23419-Qriufemr Plate 02/10/2021 91770-Qaswlynd Plate 09/29/2021 56026-Bvzlfllj Plate 12/04/2021 64000-Wtxpwkfm Plate 12/03/2022 35273-Detourzs Plate 02/11/2023 93588-Pjgolsto Plate 11/22/2023 83380-Ywpcruki Plate 10/09/2024 72902-Uidqfdix Plate Each Additional 30457-Xtcupugv Plate Each Additional 11/2020 60698- Debride <25 sq cm 09/14/2019 Next Appt Details Provider Name:Helen Mathew , 12/18/2024 01:30:00 PM, [address] [place] [address], [phone], Provider Name:Helen Mathew , 02/12/2025 11:00:00 AM, [address] [place] [address], [phone], Insurance Providers Payer Name Payer Address Payer Phone Subscriber Number Group Number Insured Name Patient Relationship to Insured Coverage Start Date Coverage End Date [facility] [address] [place] [phone] [id number] Dina Levy Self - patient is the [...] 1979 TAHBSO 1984 Gall bladder 1982 Hysterectomy 1984
== END 2024-11-24 09:20 | disposition home or self-care (01) ==
LOC: HO.HUSH 08:32
PROVIDERS: PCP Internal Medicine; Visit Provider Urology
DX: N81.9 Female genital prolapse, unspecified (principal); K59.00 Constipation, unspecified; Z13.9 Encounter for screening, unspecified
CPT/HCPCS: 99213; G2211

== ENCOUNTER → 2024-11-24 08:31 | Outpatient (BNVA) | payer MEDICARE, SELFPAY | PROVIDERS: PCP Internal Medicine; Visit Provider Urology | DX: N81.9 Female genital prolapse, unspecified (principal); K59.00 Constipation, unspecified | CPT/HCPCS: 81003; 99212 ==

== ENCOUNTER 2025-01-23 07:19 | Outpatient (REF) | payer MEDICARE, SELFPAY ==
--- OUTSIDE RECORDS SUMMARY | 2023-11-11 07:15 | XMS_ITS ---
Author Organization [facility] Address [address] [place] [phone] Care Team Providers Care Stonecutter Apprentice Hand Name Role Phone Joy VINCENT, Nuria Quach Primary Care Provider Un available Helen Mathew Unavailable [phone] Sheppard Encounters Encounter Location Date Provider Diagnosis [address] [address] 11/11/2023 Helen Quincy Plan Of Treatment Next Appt Details Provider Name:Helen Mathew , 02/12/2025 11:00:00 AM, [address] [place] [address], [phone], Provider Name:Helen Mathew , 04/26/2025 02:00:00 PM, [address] [place] [address], [phone], Progress Notes * Dina LEVY MDOB: 9 (84 yo F)Acc No.[id number]:11/11/2023 Progress Note Patient: Ochoa TORRESDina RONDON Provider: Ochoa Mathew DPM :1940 A ge:82 Y S ex:Female Date:11/11/2023 Address:[address] [place] [address] [place] Pcp:Brad Cervantes Subjective: * Chief Complaints: * [...] 11/11/2023 Generated for Mario hawley/Dixon/Anita on: 1 07:22 AM EDT
--- OUTSIDE RECORDS SUMMARY | 2025-01-23 07:22 | XMS_ITS | Patient Health Record ---
Author Organization [facility] [place] Address [address] [place] [address] Care Team Providers Care Staff Writer Name Role Phone Joy VINCENT, Nuria Quach Primary Care Provider Un available Helen Mathew Unavailable [phone] Allergies No Known Allergies Reason For Referral Diagnosis 1 Other viral warts (B 07.8) Diagnosis 2 Tinea unguium (B35.1 ) Diagnosis 3 Pain in right toe(s) (M79.674) Diagnosis 4 Pain in left toe(s) (M79.675) Diagnosis 5 Pain in right foot ( M79.671) Diagnosis 6 Ingrowing nail (L60. 0) Diagnosis 7 Other hammer toe(s) (acquired), right foot (M20.41) Diagnosis 8 Other hammer toe(s) (acquired), left foot (M20.42) Diagnosis 9 Left foot pain (M79. 672) Referring Provider First Name Dalton Referring Provider Last Name Philip Referred [facility] Referred Provider Helen Mathew Referred Address [address] [place], [place],[address], Referred Provider Specialty Podiatry Referral Priority Routine Medications Medication SIG (Take, Route, Frequency, Duration) Notes Start Date End Date Status Vitamin D Active Probiotic Not-Taking Chlorthalidone 25 mg 1 tablet in the morning Orally Once a day Not-Taking Magnesium Active Ciclopirox Olamine 0.77 % 1 application Externally Twice a day; Duration: 30 days 08/26/2020 Not-Brianna hanson Flax Seed Oil Not-Cruz garcia Atorvastatin Calcium 20 MG 1 tablet Oral ly Once a day; Duration: 90 day(s) Active Levothyroxine Sodium 112 MCG 1 tablet on an empty stomach in the morning Orally Once a day; Duration: 90 days Active amLODIPine Besylate 2.5 MG 1 tablet Oral ly Once a day Active Aspirin EC 81 MG 1 tablet Orally Once a day; Duration: 90 day(s) Active Immunizations Vaccine Route Administration [...] Problem Acquired hammer toe of right foot (5175863604586 105) Other hammer toe(s) (acquired), right foot (M20.41) Active confirmed Problem Viral wart (13927379) Other viral warts (B07.8) Active confirmed Problem Tinea unguium (588211171) Tinea unguium (B35.1) Active confirmed Problem Acquired hammer toe of left foot (4260978487407 103) Other hammer toe(s) (acquired), left foot (M20.42) Active confirmed Vital Signs Blood pressure diastolic 65 mm Hg 12/18/2024 Height 4 ft 10 in in 12/18/2024 Blood pressure systolic 126 mm Hg 12/18/2024 Weight 138 lbs 12/18/2024 BMI 28.84 kg/m2 12/18/2024 Procedures Procedure Date Ordered Date Performed Result Body Sit e 75874-LVXLHNK NAIL, 6 OR MORE 03/20/2024 N/A 65946-Pcut Destruction, 1-14 03/20/2024 N/A 72476-QTUAJZQ NAIL, 6 OR MORE 05/25/2024 N/A 80599-Njls Destruction, 1-14 05/25/2024 N/A 01156-SUWUVYS NAIL, 6 OR MORE 08/03/2024 N/A 23377-Nqps Destruction, 1-14 08/03/2024 N/A 48505-CPLCKTT NAIL, 6 OR MORE 10/09/2024 N/A 40304-Zqoc Destruction, 1-14 10/09/2024 N/A 40356-Pgvtniux Plate 10/09/2024 N/A 41433-AOEZTLY NAIL, 6 OR MORE 12/18/2024 N/A 64752-Eexy Destruction, 1-14 12/18/2024 N/A Encounters Encounter Location Date Provider Diagnosis [address] [address] 03/20/2024 Helen Black Other viral warts B07.8 ; Tinea unguium B35.1 ; Pain in right toe(s) M79.674 ; Pain in left toe(s) M79.675 and Pain in right foot M79.[address] [address] 05/25/2024 Helen Black Other viral warts B07.8 ; Tinea unguium B35.1 ; Pain in right toe(s) M79.674 ; Pain in left toe(s) M79.675 and Pain in right foot M79.[address] [address] 08/03/2024 Helen Black Other viral warts B07.8 ; Tinea unguium B35.1 ; Pain in right toe(s) M79.674 ; Pain in left toe(s) M79.675 and Left foot pain M79.[address] [address] 10/09/2024 Helen Black Other viral warts B07.8 ; Tinea unguium B35.1 ; Pain in right toe(s) M79.674 ; Pain in left toe(s) M79.675 ; Left foot pain M79.672 and Ingrown nail L60.0 [facility] [address] [place] [address] 12/18/2024 Helen Black Other viral warts B07.8 ; [...] 10/09/2024 Other viral warts (ICD-10 - B07.8) 12/18/2024 Other viral warts (ICD-10 - B07.8) 12/18/2024 Tinea unguium (ICD-10 - B35.1) 10/09/2024 Tinea unguium (ICD-10 - B35.1) 08/03/2024 Pain in right toe(s) (ICD-10 - M79.674) 05/25/2024 Tinea unguium (ICD-10 - B35.1) 03/20/2024 Tinea unguium (ICD-10 - B35.1) 03/20/2024 Pain in right toe(s) (ICD-10 - M79.674) 05/25/2024 Pain in right toe(s) (ICD-10 - M79.674) 08/03/2024 Pain in left toe(s) (ICD-10 - M79.675) 10/09/2024 Pain in right toe(s) (ICD-10 - M79.674) 12/18/2024 Pain in right toe(s) (ICD-10 - M79.674) 12/18/2024 Pain in left toe(s) (ICD-10 - M79.675) 10/09/2024 Pain in left toe(s) (ICD-10 - M79.675) 08/03/2024 Left foot pain (ICD-10 - M79.672) 05/25/2024 Pain in left toe(s) (ICD-10 - M79.675) 03/20/2024 Pain in left toe(s) (ICD-10 - M79.675) 03/20/2024 Pain in right foot (ICD-10 - M79.671) 05/25/2024 Pain in right foot (ICD-10 - M79.671) 12/18/2024 Left foot pain (ICD-10 - M79.672) 10/09/2024 Left foot pain (ICD-10 - M79.672) 10/09/2024 Ingrown nail (ICD-10 - L60.0) Plan Of Treatment Pending Test Test Name Order Date 41869-MCDJMPH NAIL, 6 OR MORE 12/08/2018 80731-PXSQJTG NAIL, 6 OR MORE 03/16/2019 57616-MADOZMF NAIL, 6 OR MORE 06/05/2019 73098-YCHIWQS NAIL, 6 OR MORE 09/14/2019 79544-UVOHNYI NAIL, 6 OR MORE 11/23/2019 91913-XBRQVLX NAIL, 6 OR MORE 02/01/2020 10661-GOEKWCN NAIL, 6 OR MORE 04/15/2020 55742-ALQEJOZ NAIL, 6 OR MORE 06/20/2020 55478-JOSJRSR NAIL, 6 OR MORE 08/26/2020 50046-DBKONPF NAIL, 6 OR MORE 11/04/2020 41008-NRNRAVB NAIL, 6 OR MORE 02/10/2021 24771-QZGRROM NAIL, 6 OR MORE 05/01/2021 37073-TNSNASS NAIL, 6 OR MORE 07/10/2021 12071-XYRYDXK NAIL, 6 OR MORE 09/29/2021 52095-VGGPGJK NAIL, 6 OR MORE 12/04/2021 10101-JEMYNES NAIL, 6 OR MORE 02/16/2022 81848-OSQUBJY NAIL, 6 OR MORE 05/21/2022 20259-YVGHWLM NAIL, 6 OR MORE 07/30/2022 35053-VZNAFVR NAIL, 6 OR MORE 10/01/2022 03178-RKFZVVY NAIL, 6 OR MORE 12/03/2022 85495-CPMNFZQ NAIL, 6 OR MORE 02/11/2023 53854-RMYYOHL NAIL, 6 OR MORE 04/22/2023 87204-NDUDBRR NAIL, 6 OR MORE 06/24/2023 43383-RYOLTCY NAIL, 6 OR MORE 09/02/2023 92366-LMXSGVU NAIL, 6 OR MORE 11/22/2023 53116-WVEAPUZ NAIL, 6 OR MORE 01/10/2024 35199-DRWROZB NAIL, 6 OR MORE 03/20/2024 76359-JWTHFTV NAIL, 6 OR MORE 05/25/2024 59831-DIWTFDJ NAIL, 6 OR MORE 08/03/2024 84252-LEBFWRE NAIL, 6 OR MORE 10/09/2024 94459-EGMLOQJ NAIL, 6 OR MORE 12/18/2024 58396-Nezc Destruction, -14 10/09/2024 78428-Cqtj Destruction, -14 12/18/2024 64534-Ylzf Destruction, -14 08/03/2024 90892-Kabx Destruction, -05/25/2024 44132-Suer Destruction, -14 03/20/2024 18642-Trme Destruction, -14 01/10/2024 12782-Tlun Destruction, -14 02/11/2023 82508-Qbsq Destruction, -11/22/2023 03467-Lsux Destruction, -14 09/02/2023 63498-Cvwk Destruction, -14 06/24/2023 33828-Mcce Destruction, -14 04/22/2023 86137-Qtpy Destruction, -14 12/04/2021 00522-Ffik Destruction, -14 12/03/2022 07709-Kjpv Destruction, -14 10/01/2022 55734-Tsgq Destruction, -07/30/2022 70126-Qilf Destruction, 04-1805/21/2022 71651-Soiu Destruction, 14 02/16/2022 82263-Lppn Destruction, -14 05/01/2021 29836-Iazl Destruction, -14 09/29/2021 15373-Oilc Destruction, -07/10/2021 90741-Iftv Destruction, 04-1811/04/2020 82892-Zhoj Destruction, 04-1802/10/2021 49469-Dzsf Destruction, 04-1808/26/2020 57214-Lvtd Destruction, 04-1806/20/2020 31023-Suvf Destruction, 04-1804/15/2020 21141-Zscz Destruction, 04-1809/14/2019 52556-Uowm Destruction, 04-1802/01/2020 57185-Kkps Destruction, 04-1811/23/2019 48878-Prif Destruction, 04-1812/08/2018 66119-Nbxr Destruction, 04-1806/05/2019 43497-Ezdy Destruction, 04-1803/16/2019 97552-Dcqktftt Plate 06/05/2019 11689-Ckcpznvh Plate 02/01/2020 32989-Eiraislk Plate 11/04/2020 75150-Oevhawla Plate 05/01/2021 44211-Fvomevig Plate 02/10/2021 23583-Uqhtnybp Plate 09/29/2021 61437-Euytbgyh Plate 12/04/2021 02820-Fumftqfa Plate 12/03/2022 92155-Ploqqmid Plate 02/11/2023 22488-Euhlrhca Plate 11/22/2023 87956-Heewkxpv Plate 10/09/2024 91762-Xqvazmik Plate Each Additional 21154-Hauqgsaj Plate Each Additional 11/2020 40828- Debride <25 sq cm 09/14/2019 Next Appt Details Provider Name:Helen Mathew , 02/12/2025 11:00:00 AM, [address] [place] [address], [phone], Provider Name:Helen Mathew , 04/26/2025 02:00:00 PM, [address] [place] [address], [phone], Insurance Providers Payer Name Payer Address Payer Phone Subscriber Number Group Number Insured Name Patient Relationship to Insured Coverage Start Date Coverage End Date [facility] [address] [place] [phone] [id number] Dina Levy Self - patient is the [...]
[2025-01-23 08:17] LABS: Alanine Aminotransferase 32 U/L (0-31); Anion Gap 12 (12-20); Aspartate Amino Transferase 33 U/L (5-31); Blood Urea Nitrogen 13 mg/dL (9-16); Calcium 9.7 mg/dL (8.4-10.2); Carbon Dioxide 28 mmol/L (22-29); Chloride 106 mmol/L (96-108); Cholesterol 255 mg/dL (<200); Estimated Glomerular Filt Rate > 60; HDL Cholesterol 98 mg/dL (>40); Potassium 4.0 mmol/L (3.3-5.1); Sodium 142 mmol/L (135-145); Triglycerides 120 mg/dL (<150)
[2025-01-23 08:34] LABS: Free T4 (Free Thyroxine) 1.26 ng/dL (0.71-1.85); Thyroid Stimulating Hormone 0.30 uIU/mL (0.32-4.0)
== END 2025-01-23 07:20 | disposition home or self-care (01) ==
LOC: HO.LAB 07:19
PROVIDERS: PCP Internal Medicine; Visit Provider Internal Medicine
DX: M85.852 Other specified disorders of bone density and structure, left thigh (principal); G47.62 Sleep related leg cramps; I10 Essential (primary) hypertension; E78.5 Hyperlipidemia, unspecified; E03.9 Hypothyroidism, unspecified; Z78.0 Asymptomatic menopausal state
CPT/HCPCS: 36415; 80048; 80061; 82306; 84439; 84443; 84450; 84460

== ENCOUNTER 2025-01-30 08:53 | Outpatient (AMB) | payer MEDICARE, SELFPAY ==
--- OUTSIDE RECORDS SUMMARY | 2023-11-11 07:15 | XMS_ITS ---
Author Organization [facility] Address [address] [place] [phone] Care Team Providers Care Castings Drafter Name Role Phone Joy VINCENT, Nuria Quach Primary Care Provider Un available Helen Mathew Unavailable [phone] Sheppard Encounters Encounter Location Date Provider Diagnosis [address] [address] 11/11/2023 Helen Quincy Plan Of Treatment Next Appt Details Provider Name:Helen Mathew , 02/12/2025 11:00:00 AM, [address] [place] [address], [phone], Provider Name:Helen Mathew , 04/26/2025 02:00:00 PM, [address] [place] [address], [phone], Progress Notes * Dina LEVY MDOB: 9 (84 yo F)Acc No.[id number]:11/11/2023 Progress Note Patient: Ochoa TORRESDina RONDON Provider: Ochoa Mathew DPM :1940 A ge:82 Y S ex:Female Date:11/11/2023 Address:[address] [place] [address] [place] Pcp:Brad Cervantes Subjective: * Chief Complaints: * [...] 11/11/2023 Generated for Mario hawley/Dixon/Anita on: 1 09:44 AM EDT
--- NOTE | 2025-01-30 09:31 | MHC.PC.OV ---
Vital Signs 01/30/25 09:37 01/30/25 09:45 Height 4 ft 10 in Weight 141 lb BMI 29.5 BP 142/70 H 130/75 Blood Pressure Location Rt brachial Lt brachial Position Sitting Sitting Respiration 16 Pulse 85 Pulse Source Pulse Oximeter Temp 98.2 F Temp Source Oral Pulse Oximetry (%) 96 Oxygen Delivery Method Room Air Intake Visit Reasons: 6 month follow up Intake Note: Pt is here today for her 6mo. f/u [employer] Required: No Allergies No Known Allergies Allergy (Verified 01/30/25 09:55) Medication List - Last Reconciled 01/30/25 by Nuria Hamilton MD amlodipine 2.5 mg PO DAILY aspirin (Adult Low Dose Aspirin) 81 mg PO DAILY atorvastatin 20 mg PO 3XW cholecalciferol (vitamin D3) 50 mcg PO DAILY levothyroxine 112 mcg PO QAM Tobacco use date assessed: 01/30/25 Fall risk assessment: No Falls in past year Last assessed Fall Risk: 01/30/25 Dental Screening Dental Screen Date: 01/30/25 Did you have a dental visit in the last 12 months?: No Did you have a dental problem in the last 6 months where you did not have access to dental care?: No Was dental information given to patient?: Patient declined HPI 6 month follow up HPI Details The patient is an 84-year-old female presenting for a follow-up visit . Her blood pressure was initially elevated at 142/70, which she attributes to having coffee, but it later decreased to 130/75x during the visit. She has gained weight, from 136 lbs to 141 lbs. Review of recent labs shows her total cholesterol increased from 222 to 255 mg/dL and LDL cholesterol increased from 118 to 133 mg/dL since June. Her blood sugar and liver function tests are slightly elevated, but the blood sugar remains within the normal range. Her TSH was slightly high. Her vitamin D level was 36.8 The patient reports experiencing right leg pain , particularly after physical exertion such as climbing stairs or using a ladder for cleaning. . She previously had nocturnal leg aching, which has since resolved. The patient has a known heart murmur due to aortic stenosis. Denies any chest pain or shortness of breath She is followed by cardiology and has a repeat echocardiogram scheduled for May. Her medications include levothyroxine 112 mcg and atorvastatin 20 mcg. She recently started taking a One A Day 50+ multivitamin and also takes 2000 units of vitamin D daily. Her vaccinations are up-to-date, including influenza , RSV in 2022, shingles, tetanus, and a complete pneumococcal series with Prevnar 13, 23, and 20. [facility] Medical History Acquired deformity of nail Nocturnal leg cramps Degenerative joint disease of both hips Chronic right hip pain Prolapse of female pelvic organs COVID-19 vaccine dose declined Left medial knee pain Bilateral hip pain Post-menopause Tubular adenoma of colon Osteopenia of left femoral neck Nonrheumatic aortic (valve) stenosis Essential hypertension Dyslipidemia Acquired hypothyroidism Acquired deformity of toenail Surgical History Hx of colonoscopy History of total abdominal hysterectomy and bilateral salpingo-oophorectomy Hx of cholecystectomy Family History Father CAD (coronary artery disease) Myocardial infarction Mother Type 2 diabetes mellitus Social History Housing: House Alcohol intake: current Patient Tobacco Use Status: Never used Tobacco e-Cigarette/Vaping Use: Never Used Second Hand Smoke Exposure: No Current occupational status: retired Cognitive needs: No Hearing needs: No Vision needs: Yes Questionnaire PHQ-9 Over the last 2 weeks, how often have you been bothered by any of the following problems? 1. Little interest or pleasure in doing things: not at all 2. Feeling down, depressed, or hopeless: not at all 3. Trouble falling or staying asleep, or sleeping too much: not at all 4. Feeling tired or having little energy: several days 5. Poor appetite or overeating: not at all 6. Feeling bad about yourself - or that you are a failure or have let yourself or your family down: not at all 7. Trouble concentrating on things, such as reading the newspaper or watching television: not at all 8. Moving or speaking so slowly that other people could have noticed. Or the opposite - being so fidgety or restless that you have been moving around a lot more than usual: not at all 9. Thoughts that you would be better off or of hurting yourself in some way: not at all Total score: 1 Depression Screening Interpretation: Negative Depression Screening Done: Yes Source: Developed by Drs. Param Hardy, Nat Banerjee, Sony Lopez and colleagues, with an educational cherelle from [employer]. Thrive Questionnaire Date Thrive assessed: 06/20/24 I am a: Patient What is your living situation today?: I have a steady place to live Within the past 12 months, did the food you bought not last and you didn't have the money to get more?: Never true Within the past 12 months, did you worry whether your food would run out before you got money to buy more?: Never true Do you have trouble paying for medicines?: No Do you have trouble getting transportation to medical appointments?: No Do you have trouble paying your heating and electricity bill?: No Do you have trouble taking care of your child, family member or friend?: No Do you have trouble with day-to-day activities such as bathing, preparing meals, shopping, managing finances, etc.?: No Are you currently unemployed and looking for a job?: No Are you interested in more education?: No Please select the resources that you would like help with: None Currently or been in a relationship where the following occur: No concerns reported THRIVE Score: 0 AUDIT C Alcohol Use Questionnaire (AUDIT-C) 1. How often do you have a drink containing alcohol?: 2-3 times a week 2. How many drinks containing alcohol do you have on a typical day when you are drinking?: 1 or 2 3. How often do you have six or more drinks on one occasion?: Never Total Score: 3 CARLY-7 AMB Questionnaire CARLY-7 Date CARLY - 7 assessed: 08/02/24 Feeling nervous, anxious, or on edge: 0 = Not at all Not being able to stop or control worryin = Not at all Worrying too much about different things: 0 = Not at all Trouble relaxin = Not at all Being so restless that it is hard to sit still: 0 = Not at all Becoming easily annoyed or irritable: 0 = Not at all Feeling afraid as if something awful might happen: 0 = Not at all Total CARLY-7 score (0-4 normal; 5-9 mild; 10-14 moderate; 15-21 severe): 0 Source: Developed by Drs. Param Hardy, Nat Banerjee, Sony Lopez and colleagues, with an educational cherelle from [employer]. Review of Systems Const Denies weakness Eyes Denies change in vision ENT Denies dizziness Card Denies chest pain, Denies chest pain with activity, Denies edema, Denies lightheadedness, Denies palpitations, Denies dyspnea and Denies dyspnea on exertion Resp Denies cough, Denies dyspnea and Denies dyspnea on exertion GI Denies abdominal pain, Denies change in bowel habits and Denies heartburn Reports no additional complaints Musc Denies abnormal gait, Denies muscle weakness, Denies numbness and Denies tingling Neuro Denies abnormal gait, Denies dizziness, Denies numbness, Denies Sensory deficit (Neuro), Denies tingling and Denies weakness Psych Reports no additional complaints Endo Denies palpitations Jame/Lymph Reports no additional complaints Aller/Immun Reports no additional complaints Physical exam (Primary Care) Vital Signs: Last Vital Signs Temp 98.2 F 01/30/25 09:37 Pulse 85 01/30/25 09:37 Resp 16 01/30/25 09:37 BP 130/75 01/30/25 09:45 Pulse Ox 96 01/30/25 09:37 Oxygen Delivery Method Room Air 01/30/25 09:37 BMI result Body Mass Index 29.5 Tobacco/Smoking Status: Tobacco use Status Tobacco use date assessed 01/30/25 01/30/25 09:33 Patient Tobacco Use Status Never used Tobacco 01/30/25 09:33 e-Cigarette/Vaping Use Never Used 01/30/25 09:33 PHQ-9: PHQ-9 Score PHQ-9: Total score 1 02/04/25 20:06 Depression Screening Interpretation: Negative Thrive Assessment: Date of Thrive Assessment Date Thrive assessed 06/20/24 01/30/25 09:33 Currently or been in a relationship where the following occur: No concerns reported Const Other: Alert oriented x3, no acute cardiorespiratory distress noted HENMT Mouth: Normal oral and palatal mucosa present, oropharynx normal and moist mucous membranes Neck Neck: Yes full ROM and Yes no lymphadenopathy Thyroid: Thyroid normal Resp Effort & Inspection: normal respiratory effort and able to speak in complete sentences Auscultation: clear to auscultation bilaterally Cardio Rate: regular rate Rhythm: regular rhythm Heart sounds: S1 normal heart sound present, S2 normal heart sound present and Murmur heart sound present systolic GI Inspection: Yes normal to inspection Palpation (GI): Soft to palpation Auscultation: normal bowel sounds General: Yes no CVA tenderness Back/Spine/Pelvis Back: no CVA tenderness Skin General skin exam: no rashes or lesions noted Neuro General: gait normal, moves all extremities, no focal motor deficits and CN's II-XI intact bilaterally Cognition (Neuro): normal cognition Gait exam (Neuro): Normal gait present Motor exam (neuro): 5/5 motor strength present throughout Sensory Exam: No Sensory deficit (Neuro) Extrem General: Yes normal to inspection, Yes no joint enlargement and Yes normal gait Psych Affect: normal affect Results Reviewed Results Reviewed: Name: Dina Levy Age/Sex: 84/F : 1940 Unit#: [id number] Attend Dr: Nuria Hamilton MD Re01/23/25 Status: DEP [facility] Disch: SPEC : [id number] TONY: 01/23/25 STATUS: COMP REQ : [id number] RECD: 01/23/[address]: Nuria Hamilton MD COMP: 01/23/25 ENTERED: 01/23/[address]: ORDERED: Met Prof Fast, AST, ALT, Lipid Panel, Vitamin D 25-OH, Free T4, TSH Test Result Flag Reference Sodium 142 135-145 mmol/L Potassium 4.0 3.3-5.1 mmol/L CL 106 96-108 mmol/L CO2 28 22-29 mmol/L Gap 12 12-20 BUN 13 9-16 mg/dL Creat 0.80 0.5-1.4 mg/dL eGFR > 60 Chronic Kidney Disease: Estimated GFR < 60 mL/min/1.73m2 Severe Kidney Disease: Estimated GFR < 15 mL/min/1.73m2 FBS 96 60-99 mg/dL CA 9.7 8.4-10.2 mg/dL AST (GOT) 33 H 5-31 U/L ALT (GPT) 32 H 0-31 U/L Triglyceride 120 <150 mg/dL Desirable Triglyceride: less than 150 mg/dL Borderline High Triglyceride 150-199 mg/dL High Triglyceride: 200-499 mg/dL Very High Triglyceride: greater than or equal to 5OO mg/dL Cholesterol 255 H <200 mg/dL Desirable Cholesterol: less than 200 mg/dL Borderline High Cholesterol: 200-239 mg/dL High Cholesterol: greater than 239 mg/dL LDL Calculated 133 H <100 mg/dL Desirable LDL: less than 100 mg/dL Near Optimal/Above Optimal LDL: 110-129 mg/dL Borderline High LDL: 130-159 mg/dL High LDL: 160-189 mg/dL Very High LDL: greater than or equal to 190 mg/dL HDL 98 >40 mg/dL Desirable HDL: greater than 40 mg/dL Note: This HDL assay may give artificially low results in patients with liver disease. Vitamin D 25-OH 36.8 >30 ng/mL Health Based Reference Values* < 20 ng/mL Deficient 20-30 ng/mL Insufficient > 30 ng/mL Sufficient *Dasia DAVIS. N Engl J Med. 2007;357:266-280 There is no well-established upper level of normal vitamin D levels. Some laboratories use 50 ng/mL as an upper limit of normal. However, toxicity is patient-dependent and may occur at any level. Careful correlation with the patient's presentation is necessary and, if there is concern for vitamin D toxicity, treatment should be considered irrespective of the serum level. Care must be taken in interpreting Vitamin D results from different laboratories and methodologies. Published data demonstrated that results from patients undergoing hemodialysis may show a negative bias when tested with various automated 25-OH vitamin D assays when compared to LC-MS/MS. When testing samples from patients whose predominant form of Vitamin D is Vitamin D2, such as patients receiving Vitamin D2 supplementation, results that are subtherapeutic should be confirmed with another method such as LC-MS/MS. Free T4 1.26 0.71-1.85 ng/dL TSH 3rd Gen. 0.30 L 0.32-4.0 uIU/mL Coding Level of Care Code Est Pt Level 4 (21310) Complex EM visit Add On G2211 Diagnoses Essential hypertension I10 Dyslipidemia E78.5 Acquired hypothyroidism E03.9 Assessment & Plan Assessment & Plan (1) Essential hypertension: Code(s): I10 - Essential (primary) hypertension Category: Medical Plan: Continue amlodipine at the same dose 2.5 mg daily (2) Dyslipidemia: Code(s): E78.5 - Hyperlipidemia, unspecified Category: Medical Plan: Currently on atorvastatin 20 mg taken 1 tablet 3 times (3) Acquired hypothyroidism: Code(s): E03.9 - Hypothyroidism, unspecified Category: Medical Plan: Continue levothyroxine 112 mcg daily in the morning. Repeat fasting labs to check thyroid electrolytes lipids liver enzymes and hemoglobin hematocrit in July 2025 Orders: Orders Free T4 (Free Thyroxine) 07/28/25 E03.9 - Hypothyroidism, unspecified, E78.5 - Hyperlipidemia, unspecified, I10 - Essential (primary) hypertension, M85.852 - Other specified disorders of bone density and structure, left thigh, Z78.0 - Asymptomatic menopausal state Basic Metabolic Panel Fasting 07/28/25 E03.9 - Hypothyroidism, unspecified, E78.5 - Hyperlipidemia, unspecified, I10 - Essential (primary) hypertension, M85.852 - Other specified disorders of bone density and structure, left thigh, Z78.0 - Asymptomatic menopausal state Aspartate Amino Transferase 07/28/25 E03.9 - Hypothyroidism, unspecified, E78.5 - Hyperlipidemia, unspecified, I10 - Essential (primary) hypertension, M85.852 - Other specified disorders of bone density and structure, left thigh, Z78.0 - Asymptomatic menopausal state Vitamin D 25-OH Total 07/28/25 E03.9 - Hypothyroidism, unspecified, E78.5 - Hyperlipidemia, unspecified, I10 - Essential (primary) hypertension, M85.852 - Other specified disorders of bone density and structure, left thigh, Z78.0 - Asymptomatic menopausal state Triiodothyronine T3 Free 07/28/25 E03.9 - Hypothyroidism, unspecified, E78.5 - Hyperlipidemia, unspecified, I10 - Essential (primary) hypertension, M85.852 - Other specified disorders of bone density and structure, left thigh, Z78.0 - Asymptomatic menopausal state Thyroid Stimulating Hormone 07/28/25 E03.9 - Hypothyroidism, unspecified, E78.5 - Hyperlipidemia, unspecified, I10 - Essential (primary) hypertension, M85.852 - Other specified disorders of bone density and structure, left thigh, Z78.0 - Asymptomatic menopausal state Alanine Aminotransferase 07/28/25 E03.9 - Hypothyroidism, unspecified, E78.5 - Hyperlipidemia, unspecified, I10 - Essential (primary) hypertension, M85.852 - Other specified disorders of bone density and structure, left thigh, Z78.0 - Asymptomatic menopausal state Lipid Panel 07/28/25 E03.9 - Hypothyroidism, unspecified, E78.5 - Hyperlipidemia, unspecified, I10 - Essential (primary) hypertension, M85.852 - Other specified disorders of bone density and structure, left thigh, Z78.0 - Asymptomatic menopausal state Hemoglobin and Hematocrit 07/28/25 E03.9 - Hypothyroidism, unspecified, E78.5 - Hyperlipidemia, unspecified, I10 - Essential (primary) hypertension, M85.852 - Other specified disorders of bone density and structure, left thigh, Z78.0 - Asymptomatic menopausal state
[2025-01-30 09:37] VITALS: BP 142/70; PULSE 85; RESP 16; TEMP 36.8; O2SAT 96; BMI 29.5
--- OUTSIDE RECORDS SUMMARY | 2025-01-30 09:44 | XMS_ITS | Patient Health Record ---
Author Organization [facility] [place] Address [address] [place] [address] Care Team Providers Care Vocational Trainer Name Role Phone Joy VINCENT, Nuria Quach Primary Care Provider Un available Helen Mathew Unavailable [phone] Allergies No Known Allergies Reason For Referral [...] Dalton Referring Provider Last Name Philip [facility] Referred Provider Helen Mathew Referred Address [address] [place], [place],[address], Referred Provider Specialty Podiatry Referral Priority Routine [...] Problem Acquired hammer toe of right foot ([id number] 105) Other hammer toe(s) (acquired), right foot (M20.41) Active confirmed Problem Viral wart (47050643) Other viral warts (B07.8) Active confirmed Problem Tinea unguium (643141177) Tinea unguium (B35.1) Active confirmed Problem Acquired hammer toe of left foot (5326567237946 103) Other hammer toe(s) (acquired), left foot (M20.42) Active confirmed Vital Signs Blood pressure diastolic 65 mm Hg 12/18/2024 Height 4 ft 10 in in 12/18/2024 Blood pressure systolic 126 mm Hg 12/18/2024 Weight 138 lbs 12/18/2024 BMI 28.84 kg/m2 12/18/2024 Procedures Procedure Date Ordered Date Performed Result Body Sit e 82790-VZDKGNU NAIL, 6 OR MORE 03/20/2024 N/A 96286-Eyuq Destruction, 1-14 03/20/2024 N/A 12486-ZMAQWGA NAIL, 6 OR MORE 05/25/2024 N/A 83345-Dxba Destruction, 1-14 05/25/2024 N/A 40872-GLZCERD NAIL, 6 OR MORE 08/03/2024 N/A 04054-Rdcj Destruction, 1-14 08/03/2024 N/A 05860-FWHWJNR NAIL, 6 OR MORE 10/09/2024 N/A 72161-Mwto Destruction, 1-14 10/09/2024 N/A 91666-Urrcickc Plate 10/09/2024 N/A 10773-QCOYPWC NAIL, 6 OR MORE 12/18/2024 N/A 43997-Anbo Destruction, 1-14 12/18/2024 N/A Encounters Encounter Location Date Provider Diagnosis [address] [address] 03/20/2024 Helen Black Other viral warts B07.8 ; Tinea unguium B35.1 ; Pain in right toe(s) M79.674 ; Pain in left toe(s) M79.675 and Pain in right foot M79.[address] [address] 05/25/2024 Helen Black Other viral warts B07.8 ; Tinea unguium B35.1 ; Pain in right toe(s) M79.674 ; Pain in left toe(s) M79.675 and Pain in right foot M79.[address] [address] 08/03/2024 Helen Black Other viral warts B07.8 ; Tinea unguium B35.1 ; Pain in right toe(s) M79.674 ; Pain in left toe(s) M79.675 and Left foot pain M79.[address] [address] 10/09/2024 Helen Black Other viral warts B07.8 ; Tinea unguium B35.1 ; Pain in right toe(s) M79.674 ; Pain in left toe(s) M79.675 ; Left foot pain M79.672 and Ingrown nail L60.0 [facility] [address] [place] [address] 12/18/2024 Helen Black Other viral warts B07.8 [...] Treatment Pending Test Test Name Order Date 43827-SKYKYPC NAIL, 6 OR MORE 12/08/2018 61724-EQMANQU NAIL, 6 OR MORE 03/16/2019 42499-VCDDMOA NAIL, 6 OR MORE 06/05/2019 85203-LTJGSXJ NAIL, 6 OR MORE 09/14/2019 65704-XXNXXIY NAIL, 6 OR MORE 11/23/2019 14540-HJVEVHF NAIL, 6 OR MORE 02/01/2020 66457-BTWMAQE NAIL, 6 OR MORE 04/15/2020 51691-TQSCEFT NAIL, 6 OR MORE 06/20/2020 84554-SVBNGRX NAIL, 6 OR MORE 08/26/2020 80812-SDWATDT NAIL, 6 OR MORE 11/04/2020 96395-KKHOMFL NAIL, 6 OR MORE 02/10/2021 87385-ZVVZVWU NAIL, 6 OR MORE 05/01/2021 74067-IIANCVF NAIL, 6 OR MORE 07/10/2021 64512-FAMKASP NAIL, 6 OR MORE 09/29/2021 26542-GPYILQS NAIL, 6 OR MORE 12/04/2021 63269-ZWNLYFN NAIL, 6 OR MORE 02/16/2022 02432-WZJTAWJ NAIL, 6 OR MORE 05/21/2022 64185-KBGZXHG NAIL, 6 OR MORE 07/30/2022 15521-IAYHQAN NAIL, 6 OR MORE 10/01/2022 95480-RMKETUH NAIL, 6 OR MORE 12/03/2022 23162-BFUXMNB NAIL, 6 OR MORE 02/11/2023 30442-WRMQAXN NAIL, 6 OR MORE 04/22/2023 75458-ZTBGWOT NAIL, 6 OR MORE 06/24/2023 48466-HYSWAVX NAIL, 6 OR MORE 09/02/2023 41413-FPXGJGG NAIL, 6 OR MORE 11/22/2023 10017-PGTUVLW NAIL, 6 OR MORE 01/10/2024 54976-JADVXOO NAIL, 6 OR MORE 03/20/2024 44036-OYCNRMH NAIL, 6 OR MORE 05/25/2024 16857-GIJQTEO NAIL, 6 OR MORE 08/03/2024 80078-SLFUTXL NAIL, 6 OR MORE 10/09/2024 52595-IJNDAEJ NAIL, 6 OR MORE 12/18/2024 07912-Dxzv Destruction, -14 10/09/2024 09542-Ddrw Destruction, -14 12/18/2024 82745-Jmzy Destruction, -14 08/03/2024 11377-Tqla Destruction, -05/25/2024 23035-Axrf Destruction, -14 03/20/2024 13595-Lezf Destruction, -14 01/10/2024 66961-Htrz Destruction, -14 02/11/2023 97844-Jwel Destruction, -11/22/2023 57525-Gbgw Destruction, -14 09/02/2023 93002-Ethg Destruction, -14 06/24/2023 20501-Hhvs Destruction, -14 04/22/2023 93722-Akxm Destruction, -14 12/04/2021 45860-Ncqy Destruction, -14 12/03/2022 63394-Dtew Destruction, -14 10/01/2022 88446-Ifbz Destruction, -07/30/2022 07506-Hhca Destruction, 04-1805/21/2022 44699-Iaaf Destruction, 14 02/16/2022 90455-Otik Destruction, -14 05/01/2021 59412-Idog Destruction, -14 09/29/2021 08503-Bobh Destruction, -07/10/2021 13840-Cldw Destruction, 04-1811/04/2020 02285-Coms Destruction, 04-1802/10/2021 31295-Vhpj Destruction, 04-1808/26/2020 12149-Lbre Destruction, 04-1806/20/2020 98860-Vnpd Destruction, 04-1804/15/2020 63904-Fgkz Destruction, 04-1809/14/2019 17855-Bube Destruction, 04-1802/01/2020 65327-Eakl Destruction, 04-1811/23/2019 51320-Qcay Destruction, 04-1812/08/2018 01694-Nnaf Destruction, 04-1806/05/2019 92361-Hgju Destruction, 04-1803/16/2019 26785-Ikgyfrjj Plate 06/05/2019 69198-Ixjxkqku Plate 02/01/2020 86314-Icbbvryv Plate 11/04/2020 01318-Bqiwgeib Plate 05/01/2021 87019-Flwjdgwi Plate 02/10/2021 35058-Hhengaqc Plate 09/29/2021 82215-Oounyseo Plate 12/04/2021 63119-Qevgnlgv Plate 12/03/2022 52836-Eleapvdx Plate 02/11/2023 56345-Xatzfjsk Plate 11/22/2023 83162-Fmswebwa Plate 10/09/2024 57741-Bnorqram Plate Each Additional 92547-Soolxlbw Plate Each Additional 11/2020 95385- Debride <25 sq cm 09/14/2019 Next Appt Details Provider Name:Helen Mathew , 02/12/2025 11:00:00 AM, [address] [place] [address], [phone], Provider Name:Helen Mathew , 04/26/2025 02:00:00 PM, [address] [place] [address], [phone], Insurance Providers Payer Name Payer Address Payer Phone Subscriber Number Group Number Insured Name Patient Relationship to Insured Coverage Start Date Coverage End Date [facility] [address] [place] [phone] [id number] Dina Levy Self - patient is the [...]
[2025-01-30 09:45] VITALS: BP 130/75
== END 2025-01-30 10:22 | disposition home or self-care (01) ==
LOC: HO.HMCC 08:54
PROVIDERS: PCP Internal Medicine; Visit Provider Internal Medicine
DX: I10 Essential (primary) hypertension (principal); E78.5 Hyperlipidemia, unspecified; E03.9 Hypothyroidism, unspecified

== ENCOUNTER → 2025-01-30 08:53 | Outpatient (BNVA) | payer MEDICARE, SELFPAY | PROVIDERS: PCP Internal Medicine; Visit Provider Internal Medicine | DX: I10 Essential (primary) hypertension (principal); E78.5 Hyperlipidemia, unspecified; E03.9 Hypothyroidism, unspecified; M79.604 Pain in right leg; R01.1 Cardiac murmur, unspecified; Z78.0 Asymptomatic menopausal state; Z79.899 Other long term (current) drug therapy | CPT/HCPCS: 96127; 99212 ==

== ENCOUNTER 2025-02-23 09:35 | Outpatient (AMB) | payer MEDICARE, SELFPAY ==
--- OUTSIDE RECORDS SUMMARY | 2023-11-11 06:15 | XMS_ITS ---
Author Organization [facility] Address [address] [place] [id number] Care Team Providers Care Nut Sheller Name Role Phone Joy VINCENT, Nuria Quach Primary Care Provider Un available Helen Mathew Unavailable [phone] Sheppard Encounters Encounter Location Date Provider Diagnosis [address] [address] 11/11/2023 Helen Quincy Plan Of Treatment Next Appt Details Provider Name:Helen Mathew , 04/26/2025 02:00:00 PM, [address] [place] [address], [phone], Provider Name:Helen Mathew , 06/28/2025 11:00:00 AM, [address] [place] [address], [phone], Progress Notes * Dina LEVY MDOB: 9 (84 yo F)Acc No.[id number]:11/11/2023 Progress Note Patient: Ochoa TORRESDina RONDON Provider: Ochoa Mathew DPM :1940 A ge:82 Y S ex:Female Date:11/11/2023 Address:[address] [place] [address] [place] Pcp:Brad Cervantes Subjective: * Chief Complaints: * [address] Sheppard. * Medical History: Objective: * Vitals: Assessment: Plan: * Treatment: * Images: * The named appointment provid er may or may not be the originator of this progress note, and it is not deemed complete until electronically signed by the appointment provider. Sign off status: Pending * Provider: Ochoa Mathew DPM Date: 0 11/11/2023 Generated for Mario hawley/Dixon/Anita on: 1 04/25/2024 10:11 AM EST
--- NOTE | 2025-02-23 10:05 | MHC.OFFVIS ---
Intake Visit Reasons: 3m/pessary maintenance Intake Note: Patient is present for 3M/Pessary maintenance Urology Medication:None Antibiotic Allergy:None Blood Thinner:Aspirin Correction Warden Required: No Allergies No Known Allergies Allergy (Verified 02/23/25 10:06) Medication List - Last Reconciled 02/23/25 by Ambrose Lee MD amlodipine 2.5 mg PO DAILY aspirin (Adult Low Dose Aspirin) 81 mg PO DAILY atorvastatin 20 mg PO 3XW cholecalciferol (vitamin D3) 50 mcg PO DAILY estradiol 0.01%(0.1mg/gram) (Estrace) Use pea-sized amount on fingertip apply Wednesday vaginally at bedtime; levothyroxine 112 mcg PO QAM HPI Comments Details: 02/23/25--Dina is an 84-year-old female who has been managed with pessary for vaginal prolapse. c/o vaginal discharge. History of aortic stenosis, hypertension, history of total hysterectomy 1984. Here for pessary maintenance. Pessary mentor ring with support size 4 removed/cleaned/and replaced without difficulty. Comorbidity-constipation, discussed Dulcolax PRN. Will start Estrace cream MWF. Continue pessary management. Follow-up in 3 months. 11/24/24--Dina is an 83-year-old female who has been managed with pessary for vaginal prolapse. History of aortic stenosis, hypertension, history of total hysterectomy 1984. Here for pessary maintenance. Pessary mentor ring with support size 4 removed/cleaned/and replaced without difficulty. Comorbidity-constipation, discussed Dulcolax PRN. Continue pessary management. Follow-up in 3 months. 08/24/24--Dina is an 83-year-old female who has been managed with pessary for vaginal prolapse. History of aortic stenosis, hypertension, history of total hysterectomy 1984. Pessary mentor ring with support size 4 removed/cleaned/and replaced without difficulty. Continue pessary management. Follow-up in 3 months. 83-year-old female presenting with urinary symptoms related to vaginal prolapse management. She experiences increased discharge toward the end of her pessary maintenance cycle, making it challenging to manage the pessary independently. Despite having no burning sensations or significant urinary concerns, she reports a bulging sensation, complicating her hygiene routine. Her medical history includes aortic stenosis, hypertension, total hysterectomy, and previous concerns related to vaginal prolapse. 05/29/24--Dina is an 83-year-old female who has been managed with pessary for cystocele. She denies gross hematuria or dysuria. She was seen last 02/14/2024, at that time pessary was increased in size from a mentor ring 3-4. Pessary mentor ring with support size 4 removed/cleaned/and replaced without difficulty. Continue pessary management. Follow-up in 3 months. 02/14/24-FU pessary maintenance. Dina is an 83-year-old female who has been managed with pessary for cystocele. She comes in today and states that about a week ago Wednesday the pessary fell out. She states that she has had a cold and has been coughing and 1 of the times that she coughed she felt that the pessary had fallen out. She brought the pessary to the office. She denies irritative voiding symptoms. On pelvic examination it was determined to size up on the pessary. Pessary - mentor size 4 ring with support inserted vaginally. 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 Last seen 07/26/23, denies irritativie voiding symptoms, UA - nitritie positive - will send for c/s. She denies UTI symptoms. Here for pessary maintenance. Pessary removed/cleaned/and replaced without difficulty. Continue pessary management. 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 organs COVID-19 vaccine dose declined Left medial knee pain Bilateral hip pain Post-menopause Tubular adenoma of colon Osteopenia of left femoral neck Nonrheumatic aortic (valve) stenosis Essential hypertension Dyslipidemia Acquired hypothyroidism Acquired deformity of toenail Surgical History Hx of colonoscopy History of total abdominal hysterectomy and bilateral salpingo-oophorectomy Hx of cholecystectomy Family History Father CAD (coronary artery disease) Myocardial infarction Mother Type 2 diabetes mellitus Social History Housing: House Alcohol intake: current Patient Tobacco Use Status: Never used Tobacco e-Cigarette/Vaping Use: Never Used Second Hand Smoke Exposure: No Current occupational status: retired Cognitive needs: No Hearing needs: No Vision needs: Yes Review of Systems Const All systems reviewed & are unremarkable except as noted in HPI and below Reports no additional complaints Eyes Reports no additional complaints ENT Reports no additional complaints Card Reports no additional complaints Resp Reports no additional complaints GI Reports no additional complaints Reports as per HPI Musc Reports no additional complaints Skin/Breast Reports system reviewed and no additional complaints, except as documented Neuro Reports no additional complaints Psych Reports no additional complaints Endo Reports no additional complaints Jame/Lymph Reports no additional complaints Aller/Immun Reports no additional complaints Assessment & Plan Assessment & Plan (1) Prolapse of female pelvic organs: Code(s): N81.9 - Female genital prolapse, unspecified Category: Medical (2) Constipation: Code(s): K59.00 - Constipation, unspecified Category: Medical (3) Vaginal atrophy: Code(s): N95.2 - Postmenopausal atrophic vaginitis Category: Medical Plan Will start Estrace cream MWF. Continue pessary management. Comorbidity-constipation, discussed Dulcolax PRN. Follow-up in 3 months. Medications: New estradiol 0.01%(0.1mg/gram) (Estrace) Use pea-sized amount on fingertip apply Wednesday vaginally at bedtime; 42.5 grams 1RF Coding Level of Care Code Est Pt Level 4 (38874) Diagnoses Prolapse of female pelvic organs N81.9 Constipation K59.00 Vaginal atrophy N95.2
--- OUTSIDE RECORDS SUMMARY | 2025-02-23 10:14 | XMS_ITS | Patient Health Record ---
Author Organization [facility] [place] Address [address] [place] [address] Care Team Providers Care Merchandise Flow Manager Name Role Phone Joy VINCENT, Nuria Quach Primary Care Provider Un available Helen Mathew Unavailable [phone] Allergies No Known Allergies Reason For Referral [...] Dalton Referring Provider Last Name Philip [facility] [place] Referred Provider Helen Mathew Referred Address [address] [place], [place],[address], Referred Provider Specialty Podiatry Referral Priority Routine Medications Medication SIG (Take, Route, Frequency, Duration) Notes Start Date End Date Status Atorvastatin Calcium 20 MG 1 tablet Oral ly Once a day; Duration: 90 day(s) Active Levothyroxine Sodium 112 MCG 1 tablet on an empty stomach in the morning Orally Once a day; Duration: 90 days Active Vitamin D Active Probiotic Not-Taking Chlorthalidone 25 mg 1 tablet in the morning Orally Once a day Not-Taking Ciclopirox Olamine 0.77 % 1 application Externally Twice a day; Duration: 30 days 08/26/2020 Not-Takin g Flax Seed Oil Not-Ta radha Magnesium Active amLODIPine Besylate 2.5 MG 1 tablet Oral ly Once a day Active Aspirin EC 81 MG 1 tablet Orally Once a day; Duration: 90 day(s) Active Immunizations Vaccine Route Administration Date Status Comme nts Influenza Unknown 12/14/2017 Administered Influenza Unknown 11/29/2019 Administered Influenza Unknown 12/05/2023 Administered Influenza Unknown 02/06/2025 Administered Pneumococcal Unknown 04/04/2018 Administered COVID-19 Pfizer [...] W/U Status Risk Notes Problem Viral wart (46487751) Other viral warts (B07.8) Active confirmed Problem Tinea unguium (578485652) Tinea unguium (B35.1) Active confirmed Vital Signs Blood pressure diastolic 65 mm Hg 02/12/2025 Height 4 ft 10 in in 02/12/2025 Blood pressure systolic 130 mm Hg 02/12/2025 Weight 138 lbs 02/12/2025 BMI 28.84 kg/m2 02/12/2025 Procedures Procedure Date Ordered Date Performed Result Body Sit e 07276-KDFLVYE NAIL, 6 OR MORE 03/20/2024 N/A 10820-Towu Destruction, 1-14 03/20/2024 N/A 79167-BXVWTVZ NAIL, 6 OR MORE 05/25/2024 N/A 64659-Qimb Destruction, 1-14 05/25/2024 N/A 60873-SMLPARN NAIL, 6 OR MORE 08/03/2024 N/A 81260-Wvpk Destruction, 1-14 08/03/2024 N/A 02590-SYQBTTC NAIL, 6 OR MORE 10/09/2024 N/A 83947-Doex Destruction, 1-14 10/09/2024 N/A 81305-Fzpkxhup Plate 10/09/2024 N/A 91277-LLBCRYM NAIL, 6 OR MORE 12/18/2024 N/A 71842-Uszu Destruction, 1-14 12/18/2024 N/A 79952-VKGYMNJ NAIL, 6 OR MORE 02/12/2025 N/A 77717-Kadm Destruction, 1-14 02/12/2025 N/A 68123-Wgggkqkl Plate 02/12/2025 N/A 23619-Ejjgrhuy Plate Each Additional 02/12/2025 N/A Encounters Encounter Location Date Provider Diagnosis [address] [address] 03/20/2024 Helen Black Other viral warts B07.8 ; Tinea unguium B35.1 ; Pain in right toe(s) M79.674 ; Pain in left toe(s) M79.675 and Pain in right foot M79.[address] [address] 05/25/2024 Helen Black Other viral warts B07.8 ; Tinea unguium B35.1 ; Pain in right toe(s) M79.674 ; Pain in left toe(s) M79.675 and Pain in right foot M79.[address] [address] 08/03/2024 Helen Black Other viral warts B07.8 ; Tinea unguium B35.1 ; Pain in right toe(s) M79.674 ; Pain in left toe(s) M79.675 and Left foot pain M79.[address] [address] 10/09/2024 Helen Black Other viral warts B07.8 ; Tinea unguium B35.1 ; Pain in right toe(s) M79.674 ; Pain in left toe(s) M79.675 ; Left foot pain M79.672 and Ingrown nail L60.0 [facility] [address] [place] [address] 12/18/2024 Helen Mathew Other viral warts B07.8 ; Tinea unguium B35.1 ; Pain in right toe(s) M79.674 ; Pain in left toe(s) M79.675 and Left foot pain M79.[address] [address] 02/12/2025 Helen Mathew Other viral warts B07.8 ; Tinea unguium B35.1 ; Pain in right toe(s) M79.674 ; Pain in left toe(s) M79.675 ; Left foot pain M79.672 ; Ingrown nail L60.0 and Ingrowing nail L60.0 Assessments Encounter Date Diagnosis (ICD Code) Assessment Notes Treatment Notes Treatment Clinical Notes Section Notes 03/20/2024 Other viral warts (ICD-10 - B07.8) 05/25/2024 Other viral warts (ICD-10 - B07.8) 08/03/2024 Other viral warts (ICD-10 - B07.8) 08/03/2024 Tinea unguium (ICD-10 - B35.1) 10/09/2024 Other viral warts (ICD-10 - B07.8) 12/18/2024 Other viral warts (ICD-10 - B07.8) 02/12/2025 Other viral warts (ICD-10 - B07.8) 02/12/2025 Tinea unguium (ICD-10 - B35.1) 12/18/2024 Tinea unguium (ICD-10 - B35.1) 10/09/2024 Tinea unguium (ICD-10 - B35.1) 08/03/2024 Pain in right toe(s) (ICD-10 - M79.674) 05/25/2024 Tinea unguium (ICD-10 - B35.1) 03/20/2024 Tinea unguium (ICD-10 - B35.1) 02/12/2025 Pain in right toe(s) (ICD-10 - M79.674) 02/12/2025 Pain in left toe(s) (ICD-10 - M79.675) [...] Pain in left toe(s) (ICD-10 - M79.675) 02/12/2025 Left foot pain (ICD-10 - M79.672) 10/09/2024 Left foot pain (ICD-10 - M79.672) 02/12/2025 Ingrown nail (ICD-10 - L60.0) 03/20/2024 Pain in right foot (ICD-10 - M79.671) 05/25/2024 Pain in right foot (ICD-10 - M79.671) 12/18/2024 Left foot pain (ICD-10 - M79.672) 10/09/2024 Ingrown nail (ICD-10 - L60.0) 02/12/2025 Ingrowing nail (ICD-10 - L60.0) Plan Of Treatment Pending Test Test Name Order Date 03991-EJWESVS NAIL, 6 OR MORE 12/08/2018 58108-RPHOFOK NAIL, 6 OR MORE 03/16/2019 15364-YKELQNN NAIL, 6 OR MORE 06/05/2019 25028-IBIKXEA NAIL, 6 OR MORE 09/14/2019 68818-KFZYBZW NAIL, 6 OR MORE 11/23/2019 26791-BAMZKSC NAIL, 6 OR MORE 02/01/2020 84265-VUHXNHM NAIL, 6 OR MORE 04/15/2020 81701-SCURGOT NAIL, 6 OR MORE 06/20/2020 99550-XSPOAKN NAIL, 6 OR MORE 08/26/2020 82044-HKVBZVV NAIL, 6 OR MORE 11/04/2020 75086-EXTZLNI NAIL, 6 OR MORE 02/10/2021 15668-EBFWTJE NAIL, 6 OR MORE 05/01/2021 75303-GNABPGW NAIL, 6 OR MORE 07/10/2021 67860-NCBTBOJ NAIL, 6 OR MORE 09/29/2021 51136-VIQXJEM NAIL, 6 OR MORE 12/04/2021 85464-WVPOOKG NAIL, 6 OR MORE 02/16/2022 35792-SMGCCQK NAIL, 6 OR MORE 05/21/2022 42707-ZCNHFUO NAIL, 6 OR MORE 07/30/2022 29885-DCGUYLK NAIL, 6 OR MORE 10/01/2022 64605-HOQLQOM NAIL, 6 OR MORE 12/03/2022 81262-GDKVNLL NAIL, 6 OR MORE 02/11/2023 38196-FLKGXVV NAIL, 6 OR MORE 04/22/2023 65886-BLNRYPM NAIL, 6 OR MORE 06/24/2023 11067-BZFVZDT NAIL, 6 OR MORE 09/02/2023 80450-VWSQORL NAIL, 6 OR MORE 11/22/2023 38384-GAEVQHP NAIL, 6 OR MORE 01/10/2024 19289-NOCTHPZ NAIL, 6 OR MORE 03/20/2024 47527-WUTXTQR NAIL, 6 OR MORE 05/25/2024 32123-GQSPPZP NAIL, 6 OR MORE 08/03/2024 11513-MBSQMTE NAIL, 6 OR MORE 10/09/2024 11102-JUMLOML NAIL, 6 OR MORE 12/18/2024 92099-HAZSFUY NAIL, 6 OR MORE 02/12/2025 20302-Pbbb Destruction, 1-02/12/2025 49685-Vqsh Destruction, 1-10/09/2024 28846-Xfsz Destruction, 1-12/18/2024 25147-Ecch Destruction, 1-08/0308/03/2024 40548-Faps Destruction, 04-1805/25/2024 07307-Maaa Destruction, 04-1803/20/2024 68179-Hvxh Destruction, 04-1801/10/2024 10612-Qgjt Destruction, 04-1802/11/2023 78694-Gllh Destruction, 04-1811/22/2023 93889-Iddk Destruction, 04-1809/02/2023 09697-Ldxc Destruction, 04-1806/24/2023 91266-Ymke Destruction, 04-1804/22/2023 39168-Twgc Destruction, 04-1812/04/2021 76876-Btdf Destruction, 04-1812/03/2022 03177-Zxlw Destruction, 04-1810/01/2022 61088-Cnll Destruction, 04-1807/30/2022 87992-Jksa Destruction, 04-1805/21/2022 32239-Qglw Destruction, 04-1802/16/2022 78026-Oavf Destruction, 04-1805/01/2021 25622-Zvio Destruction, 04-1809/29/2021 17619-Jekr Destruction, 04-1807/10/2021 53033-Vcwy Destruction, 04-1811/04/2020 17086-Aban Destruction, 04-1802/10/2021 70068-Qxif Destruction, 04-1808/26/2020 94077-Osqw Destruction, 04-1806/20/2020 73844-Ciow Destruction, 04-1804/15/2020 48910-Mkpa Destruction, 04-1809/14/2019 01225-Ywds Destruction, 04-1802/01/2020 75452-Rbxa Destruction, 04-1811/23/2019 69354-Vkkf Destruction, 04-1812/08/2018 34382-Egam Destruction, 04-1806/05/2019 65991-Csam Destruction, 14 03/16/2019 73447-Kievbjbh Plate 06/05/2019 11375-Ggjizwpm Plate 02/01/2020 60111-Ofisousq Plate 11/04/2020 43933-Tibjuaxh Plate 05/01/2021 83026-Uboajmuh Plate 02/10/2021 38723-Qextlnyu Plate 09/29/2021 59637-Bkrkvtlj Plate 12/04/2021 17240-Jyplilnh Plate 12/03/2022 04943-Tikhgdiz Plate 02/11/2023 27125-Vygnaieq Plate 11/22/2023 53267-Nraqpxlu Plate 10/09/2024 89226-Yfkmcvpi Plate 02/12/2025 40630-Abpazapk Plate Each Additional 01/2025 72408-Juydvxcx Plate Each Additional 90495-Ranircev Plate Each Additional 11/2020 31766- Debride <25 sq cm 09/14/2019 Next Appt Details Provider Name:Helen Mathew , 04/26/2025 02:00:00 PM, [address] [place] [address], [phone], Provider Name:Helen Mathew , 06/28/2025 11:00:00 AM, [address] [place] [address], [phone], Insurance Providers Payer Name Payer Address Payer Phone Subscriber Number Group Number Insured Name Patient Relationship to Insured Coverage Start Date Coverage End Date [facility] [address] [place] [phone] [id number] Dina Levy Self - patient is the [...]
== END 2025-02-23 10:30 | disposition home or self-care (01) ==
LOC: HO.HUSH 09:35
PROVIDERS: PCP Internal Medicine; Visit Provider Urology
DX: N81.9 Female genital prolapse, unspecified (principal); K59.00 Constipation, unspecified; N95.2 Postmenopausal atrophic vaginitis; Z13.9 Encounter for screening, unspecified
CPT/HCPCS: 99214

== ENCOUNTER → 2025-02-23 09:35 | Outpatient (BNVA) | payer MEDICARE, SELFPAY | PROVIDERS: PCP Internal Medicine; Visit Provider Urology | DX: N95.2 Postmenopausal atrophic vaginitis (principal); K59.00 Constipation, unspecified; N81.9 Female genital prolapse, unspecified | CPT/HCPCS: 81003; 99212 ==